=== PATIENT | female | born 1935 | race Caucasian/White ===

== ENCOUNTER 2018-11-08 15:51 | Observation (INO) | payer MEDICARE, OTHER ==
[2018-11-08] MEDS ORDERED: Sodium Chloride 0.9% 10 ML Syringe FLUSH PRN (16:24)
[2018-11-08] MEDS ORDERED: Ondansetron 4 MG/2 ML SDV IVPUSH ONE (16:35)
--- NOTE | 2018-11-08 16:37 | EDM.PDOC ---
ED HPI GENERAL MEDICAL PROBLEM - General Chief Complaint: Syncope Stated Complaint: SYNCOPE/POSS UTI Time Seen by Provider: 11/08/18 16:01 Source of Information: Reports: Patient, Family History Limitations: Reports: No Limitations - History of Present Illness INITIAL COMMENTS - FREE TEXT/NARRATIVE: The patient presents with dizziness. She describes it as being lightheaded in nature and not vertigo. She says it is worse when she gets up to move. She felt like her heart was racing this morning. She was recently diagnosed with A- fib with RVR here in the ER and she was sent to [facility]. She was just released on the . She saw Dr Cervantes on Friday. He did a UA and she had some WBCs but she had no symptoms. She currently has no symptoms such as dysuria, frequency or urgency. She has nausea but no vomiting or abdominal pain. She has no fever, chills, cough, chest pain or shortness of breath. She says she had 10/10 bilateral arm pain. She did not fall or injure her arms. She has chronic shoulder pain. She has no numbness or weakness in her arms. She did take an ultram and her pain is better. Onset: Gradual Duration: Day(s): Location: Reports: Upper Extremity, Left, Upper Extremity, Right Quality: Reports: Sharp Severity: Moderate Improves with: Reports: Immobilization Worsens with: Reports: Movement Associated Symptoms: Reports: Nausea/Vomiting. Denies: Chest Pain, Cough, Fever /Chills, Headaches, Shortness of Breath Bilateral Shoulder Pain Score (Numeric/FACES): 10 - Related Data Allergies Allergy/AdvReac Type Severity Reaction Status Date / Time codeine Allergy Rash Verified 10/25/18 12:27 iodine Allergy Rash Verified 10/25/18 12:27 metoprolol [From Toprol XL] Allergy swelling Verified 10/25/18 12:26 of lips naproxen [From Naprelan] Allergy Rash Verified 10/25/18 12:27 prednisone Allergy Other Verified 10/25/18 11:58 propoxyphene Allergy urine Verified 10/25/18 12:27 retention Home Meds: Home Meds Acetaminophen [Tylenol] 325 mg PO Q6HR PRN 11/08/18 [History] Allopurinol [Zyloprim] 100 mg PO BID 11/08/18 [History] Amiodarone HCl 400 mg PO DAILY 11/08/18 [History] Apixaban [Eliquis] 1 tab PO BID 11/08/18 [History] Ascorbic Acid 1 tab PO DAILY 11/08/18 [History] Aspirin 81 mg PO DAILY 11/08/18 [History] Bumetanide [Bumex] 1 tab PO BID 11/08/18 [History] Digoxin 125 mcg PO DAILY 11/08/18 [History] Diltiazem HCl [Diltiazem ER] 1 cap PO DAILY 11/08/18 [History] Fosinopril Sodium 0.5 tab PO DAILY 11/08/18 [History] Loratadine 1 tab PO DAILY 11/08/18 [History] Multivitamin [Multi-Vitamin Daily] 1 tab PO DAILY 11/08/18 [History] Niacin 1 tab PO DAILY 11/08/18 [History] Simvastatin 1 tab PO DAILY 11/08/18 [History] Vitamin E 1 tab PO DAILY 11/08/18 [History] traMADol [Ultram] 1 tab PO Q6HR PRN 11/08/18 [History] Past Medical History HEENT History: Reports: Impaired Vision Cardiovascular History: Reports: Afib, Arrhythmia, Heart Failure, High Cholesterol, Hypertension Respiratory History: Reports: None Gastrointestinal History: Reports: None 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: Musculoskeletal History: Reports: Back Pain, Chronic Other Musculoskeletal History: bilateral shoulder pain Endocrine/Metabolic History: Reports: Obesity/BMI 30+ Other Endocrine/Metabolic History: gout Social & Family History - Family History Family Medical History: Noncontributory - Tobacco Use Smoking Status *Q: Never Smoker - Caffeine Use Caffeine Use: Reports: Tea - Recreational Drug Use Recreational Drug Use: No ED ROS GENERAL - Review of Systems Review Of Systems: See Below Constitutional: Reports: No Symptoms HEENT: Reports: No Symptoms Respiratory: Reports: No Symptoms Cardiovascular: Reports: Lightheadedness. Denies: Chest Pain Endocrine: Reports: No Symptoms GI/Abdominal: Reports: Nausea. Denies: Abdominal Pain, Vomiting : Reports: No Symptoms Musculoskeletal: Reports: Other (Bilateral arm pain) ED EXAM, GENERAL - Physical Exam Exam: See Below Exam Limited By: No Limitations General Appearance: Alert, No Apparent Distress Ears: Normal External Exam Nose: Normal Inspection Head: Atraumatic, Normocephalic Neck: Normal Inspection Respiratory/Chest: No Respiratory Distress, Decreased Breath Sounds Cardiovascular: No Murmur, Irregularly Irregular, Other (edema in her legs) GI/Abdominal: Soft, Non-Tender, No Organomegaly, No Mass Extremities: Pedal Edema, Other (Mild pain upon palpation to both forearms and upper arms) Neurological: Alert, Oriented, No Motor/Sensory Deficits Course - Vital Signs Last Recorded V/S: Last Vital Signs Temp 97.9 F 11/08/18 16:01 Pulse 72 11/08/18 16:01 Resp 16 11/08/18 16:01 BP 139/94 H 11/08/18 16:01 Pulse Ox 99 11/08/18 16:01 - Orders/Labs/Meds Orders: Active Orders 24 hr Category Date Time Status Cardiac Monitoring [RC] . DIRECTED Care 11/08/18 16:24 Active EKG Documentation Completion [RC] STAT Care 11/08/18 16:25 Active Peripheral IV Care [RC] . DIRECTED Care 11/08/18 16:25 Active CXR [Chest 1V Frontal] [CR] Stat Exams 11/08/18 17:47 Taken DIGOXIN [CHEM] Stat Lab 11/08/18 16:40 Received Sodium Chloride 0.9% [Saline Flush] Med 11/08/18 16:24 Active 10 ml FLUSH ASDIRECTED PRN Peripheral IV Insertion Adult [OM.PC] Stat Oth 11/08/18 16:24 Ordered Medication Orders Sodium Chloride (Saline Flush) 10 ml FLUSH ASDIRECTED PRN PRN Reason: Keep Vein Open Last Admin: 11/08/18 17:00 Dose: 10 ml Labs: Laboratory Tests 11/08/18 11/08/18 11/08/18 Range/Units 16:40 16:40 16:40 WBC 8.89 (3.98-10.04) K/mm3 RBC 3.13 L (3.98-5.22) M/mm3 Hgb 10.0 L (11.2-15.7) gm/L Hct 30.6 L (34.1-44.9) % MCV 97.8 H (79.4-94.8) fl MCH 31.9 (25.6-32.2) pg MCHC 32.7 (32.2-35.5) g/dl RDW Std Deviation 45.8 (36.4-46.3) fL Plt Count 257 (182-369) K/mm3 MPV 10.6 (9.4-12.3) fl Neut % (Auto) 74.6 H (34.0-71.1) % Lymph % (Auto) 15.4 L (19.3-51.7) % [place]yer % (Auto) 8.9 (4.7-12.5) % Eos % (Auto) 0.6 L (0.7-5.8) Baso % (Auto) 0.1 (0.1-1.2) % Neut # (Auto) 6.63 H (1.56-6.13) K/mm3 Lymph # (Auto) 1.37 (1.18-3.74) K/mm3 Sawyer # (Auto) 0.79 H (0.24-0.36) K/mm3 Eos # (Auto) 0.05 (0.04-0.36) K/mm3 Baso # (Auto) 0.01 (0.01-0.08) K/mm3 Sodium 130 L (136-145) mEq/L Potassium 4.5 (3.5-5.1) mEq/L Chloride 94 L (98-107) mEq/L Carbon Dioxide 30 (21-32) mEq/L Anion Gap 10.5 (5-15) BUN 48 H (7-18) mg/dL Creatinine 1.8 H (0.55-1.02) mg/dL Est Cr Clr Drug Dosing 19.59 mL/min Estimated GFR (MDRD) 27 (>60) mL/min BUN/Creatinine Ratio 26.7 H (14-18) Glucose 134 H (83-115) mg/dL Calcium 9.7 (8.5-10.1) mg/dL Magnesium 1.5 L (1.8-2.4) mg/dl Total Bilirubin 0.5 (0.2-1.0) mg/dL AST 20 (15-37) U/L ALT 20 (14-59) U/L Alkaline Phosphatase 67 (46-116) U/L Troponin I < 0.017 (0.00-0.056) ng/mL NT-Pro-B Natriuret Pep 5299 H (0-450) pg/mL Total Protein 6.1 L (6.4-8.2) g/dl Albumin 3.6 (3.4-5.0) g/dl Globulin 2.5 gm/dL Albumin/Globulin Ratio 1.4 (1-2) Urine Color (Yellow) Urine Appearance (Clear) Urine pH (5.0-8.0) Ur Specific [place] (1.005-1.030) Urine Protein (Negative) Urine Glucose (UA) (Negative) Urine Ketones (Negative) Urine Occult Blood (Negative) Urine Nitrite (Negative) Urine Bilirubin (Negative) Urine Urobilinogen (0.2-1.0) Ur Leukocyte Esterase (Negative) Urine RBC (0-5) /hpf Urine WBC (0-5) /hpf Ur Epithelial Cells (0-5) /hpf Urine Bacteria (FEW) /hpf Urine Mucus (FEW) /hpf 11/08/18 Range/Units 17:15 WBC (3.98-10.04) K/mm3 RBC (3.98-5.22) M/mm3 Hgb (11.2-15.7) gm/L Hct (34.1-44.9) % MCV (79.4-94.8) fl MCH (25.6-32.2) pg MCHC (32.2-35.5) g/dl RDW Std Deviation (36.4-46.3) fL Plt Count (182-369) K/mm3 MPV (9.4-12.3) fl Neut % (Auto) (34.0-71.1) % Lymph % (Auto) (19.3-51.7) % Sawyer % (Auto) (4.7-12.5) % Eos % (Auto) (0.7-5.8) Baso % (Auto) (0.1-1.2) % Neut # (Auto) (1.56-6.13) K/mm3 Lymph # (Auto) (1.18-3.74) K/mm3 [place]yer # (Auto) (0.24-0.36) K/mm3 Eos # (Auto) (0.04-0.36) K/mm3 Baso # (Auto) (0.01-0.08) K/mm3 Sodium (136-145) mEq/L Potassium (3.5-5.1) mEq/L Chloride (98-107) mEq/L Carbon Dioxide (21-32) mEq/L Anion Gap (5-15) BUN (7-18) mg/dL Creatinine (0.55-1.02) mg/dL Est Cr Clr Drug Dosing mL/min Estimated GFR (MDRD) (>60) mL/min BUN/Creatinine Ratio (14-18) Glucose (83-115) mg/dL Calcium (8.5-10.1) mg/dL Magnesium (1.8-2.4) mg/dl Total Bilirubin (0.2-1.0) mg/dL AST (15-37) U/L ALT (14-59) U/L Alkaline Phosphatase (46-116) U/L Troponin I (0.00-0.056) ng/mL NT-Pro-B Natriuret Pep (0-450) pg/mL Total Protein (6.4-8.2) g/dl Albumin (3.4-5.0) g/dl Globulin gm/dL Albumin/Globulin Ratio (1-2) Urine Color Yellow (Yellow) Urine Appearance Clear (Clear) Urine pH 5.5 (5.0-8.0) Ur Specific [place] 1.010 (1.005-1.030) Urine Protein Negative (Negative) Urine Glucose (UA) Negative (Negative) Urine Ketones Negative (Negative) Urine Occult Blood Negative (Negative) Urine Nitrite Negative (Negative) Urine Bilirubin Negative (Negative) Urine Urobilinogen 0.2 (0.2-1.0) Ur Leukocyte Esterase Negative (Negative) Urine RBC Not seen (0-5) /hpf Urine WBC 0-5 (0-5) /hpf Ur Epithelial Cells 0-5 (0-5) /hpf Urine Bacteria Few (FEW) /hpf Urine Mucus Not seen (FEW) /hpf Meds: Medications Generic Name Dose Route Start Last Admin Trade Name Freq PRN Reason Stop Dose Admin Sodium Chloride 10 ml 11/08/18 16:24 11/08/18 17:00 Saline Flush FLUSH 10 ml ASDIRECTED PRN Administration Keep Vein Open Discontinued Medications Generic Name Dose Route Start Last Admin Trade Name Freq PRN Reason Stop Dose Admin Ondansetron HCl 4 mg 11/08/18 16:35 11/08/18 17:00 Zofran IVPUSH 11/08/18 16:36 4 mg ONETIME ONE Administration - Re-Assessments/Exams Free Text/Narrative Re-Assessment/Exam: 12/23/18 16:39 I ordered an IV saline lock, EKG, labs and UA. I will also give her some zofran. 11/08/18 18:04 Her EKG shows atrial fib with no acute changes. Her Hgb was low at 10. Her Na was low at 130. Her glucose was elevated at 136. Her magnesium was low at 1.5. Her troponin was negative. Her BNP was 5,299. That is elevated from the last time she was here. She is on bumex 1mg. She does have edema in her legs. I will get a CXR. 11/08/18 19:04 Her CXR looks good. I do not feel comfortable sending her home. She is dizzy and now her BP did go down to 97 systolic. She is on amiodarone, digoxin and cardizem. These could all be contributing to her problems. I called Dr Quesada and he agreed to the admission. He did want a digoxin level. I did ordered x- rays of her forearms and ultram 50mg by mouth. Departure - Departure Time of Disposition: 19:10 Disposition: Refer to Observation Condition: Good Clinical Impression: Lightheaded, Renal insufficiency Heart failure Qualifiers: Heart failure type: unspecified Heart failure chronicity: chronic Qualified Code(s): I50.9 - Heart failure, unspecified Atrial fibrillation Qualifiers: Atrial fibrillation type: chronic Qualified Code(s): I48.2 - Chronic atrial fibrillation Referrals: Branden Cervantes MD [Primary Care Provider] - Forms: ED Department Discharge - My Orders Last 24 Hours: My Active Orders 11/08/18 16:24 Cardiac Monitoring [RC] . DIRECTED Sodium Chloride 0.9% [Saline Flush] 10 ml FLUSH ASDIRECTED PRN Peripheral IV Insertion Adult [OM.PC] Stat 11/08/18 16:25 EKG Documentation Completion [RC] STAT Peripheral IV Care [RC] . DIRECTED 11/08/18 16:40 DIGOXIN [CHEM] Stat 11/08/18 17:47 CXR [Chest 1V Frontal] [CR] Stat - Assessment/Plan Last 24 Hours: My Active Orders 11/08/18 16:24 Cardiac Monitoring [RC] . DIRECTED Sodium Chloride 0.9% [Saline Flush] 10 ml FLUSH ASDIRECTED PRN Peripheral IV Insertion Adult [OM.PC] Stat 11/08/18 16:25 EKG Documentation Completion [RC] STAT Peripheral IV Care [RC] . DIRECTED 11/08/18 16:40 DIGOXIN [CHEM] Stat 11/08/18 17:47 CXR [Chest 1V Frontal] [CR] Stat
[2018-11-08] MEDS ORDERED: traMADol 50 MG Tab PO ONE (19:04)
[2018-11-08] MEDS ORDERED: Acetaminophen 325 MG Tab PO PRN ×2 (21:24→21:27)
[2018-11-08] MEDS ORDERED: Diltiazem 50 MG/10 ML SDV IVPUSH PRN (21:26)
[2018-11-08] MEDS ORDERED: hydrALAZINE 20 MG/ML SDV IVPUSH PRN (21:26)
[2018-11-08] MEDS ORDERED: LORazepam 2 MG/ML SDV IV PRN (21:27)
[2018-11-08] MEDS ORDERED: Ondansetron 4 MG/2 ML SDV IV PRN (21:27)
[2018-11-08] MEDS ORDERED: HYDROmorphone 1 MG/ML Syringe IVPUSH PRN (21:27)
[2018-11-08] MEDS ORDERED: Acetaminophen/HYDROcodone 325-5 MG Tab PO PRN (21:27)
[2018-11-08] MEDS ORDERED: Albuterol/Ipratropium 3.0-0.5 MG/3 ML Neb Soln NEB PRN (21:27)
[2018-11-08] MEDS ORDERED: Polyethylene Glycol 3350 Powder 17 GM Packet PO PRN (21:27)
[2018-11-08] MEDS ORDERED: Promethazine 6.25 MG in Sodium Chloride 0.9% 50 ML IV PRN (21:27)
[2018-11-08] MEDS ORDERED: Docusate Sodium 100 MG Cap PO PRN (21:27)
[2018-11-08] MEDS ORDERED: Bisacodyl 5 MG Tab PO PRN (21:27)
[2018-11-08] MEDS ORDERED: Bumetanide 1 MG/4 ML MDV IVPUSH ONE (21:41)
[2018-11-08] MEDS ORDERED: Magnesium Oxide 400 MG Tab PO ONE (22:00)
[2018-11-09] MEDS ORDERED: Hydrochlorothiazide 12.5 MG Cap PO SCH (06:00)
--- NOTE | 2018-11-09 06:51 | PCM.HP ---
H&P History of Present Illness - General Date of Service: 11/09/18 Admit Problem/Dx: Admission Diagnosis/Problem Admission Diagnosis/Problem Lightheadedness Source of Information: Patient, Family, Old Records, RN Notes Reviewed History Limitations: Reports: No Limitations - History of Present Illness Initial Comments - Free Text/Narative: This is an 83 yo elderly white female with past medical hx/o Impaired Vision, Atrial Fibrillation on Eliquis, ASA, Cardizem, Amiodarone and Digoxin, Heart Failure with Unknown EF, HTN, HLD, Chronic Back Pain, Chronic Bilateral Shoulder Pain, Gout, CKD Stage Stage 3 and Obesity Class I who comes in with complaints of dizziness, lightheadedness and generalized weakness. These seem to have started after her recent hospitalization in [place] for treatment of Atrial Fibrillation with RVR. She was just released on the with the following cardiac medications of Amiodarone, Digoxin and Cardizem CD. She was seen this past Friday by her PCP but no acute findings noted on her initial work up. She denies any signs of systemic infection. However she admits to having chronic shoulder pain due to OA. No report of recent trauma or falls. Her initial work up in ED shows a CBC remarkable for RBD of 3.13, Hgb of 10, Hct of 30.6, MCV of 97.8, Neutrophils of 74.6%, Lymphocytes of 15.4%, and Eosinophils of 0.6%. Her chemistry is significant for Na of 130, Cl of 94, BUN of 48, Cr of 1.8, BS of 134. Her bilateral forearm x-ray report reads degenerative change. Osteopenia. No acute fracture or abnormality is appreciated. Her chest x-ray report shows no acute abnormal findings. Patient was admitted last night for medical management of polypharmacy and Digoxin Toxicity. She is DNR/DNI. Bilateral Shoulder Pain Score (Numeric/FACES): 4 - Related Data Allergies/Adverse Reactions: Allergies Allergy/AdvReac Type Severity Reaction Status Date / Time codeine Allergy Rash Verified 10/25/18 12:27 iodine Allergy Rash Verified 10/25/18 12:27 metoprolol [From Toprol XL] Allergy swelling Verified 10/25/18 12:26 of lips naproxen [From Naprelan] Allergy Rash Verified 10/25/18 12:27 prednisone Allergy Other Verified 10/25/18 11:58 propoxyphene Allergy urine Verified 10/25/18 12:27 retention Home Medications: Home Meds Acetaminophen [Tylenol] 325 mg PO Q6HR PRN 11/08/18 [History] Allopurinol [Zyloprim] 100 mg PO BID 11/08/18 [History] Amiodarone HCl 400 mg PO DAILY 11/08/18 [History] Apixaban [Eliquis] 5 mg PO BID 11/08/18 [History] Ascorbic Acid 500 mg PO DAILY 11/08/18 [History] Aspirin 81 mg PO DAILY 11/08/18 [History] Bumetanide [Bumex] 1 mg PO BID 11/08/18 [History] Digoxin 0.125 mg PO DAILY 11/08/18 [History] Diltiazem HCl [Diltiazem ER] 120 mg PO DAILY 11/08/18 [History] Fosinopril Sodium 10 mg PO DAILY 11/08/18 [History] Loratadine 10 mg PO DAILY 11/08/18 [History] Multivitamin [Multi-Vitamin Daily] 1 tab PO DAILY 11/08/18 [History] Niacin 250 mg PO DAILY 11/08/18 [History] Simvastatin 20 mg PO DAILY 11/08/18 [History] Vitamin E 400 units PO DAILY 11/08/18 [History] traMADol [Ultram] 50 mg PO Q6HR PRN 11/08/18 [History] Past Medical History HEENT History: Reports: Cataract, Hard of Hearing, Impaired Vision Cardiovascular History: Reports: Afib, Arrhythmia, Heart Failure, High Cholesterol, Hypertension, Syncope Respiratory History: Reports: None Gastrointestinal History: Reports: None Genitourinary History: Reports: Chronic Renal Insuffiency [employer] History: Reports: Musculoskeletal History: Reports: Arthritis, Back Pain, Chronic, Gout, Other ( See Below) Other Musculoskeletal History: Chronic bilateral shoulder pain Neurological History: Reports: Vertigo Endocrine/Metabolic History: Reports: Obesity/BMI 30+ Other Endocrine/Metabolic History: gout Hematologic History: Reports: None Immunologic History: Reports: None Oncologic (Cancer) History: Reports: Other (See Below) Other Oncologic History: potential breast cancer, recent diagnossis. Dermatologic History: Reports: Other (See Below) Other Dermatologic History: cellulitis to leg right - Infectious Disease History Infectious Disease History: Reports: Chicken Pox, Measles, Shingles - Past Surgical History HEENT Surgical History: Reports: Cataract Surgery Cardiovascular Surgical History: Reports: None Female Surgical History: Reports: None Endocrine Surgical History: Reports: None Neurological Surgical History: Reports: None Musculoskeletal Surgical History: Reports: Other (See Below) Other Musculoskeletal Surgeries/Procedures:: knee repair Other Oncologic Surgeries/Procedures: titanium tag in breast for marking Social & Family History - Family History Family Medical History: Noncontributory - Tobacco Use Smoking Status *Q: Never Smoker Second Hand Smoke Exposure: No - Caffeine Use Caffeine Use: Reports: Tea - Recreational Drug Use Recreational Drug Use: No H&P Review of Systems - Review of Systems: Review Of Systems: See Below General: Reports: Weakness. Denies: Fever, Chills, Malaise, Fatigue HEENT: Reports: No Symptoms Pulmonary: Reports: Shortness of Breath Cardiovascular: Reports: Edema, Lightheadedness. Denies: Chest Pain, Palpitations, Syncope, Blood Pressure Problem Gastrointestinal: Reports: No Symptoms Genitourinary: Reports: No Symptoms Musculoskeletal: Reports: Shoulder Pain Skin: Reports: Bruising. Denies: Cyanosis, Pallor, Diaphoresis, Pruritis, Rash , Wound, Lesions Psychiatric: Denies: Confusion, Depression, Anxiety, Agitation, Hallucinations Neurological: Reports: Dizziness, Weakness, Gait Disturbance, Other. Denies: Confusion, Difficulty Walking Hematologic/Lymphatic: Reports: Easy Bruising Immunologic: Reports: No Symptoms Exam - Exam Exam: See Below - Vital Signs Vital Signs: Last Vital Signs Temp 36.6 C 11/09/18 04:21 Pulse 70 11/09/18 04:21 Resp 16 11/09/18 04:21 BP 123/52 L 11/09/18 04:21 Pulse Ox 92 L 11/09/18 04:21 Weight: 80.558 kg - Exam General: Alert, Oriented, Cooperative, Mild Distress HEENT: Conjunctiva Clear, EACs Clear, EOMI, Mucosa Moist & Globe, Nares Patent, Normal Nasal Septum, Posterior Pharynx Clear, Pupils Equal, Pupils Reactive. No : Hearing Intact Neck: Supple, Trachea Midline, Full Range of Motion. No: JVD Lungs: Clear to Auscultation, Normal Respiratory Effort Cardiovascular: Regular Rate, Regular Rhythm GI/Abdominal Exam: Normal Bowel Sounds, Non-Tender, No Organomegaly, No Distention, No Abnormal Bruit, No Mass (Female) Exam: Deferred Rectal (Female) Exam: Deferred Back Exam: Normal Inspection, Decreased Range of Motion Extremities: Normal Inspection, Normal Range of Motion, Non-Tender, Normal Capillary Refill, Pedal Edema, Other (bilateral lower extremity nonpitting edema ) Peripheral Pulses: 1+: Posterior Tibial (L), Posterior Tibial (R), Dorsalis Pedis (L), Dorsalis Pedis (R) Skin: Warm, Dry, Intact Neuro Extensive - Mental Status: Oriented x3, Normal Cognition, Memory Intact Neuro Extensive - Motor, Sensory, Reflexes: CN II-XII Intact. No: Abnormal Gait Psychiatric: Alert, Normal Affect, Normal Mood - Patient Data Lab Results Last 24 hrs: Laboratory Results - last 24 hr 11/08/18 11/08/18 11/08/18 Range/Units 16:40 16:40 16:40 WBC 8.89 (3.98-10.04) K/mm3 RBC 3.13 L (3.98-5.22) M/mm3 Hgb 10.0 L (11.2-15.7) gm/L Hct 30.6 L (34.1-44.9) % MCV 97.8 H (79.4-94.8) fl MCH 31.9 (25.6-32.2) pg MCHC 32.7 (32.2-35.5) g/dl RDW Std Deviation 45.8 (36.4-46.3) fL Plt Count 257 (182-369) K/mm3 MPV 10.6 (9.4-12.3) fl Neut % (Auto) 74.6 H (34.0-71.1) % Lymph % (Auto) 15.4 L (19.3-51.7) % Lyman % (Auto) 8.9 (4.7-12.5) % Eos % (Auto) 0.6 L (0.7-5.8) Baso % (Auto) 0.1 (0.1-1.2) % Neut # (Auto) 6.63 H (1.56-6.13) K/mm3 Lymph # (Auto) 1.37 (1.18-3.74) K/mm3 Lyman # (Auto) 0.79 H (0.24-0.36) K/mm3 Eos # (Auto) 0.05 (0.04-0.36) K/mm3 Baso # (Auto) 0.01 (0.01-0.08) K/mm3 Sodium 130 L (136-145) mEq/L Potassium 4.5 (3.5-5.1) mEq/L Chloride 94 L (98-107) mEq/L Carbon Dioxide 30 (21-32) mEq/L Anion Gap 10.5 (5-15) BUN 48 H (7-18) mg/dL Creatinine 1.8 H (0.55-1.02) mg/dL Est Cr Clr Drug Dosing 19.59 mL/min Estimated GFR (MDRD) 27 (>60) mL/min BUN/Creatinine Ratio 26.7 H (14-18) Glucose 134 H (83-115) mg/dL Calcium 9.7 (8.5-10.1) mg/dL Magnesium 1.5 L (1.8-2.4) mg/dl Total Bilirubin 0.5 (0.2-1.0) mg/dL AST 20 (15-37) U/L ALT 20 (14-59) U/L Alkaline Phosphatase 67 (46-116) U/L Troponin I < 0.017 (0.00-0.056) ng/mL NT-Pro-B Natriuret Pep 5299 H (0-450) pg/mL Total Protein 6.1 L (6.4-8.2) g/dl Albumin 3.6 (3.4-5.0) g/dl Globulin 2.5 gm/dL Albumin/Globulin Ratio 1.4 (1-2) Vitamin D 25-Hydroxy (30.0-100.0) ng/ml Free T4 (0.76-1.46) ng/dL TSH 3rd Generation (0.358-3.74) uIU/mL Urine Color (Yellow) Urine Appearance (Clear) Urine pH (5.0-8.0) Ur Specific [place] (1.005-1.030) Urine Protein (Negative) Urine Glucose (UA) (Negative) Urine Ketones (Negative) Urine Occult Blood (Negative) Urine Nitrite (Negative) Urine Bilirubin (Negative) Urine Urobilinogen (0.2-1.0) Ur Leukocyte Esterase (Negative) Urine RBC (0-5) /hpf Urine WBC (0-5) /hpf Ur Epithelial Cells (0-5) /hpf Urine Bacteria (FEW) /hpf Urine Mucus (FEW) /hpf Digoxin (0.9-2.0) ng/mL 11/08/18 11/08/18 11/08/18 Range/Units 16:40 17:15 17:15 WBC (3.98-10.04) K/mm3 RBC (3.98-5.22) M/mm3 Hgb (11.2-15.7) gm/L Hct (34.1-44.9) % MCV (79.4-94.8) fl MCH (25.6-32.2) pg MCHC (32.2-35.5) g/dl RDW Std Deviation (36.4-46.3) fL Plt Count (182-369) K/mm3 MPV (9.4-12.3) fl Neut % (Auto) (34.0-71.1) % Lymph % (Auto) (19.3-51.7) % Lyman % (Auto) (4.7-12.5) % Eos % (Auto) (0.7-5.8) Baso % (Auto) (0.1-1.2) % Neut # (Auto) (1.56-6.13) K/mm3 Lymph # (Auto) (1.18-3.74) K/mm3 Lyman # (Auto) (0.24-0.36) K/mm3 Eos # (Auto) (0.04-0.36) K/mm3 Baso # (Auto) (0.01-0.08) K/mm3 Sodium (136-145) mEq/L Potassium (3.5-5.1) mEq/L Chloride (98-107) mEq/L Carbon Dioxide (21-32) mEq/L Anion Gap (5-15) BUN (7-18) mg/dL Creatinine (0.55-1.02) mg/dL Est Cr Clr Drug Dosing mL/min Estimated GFR (MDRD) (>60) mL/min BUN/Creatinine Ratio (14-18) Glucose (83-115) mg/dL Calcium (8.5-10.1) mg/dL Magnesium (1.8-2.4) mg/dl Total Bilirubin (0.2-1.0) mg/dL AST (15-37) U/L ALT (14-59) U/L Alkaline Phosphatase (46-116) U/L Troponin I (0.00-0.056) ng/mL NT-Pro-B Natriuret Pep (0-450) pg/mL Total Protein (6.4-8.2) g/dl Albumin (3.4-5.0) g/dl Globulin gm/dL Albumin/Globulin Ratio (1-2) Vitamin D 25-Hydroxy (30.0-100.0) ng/ml Free T4 (0.76-1.46) ng/dL TSH 3rd Generation (0.358-3.74) uIU/mL Urine Color Yellow Yellow (Yellow) Urine Appearance Clear Clear (Clear) Urine pH 5.5 6.0 (5.0-8.0) Ur Specific [place] 1.010 1.010 (1.005-1.030) Urine Protein Negative Negative (Negative) Urine Glucose (UA) Negative Negative (Negative) Urine Ketones Negative Negative (Negative) Urine Occult Blood Negative Negative (Negative) Urine Nitrite Negative Negative (Negative) Urine Bilirubin Negative Negative (Negative) Urine Urobilinogen 0.2 0.2 (0.2-1.0) Ur Leukocyte Esterase Negative Negative (Negative) Urine RBC Not seen Not seen (0-5) /hpf Urine WBC 0-5 0-5 (0-5) /hpf Ur Epithelial Cells 0-5 0-5 (0-5) /hpf Urine Bacteria Few Few (FEW) /hpf Urine Mucus Not seen Few (FEW) /hpf Digoxin 2.7 H (0.9-2.0) ng/mL 11/08/18 11/08/18 11/09/18 Range/Units 21:48 21:48 05:07 WBC 5.75 (3.98-10.04) K/mm3 RBC 2.76 L (3.98-5.22) M/mm3 Hgb 8.8 L (11.2-15.7) gm/L Hct 27.7 L (34.1-44.9) % MCV 100.4 H (79.4-94.8) fl MCH 31.9 (25.6-32.2) pg MCHC 31.8 L (32.2-35.5) g/dl RDW Std Deviation 47.0 H (36.4-46.3) fL Plt Count 231 (182-369) K/mm3 MPV 10.9 (9.4-12.3) fl Neut % (Auto) 68.2 (34.0-71.1) % Lymph % (Auto) 21.2 (19.3-51.7) % Lyman % (Auto) 8.3 (4.7-12.5) % Eos % (Auto) 1.6 (0.7-5.8) Baso % (Auto) 0.2 (0.1-1.2) % Neut # (Auto) 3.92 (1.56-6.13) K/mm3 Lymph # (Auto) 1.22 (1.18-3.74) K/mm3 Lyman # (Auto) 0.48 H (0.24-0.36) K/mm3 Eos # (Auto) 0.09 (0.04-0.36) K/mm3 Baso # (Auto) 0.01 (0.01-0.08) K/mm3 Sodium (136-145) mEq/L Potassium (3.5-5.1) mEq/L Chloride (98-107) mEq/L Carbon Dioxide (21-32) mEq/L Anion Gap (5-15) BUN (7-18) mg/dL Creatinine (0.55-1.02) mg/dL Est Cr Clr Drug Dosing mL/min Estimated GFR (MDRD) (>60) mL/min BUN/Creatinine Ratio (14-18) Glucose (83-115) mg/dL Calcium (8.5-10.1) mg/dL Magnesium (1.8-2.4) mg/dl Total Bilirubin (0.2-1.0) mg/dL AST (15-37) U/L ALT (14-59) U/L Alkaline Phosphatase (46-116) U/L Troponin I (0.00-0.056) ng/mL NT-Pro-B Natriuret Pep (0-450) pg/mL Total Protein (6.4-8.2) g/dl Albumin (3.4-5.0) g/dl Globulin gm/dL Albumin/Globulin Ratio (1-2) Vitamin D 25-Hydroxy 58.8 (30.0-100.0) ng/ml Free T4 1.32 (0.76-1.46) ng/dL TSH 3rd Generation 5.522 H (0.358-3.74) uIU/mL Urine Color (Yellow) Urine Appearance (Clear) Urine pH (5.0-8.0) Ur Specific [place] (1.005-1.030) Urine Protein (Negative) Urine Glucose (UA) (Negative) Urine Ketones (Negative) Urine Occult Blood (Negative) Urine Nitrite (Negative) Urine Bilirubin (Negative) Urine Urobilinogen (0.2-1.0) Ur Leukocyte Esterase (Negative) Urine RBC (0-5) /hpf Urine WBC (0-5) /hpf Ur Epithelial Cells (0-5) /hpf Urine Bacteria (FEW) /hpf Urine Mucus (FEW) /hpf Digoxin (0.9-2.0) ng/mL Result Diagrams: 11/09/18 05:07 11/09/18 05:07 EKG INTERPRETATION EKG Date: 11/09/18 Time: 06:09 Rhythm: Other (Sinus Rhythm) Rate (Beats/Min): 66 [place]: Normal P-Wave: Present QRS: Normal ST-T: Normal QT: Normal Problem List Initiated/Reviewed/Updated: Yes Orders Last 24hrs: Active Orders 24 hr Category Date Time Status Patient Status [ADT] Routine ADT 11/08/18 19:59 Active Cardiac Monitoring [RC] . DIRECTED Care 11/08/18 16:24 Inactive Cardiac Monitoring [RC] CONTINUOUS Care 11/08/18 21:28 Active Height and Weight [RC] 04 Care 11/08/18 21:27 Active Intake and Output [RC] 04,16 Care 11/08/18 21:27 Active Oxygen Therapy [RC] PRN Care 11/08/18 21:27 Active RT Aerosol Therapy [RC] ASDIRECTED Care 11/08/18 21:29 Active Up With Assistance [RC] BID Care 11/08/18 21:27 Active Up ad Tamiko [RC] BID Care 11/08/18 21:27 Active VTE/DVT Education [RC] DAILY Care 11/08/18 21:27 Active Vital Signs [RC] Q4HR Care 11/08/18 21:27 Active Consult to Case Management/Churn Driller [CONS] Cons 11/08/18 21:27 Active Routine Consult to Spiritual Care [CONS] Routine Cons 11/08/18 21:27 Active OT Evaluation and Treatment [CONS] Routine Cons 11/08/18 21:27 Active PT Evaluation and Treatment [CONS] Routine Cons 11/08/18 21:27 Active Heart Healthy Diet [DIET] Diet 11/08/18 Dinner Active CXR [Chest 1V Frontal] [CR] Stat Exams 11/08/18 17:47 Taken Carotid Comp [US] Routine Exams 11/09/18 07:00 Ordered Forearm 2V Lt [CR] Stat Exams 11/08/18 19:04 Taken Forearm 2V Rt [CR] Stat Exams 11/08/18 19:04 Taken AMIODARONE (CORDARONE(R)), S [REF] Stat Lab 11/08/18 21:48 Received BASIC METABOLIC PANEL,BMP [CHEM] AM Lab 11/09/18 05:07 Received BASIC METABOLIC PANEL,BMP [CHEM] AM Lab 11/10/18 05:11 Ordered BASIC METABOLIC PANEL,BMP [CHEM] AM Lab 11/11/18 05:11 Ordered BASIC METABOLIC PANEL,BMP [CHEM] AM Lab 11/12/18 05:11 Ordered CKMB [CHEM] AM Lab 11/09/18 05:07 Received CULTURE URINE [RM] Stat Lab 11/08/18 17:15 Received DIGOXIN [CHEM] AM Lab 11/10/18 05:11 Ordered MAGNESIUM [CHEM] AM Lab 11/09/18 05:07 Received MAGNESIUM [CHEM] AM Lab 11/10/18 05:11 Ordered MAGNESIUM [CHEM] AM Lab 11/11/18 05:11 Ordered MAGNESIUM [CHEM] AM Lab 11/12/18 05:11 Ordered PRO B-TYPE NATRIUR PEPT,BNPPRO [CHEM] Routine Lab 11/09/18 05:07 Received TROPONIN I [CHEM] AM Lab 11/09/18 05:07 Received Acetaminophen [Tylenol] Med 11/08/18 21:24 Active 325 mg PO Q6HR PRN Acetaminophen [Tylenol] Med 11/08/18 21:27 Active 650 mg PO Q4H PRN Acetaminophen/HYDROcodone [Orange 325-5 MG] Med 11/08/18 21:27 Active 1 tab PO Q4H PRN Albuterol/Ipratropium [DuoNeb 3.0-0.5 MG/3 ML] Med 11/08/18 21:27 Active 3 ml NEB Q4H PRN Amiodarone HCl [Amiodarone HCl] Med 11/09/18 09:00 Pending 200 mg PO DAILY Apixaban [Eliquis] Med 11/09/18 09:00 Pending 1 tab PO BID Ascorbic Acid [Ascorbic Acid] Med 11/09/18 09:00 Pending 1 tab PO DAILY Aspirin [Halfprin] Med 11/09/18 09:00 Active 81 mg PO DAILY Bisacodyl [Dulcolax] Med 11/08/18 21:27 Active 5 mg PO DAILY PRN Bumetanide [Bumex] Med 11/09/18 06:00 Pending 1 tab PO BIDDIURETIC Diltiazem HCl [Diltiazem ER] Med 11/09/18 09:00 Pending 1 cap PO DAILY Diltiazem [Cardizem] Med 11/08/18 21:26 Active 5 mg IVPUSH Q4H PRN Docusate Sodium [Colace] Med 11/08/18 21:27 Active 100 mg PO BID PRN Docusate Sodium/Sennosides [Senna Plus] Med 11/08/18 21:27 Active 1 tab PO BID PRN Fosinopril Sodium [Fosinopril Sodium] Med 11/09/18 09:00 Pending 0.5 tab PO DAILY HYDROmorphone [Dilaudid] Med 11/08/18 21:27 Active 0.25 mg IVPUSH Q2H PRN LORazepam [Ativan] Med 11/08/18 21:27 Active 0.25 mg IV Q6H PRN Loratadine [Loratadine] Med 11/09/18 09:00 Pending 1 tab PO DAILY Multivitamin Med 11/09/18 09:00 Pending 1 tab PO DAILY Niacin [Niacin] Med 11/09/18 09:00 Pending 1 tab PO DAILY Ondansetron [Zofran] Med 11/08/18 21:27 Active 4 mg IV Q6H PRN Pharmacy to Dose - Magnesium R [Pharmacy to Dose - Med 11/08/18 21:30 Pending Magnesium Replacement] 1 dose .XX ASDIRECTED Pharmacy to Dose - Potassium R [Pharmacy to Dose - Med 11/08/18 21:30 Pending Potassium Replacement] 1 dose .XX ASDIRECTED Polyethylene Glycol 3350 [MiraLAX] Med 11/08/18 21:27 Active 17 gm PO DAILY PRN Promethazine [Phenergan] 6.25 mg Med 11/08/18 21:27 Active Sodium Chloride 0.9% [Normal Saline] 50 ml IV Q6H Sodium Chloride 0.9% [Saline Flush] Med 11/08/18 16:24 Active 10 ml FLUSH ASDIRECTED PRN Vitamin E [Vitamin E] Med 11/09/18 09:00 Pending 1 tab PO DAILY hydrALAZINE [Apresoline] Med 11/08/18 21:26 Active 10 mg IVPUSH Q4H PRN hydroCHLOROthiazide Med 11/09/18 06:00 Active 12.5 mg PO BIDDIURETIC traMADol [Ultram] Med 11/08/18 21:24 Pending 1 tab PO Q6HR PRN Peripheral IV Insertion Adult [OM.PC] Stat Oth 11/08/18 16:24 Ordered Resuscitation Status Routine Resus Stat 11/08/18 20:42 Ordered Medication Orders Acetaminophen (Tylenol) 325 mg PO Q6HR PRN PRN Reason: Fever Greater Than 101 Acetaminophen (Tylenol) 650 mg PO Q4H PRN PRN Reason: Pain (Mild 1-3)/fever Hydrocodone Bitart/Acetaminophen (Orange 325-5 Mg) 1 tab PO Q4H PRN PRN Reason: Pain (moderate 4-6) Last Admin: 11/09/18 06:17 Dose: 1 tab Albuterol/Ipratropium (Duoneb 3.0-0.5 Mg/3 Ml) 3 ml NEB Q4H PRN PRN Reason: Shortness Of Breath/wheezing Aspirin (Halfprin) 81 mg PO DAILY LEEANNE Bisacodyl (Dulcolax) 5 mg PO DAILY PRN PRN Reason: Constipation Diltiazem HCl (Cardizem) 5 mg IVPUSH Q4H PRN PRN Reason: tachycardiac Docusate Sodium (Colace) 100 mg PO BID PRN PRN Reason: Constipation Hydralazine HCl (Apresoline) 10 mg IVPUSH Q4H PRN PRN Reason: Hypertension Hydrochlorothiazide (Hydrochlorothiazide) 12.5 mg PO BIDDIURETIC LEEANNE Last Admin: 11/09/18 06:12 Dose: 12.5 mg Hydromorphone HCl (Dilaudid) 0.25 mg IVPUSH Q2H PRN PRN Reason: Pain (severe 7-10) Promethazine HCl 6.25 mg/ (Sodium Chloride) 50.25 mls @ 100 mls/hr IV Q6H PRN PRN Reason: Nausea/Vomiting Lorazepam (Ativan) 0.25 mg IV Q6H PRN PRN Reason: Anxiety Magnesium Sulfate (Pharmacy To Dose - Magnesium Replacement) 1 dose .XX ASDIRECTED LEEANNE Non-Formulary Medication (Amiodarone Hcl [Amiodarone Hcl]) 200 mg PO DAILY LEEANNE Non-Formulary Medication (Apixaban [Eliquis]) 1 tab PO BID LEEANNE Non-Formulary Medication (Ascorbic Acid [Ascorbic Acid]) 1 tab PO DAILY LEEANNE Non-Formulary Medication (Diltiazem Hcl [Diltiazem Er]) 1 cap PO DAILY LEEANNE Non-Formulary Medication (Fosinopril Sodium [Fosinopril Sodium]) 0.5 tab PO DAILY LEEANNE Non-Formulary Medication (Loratadine [Loratadine]) 1 tab PO DAILY LEEANNE Non-Formulary Medication (Multivitamin) 1 tab PO DAILY LEEANNE Non-Formulary Medication (Niacin [Niacin]) 1 tab PO DAILY LEEANNE Non-Formulary Medication (Tramadol [Ultram]) 1 tab PO Q6HR PRN PRN Reason: Pain Non-Formulary Medication (Vitamin E [Vitamin E]) 1 tab PO DAILY LEEANNE Non-Formulary Medication (Bumetanide [Bumex]) 1 tab PO BIDDIURETIC LEEANNE Ondansetron HCl (Zofran) 4 mg IV Q6H PRN PRN Reason: Nausea/Vomiting Polyethylene Glycol (Miralax) 17 gm PO DAILY PRN PRN Reason: Constipation Potassium Chloride (Pharmacy To Dose - Potassium Replacement) 1 dose .XX ASDIRECTED [facility] Senna/Docusate Sodium (Senna Plus) 1 tab PO BID PRN PRN Reason: Constipation Sodium Chloride (Saline Flush) 10 ml FLUSH ASDIRECTED PRN PRN Reason: Keep Vein Open Last Admin: 11/08/18 17:00 Dose: 10 ml Assessment/Plan Comment:: Assessment/Plan: Acute: Digoxin Toxicity - Symptomatic: Lightheadedness, Generalized Weakness, Nausea - Digoxin Level 2.7 (2 upper limit of normal) - Risk Factors: Polypharmacy: Amdiodarone, Cardizem and Statin - Hold Digoxin and Cut down Amiodarone dose to 200 mg po daily - Repeat Digoxin level Peripheral Edema - Likely 2/2 vascular insufficiency - She is on CCB which is contributory to her edema - Also explains why her ProBNP level is elevated - Compression stockings - Thyroid Panel: FT4 (normal), TSH 5.522 (slightly elevated) Elevated ProBNP level - Carries a hx/o Heart Failure with Unknown EF - Will obtain recent 2D echo report from [place] - ProBNP 5299 --> 4407 - Serial CE x 2 so far are negative - 2L fluid daily restriction - She is not in acute heart failure; no signs of central oveload - Her chest x-ray is unremarkable and she is clear on pulmonary auscultation Hypomagnesemia - Mg 1.5 --> 1.8 - 2/2 inadequate intake - Replete and monitor 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 - Baseline GFR is 47 (stage 3); now 27 (Stage 4) - Consider KVO at 20 cc/hr - Consider holding off diuretic today Anemia - Baseline Hgb 11.7 10/25/2018 - Hgb now 10 --> 8.8 (suspect hemodilution); she recieved some fluid in ED - R/o GI bleed since she is on ASA and Eliquis - Fecal occult test and Iron Panel - Continue to monitor Chronic: Impaired Vision Atrial Fibrillation on Eliquis, ASA, Cardizem, Amiodarone and Digoxin Heart Failure with Unknown EF HTN HLD Back Pain Bilateral Shoulder Pain Gout CKD Stage Stage 3 Obesity Class I Plan: Admitted to [facility] last night. She feels better today than yesterday. Resume Home Meds Routine AM labs Amiodarone level Carotid Studies today Dietary consult for weight management Heart healthy and 2L fluid restriction Obtain 2D echo or recent cardiac work up report from [place] PT/OT consult DVT/GI PPx SW/CM for d/c planning Additional orders as above Continue HHS upon discharge Code status: DNR
--- NOTE | 2018-11-09 08:18 | CR ---
Right forearm: Two views of the right forearm were obtained. Comparison: No previous study. 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 Bony structures are osteopenic. No acute fracture or other abnormality is appreciated. Impression: 1. Degenerative change as noted above. Osteopenia. 2. Two-view right forearm study is otherwise unremarkable. Diagnostic code #2
--- NOTE | 2018-11-09 08:18 | CR ---
Chest: Portable view of the chest was obtained. Comparison: Prior chest x-ray of 10/25/18. Heart size and mediastinum are within normal limits for portable technique. Lungs are clear. Bony structures are grossly intact. Impression: 1. Nothing acute is seen. Diagnostic code #1
--- NOTE | 2018-11-09 08:18 | CR ---
Left forearm: Two views of the left forearm were obtained. Comparison: No prior left forearm study. Bony structures are osteopenic. Degenerative change is noted at the carpometacarpal joint of the thumb. Small calcification which is well-corticated is seen off the medial epicondyle of the distal humerus which is old. No fracture or other abnormality is appreciated. Impression: 1. Osteopenia. Other incidental findings. 2. Nothing acute is seen. Diagnostic code #2
[2018-11-09] MEDS ORDERED: AMIODARONE HCL 200 MG PO SCH (09:00)
[2018-11-09] MEDS ORDERED: BUMETANIDE PO SCH (09:00)
[2018-11-09] MEDS ORDERED: FOSINOPRIL SODIUM PO SCH (09:00)
[2018-11-09] MEDS ORDERED: APIXABAN PO SCH (09:00)
[2018-11-09] MEDS ORDERED: VITAMIN E PO SCH (09:00)
[2018-11-09] MEDS ORDERED: NIACIN PO SCH (09:00)
[2018-11-09] MEDS: Ascorbic Acid 500 MG Tab PO SCH (09:20)
[2018-11-09] MEDS: Aspirin 81 MG Tab.EC PO SCH (09:20)
[2018-11-09] MEDS: Multivitamins,Therapeutic Tab PO SCH (09:20)
[2018-11-09] MEDS: Apixaban 5 MG Tab PO SCH ×2 (13:16→21:47)
[2018-11-09] MEDS: TRAMADOL 50 MG PO PRN ×2 (13:16→21:48)
--- NOTE | 2018-11-09 14:15 | US ---
Carotid ultrasound: Duplex and color flow imaging was obtained of the carotid arteries. Comparison: No prior carotid imaging. Intimal thickening seen on both sides. Homogeneous smooth plaque identified within the right carotid bulb. Right side: CCA has a peak systolic velocity of 1.26 m/sec. ICA has a peak systolic velocity of 1.78 m/sec and peak end-diastolic velocity of 0.29 m/sec. ECA has a peak systolic velocity of 1.32 m/sec. ICA/CCA ratio is 1.4. Vertebral artery has a peak systolic velocity of 1.24. Left side: CCA has a peak systolic velocity of 2.07 m/sec. ICA has a peak systolic velocity of 1.22 m/sec and peak end-diastolic velocity of 0.21 m/sec. ECA has a peak systolic velocity of 0.93 m/sec. ICA/CCA ratio is 0.6. Vertebral artery has a peak systolic velocity of 0.91. Impression: 1. Mild amount of plaque. 2. Velocity measurements within the right internal carotid artery correspond to stenosis at the lower range of 50-79%. 3. Elevated velocity measurement within the left common carotid artery possibly representing nonvisualized stenosis of around 50%. 4. Velocity measurements within the left internal carotid artery correspond to stenosis in the range of 1-49%. Diagnostic code #3
[2018-11-09] MEDS ORDERED: DIPHENHYDRAMINE 25 MG PO PRN (18:29)
[2018-11-09] MEDS ORDERED: Benzonatate 100 MG Cap PO PRN (18:29)
[2018-11-09] MEDS ORDERED: [UNRECOGNIZED DRUG - REMARK] PO PRN (18:29)
[2018-11-10] MEDS: BUMETANIDE 1 MG PO SCH ×4 (03:16→15:17)
[2018-11-10] MEDS: Loratadine 10 MG Tab PO SCH ×2 (03:16→09:44)
[2018-11-10] MEDS: DILTIAZEM 120 MG PO SCH ×2 (03:16→09:44)
[2018-11-10] MEDS ORDERED: AMIODARONE 200 MG PO SCH (04:24)
[2018-11-10] MEDS ORDERED: Furosemide 40 MG Tab**PT OWN PO SCH (06:00)
--- NOTE | 2018-11-10 07:56 | PCM.PN ---
- General Info Date of Service: 11/10/18 Admission Dx/Problem (Free Text): Admission Diagnosis/Problem Admission Diagnosis/Problem Lightheadedness Subjective Update: Follow Up Functional Status: Reports: Pain Controlled, Tolerating Diet, Ambulating, Urinating. Denies: New Symptoms - Review of Systems General: Denies: Fever, Weakness, Fatigue, Malaise, Chills HEENT: Reports: No Symptoms Pulmonary: Denies: Shortness of Breath Cardiovascular: Reports: Edema. Denies: Chest Pain, Palpitations, Dyspnea on Exertion, Lightheadedness Gastrointestinal: Denies: Abdominal Pain, Decreased Appetite, Nausea, Vomiting Genitourinary: Reports: No Symptoms Musculoskeletal: Reports: No Symptoms Skin: Denies: Cyanosis Neurological: Reports: Gait Disturbance. Denies: Confusion, Dizziness, Syncope , Difficulty Walking, Weakness Psychiatric: Denies: Confusion, Mood Lability, Anxiety, Agitation, Hallucinations Systems Review Comment:: No overnight or acute issues. She feels pretty good. She has no complaints except she has not had a bowel movement. She normally goes everyday. Her Digoxin level is now 3, slightly up since admission. No report of abnormal heart rate via telemetry. - Patient Data Vitals - Most Recent: Last Vital Signs Temp 36.6 C 11/10/18 05:53 Pulse 74 11/10/18 05:53 Resp 16 11/10/18 05:53 BP 110/82 11/10/18 05:53 Pulse Ox 90 L 11/10/18 05:53 Weight - Most Recent: 80.467 kg I&O - Last 24 Hours: Intake & Output 11/09/18 11/10/18 11/10/18 22:59 06:59 14:59 Intake Total 520 400 Output Total 800 750 Balance -280 -350 Lab Results Last 24 Hours: Laboratory Results - last 24 hr 11/09/18 11/10/18 Range/Units 05:07 05:09 Sodium 137 (136-145) mEq/L Potassium 4.9 (3.5-5.1) mEq/L Chloride 98 (98-107) mEq/L Carbon Dioxide 33 H (21-32) mEq/L Anion Gap 10.9 (5-15) BUN 37 H (7-18) mg/dL Creatinine 1.7 H (0.55-1.02) mg/dL Est Cr Clr Drug Dosing 20.73 mL/min Estimated GFR (MDRD) 29 (>60) mL/min BUN/Creatinine Ratio 21.8 H (14-18) Glucose 118 H (83-115) mg/dL Calcium 9.9 (8.5-10.1) mg/dL Magnesium 2.1 (1.8-2.4) mg/dl Iron 54 (50-170) ug/dL TIBC 351 (100-400) ug/dL % Saturation 15 L (20-55) % Transferrin 281 (202-364) mg/dL Digoxin 3.0 H (0.9-2.0) ng/mL Med Orders - Current: Current Medications Acetaminophen (Tylenol) 325 mg PO Q6HR PRN PRN Reason: Fever Greater Than 101 Acetaminophen (Tylenol) 650 mg PO Q4H PRN PRN Reason: Pain (Mild 1-3)/fever Hydrocodone Bitart/Acetaminophen ([place] 325-5 Mg) 1 tab PO Q4H PRN PRN Reason: Pain (moderate 4-6) Last Admin: 11/09/18 06:17 Dose: 1 tab Albuterol/Ipratropium (Duoneb 3.0-0.5 Mg/3 Ml) 3 ml NEB Q4H PRN PRN Reason: Shortness Of Breath/wheezing Amiodarone HCl (Cordarone) 400 mg PO DAILY [facility] Stop: 11/24/18 09:01 Amiodarone HCl (Cordarone) 200 mg PO DAILY [facility] Apixaban (Eliquis) 2.5 mg PO BID [facility] Last Admin: 11/09/18 21:47 Dose: 2.5 mg Ascorbic Acid (Vitamin C) 500 mg PO DAILY [facility] Last Admin: 11/09/18 09:20 Dose: 500 mg Aspirin (Halfprin) 81 mg PO DAILY [facility] Last Admin: 11/09/18 09:20 Dose: 81 mg Benzonatate (Tessalon Perles) 100 mg PO TID PRN PRN Reason: Cough Bisacodyl (Dulcolax) 5 mg PO DAILY PRN PRN Reason: Constipation Bumetanide (Bumex) 1 mg PO BIDDIURETIC [facility] Last Admin: 11/10/18 06:31 Dose: 1 mg Diltiazem HCl (Cardizem) 5 mg IVPUSH Q4H PRN PRN Reason: tachycardiac Diltiazem HCl (Cardizem Cd) 120 mg PO DAILY [facility] Last Admin: 11/10/18 03:16 Dose: Not Given Diphenhydramine HCl (Benadryl) 25 mg PO Q6H PRN PRN Reason: Allergies Docusate Sodium (Colace) 100 mg PO BID PRN PRN Reason: Constipation Furosemide (Lasix) 40 mg PO BIDDIURETIC [facility] Last Admin: 11/10/18 06:31 Dose: 40 mg Hydralazine HCl (Apresoline) 10 mg IVPUSH Q4H PRN PRN Reason: Hypertension Hydrochlorothiazide (Hydrochlorothiazide) 12.5 mg PO BIDDIURETIC [facility] Hydromorphone HCl (Dilaudid) 0.25 mg IVPUSH Q2H PRN PRN Reason: Pain (severe 7-10) Promethazine HCl 6.25 mg/ (Sodium Chloride) 50.25 mls @ 100 mls/hr IV Q6H PRN PRN Reason: Nausea/Vomiting Loratadine (Claritin) 10 mg PO DAILY [facility] Last Admin: 11/10/18 03:16 Dose: Not Given Lorazepam (Ativan) 0.25 mg IV Q6H PRN PRN Reason: Anxiety Magnesium Sulfate (Pharmacy To Dose - Magnesium Replacement) 1 dose .XX ASDIRECTED [facility] Multivitamins (Thera) 1 each PO DAILY [facility] Last Admin: 11/09/18 09:20 Dose: 1 each Niacin (Niaspan) 500 mg PO DAILY [facility] Fosinopril Sodium [ Fosinopril Sodium] 20mg Pt Own 0.5 tab PO DAILY [facility] Ondansetron HCl (Zofran) 4 mg IV Q6H PRN PRN Reason: Nausea/Vomiting Polyethylene Glycol (Miralax) 17 gm PO DAILY PRN PRN Reason: Constipation Potassium Chloride (Pharmacy To Dose - Potassium Replacement) 1 dose .XX ASDIRECTED [facility] Senna/Docusate Sodium (Senna Plus) 1 tab PO BID PRN PRN Reason: Constipation Sodium Chloride (Saline Flush) 10 ml FLUSH ASDIRECTED PRN PRN Reason: Keep Vein Open Last Admin: 11/08/18 17:00 Dose: 10 ml Tramadol HCl (Ultram) 50 mg PO Q6H PRN PRN Reason: PAIN Last Admin: 11/09/18 21:48 Dose: 50 mg Discontinued Medications Bumetanide (Bumex) 0.5 mg IVPUSH ONETIME ONE Stop: 11/08/18 21:42 Last Admin: 11/08/18 22:31 Dose: 0.5 mg Hydrochlorothiazide (Hydrochlorothiazide) 12.5 mg PO BIDDIURETIC [facility] Last Admin: 11/09/18 06:12 Dose: 12.5 mg Magnesium Oxide (Magnesium Oxide) 400 mg PO ONETIME ONE Stop: 11/08/18 22:01 Last Admin: 11/08/18 22:30 Dose: 400 mg Amiodarone Hcl [ Amiodarone Hcl] 200 MgPt Own 400 mg PO DAILY [facility] Non-Formulary Medication (Bumetanide [Bumex]) 1 tab PO BID [facility] Non-Formulary Medication (Fosinopril Sodium [Fosinopril Sodium]) 0.5 tab PO DAILY [facility] Non-Formulary Medication (Niacin [Niacin]) 1 tab PO DAILY [facility] Non-Formulary Medication (Vitamin E [Vitamin E]) 1 tab PO DAILY [facility] Non-Formulary Medication (Cetirizine Hcl [All Day Allergy]) 10 mg PO DAILY PRN PRN Reason: Allergies Ondansetron HCl (Zofran) 4 mg IVPUSH ONETIME ONE Stop: 11/08/18 16:36 Last Admin: 11/08/18 17:00 Dose: 4 mg Tramadol HCl (Ultram) 50 mg PO ONETIME ONE Stop: 11/08/18 19:05 Last Admin: 11/08/18 19:26 Dose: 50 mg - Exam General: Alert, Cooperative, No Acute Distress HEENT: Pupils Equal, Pupils Reactive, EOMI, Mucous Membr. Moist/[place] Neck: Supple Lungs: Clear to Auscultation, Normal Respiratory Effort Cardiovascular: Regular Rate, Regular Rhythm GI/Abdominal Exam: Normal Bowel Sounds, Soft, Non-Tender, No Organomegaly, No Distention, No Abnormal Bruit (Female) Exam: Deferred Back Exam: Normal Inspection, Decreased Range of Motion Extremities: Normal Inspection, Normal Range of Motion, Non-Tender, No Pedal Edema, Normal Capillary Refill, Other (bilateral lower extremity pitting edema 2 +) Peripheral Pulses: 1+: Dorsalis Pedis (L), Dorsalis Pedis (R) Skin: Warm, Dry, Intact Neurological: No New Focal Deficit. No: Normal Gait Psy/Mental Status: Alert, Normal Affect, Normal Mood - Problem List Review Problem List Initiated/Reviewed/Updated: Yes - My Orders Last 24 Hours: My Active Orders 11/25/18 09:00 Amiodarone [Cordarone] 200 mg PO DAILY 11/09/18 09:00 Ascorbic Acid [Vitamin C] 500 mg PO DAILY Aspirin [Halfprin] 81 mg PO DAILY Diltiazem [Cardizem CD] 120 mg PO DAILY Loratadine [Claritin] 10 mg PO DAILY Multivitamins,Therapeutic [Thera] 1 each PO DAILY 11/09/18 09:10 Hemoccult [OCCULT BLOOD DIAGNOSTIC] [OP] Routine 11/09/18 09:14 Consult to Dietary [Consult to [place]] [CONS] Routine 11/09/18 13:00 Apixaban [Eliquis] 2.5 mg PO BID 11/09/18 13:15 traMADol [Ultram] 50 mg PO Q6H PRN 11/09/18 18:29 Benzonatate [Tessalon Perles] 100 mg PO TID PRN diphenhydrAMINE [Benadryl] 25 mg PO Q6H PRN 11/09/18 Lunch Fluid Restriction [DIET] 11/10/18 04:24 Amiodarone [Cordarone] 400 mg PO DAILY 11/10/18 06:00 Furosemide [Lasix] 40 mg PO BIDDIURETIC 11/10/18 07:53 CBC WITH AUTO DIFF [HEME] Urgent 11/10/18 07:54 Echo Comp wo Cont [US] Routine 11/10/18 09:00 Niacin [Niaspan] 500 mg PO DAILY 11/11/18 05:11 BASIC METABOLIC PANEL,BMP [CHEM] AM CBC WITH AUTO DIFF [HEME] AM MAGNESIUM [CHEM] AM 11/12/18 05:11 BASIC METABOLIC PANEL,BMP [CHEM] AM CBC WITH AUTO DIFF [HEME] AM MAGNESIUM [CHEM] AM 11/12/18 09:30 hydroCHLOROthiazide 12.5 mg PO BIDDIURETIC 11/13/18 05:11 CBC WITH AUTO DIFF [HEME] AM 11/13/18 09:00 Fosinopril Sodium [Fosinopril Sodium] 0.5 tab PO DAILY - Plan Plan:: Assessment/Plan: Acute: Digoxin Toxicity - Symptomatic: Lightheadedness, Generalized Weakness, Nausea - Digoxin Level 2.7 (2 upper limit of normal) --> 3 - Risk Factors: Polypharmacy: Amiodarone, Cardizem and Statin - Continue to Hold Digoxin Peripheral Edema - Likely 2/2 vascular insufficiency - She is on CCB which is contributory to her edema - Also explains why her ProBNP level is elevated - Compression stockings/ROBERTO Bandage - Thyroid Panel: FT4 (normal), TSH 5.522 (slightly elevated) Elevated ProBNP level - Carries a hx/o Heart Failure with Unknown EF - Will obtain recent 2D echo report from [place]; 2D echo in AM - ProBNP 5299 --> 4407 - Serial CE x 2 so far are negative - 2L fluid daily restriction - Bumex and low dose Hctz - She is not in acute heart failure; no signs of central overload - Her chest x-ray is unremarkable and she is clear on pulmonary auscultation Oliguric Renal Failure, 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; this could be here new baseline - Baseline GFR is 47 (stage 3); now 27 (Stage 4) - Consider KVO at 20 cc/hr Constipation - Bisacodyl RS PRN - Colace 1 tab po BID for Stool Softener Resolved: Hypomagnesemia - Mg 1.5 --> 1.8 --> 2.1 - 2/2 inadequate intake - Replete and monitor Anemia - Baseline Hgb 11.7 10/25/2018 - Hgb now 10 --> 8.8 (suspect hemodilution)--> 9.2; she received some fluid in ED - R/o GI bleed since she is on ASA and Eliquis - Fecal occult test and Iron Panel - Continue to monitor Chronic: Impaired Vision Atrial Fibrillation on Eliquis, HR, controlled ASA, Cardizem, Amiodarone and Digoxin. Plan to just keep her on Amiodarone and Cardizem Heart Failure with Unknown EF HTN HLD Back Pain Bilateral Shoulder Pain Gout Carotid Stenosis CKD Stage Stage 3 Obesity Class I Plan: She is clinically stable Routine AM labs Amiodarone level- pending Continue PT/OT DVT/GI PPx SW/CM for d/c planning Additional orders as above Recommend SNF/NH Code status: DNR LOS > 96 hrs pending placement. With patient's permission, discussed lab results , clinical progress, and treatment plan with her son. Informed Delgado, her digoxin level still continues to go up even though we stopped her dose since admission. Patient seems to be doing just fine with Cardizem and Amiodarone. Her son agreed we may just have to keep mom on those 2 drugs to eliminate the need for digoxin for toxicity concern.
[2018-11-10] MEDS ORDERED: Bisacodyl 10 MG Supp RECTAL PRN (08:47)
[2018-11-10] MEDS: Niacin 500 MG Tab.ER PO SCH (09:44)
[2018-11-10] MEDS: Apixaban 5 MG Tab PO SCH ×2 (09:44→20:00)
[2018-11-10] MEDS: Ascorbic Acid 500 MG Tab PO SCH (09:44)
[2018-11-10] MEDS: Multivitamins,Therapeutic Tab PO SCH (09:44)
[2018-11-10] MEDS: Docusate Sodium 100 MG Cap PO SCH ×2 (09:44→21:15)
[2018-11-10] MEDS: Aspirin 81 MG Tab.EC PO SCH (09:50)
[2018-11-10] MEDS: TRAMADOL 50 MG PO PRN ×2 (09:59→19:59)
[2018-11-11] MEDS: BUMETANIDE 1 MG PO SCH ×2 (06:51→13:09)
[2018-11-11] MEDS: DILTIAZEM 120 MG PO SCH (08:14)
[2018-11-11] MEDS: Loratadine 10 MG Tab PO SCH (08:16)
[2018-11-11] MEDS: Apixaban 5 MG Tab PO SCH ×2 (08:17→20:21)
[2018-11-11] MEDS: Aspirin 81 MG Tab.EC PO SCH (08:17)
[2018-11-11] MEDS: Docusate Sodium 100 MG Cap PO SCH ×2 (08:17→20:24)
[2018-11-11] MEDS: Niacin 500 MG Tab.ER PO SCH (08:18)
[2018-11-11] MEDS: Ascorbic Acid 500 MG Tab PO SCH ×2 (08:18→20:23)
[2018-11-11] MEDS: Multivitamins,Therapeutic Tab PO SCH (08:18)
--- NOTE | 2018-11-11 11:08 | PCM.PN ---
- General Info Date of Service: 11/11/18 Admission Dx/Problem (Free Text): Admission Diagnosis/Problem Admission Diagnosis/Problem Lightheadedness Subjective Update: Follow Up Functional Status: Reports: Pain Controlled, Tolerating Diet, Ambulating, Urinating. Denies: New Symptoms - Review of Systems General: Denies: Fever, Weakness, Fatigue, Malaise, Chills HEENT: Reports: No Symptoms Pulmonary: Denies: Shortness of Breath Cardiovascular: Denies: Chest Pain, Palpitations, Lightheadedness Gastrointestinal: Denies: Abdominal Pain, Nausea, Vomiting Genitourinary: Reports: No Symptoms Musculoskeletal: Denies: Neck Pain Skin: Denies: Cyanosis, Mottled, Diaphoresis Neurological: Denies: Dizziness, Syncope, Trouble Speaking, Difficulty Walking, Weakness Psychiatric: Denies: Depression, Anxiety, Agitation, Hallucinations Systems Review Comment:: No overnight or acute issues. She slept well last night. She has no complaints this AM. - Patient Data Vitals - Most Recent: Last Vital Signs Temp 36.4 C 11/11/18 08:13 Pulse 81 11/11/18 08:14 Resp 20 11/11/18 08:11 BP 154/72 H 11/11/18 08:14 Pulse Ox 95 11/11/18 08:12 Weight - Most Recent: 79.061 kg I&O - Last 24 Hours: Intake & Output 11/10/18 11/11/18 11/11/18 22:59 06:59 14:59 Intake Total 400 200 120 Output Total 1450 1600 Balance -1050 -1400 120 Lab Results Last 24 Hours: Laboratory Results - last 24 hr 11/11/18 11/11/18 11/11/18 Range/Units 05:33 05:33 05:33 WBC 5.31 (3.98-10.04) K/mm3 RBC 2.74 L (3.98-5.22) M/mm3 Hgb 8.6 L (11.2-15.7) gm/L Hct 27.7 L (34.1-44.9) % MCV 101.1 H (79.4-94.8) fl MCH 31.4 (25.6-32.2) pg MCHC 31.0 L (32.2-35.5) g/dl RDW Std Deviation 47.3 H (36.4-46.3) fL Plt Count 202 (182-369) K/mm3 MPV 10.6 (9.4-12.3) fl Neut % (Auto) 66.8 (34.0-71.1) % Lymph % (Auto) 20.7 (19.3-51.7) % Braxton % (Auto) 10.4 (4.7-12.5) % Eos % (Auto) 1.7 (0.7-5.8) Baso % (Auto) 0.2 (0.1-1.2) % Neut # (Auto) 3.55 (1.56-6.13) K/mm3 Lymph # (Auto) 1.10 L (1.18-3.74) K/mm3 Braxton # (Auto) 0.55 H (0.24-0.36) K/mm3 Eos # (Auto) 0.09 (0.04-0.36) K/mm3 Baso # (Auto) 0.01 (0.01-0.08) K/mm3 Sodium 138 (136-145) mEq/L Potassium 4.1 (3.5-5.1) mEq/L Chloride 99 (98-107) mEq/L Carbon Dioxide 33 H (21-32) mEq/L Anion Gap 10.1 (5-15) BUN 31 H (7-18) mg/dL Creatinine 1.5 H (0.55-1.02) mg/dL Est Cr Clr Drug Dosing 23.50 mL/min Estimated GFR (MDRD) 33 (>60) mL/min BUN/Creatinine Ratio 20.7 H (14-18) Glucose 121 H (83-115) mg/dL Calcium 9.7 (8.5-10.1) mg/dL Magnesium 1.8 (1.8-2.4) mg/dl Iron (50-170) ug/dL TIBC (100-400) ug/dL % Saturation (20-55) % Transferrin (202-364) mg/dL NT-Pro-B Natriuret Pep 695 H (0-450) pg/mL 11/11/18 Range/Units 05:33 WBC (3.98-10.04) K/mm3 RBC (3.98-5.22) M/mm3 Hgb (11.2-15.7) gm/L Hct (34.1-44.9) % MCV (79.4-94.8) fl MCH (25.6-32.2) pg MCHC (32.2-35.5) g/dl RDW Std Deviation (36.4-46.3) fL Plt Count (182-369) K/mm3 MPV (9.4-12.3) fl Neut % (Auto) (34.0-71.1) % Lymph % (Auto) (19.3-51.7) % Braxton % (Auto) (4.7-12.5) % Eos % (Auto) (0.7-5.8) Baso % (Auto) (0.1-1.2) % Neut # (Auto) (1.56-6.13) K/mm3 Lymph # (Auto) (1.18-3.74) K/mm3 Braxton # (Auto) (0.24-0.36) K/mm3 Eos # (Auto) (0.04-0.36) K/mm3 Baso # (Auto) (0.01-0.08) K/mm3 Sodium (136-145) mEq/L Potassium (3.5-5.1) mEq/L Chloride (98-107) mEq/L Carbon Dioxide (21-32) mEq/L Anion Gap (5-15) BUN (7-18) mg/dL Creatinine (0.55-1.02) mg/dL Est Cr Clr Drug Dosing mL/min Estimated GFR (MDRD) (>60) mL/min BUN/Creatinine Ratio (14-18) Glucose (83-115) mg/dL Calcium (8.5-10.1) mg/dL Magnesium (1.8-2.4) mg/dl Iron 30 L (50-170) ug/dL TIBC 378 (100-400) ug/dL % Saturation 8 L (20-55) % Transferrin 302 (202-364) mg/dL NT-Pro-B Natriuret Pep (0-450) pg/mL [facility] Results Last 24 Hours: Microbiology 11/11/18 10:00 Stool Occult Blood (OSCAR) - Final Stool / Feces POSITIVE OCCULT BLOOD 11/08/18 17:15 Urine Culture - Final Urine, Clean Catch NO GROWTH AFTER 2 DAYS Med Orders - Current: Current Medications Acetaminophen (Tylenol) 325 mg PO Q6HR PRN PRN Reason: Fever Greater Than 101 Acetaminophen (Tylenol) 650 mg PO Q4H PRN PRN Reason: Pain (Mild 1-3)/fever Hydrocodone Bitart/Acetaminophen ([place] 325-5 Mg) 1 tab PO Q4H PRN PRN Reason: Pain (moderate 4-6) Last Admin: 11/09/18 06:17 Dose: 1 tab Albuterol/Ipratropium (Duoneb 3.0-0.5 Mg/3 Ml) 3 ml NEB Q4H PRN PRN Reason: Shortness Of Breath/wheezing Amiodarone HCl (Cordarone) 200 mg PO DAILY [facility] Apixaban (Eliquis) 2.5 mg PO BID [facility] Last Admin: 11/11/18 08:17 Dose: 2.5 mg Ascorbic Acid (Vitamin C) 500 mg PO DAILY [facility] Last Admin: 11/11/18 08:18 Dose: 500 mg Aspirin (Halfprin) 81 mg PO DAILY [facility] Last Admin: 11/11/18 08:17 Dose: 81 mg Benzonatate (Tessalon Perles) 100 mg PO TID PRN PRN Reason: Cough Bisacodyl (Dulcolax) 5 mg PO DAILY PRN PRN Reason: Constipation Last Admin: 11/10/18 19:59 Dose: 5 mg Bisacodyl (Dulcolax) 10 mg RECTAL BID PRN PRN Reason: Constipation Last Admin: 11/11/18 08:20 Dose: 10 mg Bumetanide (Bumex) 1 mg PO BIDDIURETIC [facility] Last Admin: 11/11/18 06:51 Dose: 1 mg Diltiazem HCl (Cardizem) 5 mg IVPUSH Q4H PRN PRN Reason: tachycardiac Diltiazem HCl (Cardizem Cd) 120 mg PO DAILY [facility] Last Admin: 11/11/18 08:14 Dose: 120 mg Diphenhydramine HCl (Benadryl) 25 mg PO Q6H PRN PRN Reason: Allergies Docusate Sodium (Colace) 100 mg PO BID [facility] Last Admin: 11/11/18 08:17 Dose: Not Given Hydralazine HCl (Apresoline) 10 mg IVPUSH Q4H PRN PRN Reason: Hypertension Hydrochlorothiazide (Hydrochlorothiazide) 12.5 mg PO BIDDIURETIC [facility] Hydromorphone HCl (Dilaudid) 0.25 mg IVPUSH Q2H PRN PRN Reason: Pain (severe 7-10) Promethazine HCl 6.25 mg/ (Sodium Chloride) 50.25 mls @ 100 mls/hr IV Q6H PRN PRN Reason: Nausea/Vomiting Loratadine (Claritin) 10 mg PO DAILY [facility] Last Admin: 11/11/18 08:16 Dose: 10 mg Lorazepam (Ativan) 0.25 mg IV Q6H PRN PRN Reason: Anxiety Magnesium Sulfate (Pharmacy To Dose - Magnesium Replacement) 1 dose .XX ASDIRECTED [facility] Multivitamins (Thera) 1 each PO DAILY [facility] Last Admin: 11/11/18 08:18 Dose: 1 each Niacin (Niaspan) 500 mg PO DAILY [facility] Last Admin: 11/11/18 08:18 Dose: 500 mg Fosinopril Sodium [ Fosinopril Sodium] 20mg Pt Own 0.5 tab PO DAILY [facility] Ondansetron HCl (Zofran) 4 mg IV Q6H PRN PRN Reason: Nausea/Vomiting Polyethylene Glycol (Miralax) 17 gm PO DAILY PRN PRN Reason: Constipation Potassium Chloride (Pharmacy To Dose - Potassium Replacement) 1 dose .XX ASDIRECTED [facility] Senna/Docusate Sodium (Senna Plus) 1 tab PO BID PRN PRN Reason: Constipation Last Admin: 11/11/18 08:18 Dose: 1 tab Sodium Chloride (Saline Flush) 10 ml FLUSH ASDIRECTED PRN PRN Reason: Keep Vein Open Last Admin: 11/08/18 17:00 Dose: 10 ml Tramadol HCl (Ultram) 50 mg PO Q6H PRN PRN Reason: PAIN Last Admin: 11/10/18 19:59 Dose: 50 mg Discontinued Medications Amiodarone HCl (Cordarone) 400 mg PO DAILY [facility] Stop: 11/24/18 09:01 Bumetanide (Bumex) 0.5 mg IVPUSH ONETIME ONE Stop: 11/08/18 21:42 Last Admin: 11/08/18 22:31 Dose: 0.5 mg Docusate Sodium (Colace) 100 mg PO BID PRN PRN Reason: Constipation Furosemide (Lasix) 40 mg PO BIDDIURETIC [facility] Last Admin: 11/10/18 06:31 Dose: 40 mg Hydrochlorothiazide (Hydrochlorothiazide) 12.5 mg PO BIDDIURETIC [facility] Last Admin: 11/09/18 06:12 Dose: 12.5 mg Magnesium Oxide (Magnesium Oxide) 400 mg PO ONETIME ONE Stop: 11/08/18 22:01 Last Admin: 11/08/18 22:30 Dose: 400 mg Amiodarone Hcl [ Amiodarone Hcl] 200 MgPt Own 400 mg PO DAILY [facility] Last Admin: 11/10/18 08:21 Dose: Not Given Non-Formulary Medication (Bumetanide [Bumex]) 1 tab PO BID [facility] Non-Formulary Medication (Fosinopril Sodium [Fosinopril Sodium]) 0.5 tab PO DAILY [facility] Non-Formulary Medication (Niacin [Niacin]) 1 tab PO DAILY [facility] Non-Formulary Medication (Vitamin E [Vitamin E]) 1 tab PO DAILY [facility] Non-Formulary Medication (Cetirizine Hcl [All Day Allergy]) 10 mg PO DAILY PRN PRN Reason: Allergies Ondansetron HCl (Zofran) 4 mg IVPUSH ONETIME ONE Stop: 11/08/18 16:36 Last Admin: 11/08/18 17:00 Dose: 4 mg Tramadol HCl (Ultram) 50 mg PO ONETIME ONE Stop: 11/08/18 19:05 Last Admin: 11/08/18 19:26 Dose: 50 mg - Exam General: Alert, Cooperative, No Acute Distress HEENT: Pupils Equal, Pupils Reactive, EOMI, Mucous Membr. Moist/[place] Neck: Supple Lungs: Clear to Auscultation, Normal Respiratory Effort Cardiovascular: Regular Rate, Regular Rhythm GI/Abdominal Exam: Normal Bowel Sounds, Soft, Non-Tender, No Organomegaly, No Distention, No Abnormal Bruit, No Mass (Female) Exam: Deferred Back Exam: Normal Inspection, Decreased Range of Motion Extremities: Normal Inspection, Normal Range of Motion, Non-Tender, No Pedal Edema, Normal Capillary Refill, Pedal Edema, Other (bilateral lower extremity edema 1+ (improved)) Peripheral Pulses: 2+: Dorsalis Pedis (L), Dorsalis Pedis (R) Skin: Warm, Dry, Intact Neurological: No New Focal Deficit Psy/Mental Status: Alert, Normal Affect, Normal Mood - Problem List Review Problem List Initiated/Reviewed/Updated: Yes - My Orders Last 24 Hours: My Active Orders 11/25/18 09:00 Amiodarone [Cordarone] 200 mg PO DAILY 11/10/18 10:19 ROBERTO Bandage [Elastic Wrap] [OM.PC] Routine 11/11/18 07:54 Echo Comp wo Cont [US] Routine 11/12/18 05:11 BASIC METABOLIC PANEL,BMP [CHEM] AM CBC WITH AUTO DIFF [HEME] AM MAGNESIUM [CHEM] AM 11/12/18 09:30 hydroCHLOROthiazide 12.5 mg PO BIDDIURETIC 11/13/18 05:11 CBC WITH AUTO DIFF [HEME] AM 11/13/18 09:00 Fosinopril Sodium [Fosinopril Sodium] 0.5 tab PO DAILY - Plan Plan:: Assessment/Plan: Acute: Digoxin Toxicity - Symptomatic: Lightheadedness, Generalized Weakness, Nausea - Digoxin Level 2.7 (2 upper limit of normal) --> 30; repeat level in AM - Risk Factors: Polypharmacy: Amiodarone, Cardizem and Statin - Continue to Hold Digoxin Peripheral Edema, Improved - Likely 2/2 vascular insufficiency - She is on CCB which is contributory to her edema - Also explains why her ProBNP level is elevated - Compression stockings/ROBERTO Bandage - Thyroid Panel: FT4 (normal), TSH 5.522 (slightly elevated) Elevated ProBNP level - Carries a hx/o Heart Failure with Unknown EF - Will obtain recent 2D echo report from [place]; 2D echo in AM - ProBNP 5299 --> 4407 --> 695 - Serial CE x 2 so far are negative - 2L fluid daily restriction - Bumex and low dose Hctz - She is not in acute heart failure; no signs of central overload - Her chest x-ray is unremarkable and she is clear on pulmonary auscultation Oliguric Renal Failure, Improved - Acute on Chronic; this could be here new baseline - Baseline GFR is 47 (stage 3); now 27 (Stage 4) - Consider KVO at 20 cc/hr Anemia - Baseline Hgb 11.7 10/25/2018 - Hgb now 10 --> 8.8 (suspect hemodilution)--> 9.2; she received some fluid in ED; 8.6 today - R/o GI bleed since she is on ASA and Eliquis - Fecal occult test and Iron Panel (mildly abnormal) - Continue to monitor Resolved: Hypomagnesemia - Mg 1.5 --> 1.8 --> 2.1 - 2/2 inadequate intake - Replete and monitor Constipation - Bisacodyl RS PRN - Colace 1 tab po BID for Stool Softener Chronic: Impaired Vision Atrial Fibrillation on Eliquis, HR, controlled ASA, Cardizem, Amiodarone and Digoxin. Plan to just keep her on Amiodarone and Cardizem Heart Failure with Unknown EF HTN HLD Back Pain Bilateral Shoulder Pain Gout Carotid Stenosis CKD Stage Stage 3 Obesity Class I Plan: She remains clinically stable Routine AM labs 2D echo today Amiodarone level- pending Continue PT/OT DVT/GI PPx SW/CM for d/c planning Additional orders as above Recommend SNF/NH Code status: DNR LOS > 96 hrs pending placement. With patient's permission, clinical progress, and treatment plan with her son.
[2018-11-11] MEDS: TRAMADOL 50 MG PO PRN (12:01)
[2018-11-11] MEDS ORDERED: Amiodarone 200 MG Tab **PTOM PO ONE (13:00)
[2018-11-11] MEDS ORDERED: Pantoprazole 40 MG Vial IVPUSH ONE (15:12)
[2018-11-11] MEDS: Famotidine 20 MG Tab PO SCH (20:22)
[2018-11-11] MEDS: Iron Polysaccharides Complex 150 MG Cap PO SCH (20:24)
[2018-11-12] MEDS ORDERED: Bumetanide 1 MG Tab PO SCH (06:00)
[2018-11-12] MEDS ORDERED: Amiodarone 200 MG Tab **PTOM PO SCH (09:00)
[2018-11-12] MEDS ORDERED: Magnesium Oxide 400 MG Tab PO ONE (09:15)
--- NOTE | 2018-11-12 09:16 | PCM.DCSUM1 ---
Discharge Summary - Hospital Course HPI Initial Comments: This is an 83 yo elderly white female with past medical hx/o Impaired Vision, Atrial Fibrillation on Eliquis, ASA, Cardizem, Amiodarone and Digoxin, Heart Failure with Unknown EF, HTN, HLD, Chronic Back Pain, Chronic Bilateral Shoulder Pain, Gout, CKD Stage Stage 3 and Obesity Class I who comes in with complaints of dizziness, lightheadedness and generalized weakness. These seem to have started after her recent hospitalization in [place] for treatment of Atrial Fibrillation with RVR. She was just released on the with the following cardiac medications of Amiodarone, Digoxin and Cardizem CD. She was seen this past Friday by her PCP but no acute findings noted on her initial work up. She denies any signs of systemic infection. However she admits to having chronic shoulder pain due to OA. No report of recent trauma or falls. Her initial work up in ED shows a CBC remarkable for RBD of 3.13, Hgb of 10, Hct of 30.6, MCV of 97.8, Neutrophils of 74.6%, Lymphocytes of 15.4%, and Eosinophils of 0.6%. Her chemistry is significant for Na of 130, Cl of 94, BUN of 48, Cr of 1.8, BS of 134. Her bilateral forearm x-ray report reads degenerative change. Osteopenia. No acute fracture or abnormality is appreciated. Her chest x-ray report shows no acute abnormal findings. Patient was admitted last night for medical management of polypharmacy and Digoxin Toxicity. She is DNR/DNI. Diagnosis: Stroke: No - Discharge Data Discharge Date: 11/12/18 (Admit date: 11/08/18) Discharge Disposition: DC/Tfer to SNF 03 Condition: Good - Discharge Diagnosis/Problem(s) (1) Anemia SNOMED Code(s): 094630050 ICD Code: D64.9 - ANEMIA, UNSPECIFIED Status: Acute Priority: High Current Visit: Yes Qualifiers: Anemia type: other cause Other causes of anemia: other cause, not classified Qualified Code(s): D64.89 - Other specified anemias (2) Hypomagnesemia SNOMED Code(s): 586205997 ICD Code: E83.42 - HYPOMAGNESEMIA Status: Acute Priority: High Current Visit: Yes (3) Lightheaded SNOMED Code(s): 032936790 ICD Code: R42 - DIZZINESS AND GIDDINESS Status: Acute Priority: High Current Visit: Yes (4) Atrial fibrillation SNOMED Code(s): 62140134 ICD Code: I48.91 - UNSPECIFIED ATRIAL FIBRILLATION Status: Chronic Priority: High Current Visit: Yes Qualifiers: Atrial fibrillation type: paroxysmal Qualified Code(s): I48.0 - Paroxysmal atrial fibrillation (5) Peripheral edema SNOMED Code(s): 221904640 ICD Code: R60.9 - EDEMA, UNSPECIFIED Status: Chronic Priority: High Current Visit: Yes (6) Renal insufficiency SNOMED Code(s): 177126581, 806663685 ICD Code: N28.9 - DISORDER OF KIDNEY AND URETER, UNSPECIFIED Status: Chronic Priority: High Current Visit: Yes (7) Digoxin toxicity SNOMED Code(s): 22163090 ICD Code: T46.0X1A - POISONING BY CARDI-STIM GLYCOS/DRUG SIMLAR ACT, ACC, INIT Status: Resolved Priority: High Current Visit: Yes Qualifiers: Encounter type: initial encounter Injury intent: accidental or unintentional Qualified Code(s): T46.0X1A - Poisoning by cardiac-stimulant glycosides and drugs of similar action, accidental (unintentional), initial encounter - Patient Summary/Data Consults: Consultations 11/08/18 21:27 Consult to Case Management/Parts Back Counter Man [CONS] Routine Consult to Spiritual Care [CONS] Routine OT Evaluation and Treatment [CONS] Routine PT Evaluation and Treatment [CONS] Routine 11/09/18 09:14 Consult to Dietary [Consult to Country Director] [CONS] Routine Labs Pending at D/C: None Recommended Follow-up Testing/Procedures: Follow-up with Dr. Horn at appointment scheduled today. Follow-up with PCP within 1 week Follow-up with general surgery/GI for follow-up with her positive occult and anemia. Continue PT/OT at SNF Hospital Course: Assessment/Plan: Acute: Digoxin Toxicity, Resolved - Symptomatic: Lightheadedness, Generalized Weakness, Nausea - Digoxin Level 2.7 (2 upper limit of normal) --> 3.0; repeat level in AM 1.8 - Risk Factors: Polypharmacy: Amiodarone, Cardizem and Statin - Continue to Hold Digoxin Peripheral Edema, Improved - Likely 2/2 vascular insufficiency - She is on CCB which is contributory to her edema - Also explains why her ProBNP level is elevated - Compression stockings/ROBERTO Bandage - Thyroid Panel: FT4 (normal), TSH 5.522 (slightly elevated) Elevated ProBNP level - Carries a hx/o Heart Failure with Unknown EF - Will obtain recent 2D echo report from [place]; 2D echo in AM - ProBNP 5299 --> 4407 --> 695 - Serial CE x 2 so far are negative - 2L fluid daily restriction - Bumex and low dose Hctz - She is not in acute heart failure; no signs of central overload - Her chest x-ray is unremarkable and she is clear on pulmonary auscultation Oliguric Renal Failure, Improved - Acute on Chronic; this could be here new baseline - Baseline GFR is 47 (stage 3); now 31 (Stage 4) - Consider KVO at 20 cc/hr Anemia - Baseline Hgb 11.7 10/25/2018 - Hgb now 10 --> 8.8 (suspect hemodilution)--> 9.2; she received some fluid in ED; 8.9 today - R/o GI bleed since she is on ASA and Eliquis - Fecal occult test (positive) and Iron Panel (mildly abnormal) - Continue to monitor Hypomagnesemia - Mg 1.5 --> 1.8 --> 2.1-->1.7 - 2/2 inadequate intake - Replete and monitor - Supplemented prior to discharge Resolved: Constipation - Bisacodyl RS PRN - Colace 1 tab po BID for Stool Softener Chronic: Impaired Vision Atrial Fibrillation on Eliquis, HR, controlled ASA, Cardizem, Amiodarone and Digoxin. Plan to just keep her on Amiodarone and Cardizem Heart Failure with Unknown EF HTN HLD Back Pain Bilateral Shoulder Pain Gout Carotid Stenosis CKD Stage Stage 3 Obesity Class I Plan: She remains clinically stable Routine AM labs 2D echo 11/11/18 1. LVEF, by visual estimation, is 70-75% 2. Normal right ventricular systolic function 3. There is mild aortic valve sclerosis without stenosis 4. Mild mitral valve regurgitation 5. Mild tricuspid valve regurgitation 6. The right ventricular systolic pressure is moderately elevated at 51.2 mmHg. 7. No regional wall motion abnormalities Amiodarone level- 1.8 Continue PT/OT DVT/GI PPx SW/CM for d/c planning Additional orders as above Recommend SNF/NH Code status: DNR LOS > 96 hrs pending placement. With patient's permission, clinical progress, and treatment plan with her son. Overall Tameka did well. She came into our ED and was admitted with dizziness 2/2 digoxin toxicity, elevated Pro-BNP, periphreal edema, and renal failure. Her Digoxin level was 2.7 and was held. Her digoxin level continued to trend down and was 1.[address] Quesada reviewed her medications and discontinued her digoxin. He also changed her amiodarone level to 200mg daily. While here her Hgb was noted to be lower than her baseline. Fecal occult was obtained and was found to be positive. She was started on iron 325mg BID. This was discussed with patient and her son and the decision was made for her to follow-up with this outpatient. She should follow-up with GI/GS in the near future. Her ASA was stopped as well. Her eliquis will be continued. Echo was obtained as above. Her magnesium was low here and this was supplemented as needed. She continued to have bilateral shoulder pain and has an appointment today with Dr. Horn for bilateral shoulder injections. She remained on the surveillance monitor while here and no abnormalities were noted prior to discharge with the exception of some very mild bradycardia. She will be discharged today and return to [facility]. Dr. Quesada will contact PCP for update. - Patient Instructions Diet: Heart Healthy Diet Activity: As Tolerated Driving: Do Not Drive Notify Provider of: Fever, Increased Pain, Nausea and/or Vomiting Other/Special Instructions: - Please take all new medications as directed. - Resume all home medications and routine home activities per PT/OT. - Recommend GI/GS eval for Hemoccult Positive and Anemia. - Recommend check BP and HR. Show log on follow up appointment with PCP. - Call or follow up with your PCP for any questions or concerns after discharge. - Follow up with your PCP in 1 week. - Come back or seek immediate care should your symptoms persist or get worse - Discharge Plan *PRESCRIPTION DRUG MONITORING PROGRAM REVIEWED*: No *COPY OF PRESCRIPTION DRUG MONITORING REPORT IN PATIENT GRANT: No Prescriptions/Med Rec: Amiodarone [Cordarone] 200 mg PO DAILY #30 tab Ferrous Sulfate [Iron] 325 mg PO BID #60 tablet Home Medications: Home Meds Acetaminophen [Tylenol] 325 mg PO Q6HR PRN 11/08/18 [History] Allopurinol [Zyloprim] 100 mg PO BID 11/08/18 [History] Bumetanide [Bumex] 1 mg PO BID 11/08/18 [History] Fosinopril Sodium 10 mg PO DAILY 11/08/18 [History] Loratadine 10 mg PO DAILY 11/08/18 [History] Multivitamin [Multi-Vitamin Daily] 1 tab PO DAILY 11/08/18 [History] Simvastatin 20 mg PO DAILY 11/08/18 [History] Vitamin E 400 units PO DAILY 11/08/18 [History] traMADol [Ultram] 50 mg PO Q6HR PRN 11/08/18 [History] Benzonatate [Tessalon Perle] 100 mg PO TID PRN 11/09/18 [History] Cetirizine HCl [All Day Allergy] 10 mg PO DAILY PRN 11/09/18 [History] Niacin 500 mg PO DAILY 11/09/18 [History] Ultimate Tendon Support. 2 tab PO DAILY 11/09/18 [History] diphenhydrAMINE [Benadryl] 25 mg PO Q6HR PRN 11/09/18 [History] Amiodarone [Cordarone] 200 mg PO DAILY #30 tab 11/12/18 [Rx] Apixaban [Eliquis] 2.5 mg PO BID #30 11/12/18 [Rx] Ascorbic Acid 500 mg PO BID #30 11/12/18 [Rx] Diltiazem HCl [Diltiazem ER] 120 mg PO DAILY #0 11/12/18 [Rx] Ferrous Sulfate [Iron] 325 mg PO BID #60 tablet 11/12/18 [Rx] Oxygen Therapy Mode: Room Air Patient Handouts: Digoxin Toxicity, Anemia, Hypomagnesemia, Chronic Kidney Disease, Adult, [id number], Heart Failure, Bafn-cc-Mami, Dizziness, Easy-to- Read, Atrial Fibrillation, [id number]-[id number], Peripheral Edema Referrals: Branden Cervantes MD [Primary Care Provider] - (please schedule a follow up appointment with PCP within 7-10 days.) - Discharge Summary/Plan Comment DC Time >30 min.: No - General Info Date of Service: 11/12/18 Admission Dx/Problem (Free Text: Admission Diagnosis/Problem Admission Diagnosis/Problem Lightheadedness Subjective Update: In to see Tameka. She is sitting up in the chair and she is awaiting discharge. She has an appointment with Dr. Horn for bilateral shoulder injections later today. She has no complaints other than her shoulders hurt. She denies any dizziness or syncope. She will be discharged today to her Dr. Horn appointment and then [facility], where she resides. Functional Status: Reports: Pain Controlled, Tolerating Diet, Ambulating, Urinating. Denies: New Symptoms - Review of Systems General: Reports: No Symptoms. Denies: Fever, Weakness, Fatigue, Malaise, Chills HEENT: Reports: No Symptoms. Denies: Eye Pain, Headaches, Sore Throat, Visual Changes Pulmonary: Reports: No Symptoms. Denies: Shortness of Breath, Pleuritic Chest Pain, Cough, Sputum, Wheezing Cardiovascular: Reports: No Symptoms. Denies: Chest Pain, Palpitations, Dyspnea on Exertion, Lightheadedness Gastrointestinal: Reports: No Symptoms. Denies: Abdominal Pain, Constipation, Diarrhea, Nausea, Vomiting Genitourinary: Reports: No Symptoms. Denies: Pain Musculoskeletal: Reports: Shoulder Pain (chronic - getting injection with Dr. Horn today. ) Skin: Reports: No Symptoms Neurological: Reports: No Symptoms. Denies: Confusion, Dizziness, Headache Psychiatric: Reports: No Symptoms - Patient Data Vitals - Most Recent: Last Vital Signs Temp 98.2 F 11/12/18 03:00 Pulse 81 11/12/18 03:00 Resp 18 11/12/18 03:00 BP 137/48 L 11/12/18 03:00 Pulse Ox 92 L 11/12/18 03:00 Weight - Most Recent: 174 lb I&O - Last 24 hours: Intake & Output 11/11/18 11/12/18 11/12/18 22:59 06:59 14:59 Intake Total 610 400 Output Total 350 300 Balance 260 100 Lab Results - Last 24 hrs: Laboratory Results - last 24 hr 11/11/18 11/12/18 11/12/18 Range/Units 05:33 05:10 05:10 WBC 5.72 (3.98-10.04) K/mm3 RBC 2.84 L (3.98-5.22) M/mm3 Hgb 8.9 L (11.2-15.7) gm/L Hct 29.0 L (34.1-44.9) % MCV 102.1 H (79.4-94.8) fl MCH 31.3 (25.6-32.2) pg MCHC 30.7 L (32.2-35.5) g/dl RDW Std Deviation 49.3 H (36.4-46.3) fL Plt Count 226 (182-369) K/mm3 MPV 10.7 (9.4-12.3) fl Neut % (Auto) 66.9 (34.0-71.1) % Lymph % (Auto) 21.7 (19.3-51.7) % Dewitt % (Auto) 8.9 (4.7-12.5) % Eos % (Auto) 2.1 (0.7-5.8) Baso % (Auto) 0.2 (0.1-1.2) % Neut # (Auto) 3.83 (1.56-6.13) K/mm3 Lymph # (Auto) 1.24 (1.18-3.74) K/mm3 Dewitt # (Auto) 0.51 H (0.24-0.36) K/mm3 Eos # (Auto) 0.12 (0.04-0.36) K/mm3 Baso # (Auto) 0.01 (0.01-0.08) K/mm3 Sodium 137 (136-145) mEq/L Potassium 3.9 (3.5-5.1) mEq/L Chloride 97 L (98-107) mEq/L Carbon Dioxide 35 H (21-32) mEq/L Anion Gap 8.9 (5-15) BUN 30 H (7-18) mg/dL Creatinine 1.6 H (0.55-1.02) mg/dL Est Cr Clr Drug Dosing 22.03 mL/min Estimated GFR (MDRD) 31 (>60) mL/min BUN/Creatinine Ratio 18.8 H (14-18) Glucose 118 H (83-115) mg/dL Calcium 9.7 (8.5-10.1) mg/dL Magnesium 1.7 L (1.8-2.4) mg/dl Iron 30 L (50-170) ug/dL TIBC 378 (100-400) ug/dL % Saturation 8 L (20-55) % Transferrin 302 (202-364) mg/dL Digoxin 1.8 (0.9-2.0) ng/mL RONAL Results - Last 24 hrs: Microbiology 11/11/18 10:00 Stool Occult Blood (RONAL) - Final Stool / Feces POSITIVE OCCULT BLOOD Med Orders - Current: Current Medications Acetaminophen (Tylenol) 325 mg PO Q6HR PRN PRN Reason: Fever Greater Than 101 Acetaminophen (Tylenol) 650 mg PO Q4H PRN PRN Reason: Pain (Mild 1-3)/fever Hydrocodone Bitart/Acetaminophen ([place] 325-5 Mg) 1 tab PO Q4H PRN PRN Reason: Pain (moderate 4-6) Last Admin: 11/09/18 06:17 Dose: 1 tab Albuterol/Ipratropium (Duoneb 3.0-0.5 Mg/3 Ml) 3 ml NEB Q4H PRN PRN Reason: Shortness Of Breath/wheezing Apixaban (Eliquis) 2.5 mg PO BID [facility] Last Admin: 11/11/18 20:21 Dose: 2.5 mg Ascorbic Acid (Vitamin C) 500 mg PO BID [facility] Last Admin: 11/11/18 20:23 Dose: 500 mg Benzonatate (Tessalon Perles) 100 mg PO TID PRN PRN Reason: Cough Bisacodyl (Dulcolax) 5 mg PO DAILY PRN PRN Reason: Constipation Last Admin: 11/10/18 19:59 Dose: 5 mg Bisacodyl (Dulcolax) 10 mg RECTAL BID PRN PRN Reason: Constipation Last Admin: 11/11/18 08:20 Dose: 10 mg Bumetanide (Bumex) 0.5 mg PO BIDDIURETIC [facility] Last Admin: 11/12/18 06:20 Dose: 0.5 mg Diltiazem HCl (Cardizem) 5 mg IVPUSH Q4H PRN PRN Reason: tachycardiac Diltiazem HCl (Cardizem Cd) 120 mg PO DAILY [facility] Last Admin: 11/11/18 08:14 Dose: 120 mg Diphenhydramine HCl (Benadryl) 25 mg PO Q6H PRN PRN Reason: Allergies Docusate Sodium (Colace) 100 mg PO BID [facility] Last Admin: 11/11/18 20:24 Dose: Not Given Famotidine (Pepcid) 20 mg PO BID [facility] Last Admin: 11/11/18 20:22 Dose: 20 mg Hydralazine HCl (Apresoline) 10 mg IVPUSH Q4H PRN PRN Reason: Hypertension Hydrochlorothiazide (Hydrochlorothiazide) 12.5 mg PO BIDDIURETIC [facility] Hydromorphone HCl (Dilaudid) 0.25 mg IVPUSH Q2H PRN PRN Reason: Pain (severe 7-10) Promethazine HCl 6.25 mg/ (Sodium Chloride) 50.25 mls @ 100 mls/hr IV Q6H PRN PRN Reason: Nausea/Vomiting Loratadine (Claritin) 10 mg PO DAILY [facility] Last Admin: 11/11/18 08:16 Dose: 10 mg Lorazepam (Ativan) 0.25 mg IV Q6H PRN PRN Reason: Anxiety Magnesium Oxide (Magnesium Oxide) 800 mg PO ONETIME ONE Stop: 11/12/18 09:16 Magnesium Sulfate (Pharmacy To Dose - Magnesium Replacement) 1 dose .XX ASDIRECTED [facility] Multivitamins (Thera) 1 each PO DAILY [facility] Last Admin: 11/11/18 08:18 Dose: 1 each Niacin (Niaspan) 500 mg PO DAILY [facility] Last Admin: 11/11/18 08:18 Dose: 500 mg Fosinopril Sodium [ Fosinopril Sodium] 20mg Pt Own 0.5 tab PO DAILY [facility] Ondansetron HCl (Zofran) 4 mg IV Q6H PRN PRN Reason: Nausea/Vomiting Last Admin: 11/11/18 18:22 Dose: 4 mg Amiodarone 200 Mg (Tab Ptom) 0 each PO DAILY [facility] Polyethylene Glycol (Miralax) 17 gm PO DAILY PRN PRN Reason: Constipation Polysaccharide Iron Complex (Ferrex 150) 300 mg PO BID [facility] Last Admin: 11/11/18 20:24 Dose: 300 mg Potassium Chloride (Pharmacy To Dose - Potassium Replacement) 1 dose .XX ASDIRECTED [facility] Senna/Docusate Sodium (Senna Plus) 1 tab PO BID PRN PRN Reason: Constipation Last Admin: 11/11/18 08:18 Dose: 1 tab Sodium Chloride (Saline Flush) 10 ml FLUSH ASDIRECTED PRN PRN Reason: Keep Vein Open Last Admin: 12/23/18 17:00 Dose: 10 ml Tramadol HCl (Ultram) 50 mg PO Q6H PRN PRN Reason: PAIN Last Admin: 11/11/18 12:01 Dose: 50 mg Discontinued Medications Amiodarone HCl (Cordarone) 400 mg PO DAILY [facility] Stop: 11/24/18 09:01 Amiodarone HCl (Cordarone) 200 mg PO DAILY [facility] Ascorbic Acid (Vitamin C) 500 mg PO DAILY [facility] Last Admin: 11/11/18 08:18 Dose: 500 mg Aspirin (Halfprin) 81 mg PO DAILY [facility] Last Admin: 11/11/18 08:17 Dose: 81 mg Bumetanide (Bumex) 0.5 mg IVPUSH ONETIME ONE Stop: 11/08/18 21:42 Last Admin: 11/08/18 22:31 Dose: 0.5 mg Bumetanide (Bumex) 1 mg PO BIDDIURETIC [facility] Last Admin: 11/11/18 13:09 Dose: 1 mg Docusate Sodium (Colace) 100 mg PO BID PRN PRN Reason: Constipation Furosemide (Lasix) 40 mg PO BIDDIURETIC [facility] Last Admin: 11/10/18 06:31 Dose: 40 mg Hydrochlorothiazide (Hydrochlorothiazide) 12.5 mg PO BIDDIURETIC [facility] Last Admin: 11/09/18 06:12 Dose: 12.5 mg Magnesium Oxide (Magnesium Oxide) 400 mg PO ONETIME ONE Stop: 11/08/18 22:01 Last Admin: 11/08/18 22:30 Dose: 400 mg Amiodarone Hcl [ Amiodarone Hcl] 200 MgPt Own 400 mg PO DAILY [facility] Last Admin: 11/10/18 08:21 Dose: Not Given Non-Formulary Medication (Bumetanide [Bumex]) 1 tab PO BID [facility] Non-Formulary Medication (Fosinopril Sodium [Fosinopril Sodium]) 0.5 tab PO DAILY [facility] Non-Formulary Medication (Niacin [Niacin]) 1 tab PO DAILY [facility] Non-Formulary Medication (Vitamin E [Vitamin E]) 1 tab PO DAILY [facility] Non-Formulary Medication (Cetirizine Hcl [All Day Allergy]) 10 mg PO DAILY PRN PRN Reason: Allergies Ondansetron HCl (Zofran) 4 mg IVPUSH ONETIME ONE Stop: 11/08/18 16:36 Last Admin: 11/08/18 17:00 Dose: 4 mg Pantoprazole Sodium (Protonix Iv) 40 mg IVPUSH ONETIME ONE Stop: 11/11/18 15:13 Last Admin: 11/11/18 16:08 Dose: 40 mg Amiodarone 200 Mg (Tab Ptom) 0 each PO ONETIME ONE Stop: 11/11/18 13:01 Last Admin: 11/11/18 13:10 Dose: 1 each Tramadol HCl (Ultram) 50 mg PO ONETIME ONE Stop: 11/08/18 19:05 Last Admin: 11/08/18 19:26 Dose: 50 mg - Exam Quality Assessment: Reports: DVT Prophylaxis General: Reports: Alert, Oriented, Cooperative, No Acute Distress HEENT: Reports: Pupils Equal, Pupils Reactive, EOMI, Mucous Membr. Moist/[place] Neck: Reports: Supple, Trachea Midline, No JVD Lungs: Reports: Clear to Auscultation, Normal Respiratory Effort Cardiovascular: Reports: Regular Rate, Regular Rhythm GI/Abdominal Exam: Normal Bowel Sounds, Soft, Non-Tender, No Distention, No Abnormal Bruit (Female) Exam: Deferred Rectal (Female) Exam: Deferred Back Exam: Reports: Normal Inspection, Full Range of Motion Extremities: Normal Inspection, Normal Range of Motion, Non-Tender, No Pedal Edema, Normal Capillary Refill Skin: Reports: Warm, Dry, Intact Neurological: Reports: No New Focal Deficit Psy/Mental Status: Reports: Alert, Normal Affect, Normal Mood
[2018-11-12] MEDS: Multivitamins,Therapeutic Tab PO SCH (09:29)
[2018-11-12] MEDS: Niacin 500 MG Tab.ER PO SCH (09:29)
[2018-11-12] MEDS: Ascorbic Acid 500 MG Tab PO SCH (09:30)
[2018-11-12] MEDS: Iron Polysaccharides Complex 150 MG Cap PO SCH (09:30)
[2018-11-12] MEDS ORDERED: Hydrochlorothiazide 12.5 MG Cap PO SCH (09:30)
[2018-11-12] MEDS: Famotidine 20 MG Tab PO SCH (09:30)
[2018-11-12] MEDS: Apixaban 5 MG Tab PO SCH (09:30)
[2018-11-12] MEDS: DILTIAZEM 120 MG PO SCH (09:32)
[2018-11-12] MEDS: Loratadine 10 MG Tab PO SCH (09:32)
[2018-11-12] MEDS: Docusate Sodium 100 MG Cap PO SCH (09:32)
[2018-11-12] MEDS: TRAMADOL 50 MG PO PRN (09:48)
[2018-11-13] MEDS ORDERED: FOSINOPRIL SODIUM 20 MG PO SCH (09:00)
[2018-11-13] MEDS ORDERED: Famotidine 20 MG Tab PO SCH (09:00)
[2018-11-25] MEDS ORDERED: AMIODARONE 200 MG PO SCH (09:00)
== END 2018-11-12 10:26 ==
LOC: JD.ED 15:51 → JD.MS 19:59
PROVIDERS: ADMIT Internal Medicine; ATTEND Internal Medicine
DX: T46.0X1A Poisoning by cardiac-stimulant glycosides and drugs of similar action, accidental (unintentional), initial encounter (principal); R42 Dizziness and giddiness; R53.1 Weakness; R11.0 Nausea; R60.9 Edema, unspecified; I48.0 Paroxysmal atrial fibrillation; D64.89 Other specified anemias; E83.42 Hypomagnesemia; K59.00 Constipation, unspecified; I13.0 Hypertensive heart and chronic kidney disease with heart failure and stage 1 through stage 4 chronic kidney disease, or unspecified chronic kidney disease; I50.9 Heart failure, unspecified; N18.3 Chronic kidney disease, stage 3 (moderate); E78.5 Hyperlipidemia, unspecified; E66.9 Obesity, unspecified; Z68.32 Body mass index [BMI] 32.0-32.9, adult; H54.7 Unspecified visual loss; G89.29 Other chronic pain; M19.019 Primary osteoarthritis, unspecified shoulder; M54.9 Dorsalgia, unspecified; I65.23 Occlusion and stenosis of bilateral carotid arteries; N28.9 Disorder of kidney and ureter, unspecified; Z79.01 Long term (current) use of anticoagulants; Z79.82 Long term (current) use of aspirin; Z79.899 Other long term (current) drug therapy
CPT/HCPCS: 36415; 51702; 71045; 73090; 80048; 80053; 80162; 80299; 81001; 82272; 82306; 82553; 83540; 83735; 83880; 84439; 84443; 84466; 84484; 85025; 87086; 93005; 93306; 93880; 96374; 96375; 96376; 97110; 97116; 97161; 97165; 97530; 99285; A9270; C9113; G0378; J2405; J3490; 93010; 99284

== ENCOUNTER 2019-03-01 18:10 | Emergency (ER) | payer MEDICARE, OTHER ==
--- NOTE | 2019-03-01 19:02 | EDM.PDOC ---
<Kem Weston - Last Filed: 03/01/19 19:42> ED HPI GENERAL MEDICAL PROBLEM - General Chief Complaint: Upper Extremity Injury/Pain Stated Complaint: RT ARM SWELLING Time Seen by Provider: 03/01/19 18:35 - Related Data Allergies Allergy/AdvReac Type Severity Reaction Status Date / Time codeine Allergy Rash Verified 03/01/19 19:11 iodine Allergy Rash Verified 03/01/19 19:11 metoprolol [From Toprol XL] Allergy swelling Verified 03/01/19 19:11 of lips naproxen [From Naprelan] Allergy Rash Verified 03/01/19 19:11 prednisone Allergy Other Verified 03/01/19 19:11 propoxyphene Allergy urine Verified 03/01/19 19:11 retention Home Meds: Home Meds Acetaminophen [Tylenol] 325 mg PO Q6HR PRN 11/08/18 [History] Allopurinol [Zyloprim] 100 mg PO BID 11/08/18 [History] Bumetanide [Bumex] 1 mg PO DAILY 11/08/18 [History] Fosinopril Sodium 10 mg PO DAILY 11/08/18 [History] Loratadine 10 mg PO DAILY PRN 11/08/18 [History] Multivitamin [Multi-Vitamin Daily] 1 tab PO DAILY 11/08/18 [History] Simvastatin 20 mg PO DAILY 11/08/18 [History] traMADol [Ultram] 50 mg PO BID PRN 11/08/18 [History] Benzonatate [Tessalon Perle] 100 mg PO TID PRN 11/09/18 [History] Cetirizine HCl [All Day Allergy] 10 mg PO DAILY PRN 11/09/18 [History] Niacin 500 mg PO DAILY 11/09/18 [History] Amiodarone [Cordarone] 200 mg PO DAILY #30 tab 11/12/18 [Rx] Apixaban [Eliquis] 2.5 mg PO BID #30 11/12/18 [Rx] Ascorbic Acid 500 mg PO BID #30 11/12/18 [Rx] Diltiazem HCl [Diltiazem ER] 120 mg PO DAILY #0 11/12/18 [Rx] Ferrous Sulfate [Iron] 325 mg PO BID #60 tablet 11/12/18 [Rx] Acetaminophen [Tylenol] 650 mg PO BID 03/01/19 [History] Famotidine [Pepcid] 20 mg PO DAILY 03/01/19 [History] Sennosides/Docusate Sodium [Senna Plus Tablet] 1 tab PO BID PRN 03/01/19 [ History] Vitamin E 400 unit PO DAILY 03/01/19 [History] Course - Vital Signs Last Recorded V/S: Last Vital Signs Temp 98.2 F 03/01/19 18:18 Pulse 75 03/01/19 18:18 Resp 20 03/01/19 18:18 BP 146/61 H 03/01/19 18:18 Pulse Ox 100 03/01/19 18:18 Departure - Departure Disposition: Home, Self-Care 01 Clinical Impression: Swelling of right hand - Discharge Information Instructions: Edema, [id number] Referrals: Branden Cervantes MD [Primary Care Provider] - Forms: ED Department Discharge Additional Instructions: No blood clot noted on ultrasound of the right upper extremity. Elevate when able to reduce and swelling. Please refer back to PCP in 3-5 days if symptoms persist. Return to the ED if you develop any new or worsening symptoms. <Vito Szymanski O - Last Filed: 03/01/19 21:20> ED HPI GENERAL MEDICAL PROBLEM - General Source of Information: Reports: Patient History Limitations: Reports: No Limitations - History of Present Illness INITIAL COMMENTS - FREE TEXT/NARRATIVE: Patient is a 84-year-old female with history of A. fib with RVR on Eliquis, heart failure, renal insufficiency and also peripheral edema. She states she noticed some swelling to her right hand, forearm yesterday. She did apply a pharyngeal to the right hand where a small area of redness was present with resolution of symptoms. The only thing she came in contact with his dialysis soap twitch she's been using for the past few days. Otherwise has never had any symptoms as such. She recently had a lumpectomy of a cancerous tumor to the right breast this past Friday with no complications. They have not started the patient on any type of radiation. She states this morning her hand was only faintly swollen and talk with clenching her fist. There is no pain associated with it. Or rash present. She has chronic right shoulder pain unchanged with recent complaint. There is no redness, rash, bruising, or recent trauma/ activity that may have precipitated this. She has no history of lymphedema. She has been in contact with her PCP and surgeon with concerns of patient may have a blood clot. Patient denies any chest pain, short of breath, PND, orthopnea, fever, chills, abdominal pain, or increased swelling to her lower extremities. She has chronic lower extremity edema unchanged as a recent. Right usually greater than left. No pain to her legs posteriorly. 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 breast cancer and is to start radiation Dermatologic History: Reports: Other (See Below) Other Dermatologic History: cellulitis to leg right - Infectious Disease History Infectious Disease History: Reports: Chicken Pox, Measles, Shingles - Past Surgical History HEENT Surgical History: Reports: Cataract Surgery Cardiovascular Surgical History: Reports: None Female Surgical History: Reports: None, Breast Biopsy Other Female Surgeries/Procedures: right breast tissue removed for cancer purposes Endocrine Surgical History: Reports: None Neurological Surgical History: Reports: None Musculoskeletal Surgical History: Reports: Other (See Below) Other Musculoskeletal Surgeries/Procedures:: knee repair Other Oncologic Surgeries/Procedures: titanium tag in breast for marking Social & Family History - Family History Family Medical History: Noncontributory - Tobacco Use Smoking Status *Q: Never Smoker - Caffeine Use Caffeine Use: Reports: Soda, Tea - Recreational Drug Use Recreational Drug Use: No Review of Systems - Review of Systems Review Of Systems: See Below Constitutional: Reports: No Symptoms Respiratory: Reports: No Symptoms Cardiovascular: Reports: No Symptoms GI/Abdominal: Reports: No Symptoms Musculoskeletal: Reports: Shoulder Pain (Chronic unchanged), Arm Pain (Medial aspect of the right arm disappeared to the elbow. No pain distally. Increased swelling to the right hand, forearm, arm yesterday that subsided with only small amount present today.) Skin: Reports: No Symptoms Neurological: Reports: No Symptoms ED EXAM, GENERAL - Physical Exam Exam: See Below Exam Limited By: No Limitations General Appearance: Alert, WD/WN, No Apparent Distress Ears: Hearing Grossly Normal Nose: Normal Inspection Throat/Mouth: Normal Voice, No Airway Compromise Neck: Normal Inspection, Supple Respiratory/Chest: No Respiratory Distress, Lungs Clear, Normal Breath Sounds, No Accessory Muscle Use, Chest Non-Tender Cardiovascular: Normal Peripheral Pulses, Regular Rate, Rhythm, Systolic Murmur (3 out of 6 Left sternal border mid clavicular line fifth intercostal space) Peripheral Pulses: 2+: Radial (L), Radial (R) GI/Abdominal: Normal Bowel Sounds, Soft, Non-Tender, No Organomegaly, No Distention Back Exam: Normal Inspection Extremities: Pedal Edema (1+ edema bilaterally chronic unchanged with no tenderness posteriorly.) Neurological: Alert, Oriented, CN II-XII Intact, Normal Cognition, No Motor/ Sensory Deficits Psychiatric: Normal Affect, Normal Mood Skin Exam: Warm, Dry, Intact, Normal Color Course - Re-Assessments/Exams Free Text/Narrative Re-Assessment/Exam: On exam some faint swelling noted to the right hand. With clenching of her hand patient states it feels tight. There is no erythema noted to the hand. Some minimal discomfort along the medial aspect of the right arm just superior to the elbow with no palpable cord. No bruising, no swelling, no sensation changes , no decreased range of motion of the elbow. Limited range of motion of the right shoulder which is chronic. Unchanged. Patient has been in contact with her PCP and general surgeon with concerns of patient may have a blood clot. Patient was recently diagnosed with breast cancer and had a lumpectomy one week ago to the right breast. She has not started radiation treatment. She is on Eliquis already 2.5 mg twice a day. Ultrasound right upper extremity indicated no evidence of venous thrombosis within the right upper extremity. Discussed results of the ultrasound with the patient. Unclear etiology of current swelling to the right hand. She does have edema to lower extremities which are constant and unchanged. She is on Bumex. She may require increased dose of Bumex thus patient will be referred back to her PCP in 3 days for reevaluation. Return precautions were discussed with the patient. Patient had no further questions or concerns and agreed with plan. Departure - Departure Time of Disposition: 21:09 Condition: Good
--- NOTE | 2019-03-01 20:36 | US ---
Right upper extremity venous ultrasound: Duplex and color flow imaging was obtained of the right internal jugular, subclavian, axillary, basilic, brachial, radial and ulnar veins. Normal phasic flow, augmentation and compression is seen. Impression: 1. No evidence of venous thrombosis within the right upper extremity. Diagnostic code #1
== END 2019-03-01 21:20 | disposition home or self-care (01) ==
LOC: SUPCPDRO 18:10 → JD.ED 18:10
DX: M25.441 Effusion, right hand (principal); I13.0 Hypertensive heart and chronic kidney disease with heart failure and stage 1 through stage 4 chronic kidney disease, or unspecified chronic kidney disease; N18.9 Chronic kidney disease, unspecified; I50.9 Heart failure, unspecified; I48.91 Unspecified atrial fibrillation; E78.00 Pure hypercholesterolemia, unspecified; Z88.5 Allergy status to narcotic agent; Z91.09 Other allergy status, other than to drugs and biological substances; Z88.8 Allergy status to other drugs, medicaments and biological substances; Z79.899 Other long term (current) drug therapy
CPT/HCPCS: 93971-26-RT; 93971-RT; 99282; 99283-25

== ENCOUNTER 2019-04-22 19:40 | Emergency (ER) | payer MEDICARE, OTHER ==
--- NOTE | 2019-04-22 20:07 | EDM.PDOC ---
ED HPI GENERAL MEDICAL PROBLEM - General Chief Complaint: Cardiovascular Problem Stated Complaint: LOW BLOOD PRESSURE Time Seen by Provider: 04/22/19 20:06 - History of Present Illness INITIAL COMMENTS - FREE TEXT/NARRATIVE: Patient presents after having an episode of dizziness at home she also complains of increased swelling in her extremities. Patient had an episode of atrial fibrillation lasted a couple hours during this she had some intermittent dizziness this resolved on its own. The patient currently takes amiodarone. She's on Eliquis and diltiazem. She's doing well at this time every couple weeks she has an intermittent episode not as severe as tonight's episode. She's had some increasing edema in her extremities. In the distant past she had some surgery on her right elbow now she started to get some edema around her elbow. And she's getting some mild edema in her lower extremities. This does not get in the way of her activity does not cause her any distress. She is getting Bumex usually 1-1/2 mg a day as needed for the edema. - Related Data Allergies Allergy/AdvReac Type Severity Reaction Status Date / Time codeine Allergy Rash Verified 03/01/19 19:11 iodine Allergy Rash Verified 03/01/19 19:11 metoprolol [From Toprol XL] Allergy swelling Verified 03/01/19 19:11 of lips naproxen [From Naprelan] Allergy Rash Verified 03/01/19 19:11 prednisone Allergy Other Verified 03/01/19 19:11 propoxyphene Allergy urine Verified 03/01/19 19:11 retention Home Meds: Home Meds Acetaminophen [Tylenol] 325 mg PO Q6HR PRN 11/08/18 [History] Allopurinol [Zyloprim] 100 mg PO BID 11/08/18 [History] Bumetanide [Bumex] 1 mg PO DAILY 11/08/18 [History] Fosinopril Sodium 10 mg PO DAILY 11/08/18 [History] Loratadine 10 mg PO DAILY PRN 11/08/18 [History] Multivitamin [Multi-Vitamin Daily] 1 tab PO DAILY 11/08/18 [History] Simvastatin 20 mg PO DAILY 11/08/18 [History] traMADol [Ultram] 50 mg PO BID PRN 11/08/18 [History] Benzonatate [Tessalon Perle] 100 mg PO TID PRN 11/09/18 [History] Cetirizine HCl [All Day Allergy] 10 mg PO DAILY PRN 11/09/18 [History] Niacin 500 mg PO DAILY 11/09/18 [History] Amiodarone [Cordarone] 200 mg PO DAILY #30 tab 11/12/18 [Rx] Apixaban [Eliquis] 2.5 mg PO BID #30 11/12/18 [Rx] Ascorbic Acid 500 mg PO BID #30 11/12/18 [Rx] Ferrous Sulfate [Iron] 325 mg PO BID #60 tablet 11/12/18 [Rx] dilTIAZem HCl [Diltiazem 24Hr ER (Xr)] 120 mg PO DAILY #0 11/12/18 [Rx] Acetaminophen [Tylenol] 650 mg PO BID 03/01/19 [History] Famotidine [Pepcid] 20 mg PO DAILY 03/01/19 [History] Sennosides/Docusate Sodium [Senna Plus Tablet] 1 tab PO BID PRN 03/01/19 [ History] Vitamin E 400 unit PO DAILY 03/01/19 [History] Past Medical History HEENT History: Reports: Cataract, Hard of Hearing, Impaired Vision Cardiovascular History: Reports: Afib, Arrhythmia, Heart Failure, High Cholesterol, Hypertension, Syncope Respiratory History: Reports: None Gastrointestinal History: Reports: None Genitourinary History: Reports: 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 breast cancer and is to start radiation Dermatologic History: Reports: Other (See Below) Other Dermatologic History: cellulitis to leg right - Infectious Disease History Infectious Disease History: Reports: Chicken Pox, Measles, Shingles - Past Surgical History HEENT Surgical History: Reports: Cataract Surgery Cardiovascular Surgical History: Reports: None Female Surgical History: Reports: None, Breast Biopsy Other Female Surgeries/Procedures: right breast tissue removed for cancer purposes Endocrine Surgical History: Reports: None Neurological Surgical History: Reports: None Musculoskeletal Surgical History: Reports: Other (See Below) Other Musculoskeletal Surgeries/Procedures:: knee repair Other Oncologic Surgeries/Procedures: titanium tag in breast for marking Social & Family History - Family History Family Medical History: Noncontributory - Caffeine Use Caffeine Use: Reports: Soda, Tea - Recreational Drug Use Recreational Drug Use: No ED ROS GENERAL - Review of Systems Review Of Systems: See Below Constitutional: Reports: No Symptoms, Fever, Chills HEENT: Reports: No Symptoms Respiratory: Reports: No Symptoms Cardiovascular: Reports: Lightheadedness (Intermittent once or twice a month), Palpitations GI/Abdominal: Reports: No Symptoms : Reports: No Symptoms Musculoskeletal: Reports: No Symptoms Skin: Reports: No Symptoms Neurological: Reports: No Symptoms Psychiatric: Reports: No Symptoms ED EXAM, GENERAL - Physical Exam Exam: See Below Exam Limited By: No Limitations General Appearance: Alert, No Apparent Distress, Other (No acute distress vital signs stable telemetry shows sinus rhythm without ectopy) Eye Exam: Bilateral Eye: Normal Inspection Ears: Normal External Exam, Normal Canal, Hearing Grossly Normal, Normal TMs Nose: Normal Inspection Throat/Mouth: Normal Inspection, Normal Lips, No Airway Compromise Head: Atraumatic, Normocephalic Neck: Normal Inspection, Supple, Non-Tender, Full Range of Motion. No: Lymphadenopathy (L), Lymphadenopathy (R) Respiratory/Chest: No Respiratory Distress, Lungs Clear, Normal Breath Sounds Cardiovascular: Normal Peripheral Pulses, Regular Rate, Rhythm, Other (He has no intermittent murmur heard best in the right upper sternal border sounds very much like an ileus murmur but it is not reproducible time) GI/Abdominal: Normal Bowel Sounds, Soft, Non-Tender Extremities: Other (1+ pitting edema of lower extremities around her right elbow she has some edema as well looks like fluid under the skin) Course - Vital Signs Last Recorded V/S: Last Vital Signs Temp 36.9 C 04/22/19 19:46 Pulse 79 04/22/19 19:46 Resp 18 04/22/19 19:46 BP 150/70 H 04/22/19 19:46 Pulse Ox 99 04/22/19 19:46 - Orders/Labs/Meds Orders: Active Orders 24 hr Category Date Time Status EKG Documentation Completion [RC] STAT Care 06/06/19 20:36 Active Labs: Laboratory Tests 04/22/19 04/22/19 04/22/19 Range/Units 20:55 20:55 20:55 WBC 6.06 (3.98-10.04) K/mm3 RBC 3.13 L (3.98-5.22) M/mm3 Hgb 10.0 L (11.2-15.7) gm/L Hct 31.5 L (34.1-44.9) % MCV 100.6 H (79.4-94.8) fl MCH 31.9 (25.6-32.2) pg MCHC 31.7 L (32.2-35.5) g/dl RDW Std Deviation 52.3 H (36.4-46.3) fL Plt Count 223 (182-369) K/mm3 MPV 9.8 (9.4-12.3) fl Neutrophils % (Manual) 68 H (40-60) % Band Neutrophils % 0 (0-10) % Lymphocytes % (Manual) 26 (20-40) % Atypical Lymphs % 0 % Monocytes % (Manual) 6 (2-10) % Eosinophils % (Manual) 0 L (0.7-5.8) % Basophils % (Manual) 0 L (0.1-1.2) Platelet Estimate Adequate Anisocytosis 1+ slight Macrocytosis 1+ slight Ovalocytes 1+ slight RBC Morph Comment Not Reportable Sodium 137 (136-145) mEq/L Potassium 4.8 (3.5-5.1) mEq/L Chloride 103 (98-107) mEq/L Carbon Dioxide 25 D (21-32) mEq/L Anion Gap 13.8 (5-15) BUN 45 H (7-18) mg/dL Creatinine 1.9 H (0.55-1.02) mg/dL Est Cr Clr Drug Dosing 18.23 mL/min Estimated GFR (MDRD) 25 (>60) mL/min BUN/Creatinine Ratio 23.7 H (14-18) Glucose 134 H (83-115) mg/dL Calcium 9.8 (8.5-10.1) mg/dL Total Bilirubin 0.4 (0.2-1.0) mg/dL AST 19 (15-37) U/L ALT 29 (14-59) U/L Alkaline Phosphatase 62 (46-116) U/L Troponin I < 0.017 (0.00-0.056) ng/mL NT-Pro-B Natriuret Pep 811 H (0-450) pg/mL Total Protein 6.0 L (6.4-8.2) g/dl Albumin 3.4 (3.4-5.0) g/dl Globulin 2.6 gm/dL Albumin/Globulin Ratio 1.3 (1-2) - Re-Assessments/Exams Free Text/Narrative Re-Assessment/Exam: 04/22/19 22:12 Labs reviewed her BNP is 811 however when she was admitted in November it was 4407 dropped to 695 and a couple of days. She's been started on Bumex and her creatinine is up to 1.9 this is the highest it's been since the time of her admission. I am not overly eager to get more aggressive on her diuretics have reviewed her medications and I think the safest option at this point is her to maximize her therapy with her compression wraps and stocking see if we can get a better effect with that on her lower legs and her right arm rather than put in more burning on her kidneys. The patient the family are in agreement to this another possible benefit would be to try and transition her from the diltiazem to a long-acting beta james such as Toprol-XL as the diltiazem may be contributing to the edema and fatigue. It sounds like tonight she had an episode of atrial fibrillation had some associated dizziness with this this could've been contributing to by the Bumex or could've been from the atrial fib. Will not intervene with this at this point she's having intermittent for the most part rare symptoms from this. However is recommended that the patient follow up with her regular physician this next week if possible. Departure - Departure Time of Disposition: 22:15 Disposition: Home, Self-Care 01 Condition: Good Clinical Impression: Paroxysmal atrial fibrillation, Heart failure, Chronic renal insufficiency, stage III (moderate) Referrals: Branden Cervantes MD [Primary Care Provider] - Additional Instructions: Return to emergency room if any questions problems worsening symptoms. Try and follow-up with your regular doctor next week if possible. At this time no change in medication changing her medications could potentially cause more harm than benefit. As we discussed with try and increase in optimize the use of the compressive wraps to minimize the edema. - My Orders Last 24 Hours: My Active Orders 04/22/19 20:36 EKG Documentation Completion [RC] STAT - Assessment/Plan Last 24 Hours: My Active Orders 04/22/19 20:36 EKG Documentation Completion [RC] STAT
== END 2019-04-22 22:34 | disposition home or self-care (01) ==
LOC: JD.ED 19:40
DX: I12.9 Hypertensive chronic kidney disease with stage 1 through stage 4 chronic kidney disease, or unspecified chronic kidney disease (principal); I50.9 Heart failure, unspecified; N18.3 Chronic kidney disease, stage 3 (moderate); I48.0 Paroxysmal atrial fibrillation; Z88.5 Allergy status to narcotic agent; Z88.8 Allergy status to other drugs, medicaments and biological substances; Z79.899 Other long term (current) drug therapy
CPT/HCPCS: 36415; 80053; 83880; 84484; 85007; 85027; 93005; 93010; 99283; 99283-25

== ENCOUNTER 2019-09-18 12:35 | Inpatient (IN) | payer MEDICARE, OTHER ==
[2019-09-18] MEDS ORDERED: Sodium Chloride 0.9% 10 ML Syringe FLUSH PRN (12:49)
--- NOTE | 2019-09-18 14:10 | EDM.PDOC ---
ED HPI GENERAL MEDICAL PROBLEM - General Chief Complaint: Trauma Stated Complaint: [facility] Time Seen by Provider: 09/18/19 12:42 Source of Information: Reports: Patient, EMS History Limitations: Reports: No Limitations - History of Present Illness INITIAL COMMENTS - FREE TEXT/NARRATIVE: The patient presents by [facility] for a fall. She said she was getting out of her chair and may have tripped on some carpet. She laid on her floor for abut 40 minutes. She has a headache, neck pain, left forearm pain and bilateral knee pain. She also has some left chest pain. She has a contusion, edema and skin tears to the left side of the face. Multiple skin tears to the left forearm. She is on eliquis for atrial fibrillation. She had no LOC. Onset: Sudden Duration: Hour(s): Location: Reports: Head, Face, Upper Extremity, Left (forearm), Lower Extremity , Left (knee), Lower Extremity, Right (knee) Quality: Reports: Sharp Severity: Moderate Improves with: Reports: Immobilization Worsens with: Reports: Movement Context: Reports: Trauma (Fall) Associated Symptoms: Reports: Headaches. Denies: Chest Pain, Fever/Chills, Nausea/Vomiting, Shortness of Breath Left Arm Pain Score (Numeric/FACES): 9 Left Chest Pain Score (Numeric/FACES): 9 Forehead Pain Score (Numeric/FACES): 8 - Related Data Allergies Allergy/AdvReac Type Severity Reaction Status Date / Time codeine Allergy Rash Verified 09/18/19 13:01 iodine Allergy Rash Verified 09/18/19 13:01 metoprolol [From Toprol XL] Allergy swelling Verified 09/18/19 13:01 of lips naproxen [From Naprelan] Allergy Rash Verified 09/18/19 13:01 prednisone Allergy Other Verified 09/18/19 13:01 propoxyphene Allergy urine Verified 09/18/19 13:01 retention Home Meds: Home Meds Acetaminophen [Tylenol] 325 mg PO Q6HR PRN 11/08/18 [History] Allopurinol [Zyloprim] 100 mg PO BID 11/08/18 [History] Bumetanide [Bumex] 1 mg PO BID 11/08/18 [History] Loratadine 10 mg PO DAILY PRN 11/08/18 [History] Multivitamin [Multi-Vitamin Daily] 1 tab PO DAILY 11/08/18 [History] Simvastatin 20 mg PO DAILY 11/08/18 [History] traMADol [Ultram] 50 mg PO BID PRN 11/08/18 [History] Benzonatate [Tessalon Perle] 100 mg PO TID PRN 11/09/18 [History] Cetirizine HCl [All Day Allergy] 10 mg PO DAILY PRN 11/09/18 [History] Niacin 500 mg PO DAILY 11/09/18 [History] Amiodarone [Cordarone] 200 mg PO DAILY #30 tab 11/12/18 [Rx] Apixaban [Eliquis] 2.5 mg PO BID #30 11/12/18 [Rx] Ascorbic Acid 500 mg PO BID #30 11/12/18 [Rx] Ferrous Sulfate [Iron] 325 mg PO BID #60 tablet 11/12/18 [Rx] Acetaminophen [Tylenol] 650 mg PO BID 03/01/19 [History] Famotidine [Pepcid] 20 mg PO DAILY 03/01/19 [History] Sennosides/Docusate Sodium [Senna Plus Tablet] 1 tab PO BID PRN 03/01/19 [ History] Vitamin E 400 unit PO DAILY 03/01/19 [History] Past Medical History HEENT History: Reports: Cataract, Hard of Hearing, Impaired Vision Cardiovascular History: Reports: Afib, Arrhythmia, Heart Failure, High Cholesterol, Hypertension, Syncope Respiratory History: Reports: Bronchitis, Recurrent, Pneumonia, Recurrent Gastrointestinal History: Reports: None Genitourinary History: Reports: Chronic Renal Insuffiency [employer] History: Reports: Musculoskeletal History: Reports: Arthritis, Back Pain, Chronic, Gout, Other ( See Below) Other Musculoskeletal History: Chronic bilateral shoulder pain Neurological History: Reports: Vertigo Endocrine/Metabolic History: Reports: Obesity/BMI 30+ Other Endocrine/Metabolic History: gout Hematologic History: Reports: None Immunologic History: Reports: None Oncologic (Cancer) History: Reports: Breast, Other (See Below) Other Oncologic History: potential breast cancer, recent diagnossis. breast cancer and is to start radiation Dermatologic History: Reports: Other (See Below) Other Dermatologic History: cellulitis to leg right - Infectious Disease History Infectious Disease History: Reports: Chicken Pox, Measles, Shingles - Past Surgical History HEENT Surgical History: Reports: Cataract Surgery Cardiovascular Surgical History: Reports: None Female Surgical History: Reports: Breast Biopsy Other Female Surgeries/Procedures: right breast tissue removed for cancer purposes Endocrine Surgical History: Reports: None Neurological Surgical History: Reports: None Musculoskeletal Surgical History: Reports: Other (See Below) Other Musculoskeletal Surgeries/Procedures:: knee repair Other Oncologic Surgeries/Procedures: titanium tag in breast for marking Social & Family History - Family History Family Medical History: Noncontributory - Tobacco Use Smoking Status *Q: Never Smoker Second Hand Smoke Exposure: No - Caffeine Use Caffeine Use: Reports: Coffee - Recreational Drug Use Recreational Drug Use: No Review of Systems - Review of Systems Review Of Systems: See Below Constitutional: Reports: No Symptoms Eyes: Reports: Other (Swelling and pain to the left side of her head) Ears: Reports: No Symptoms Nose: Reports: Other (Swelling and pain with ecchymosis) Mouth/Throat: Reports: No Symptoms Respiratory: Reports: No Symptoms Cardiovascular: Reports: No Symptoms GI/Abdominal: Reports: No Symptoms ED EXAM, GENERAL - Physical Exam Exam: See Below Exam Limited By: No Limitations General Appearance: Alert, No Apparent Distress Eye Exam: Bilateral Eye: EOMI, PERRL Ears: Normal External Exam Nose: Other (Edema and ecchymosis) Throat/Mouth: Normal Inspection Head: Other (Edema and skin tears to the left side of her face) Neck: Normal Inspection, Supple, Non-Tender Respiratory/Chest: No Respiratory Distress, Lungs Clear, Normal Breath Sounds, Other (Pain upon palpation to the left side of her chest) Cardiovascular: Regular Rate, Rhythm, No Edema, No Murmur GI/Abdominal: Soft, Non-Tender, No Organomegaly, No Mass Back Exam: Normal Inspection Extremities: Other (Edema and pain to both knees. Good sensation and pulses distally. Multiple large skin tears to the left forearm. Good sensation and pulses distally.) Neurological: Alert, Oriented, No Motor/Sensory Deficits Course - Vital Signs Last Recorded V/S: Last Vital Signs Temp 98.4 F 09/18/19 12:35 Pulse 88 09/18/19 12:35 Resp 16 09/18/19 12:35 BP 102/52 L 09/18/19 12:35 Pulse Ox 95 09/18/19 12:35 - Orders/Labs/Meds Orders: Active Orders 24 hr Category Date Time Status Cardiac Monitoring [RC] . DIRECTED Care 09/18/19 12:49 Active Peripheral IV Care [RC] . DIRECTED Care 09/18/19 12:50 Active Forearm 2V Lt [CR] Stat Exams 09/18/19 12:52 Taken Knee Min 4V Lt [CR] Stat Exams 09/18/19 12:51 Taken Knee Min 4V Rt [CR] Stat Exams 09/18/19 12:51 Taken Sodium Chloride 0.9% [Saline Flush] Med 09/18/19 12:49 Active 10 ml FLUSH ASDIRECTED PRN Peripheral IV Insertion Adult [OM.PC] Stat Oth 09/18/19 12:49 Ordered Medication Orders Acetaminophen (Tylenol) 975 mg PO Q8HR LEEANNE Amiodarone HCl (Cordarone) 200 mg PO DAILY LEEANNE Bumetanide (Bumex) 1 mg PO BIDDIURETIC LEEANNE Docusate Sodium (Colace) 100 mg PO BID PRN PRN Reason: Constipation Heparin Sodium (Porcine) (Heparin Sodium) 5,000 units SUBCUT Q8HR LEEANNE Lactated Ringer's (Ringers, Lactated) 1,000 mls @ 10 mls/hr IV ASDIRECTED LEEANNE Potassium Chloride/Sodium Chloride (Normal Saline With 20 Meq Kcl) 1,000 mls @ 500 mls/hr IV ASDIRECTED LEEANNE Morphine Sulfate (Morphine [place] 30 Mg In 30 Ml) 0 mg IV ASDIRECTED LEEANNE; Protocol Polyethylene Glycol (Miralax) 17 gm PO BID LEEANNE Simvastatin (Zocor) 20 mg PO BEDTIME LEEANNE Sodium Chloride (Saline Flush) 10 ml FLUSH ASDIRECTED PRN PRN Reason: Keep Vein Open Labs: Laboratory Tests 09/18/19 09/18/19 09/18/19 Range/Units 13:06 13:06 13:06 WBC 9.29 (3.98-10.04) K/mm3 RBC 2.56 L (3.98-5.22) M/mm3 Hgb 8.2 L D (11.2-15.7) gm/dl Hct 26.2 L (34.1-44.9) % MCV 102.3 H (79.4-94.8) fl MCH 32.0 (25.6-32.2) pg MCHC 31.3 L (32.2-35.5) g/dl RDW Std Deviation 51.8 H (36.4-46.3) fL Plt Count 358 D (182-369) K/mm3 MPV 9.4 (9.4-12.3) fl Neut % (Auto) 85.0 H (34.0-71.1) % Lymph % (Auto) 6.9 L (19.3-51.7) % [place] % (Auto) 7.1 (4.7-12.5) % Eos % (Auto) 0.3 L (0.7-5.8) Baso % (Auto) 0.1 (0.1-1.2) % Neut # (Auto) 7.89 H (1.56-6.13) K/mm3 Lymph # (Auto) 0.64 L (1.18-3.74) K/mm3 [place] # (Auto) 0.66 H (0.24-0.36) K/mm3 Eos # (Auto) 0.03 L (0.04-0.36) K/mm3 Baso # (Auto) 0.01 (0.01-0.08) K/mm3 Manual Slide Review Abnormal smear PT 11.1 (9.7-12.0) SECONDS INR 1.02 APTT 24 (22-31) SECONDS Sodium 139 (136-145) mEq/L Potassium 3.2 L D (3.5-5.1) mEq/L Chloride 102 (98-107) mEq/L Carbon Dioxide 27 (21-32) mEq/L Anion Gap 13.2 (5-15) BUN 62 H (7-18) mg/dL Creatinine 2.2 H (0.55-1.02) mg/dL Est Cr Clr Drug Dosing 15.75 mL/min Estimated GFR (MDRD) 21 (>60) mL/min BUN/Creatinine Ratio 28.2 H (14-18) Glucose 163 H (83-115) mg/dL Calcium 9.1 (8.5-10.1) mg/dL Total Bilirubin 0.5 (0.2-1.0) mg/dL AST 57 H (15-37) U/L ALT 118 H (14-59) U/L Alkaline Phosphatase 84 (46-116) U/L Total Protein 4.9 L (6.4-8.2) g/dl Albumin 2.5 L (3.4-5.0) g/dl Globulin 2.4 gm/dL Albumin/Globulin Ratio 1.0 (1-2) Meds: Medications Generic Name Dose Route Start Last Admin Trade Name Hiram PRN Reason Stop Dose Admin Acetaminophen 975 mg 09/18/19 15:30 Tylenol PO Q8HR LEEANNE Amiodarone HCl 200 mg 09/19/19 09:00 Cordarone PO DAILY LEEANNE Bumetanide 1 mg 09/19/19 06:00 Bumex PO BIDDIURETIC LEEANNE Docusate Sodium 100 mg 09/18/19 15:37 Colace PO BID PRN Constipation Heparin Sodium (Porcine) 5,000 units 09/18/19 15:30 Heparin Sodium SUBCUT Q8HR LEEANNE Lactated Ringer's 1,000 mls @ 10 mls/hr 09/18/19 15:30 Ringers, Lactated IV ASDIRECTED [facility] Potassium Chloride/Sodium Chloride 1,000 mls @ 500 mls/hr 09/18/19 15:45 Normal Saline With 20 Meq Kcl IV ASDIRECTED [facility] Morphine Sulfate 0 mg 09/18/19 15:30 Morphine [place] 30 Mg In 30 Ml IV ASDIRECTED [facility] Protocol Polyethylene Glycol 17 gm 09/18/19 21:00 Miralax PO BID LEEANNE Simvastatin 20 mg 09/18/19 21:00 Zocor PO BEDTIME [facility] Sodium Chloride 10 ml 09/18/19 12:49 Saline Flush FLUSH ASDIRECTED PRN Keep Vein Open Discontinued Medications Generic Name Dose Route Start Last Admin Trade Name Hiram PRN Reason Stop Dose Admin Hydromorphone HCl 0.25 mg 09/18/19 15:08 09/18/19 15:30 Dilaudid IVPUSH 09/18/19 15:09 0.25 mg ONETIME ONE Administration - Re-Assessments/Exams Free Text/Narrative Re-Assessment/Exam: 09/18/19 16:17 I ordered an IV saline lock, CT of her head, facial bones, cervical spine and chest. I also ordered labs and an x-ray of her forearm and bilateral knees. I do not see a fracture in either knee but degenerative changes. Her forearm x- ray shows no fracture. The CT of her facial bones shows possible nasal bone fracture. Soft tissue swelling within the left frontal scalp and left periorbital region. Degenerative change within both temporomandibular joints. No additional facial bone fracture is seen. The CT of her cervical spine shows diffuse degenerative change. No acute fracture is seen. CT of her head shows senescent change. Soft tissue swelling is seen within let frontal scalp. No acute intracranial abnormality is identified. The CT of her chest shows at least 2 left-sided rib fractures showing slight displacement. No pneumothorax is seen at this time within the chest. Questionable nondisplaced sternal fracture. Severe degenerative change within the shoulders. Mild coronary artery calcification. Large calcified gallstones within the gallbladder. Her WBC looks good. Her Hgb is low at 8.2. She has a history of anemia. Her PT and PTT look good. Her K is a little low at 3.2. Her creatinine is elevated at 2.2. Her BUN is elevated at 62. Her glucose is 163. Her AST is 57. Her ALT was elevated at 118. I do not feel I can fix the large lacerations here and I have concerns with her rib fractures. I do not feel she will do well at home. I called Dr Bashir and he came to see the patient. He will admit her and debried the wounds tomorrow. Departure - Departure Time of Disposition: 16:25 Disposition: Admitted As Inpatient 66 Condition: Good Clinical Impression: Skin tear Fall Qualifiers: Encounter type: initial encounter Qualified Code(s): W19.XXXA - Unspecified fall, initial encounter Laceration of left forearm Qualifiers: Encounter type: initial encounter Qualified Code(s): S51.812A - Laceration without foreign body of left forearm, initial encounter Ribs, multiple fractures Qualifiers: Encounter type: initial encounter Fracture type: closed Laterality: left Qualified Code(s): S22.42XA - Multiple fractures of ribs, left side, initial encounter for closed fracture Facial contusion Qualifiers: Encounter type: initial encounter Qualified Code(s): S00.83XA - Contusion of other part of head, initial encounter Bilateral knee pain Qualifiers: Chronicity: acute Qualified Code(s): M25.561 - Pain in right knee; M25.562 - Pain in left knee - Discharge Information - My Orders Last 24 Hours: My Active Orders 09/18/19 12:49 Cardiac Monitoring [RC] . DIRECTED Sodium Chloride 0.9% [Saline Flush] 10 ml FLUSH ASDIRECTED PRN Peripheral IV Insertion Adult [OM.PC] Stat 09/18/19 12:50 Peripheral IV Care [RC] . DIRECTED 09/18/19 12:51 Knee Min 4V Lt [CR] Stat Knee Min 4V Rt [CR] Stat 09/18/19 12:52 Forearm 2V Lt [CR] Stat - Assessment/Plan Last 24 Hours: My Active Orders 09/18/19 12:49 Cardiac Monitoring [RC] . DIRECTED Sodium Chloride 0.9% [Saline Flush] 10 ml FLUSH ASDIRECTED PRN Peripheral IV Insertion Adult [OM.PC] Stat 09/18/19 12:50 Peripheral IV Care [RC] . DIRECTED 09/18/19 12:51 Knee Min 4V Lt [CR] Stat Knee Min 4V Rt [CR] Stat 09/18/19 12:52 Forearm 2V Lt [CR] Stat
--- NOTE | 2019-09-18 14:32 | CT ---
CT chest Technique: Multiple axial sections through the chest were obtained. Intravenous contrast was not utilized. Comparison: No prior chest CT is available. Findings: Fractures are seen within the left fourth and fifth ribs which show mild displacement. No other discrete fracture is appreciated within the ribs. Severe degenerative change is noted within both shoulders. Diffuse disc space narrowing and endplate spurring is noted within the spine. Nothing acute is definitely appreciated within the thoracic spine. Reconstructed sagittal images of the sternum shows minimal deformity within the lower sternum suspicious for a nondisplaced sternal fracture. Mediastinum and hilar regions appear within normal limits. Mild coronary artery calcification is seen. No pericardial thickening is seen. Large calcified gallstone is noted within the gallbladder measuring 1.7 cm. No pneumothorax is seen. Lungs show nothing acute. Impression: 1. At least 2 left-sided rib fractures showing slight displacement. No pneumothorax is seen at this time within the chest. 2. Questionable nondisplaced sternal fracture. 3. Severe degenerative change within the shoulders. Mild coronary artery calcification. Large calcified gallstone within the gallbladder. Diagnostic code #3
--- NOTE | 2019-09-18 14:41 | CT ---
CT cervical spine Technique: Multiple axial sections were obtained from above C1 inferiorly to the top of T3. Reconstructed sagittal and coronal images were obtained. Comparison: No prior cervical spine imaging is available. Findings: Severe disc space narrowing is noted at C2-C3 and C3-C4. Retrolisthesis is seen of C3 on C4 by about 4 mm. Mild disc space narrowing is noted at C4-C5 and C5-C6 with severe disc space narrowing at C6-C7. Mild disc space narrowing is noted throughout the other visualized levels. Mild diffuse anterior osteophytes are seen. Posterior osteophytes are noted at C6-C7. Diffuse degenerative change is noted within the apophyseal joints. Moderate to severe left-sided neural foraminal stenosis is noted at C4-C5 with mild right-sided neural foraminal stenosis. Moderate neural foraminal stenosis is noted on the left-sided C6-C7. Other neural foramina appear to be fairly well patent. Old fracture deformity which appears healed is seen within the posterior left third rib. No acute fracture is appreciated within the cervical spine. Impression: 1. Diffuse degenerative change as noted above. 2. No acute fracture is seen. Diagnostic code #2
--- NOTE | 2019-09-18 14:44 | CT ---
Head CT Technique: Multiple axial sections through the brain were obtained. Intravenous contrast was not utilized. Comparison: Prior head CT study of 10/25/18 is available. Findings: Ventricles along with basal cisterns and sulci over convexities are moderately prominent. Mild diminished density is noted within the periventricular white matter compatible with small vessel ischemic demyelination change. No evidence of intracranial hemorrhage. No midline shift or mass effect is seen. Soft tissue swelling is seen within the left frontal scalp. Atherosclerotic calcification is seen within the carotid siphon. No acute paranasal sinus disease is seen. No acute calvarial abnormality is appreciated. Impression: 1. Senescent change as noted above. 2. Soft tissue swelling is seen within left frontal scalp. 3. No acute intracranial abnormality is identified. Diagnostic code #2
--- NOTE | 2019-09-18 14:46 | CT ---
CT facial bones Technique: Multiple axial sections through the facial bones were obtained. Reconstructed coronal and sagittal images were reviewed. Comparison: No prior's facial bone exam is available. Findings: Soft tissue swelling is again seen within the left frontal scalp. Minimal areas of mucosal thickening are seen within the ethmoid and right maxillary sinus. No air-fluid levels are seen to indicate acute sinus disease. Minimal deformity of the nasal bone suspicious for fracture is present. No additional facial bone fracture is appreciated. Soft tissue swelling is seen within the left periorbital region. Mastoid sinuses are clear. Degenerative change is noted within both temporomandibular joints. Impression: 1. Possible nasal bone fracture. Soft tissue swelling within the left frontal scalp and left periorbital region. 2. Degenerative change within both temporomandibular joints. 3. No additional facial bone fracture is seen. Diagnostic code #3
[2019-09-18] MEDS ORDERED: HYDROmorphone 0.5 MG/0.5 ML Syringe IVPUSH ONE (15:08)
[2019-09-18] MEDS ORDERED: Morphine PF 30 MG/30 ML PCA Vial IV SCH (15:30)
[2019-09-18] MEDS ORDERED: NS + KCl 20mEq/L 1,000 ML IV SCH (15:45)
--- NOTE | 2019-09-18 15:49 | PCM.HP.2 ---
H&P History of Present Illness - General Date of Service: 09/18/19 Admit Problem/Dx: Admission Diagnosis/Problem Admission Diagnosis/Problem Fall at senior care blunt trauma, low impact from fall, on eliquis Source of Information: Patient, Family History Limitations: Reports: No Limitations - History of Present Illness Onset of Symptoms: Reports: Today Duration of Symptoms: Reports: Hour(s): Location: Reports: Face, Chest, Upper Extremity, Left Severity: Moderate Context: Reports: Trauma Other HPI/Comments: 84 yo woman with history of A fib on amiodarone and eliquis presents after fall from standing on to floor this morning. She sustained trauma to the left face, chest, and left upper extremity. Imaging shows no intracranial hemorrhage, but she does have a few rib fractures on the left and avulsion of the skin on the left forearm. She did not lose consciousness prior to the fall or after. Left Arm Pain Score (Numeric/FACES): 9 Left Chest Pain Score (Numeric/FACES): 9 Forehead Pain Score (Numeric/FACES): 8 - Related Data Allergies/Adverse Reactions: Allergies Allergy/AdvReac Type Severity Reaction Status Date / Time codeine Allergy Rash Verified 09/18/19 13:01 iodine Allergy Rash Verified 09/18/19 13:01 metoprolol [From Toprol XL] Allergy swelling Verified 09/18/19 13:01 of lips naproxen [From Naprelan] Allergy Rash Verified 09/18/19 13:01 prednisone Allergy Other Verified 09/18/19 13:01 propoxyphene Allergy urine Verified 09/18/19 13:01 retention Home Medications: Home Meds Acetaminophen [Tylenol] 325 mg PO Q6HR PRN 11/08/18 [History] Allopurinol [Zyloprim] 100 mg PO BID 11/08/18 [History] Bumetanide [Bumex] 1 mg PO BID 11/08/18 [History] Loratadine 10 mg PO DAILY PRN 11/08/18 [History] Multivitamin [Multi-Vitamin Daily] 1 tab PO DAILY 11/08/18 [History] Simvastatin 20 mg PO DAILY 11/08/18 [History] traMADol [Ultram] 50 mg PO BID PRN 11/08/18 [History] Benzonatate [Tessalon Perle] 100 mg PO TID PRN 11/09/18 [History] Cetirizine HCl [All Day Allergy] 10 mg PO DAILY PRN 11/09/18 [History] Niacin 500 mg PO DAILY 11/09/18 [History] Amiodarone [Cordarone] 200 mg PO DAILY #30 tab 11/12/18 [Rx] Apixaban [Eliquis] 2.5 mg PO BID #30 11/12/18 [Rx] Ascorbic Acid 500 mg PO BID #30 11/12/18 [Rx] Ferrous Sulfate [Iron] 325 mg PO BID #60 tablet 11/12/18 [Rx] Acetaminophen [Tylenol] 650 mg PO BID 03/01/19 [History] Famotidine [Pepcid] 20 mg PO DAILY 03/01/19 [History] Sennosides/Docusate Sodium [Senna Plus Tablet] 1 tab PO BID PRN 03/01/19 [ History] Vitamin E 400 unit PO DAILY 03/01/19 [History] Past Medical History HEENT History: Reports: Cataract, Hard of Hearing, Impaired Vision Cardiovascular History: Reports: Afib, Arrhythmia, Heart Failure, High Cholesterol, Hypertension, Syncope Respiratory History: Reports: Bronchitis, Recurrent, Pneumonia, Recurrent Gastrointestinal History: Reports: None Genitourinary History: Reports: Chronic Renal Insuffiency [employer] History: Reports: Musculoskeletal History: Reports: Arthritis, Back Pain, Chronic, Gout, Other ( See Below) Other Musculoskeletal History: Chronic bilateral shoulder pain Neurological History: Reports: Vertigo Endocrine/Metabolic History: Reports: Obesity/BMI 30+ Other Endocrine/Metabolic History: gout Hematologic History: Reports: None Immunologic History: Reports: None Oncologic (Cancer) History: Reports: Breast, Other (See Below) Other Oncologic History: potential breast cancer, recent diagnossis. breast cancer and is to start radiation Dermatologic History: Reports: Other (See Below) Other Dermatologic History: cellulitis to leg right - Infectious Disease History Infectious Disease History: Reports: Chicken Pox, Measles, Shingles - Past Surgical History HEENT Surgical History: Reports: Cataract Surgery Cardiovascular Surgical History: Reports: None Female Surgical History: Reports: Breast Biopsy Other Female Surgeries/Procedures: right breast tissue removed for cancer purposes Endocrine Surgical History: Reports: None Neurological Surgical History: Reports: None Musculoskeletal Surgical History: Reports: Other (See Below) Other Musculoskeletal Surgeries/Procedures:: knee repair Other Oncologic Surgeries/Procedures: titanium tag in breast for marking Social & Family History - Family History Family Medical History: Noncontributory - Tobacco Use Smoking Status *Q: Never Smoker Second Hand Smoke Exposure: No - Caffeine Use Caffeine Use: Reports: Coffee - Recreational Drug Use Recreational Drug Use: No H&P Review of Systems - Review of Systems: Review Of Systems: See Below General: Reports: No Symptoms HEENT: Reports: Eye Pain Pulmonary: Reports: Pleuritic Chest Pain Cardiovascular: Reports: Chest Pain Gastrointestinal: Reports: No Symptoms Genitourinary: Reports: No Symptoms Musculoskeletal: Reports: Shoulder Pain, Arm Pain Skin: Reports: Bruising, Wound Psychiatric: Reports: No Symptoms Neurological: Reports: No Symptoms Hematologic/Lymphatic: Reports: Easy Bleeding, Easy Bruising Immunologic: Reports: No Symptoms Exam - Exam Exam: See Below - Vital Signs Vital Signs: Last Vital Signs Temp 36.9 C 09/18/19 12:35 Pulse 88 09/18/19 12:35 Resp 16 09/18/19 12:35 BP 102/52 L 09/18/19 12:35 Pulse Ox 95 09/18/19 12:35 Weight: 71.214 kg - Exam General: Alert, Mild Distress HEENT: Conjunctiva Clear Neck: Supple Lungs: Clear to Auscultation Cardiovascular: Regular Rate GI/Abdominal Exam: Non-Tender (Female) Exam: Deferred Rectal (Female) Exam: Deferred Extremities: Other Skin: Wound Neurological: Strength Equal Bilateral Neuro Extensive - Mental Status: Alert Psychiatric: Alert, Normal Mood - Patient Data Lab Results Last 24 hrs: Laboratory Results - last 24 hr 09/18/19 09/18/19 09/18/19 Range/Units 13:06 13:06 13:06 WBC 9.29 (3.98-10.04) K/mm3 RBC 2.56 L (3.98-5.22) M/mm3 Hgb 8.2 L D (11.2-15.7) gm/dl Hct 26.2 L (34.1-44.9) % MCV 102.3 H (79.4-94.8) fl MCH 32.0 (25.6-32.2) pg MCHC 31.3 L (32.2-35.5) g/dl RDW Std Deviation 51.8 H (36.4-46.3) fL Plt Count 358 D (182-369) K/mm3 MPV 9.4 (9.4-12.3) fl Neut % (Auto) 85.0 H (34.0-71.1) % Lymph % (Auto) 6.9 L (19.3-51.7) % [place] % (Auto) 7.1 (4.7-12.5) % Eos % (Auto) 0.3 L (0.7-5.8) Baso % (Auto) 0.1 (0.1-1.2) % Neut # (Auto) 7.89 H (1.56-6.13) K/mm3 Lymph # (Auto) 0.64 L (1.18-3.74) K/mm3 [place] # (Auto) 0.66 H (0.24-0.36) K/mm3 Eos # (Auto) 0.03 L (0.04-0.36) K/mm3 Baso # (Auto) 0.01 (0.01-0.08) K/mm3 Manual Slide Review Abnormal smear PT 11.1 (9.7-12.0) SECONDS INR 1.02 APTT 24 (22-31) SECONDS Sodium 139 (136-145) mEq/L Potassium 3.2 L D (3.5-5.1) mEq/L Chloride 102 (98-107) mEq/L Carbon Dioxide 27 (21-32) mEq/L Anion Gap 13.2 (5-15) BUN 62 H (7-18) mg/dL Creatinine 2.2 H (0.55-1.02) mg/dL Est Cr Clr Drug Dosing 15.75 mL/min Estimated GFR (MDRD) 21 (>60) mL/min BUN/Creatinine Ratio 28.2 H (14-18) Glucose 163 H (83-115) mg/dL Calcium 9.1 (8.5-10.1) mg/dL Total Bilirubin 0.5 (0.2-1.0) mg/dL AST 57 H (15-37) U/L ALT 118 H (14-59) U/L Alkaline Phosphatase 84 (46-116) U/L Total Protein 4.9 L (6.4-8.2) g/dl Albumin 2.5 L (3.4-5.0) g/dl Globulin 2.4 gm/dL Albumin/Globulin Ratio 1.0 (1-2) Result Diagrams: 09/18/19 13:06 09/18/19 13:06 *Q Meaningful Use (ADM) - VTE *Q VTE Mechanical Contraindications *Q: At Risk for Falls VTE Pharmacological Contraindications *Q: Risk of Bleeding - VTE Risk Assess *Q Each Risk Factor Represents 3 Points: Age 75 Years or Greater Total Score 3 Point Risk Factors: 3 Each Risk Factor Represents 5 Points: Multiple Trauma, Less than 1 Month Total Score 5 Point Risk Factors: 5 Problem List Initiated/Reviewed/Updated: Yes Orders Last 24hrs: Active Orders 24 hr Category Date Time Status Patient Status [ADT] Routine ADT 09/18/19 15:25 Ordered Activity as Tolerated [RC] .Routine Care 09/18/19 15:25 Ordered Antiembolic Devices [RC] PER UNIT ROUTINE Care 09/18/19 15:27 Ordered Cardiac Monitoring [RC] . DIRECTED Care 09/18/19 12:49 Active Chest Physiotherapy [RT Chest Physiotherapy] [RC] Care 09/18/19 15:29 Ordered ASDIRECTED Communication Order [RC] PER UNIT ROUTINE Care 09/18/19 15:38 Ordered Oxygen Therapy [RC] PRN Care 09/18/19 15:25 Ordered Oxygen Therapy [RC] PRN Care 09/18/19 15:32 Ordered Peripheral IV Care [RC] . DIRECTED Care 09/18/19 12:50 Active RT Incentive Spirometry [RC] Q1HWA Care 09/18/19 15:25 Ordered RT Incentive Spirometry [RC] Q1HWA Care 09/18/19 15:32 Ordered Up to Chair [RC] ASDIRECTED Care 09/18/19 15:32 Ordered Vital Signs [RC] Q15M Care 09/18/19 15:25 Ordered Vital Signs [RC] Q8H Care 09/18/19 15:25 Ordered Regular Diet [DIET] Diet 09/18/19 Breakfast Ordered Chest 2V [CR] Stat Exams 09/18/19 15:31 Ordered Forearm 2V Lt [CR] Stat Exams 09/18/19 12:52 Taken Knee Min 4V Lt [CR] Stat Exams 09/18/19 12:51 Taken Knee Min 4V Rt [CR] Stat Exams 09/18/19 12:51 Taken BASIC METABOLIC PANEL,BMP [CHEM] AM Lab 09/19/19 05:11 Ordered CBC WITH AUTO DIFF [HEME] AM Lab 09/19/19 05:11 Ordered Acetaminophen [Tylenol] Med 09/18/19 15:30 Ordered 975 mg PO Q8H Amiodarone [Cordarone] Med 09/19/19 09:00 Ordered 200 mg PO DAILY Bumetanide [Bumex] Med 09/19/19 06:00 Ordered 1 mg PO BIDDIURETIC Docusate Sodium [Colace] Med 09/18/19 15:37 Ordered 100 mg PO BID PRN Heparin Sodium Med 09/18/19 15:30 Ordered 5,000 units SUBCUT Q8H Lactated Ringers [Ringers, Lactated] 1,000 ml Med 09/18/19 15:30 Ordered IV ASDIRECTED Morphine PF [Morphine [employer] 30 MG in 30 ML] Med 09/18/19 15:30 Ordered See Protocol IV ASDIRECTED NS + KCl 20mEq/L [Normal Saline with 20 mEq KCl] 1,000 Med 09/18/19 15:45 Ordered ml IV ASDIRECTED Polyethylene Glycol 3350 [MiraLAX] Med 09/18/19 21:00 Ordered 17 gm PO BID Simvastatin [Zocor] Med 09/18/19 21:00 Ordered 20 mg PO BEDTIME Sodium Chloride 0.9% [Saline Flush] Med 09/18/19 12:49 Active 10 ml FLUSH ASDIRECTED PRN Peripheral IV Insertion Adult [OM.PC] Stat Oth 09/18/19 12:49 Ordered Sequential Compression Device [OM.PC] Routine Oth 09/18/19 15:25 Ordered Resuscitation Status Routine Resus Stat 09/18/19 15:25 Ordered Medication Orders Acetaminophen (Tylenol) 975 mg PO Q8HR LEEANNE Amiodarone HCl (Cordarone) 200 mg PO DAILY LEEANNE Bumetanide (Bumex) 1 mg PO BIDDIURETIC LEEANNE Docusate Sodium (Colace) 100 mg PO BID PRN PRN Reason: Constipation Heparin Sodium (Porcine) (Heparin Sodium) 5,000 units SUBCUT Q8HR LEEANNE Lactated Ringer's (Ringers, Lactated) 1,000 mls @ 10 mls/hr IV ASDIRECTED LEEANNE Potassium Chloride/Sodium Chloride (Normal Saline With 20 Meq Kcl) 1,000 mls @ 500 mls/hr IV ASDIRECTED LEEANNE Morphine Sulfate (Morphine Welding Operator 30 Mg In 30 Ml) 0 mg IV ASDIRECTED LEEANNE; Protocol Polyethylene Glycol (Miralax) 17 gm PO BID LEEANNE Simvastatin (Zocor) 20 mg PO BEDTIME LEEANNE Sodium Chloride (Saline Flush) 10 ml FLUSH ASDIRECTED PRN PRN Reason: Keep Vein Open Assessment/Plan Comment:: Blunt trauma, low impact, in geriatric patient with a few left sided rib fractures, on anticoagulant for atrial fibrillation. Plan for admission to ICU for observation, pain control with [employer] and pulmonary toilet. Restart home medications, will restart eilquis tomorrow Plan for debridement of left arm wound tomorrow Wound can be dressed with bacitracin ointment and adaptec gauze or equivalent non-stick dressing Repeat CXR in AM Chest PT consult
[2019-09-18] MEDS: Lactated Ringers 1,000 ML IV SCH (19:58)
[2019-09-18] MEDS: Simvastatin 20 MG Tab PO SCH ×2 (20:04→20:06)
[2019-09-18] MEDS: Polyethylene Glycol 3350 Powder 17 GM Packet PO SCH (20:08)
[2019-09-18] MEDS: Acetaminophen 325 MG Tab PO SCH ×3 (20:13→22:00)
[2019-09-18] MEDS: Heparin Sodium 5,000 Units/ML Vial SUBCUT SCH ×3 (20:13→22:00)
[2019-09-18] MEDS: fentaNYL 100 MCG/2 ML SDV IVPUSH PRN (20:49)
[2019-09-19] MEDS: fentaNYL 100 MCG/2 ML SDV IVPUSH PRN ×4 (01:35→21:50)
[2019-09-19] MEDS: oxyCODONE 5 MG Tab PO PRN ×3 (02:14→17:34)
[2019-09-19] MEDS: Heparin Sodium 5,000 Units/ML Vial SUBCUT SCH ×3 (05:30→21:29)
[2019-09-19] MEDS: Acetaminophen 325 MG Tab PO SCH ×3 (05:32→21:28)
[2019-09-19] MEDS: Bumetanide 1 MG Tab PO SCH ×2 (05:34→13:35)
[2019-09-19] MEDS ORDERED: Bacitracin Oint 15 GM Tube TOP ONE (08:15)
[2019-09-19] MEDS: Amiodarone 200 MG Tab PO SCH (08:37)
--- NOTE | 2019-09-19 08:40 | PCM.SN ---
- Free Text/Narrative Note: S: inadequate pain control, poor rest overnight O: AF_ SBP 90s, normal HR, normal RR, SPO2 > 90% on room air Gen: no distress HEENT: hard of hearing, hearing aids in place, bilateral periorbital ecchymosis and swelling. Pupils equal and reactive. Tongue protrudes without deviation. Pulm: clear breath sounds, normal respiratory effort CV: RRR Abd: soft Msk: No bony deformity at extremities Skin: extensive soft tissue avulsion along dorsal aspect of left forearm, with subcutaneous fat and tendinous tissue exposed at distal aspect of ulna. Neuro: motor and sensory function grossly intact A: 84 yo woman s/p fall, on eliquis, with two left rib fractures and soft tissue injury to left forearm. No intracranial hemorrhage on imaging. Stable overnight. Plan: Hgb 7.4 this AM, with lower blood pressure and elevated creatinine I think the patient would benefit from 1 u pRBC followed by 20 mg IV lasix to help avoid fluid overload. CXR this AM pending. Wound washed out, with deeper area reapproximated with steristrips. Bacitracin and xeroform gauze applied. Continue pulmonary toilet, vitals q4, physical therapy consult. Anticipate transfer to SNF when medically ready. Repeat labs in AM.
[2019-09-19] MEDS: Polyethylene Glycol 3350 Powder 17 GM Packet PO SCH ×2 (08:57→21:30)
[2019-09-19] MEDS ORDERED: Sodium Chloride 0.9% 250 ML IV SCH (10:00)
--- NOTE | 2019-09-19 10:12 | CR ---
Chest: 2 views of the chest were obtained. Comparison: Prior chest CT study of 09/18/19. Findings: Displaced fracture is noted within the left 4th and 5th ribs. These were seen on prior chest CT exam. No definite pneumothorax is seen at this time. Lungs show no acute parenchymal change. Heart size is normal. Severe degenerative change is noted within the spine. Questionable small pleural effusions are present. Mild degenerative change is seen within the spine. Impression: 1. 2 left upper rib fractures without definite pneumothorax being seen at this time. 2. Other findings believed to be chronic. Diagnostic code #3
[2019-09-19] MEDS ORDERED: Furosemide 20 MG/2 ML VIAL IVPUSH ONE (12:00)
--- NOTE | 2019-09-19 13:42 | CR ---
Left knee: Four views of the left knee were obtained. Comparison: No prior left knee exam. Severe lateral joint space narrowing is noted with lateral osteophytes. Moderate medial joint space narrowing is noted. Slight chondrocalcinosis is noted within the medial meniscus. No joint effusion is seen. Osteopenia is noted. No acute fracture or other bony abnormality is seen. Impression: 1. Degenerative change as noted above. 2. Nothing acute is appreciated. Diagnostic code #2
--- NOTE | 2019-09-19 13:42 | CR ---
Right knee: Four views of the right knee were obtained. Comparison: No prior right knee exam is available. Severe medial and lateral joint space narrowing is seen. Osteophytes are noted off the lateral joint. No discrete joint effusion is seen. No acute fracture or other bony abnormality is seen. Impression: 1. Severe degenerative change within the right knee. 2. Nothing acute is appreciated on right knee exam. Diagnostic code #2
--- NOTE | 2019-09-19 13:56 | CR ---
Left forearm: Two views of the left forearm were obtained. Comparison: Previous left forearm study of 11/08/18. Degenerative change is seen within the CMC joint of the thumb. Vascular calcification is noted. Osteopenia is present. No acute fracture or other bony abnormality is appreciated. Impression: 1. Findings as noted above. 2. No acute bony abnormality is appreciated on two-view left forearm exam. Diagnostic code #2
[2019-09-19] MEDS: Simvastatin 20 MG Tab PO SCH (21:30)
[2019-09-19] MEDS: Lactated Ringers 1,000 ML IV SCH (21:50)
[2019-09-20] MEDS: Heparin Sodium 5,000 Units/ML Vial SUBCUT SCH ×2 (05:45→13:56)
[2019-09-20] MEDS: Bumetanide 1 MG Tab PO SCH ×2 (05:45→13:56)
[2019-09-20] MEDS: Acetaminophen 325 MG Tab PO SCH ×3 (05:45→21:18)
[2019-09-20] MEDS: oxyCODONE 5 MG Tab PO PRN ×3 (05:46→21:19)
--- NOTE | 2019-09-20 08:30 | PCM.SN ---
- Free Text/Narrative Note: S: got some rest overnight. Reports 9/10 left sided chest pain. Not up out of bed except to go to bathroom. Not using incentive spirometer. O: AF-VSS Gen: up in chair, no acute distress HEENT: hard of hearing, bilateral periorbital ecchymosis and swelling Pulm: IS pulls ~1000 mL. [place]. CV: RRR Abd: Soft MSK: extensive avulsion of soft tissue along dorsal aspect of left forearm Neuro: motor and sensory function grossly intact Psych: oriented, appropriate A: Elderly frail woman s/p fall from standing with two left sided rib fractures and left forearm wound. Was taking eliquis for A fib. Responded well to 1 u pRBC and lasix yesterday. P:The priority now is good pain control so she may participate in effective pulmonary toilet. She needs to continue to use the incentive spirometer hourly while awake and starting walking the halls with assistance. Physical therapy consult placed. Plan on SNF when medically ready for discharge.
--- NOTE | 2019-09-20 09:03 | CR ---
Chest: Portable view of the chest was obtained. Comparison: Prior chest x-ray of 09/19/19. Heart size is normal. Upper mediastinum is within normal limits. Lungs show no acute parenchymal change. Bony structures show degenerative change within both shoulders which is stable. Mild degenerative change is scattered within the spine which is stable. Stable left upper rib fractures are noted. No pneumothorax is seen. Impression: 1. Stable left upper rib fractures with no pneumothorax. 2. Nothing acute is otherwise seen. Diagnostic code #2
[2019-09-20] MEDS: Polyethylene Glycol 3350 Powder 17 GM Packet PO SCH ×2 (09:05→21:17)
[2019-09-20] MEDS: Amiodarone 200 MG Tab PO SCH (09:05)
[2019-09-20] MEDS: Simvastatin 20 MG Tab PO SCH (21:18)
[2019-09-20] MEDS: Apixaban 2.5 MG Tab PO SCH (21:18)
[2019-09-20] MEDS: Lactated Ringers 1,000 ML IV SCH (21:20)
[2019-09-21] MEDS: Bumetanide 1 MG Tab PO SCH ×2 (05:47→13:19)
[2019-09-21] MEDS: Acetaminophen 325 MG Tab PO SCH ×4 (05:48→20:53)
[2019-09-21] MEDS: oxyCODONE 5 MG Tab PO PRN ×3 (05:48→20:52)
[2019-09-21] MEDS: Apixaban 2.5 MG Tab PO SCH ×2 (08:57→20:53)
[2019-09-21] MEDS: Amiodarone 200 MG Tab PO SCH (08:57)
[2019-09-21] MEDS: Polyethylene Glycol 3350 Powder 17 GM Packet PO SCH ×2 (08:58→20:53)
[2019-09-21] MEDS: fentaNYL 100 MCG/2 ML SDV IVPUSH PRN ×2 (08:59→13:15)
--- NOTE | 2019-09-21 10:50 | PCM.DCSUM1 ---
Discharge Summary - Hospital Course Free Text/Narrative:: Admitted as a trauma from the ER after presenting with blunt trauma from fall from standing. Was taking eliquis for atrial fibrillation. No intracranial hemorrhage on CT scan noted. She had soft tissue avulsion of the left forearm, two rib fractures without penumo or hemothorax. She was admitted for monitoring , pain control and pulmonary toilet as well as wound care. She received one unit of packed red cells for a Hgb <8 g/dL and had a good response. She was diuresed with 20 mg IV lasix following transfusion. Her creatinine on admission was 2.2, which came down two consecutive days with gentle fluid resuscitation. She did well from a respiratory standpoint and pain was managed with oral medication. Eliquis was restarted on HD 3. She was ambulatory with assistance and worked with physical and occupational therapy. It was recommended she transfer to a fdc facility once medically ready for discharge. Diagnosis: Stroke: No - Discharge Data Discharge Date: 09/21/19 Discharge Disposition: DC/Tfer to SNF 03 Condition: Stable - Referral to Home Health Primary Care Physician: Branden Cervantes MD - Patient Summary/Data Consults: Consultations 09/19/19 08:31 Consult to Physical Therapy [PT Evaluation and Treatment] [CONS] Routine 09/20/19 10:51 Consult to Occupational Therapy [OT Evaluation and Treatment] [CONS] Routine Hospital Course: see free text/narrative - Patient Instructions Diet: Usual Diet as Tolerated Activity: As Tolerated Wound/Incision Care: Keep Operative Site/Wound Site Clean and Dry, Change Dressing Daily - Discharge Plan *PRESCRIPTION DRUG MONITORING PROGRAM REVIEWED*: Not Applicable *COPY OF PRESCRIPTION DRUG MONITORING REPORT IN PATIENT GRANT: Not Applicable Prescriptions/Med Rec: oxyCODONE 5 mg PO Q4H PRN #40 tab PRN Reason: Pain Home Medications: Home Meds Acetaminophen [Tylenol] 325 mg PO Q6HR PRN 11/08/18 [History] Allopurinol [Zyloprim] 100 mg PO BID 11/08/18 [History] Bumetanide [Bumex] 1 mg PO BID 11/08/18 [History] Loratadine 10 mg PO DAILY PRN 11/08/18 [History] Multivitamin [Multi-Vitamin Daily] 1 tab PO DAILY 11/08/18 [History] Simvastatin 20 mg PO BEDTIME 11/08/18 [History] traMADol [Ultram] 50 mg PO BID PRN 11/08/18 [History] Benzonatate [Tessalon Perle] 100 mg PO TID PRN 11/09/18 [History] Cetirizine HCl [All Day Allergy] 10 mg PO DAILY 11/09/18 [History] Niacin 500 mg PO DAILY 11/09/18 [History] Amiodarone [Cordarone] 200 mg PO DAILY #30 tab 11/12/18 [Rx] Apixaban [Eliquis] 2.5 mg PO BID #30 11/12/18 [Rx] Ascorbic Acid 500 mg PO BID #30 11/12/18 [Rx] Ferrous Sulfate [Iron] 325 mg PO BID #60 tablet 11/12/18 [Rx] Acetaminophen [Tylenol] 650 mg PO BID 03/01/19 [History] Famotidine [Pepcid] 20 mg PO DAILY 03/01/19 [History] Sennosides/Docusate Sodium [Senna Plus Tablet] 1 tab PO BID PRN 03/01/19 [ History] Vitamin E 400 unit PO DAILY 03/01/19 [History] oxyCODONE 5 mg PO Q4H PRN #40 tab 09/21/19 [Rx] Oxygen Therapy Mode: Room Air Patient Handouts: Rib Fracture, Heart Failure Forms: ED Department Discharge Referrals: Branden Cervantes MD [Primary Care Provider] - - Discharge Summary/Plan Comment DC Time >30 min.: Yes Discharge Summary/Plan Comment: To SNF for continued management after blunt trauma. Follow up in surgery clinic in 3-4 weeks or sooner if necessary. - Patient Data Vitals - Most Recent: Last Vital Signs Temp 37.1 C 09/21/19 05:53 Pulse 91 09/21/19 05:53 Resp 18 09/21/19 05:53 BP 130/72 09/20/19 22:00 Pulse Ox 95 09/21/19 05:53 Weight - Most Recent: 71.668 kg I&O - Last 24 hours: Intake & Output 09/20/19 09/21/19 09/21/19 22:59 06:59 14:59 Intake Total 1090 396 Output Total 650 800 Balance 440 -404 Med Orders - Current: Current Medications Acetaminophen (Tylenol) 975 mg PO Q8HR LEEANNE Last Admin: 09/21/19 05:48 Dose: 975 mg Amiodarone HCl (Cordarone) 200 mg PO DAILY [facility] Last Admin: 09/21/19 08:57 Dose: 200 mg Apixaban (Eliquis) 2.5 mg PO BID [facility] Last Admin: 09/21/19 08:57 Dose: 2.5 mg Bumetanide (Bumex) 1 mg PO BIDDIURETIC [facility] Last Admin: 09/21/19 05:47 Dose: 1 mg Docusate Sodium (Colace) 100 mg PO BID PRN PRN Reason: Constipation Fentanyl (Sublimaze) 25 mcg IVPUSH Q2H PRN PRN Reason: Pain (severe 7-10) Last Admin: 09/21/19 08:59 Dose: 25 mcg Lactated Ringer's (Ringers, Lactated) 1,000 mls @ 10 mls/hr IV ASDIRECTED [facility] Last Admin: 09/20/19 21:20 Dose: 10 mls/hr Oxycodone HCl (Oxycodone) 5 mg PO Q6H PRN PRN Reason: Pain (moderate 4-6) Last Admin: 09/21/19 05:48 Dose: 5 mg Polyethylene Glycol (Miralax) 17 gm PO BID [facility] Last Admin: 09/21/19 08:58 Dose: 17 gm Simvastatin (Zocor) 20 mg PO BEDTIME [facility] Last Admin: 09/20/19 21:18 Dose: 20 mg Sodium Chloride (Saline Flush) 10 ml FLUSH ASDIRECTED PRN PRN Reason: Keep Vein Open Discontinued Medications Bacitracin (Bacitracin Oint) 0 gm TOP ONETIME ONE Stop: 09/19/19 08:16 Last Admin: 09/19/19 08:57 Dose: Not Given Furosemide (Lasix) 20 mg IVPUSH ONETIME ONE Stop: 09/19/19 12:01 Last Admin: 09/19/19 14:14 Dose: 20 mg Heparin Sodium (Porcine) (Heparin Sodium) 5,000 units SUBCUT Q8HR [facility] Last Admin: 09/20/19 13:56 Dose: 5,000 units Hydromorphone HCl (Dilaudid) 0.25 mg IVPUSH ONETIME ONE Stop: 09/18/19 15:09 Last Admin: 09/18/19 15:30 Dose: 0.25 mg Potassium Chloride/Sodium Chloride (Normal Saline With 20 Meq Kcl) 1,000 mls @ 500 mls/hr IV ASDIRECTED [facility]EEANNE Last Admin: 09/18/19 17:39 Dose: 500 mls/hr Sodium Chloride (Normal Saline) 250 mls @ 50 mls/hr IV ASDIRECTED [facility]EEANNE Last Admin: 09/19/19 10:17 Dose: 50 mls/hr Morphine Sulfate (Morphine Pearl Peller 30 Mg In 30 Ml) 0 mg IV ASDIRECTED LEEANNE; Protocol *Q Meaningful Use (DIS) - VTE *Q VTE Mechanical Contraindications *Q: At Risk for Falls VTE Pharmacological Contraindications *Q: Risk of Bleeding
[2019-09-21] MEDS: Docusate Sodium 100 MG Cap PO PRN (16:15)
[2019-09-21] MEDS: Simvastatin 20 MG Tab PO SCH (20:52)
[2019-09-21] MEDS: Lactated Ringers 1,000 ML IV SCH (20:54)
[2019-09-22] MEDS: Acetaminophen 325 MG Tab PO SCH (05:40)
[2019-09-22] MEDS: Bumetanide 1 MG Tab PO SCH (05:40)
[2019-09-22] MEDS: oxyCODONE 5 MG Tab PO PRN (05:40)
[2019-09-22] MEDS: Docusate Sodium 100 MG Cap PO PRN (05:44)
[2019-09-22] MEDS: Polyethylene Glycol 3350 Powder 17 GM Packet PO SCH (09:11)
[2019-09-22] MEDS: Apixaban 2.5 MG Tab PO SCH (09:11)
[2019-09-22] MEDS: Amiodarone 200 MG Tab PO SCH (09:11)
== END 2019-09-22 12:15 | DRG 184 ==
LOC: JD.ED 12:35 → SUPCPDRO 12:35 → UNDOADMIN 15:25 → JD.ICU 15:25 → JD.MS 15:26 → JD.ICU 15:27 → JD.MS 15:27
PROVIDERS: ADMIT Surgery; ATTEND Surgery
PROC: 30233N1 Transfusion of Nonautologous Red Blood Cells into Peripheral Vein, Percutaneous Approach (ICD-10-PCS; principal; 2019-09-19)
DX: S22.42XA Multiple fractures of ribs, left side, initial encounter for closed fracture (principal); S00.83XA Contusion of other part of head, initial encounter; I13.0 Hypertensive heart and chronic kidney disease with heart failure and stage 1 through stage 4 chronic kidney disease, or unspecified chronic kidney disease; S41.112A Laceration without foreign body of left upper arm, initial encounter; S51.812A Laceration without foreign body of left forearm, initial encounter; S01.81XA Laceration without foreign body of other part of head, initial encounter; H91.90 Unspecified hearing loss, unspecified ear; H54.7 Unspecified visual loss; M25.561 Pain in right knee; M25.562 Pain in left knee; I48.91 Unspecified atrial fibrillation; E78.00 Pure hypercholesterolemia, unspecified; M19.90 Unspecified osteoarthritis, unspecified site; M54.9 Dorsalgia, unspecified; G89.29 Other chronic pain; N18.9 Chronic kidney disease, unspecified; I50.9 Heart failure, unspecified; C50.919 Malignant neoplasm of unspecified site of unspecified female breast; D64.9 Anemia, unspecified; Z79.01 Long term (current) use of anticoagulants; Z88.6 Allergy status to analgesic agent; M10.9 Gout, unspecified; E66.9 Obesity, unspecified; Z87.01 Personal history of pneumonia (recurrent); Z90.49 Acquired absence of other specified parts of digestive tract; R51 Headache; M79.632 Pain in left forearm; Z88.5 Allergy status to narcotic agent; R07.9 Chest pain, unspecified; R60.0 Localized edema; M25.512 Pain in left shoulder; M25.511 Pain in right shoulder; R42 Dizziness and giddiness; Z88.8 Allergy status to other drugs, medicaments and biological substances; Z79.899 Other long term (current) drug therapy; W01.0XXA Fall on same level from slipping, tripping and stumbling without subsequent striking against object, initial encounter; Y92.129 Unspecified place in nursing home as the place of occurrence of the external cause; Z68.27 Body mass index [BMI] 27.0-27.9, adult
CPT/HCPCS: 36415; 36430; 70450; 70450-26; 70486; 70486-26; 71045; 71045-26; 71046; 71046-26; 71250; 71250-26; 72125; 72125-26; 73090-26-LT; 73090-LT; 73564-26-LT; 73564-26-RT; 73564-LT; 73564-RT; 80048; 80053; 85025; 85610; 85730; 86850; 86900; 86901; 86922; 87641; 94667; 97110-GP; 97116-GP; 97162-GP; 97166-GO; 97530-GO; 97530-GP; 99284; 99285-25; A9270-GY; J1170; J1644; J2274; J3010; J3480; J7050; J7120; P9016

== ENCOUNTER 2019-11-02 10:03 | Inpatient (IN) | payer MEDICARE, OTHER ==
[2019-11-02] MEDS ORDERED: Acetaminophen 325 MG Tab PO ONE (10:37)
--- NOTE | 2019-11-02 10:38 | EDM.PDOC ---
ED HPI GENERAL MEDICAL PROBLEM - General Chief Complaint: Respiratory Problem Stated Complaint: short of breath Time Seen by Provider: 11/02/19 10:20 Source of Information: Reports: Patient, EMS History Limitations: Reports: No Limitations - History of Present Illness INITIAL COMMENTS - FREE TEXT/NARRATIVE: 84-year-old female presents the ED from one of the local nursing homes where she resides. She presents with a very productive sounding bilateral cough. She is febrile on exam. She apparently became ill within the last 48 hours. She has been given Tylenol for fever relief particular murmur when she received it last. She did have a flu shot this year. She did not eat at all today and she lost her appetite but did eat fairly well yesterday. He diarrhea. Denies any vomiting. His multiple bruises of her face and right upper extremity and both knees from a fall apparently September 18. This resulted in a very large skin tear of the entire right extensor surface of her forearm. Onset: Gradual Onset Date: 10/31/19 Duration: Day(s):, Getting Worse Location: Reports: Chest (Very congested productive sounding cough with associated fever.) Quality: Reports: Other Severity: Severe (Productive cough.) Improves with: Reports: None Worsens with: Reports: Other Context: Denies: Activity (Wind down or with trying to walk.), Exercise, Lifting , Sick Contact, Trauma, Other Associated Symptoms: Reports: Cough, cough w sputum, Fever/Chills, Loss of Appetite, Malaise, Shortness of Breath, Weakness. 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 (At the [place] [facility] but she's not sure when she received her last dose.) Chest Pain Score (Numeric/FACES): 2 - Related Data Allergies Allergy/AdvReac Type Severity Reaction Status Date / Time codeine Allergy Rash Verified 11/02/19 10:25 iodine Allergy Rash Verified 11/02/19 10:25 metoprolol [From Toprol XL] Allergy swelling Verified 11/02/19 10:25 of lips naproxen [From Naprelan] Allergy Rash Verified 11/02/19 10:25 prednisone Allergy Other Verified 11/02/19 10:25 propoxyphene AdvReac urine Verified 11/02/19 10:25 retention Home Meds: Home Meds Acetaminophen [Tylenol] 325 mg PO Q6HR PRN 11/08/18 [History] Bumetanide [Bumex] 1 mg PO BID 11/08/18 [History] Loratadine 10 mg PO DAILY PRN 11/08/18 [History] Multivitamin [Multi-Vitamin Daily] 1 tab PO DAILY 11/08/18 [History] Simvastatin 20 mg PO BEDTIME 11/08/18 [History] allopurinoL [Zyloprim] 100 mg PO BID 11/08/18 [History] traMADol [Ultram] 50 mg PO BID PRN 11/08/18 [History] Benzonatate [Tessalon Perle] 100 mg PO TID PRN 11/09/18 [History] Cetirizine HCl [All Day Allergy] 10 mg PO DAILY 11/09/18 [History] Niacin 500 mg PO DAILY 11/09/18 [History] Amiodarone [Cordarone] 200 mg PO DAILY #30 tab 11/12/18 [Rx] Apixaban [Eliquis] 2.5 mg PO BID #30 11/12/18 [Rx] Ascorbic Acid 500 mg PO BID #30 11/12/18 [Rx] Ferrous Sulfate [Iron] 325 mg PO BID #60 tablet 11/12/18 [Rx] Acetaminophen [Tylenol] 650 mg PO BID 03/01/19 [History] Famotidine [Pepcid] 20 mg PO DAILY 03/01/19 [History] Sennosides/Docusate Sodium [Senna Plus Tablet] 1 tab PO BID PRN 03/01/19 [ History] Vitamin E 400 unit PO DAILY 03/01/19 [History] oxyCODONE 5 mg PO Q4H PRN #40 tab 09/21/19 [Rx] Polyethylene Glycol 3350 [MiraLAX] 17 gm PO BID 30 Days packet 09/22/19 [Rx] Past Medical History HEENT History: Reports: Hard of Hearing, Impaired Vision, Other (See Below) Other HEENT History: hearing aid to left ear, wears glasses for reading Cardiovascular History: Reports: Afib, High Cholesterol, Hypertension, Syncope Respiratory History: Reports: Pneumonia, Recurrent Gastrointestinal History: Reports: GERD Genitourinary History: Reports: Chronic Renal Insuffiency 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 breast cancer and is to start radiation Dermatologic History: Reports: Other (See Below) Other Dermatologic History: cellulitis to leg right - Infectious Disease History Infectious Disease History: Reports: Chicken Pox, Measles, Shingles - Past Surgical History HEENT Surgical History: Reports: Cataract Surgery Cardiovascular Surgical History: Reports: None Respiratory Surgical History: Reports: None GI Surgical History: Reports: None Female Surgical History: Reports: Breast Biopsy Other Female Surgeries/Procedures: right breast tissue removed for cancer purposes Endocrine Surgical History: Reports: None Neurological Surgical History: Reports: None Musculoskeletal Surgical History: Reports: Other (See Below) Other Musculoskeletal Surgeries/Procedures:: cortisone injections to knees Other Oncologic Surgeries/Procedures: titanium tag in breast for marking Social & Family History - Family History Family Medical History: Noncontributory - Tobacco Use Smoking Status *Q: Never Smoker - Caffeine Use Caffeine Use: Reports: Tea - Living Situation & Occupation Living situation: Reports: , Extended Care Facility Occupation: Retired ED ROS GENERAL - Review of Systems Review Of Systems: See Below Constitutional: Reports: Fever, Chills, Malaise, Weakness, Fatigue, Decreased Appetite HEENT: Reports: Glasses, Hearing Loss, Vision Change Respiratory: Reports: Shortness of Breath (Poor vision.), Wheezing, Cough, Sputum. Denies: Pleuritic Chest Pain, Hemoptysis Cardiovascular: Reports: Blood Pressure Problem, Dyspnea on Exertion (Chronic both lower extremities), Edema, Orthopnea, Palpitations. Denies: Chest Pain, Claudication Endocrine: Reports: Fatigue GI/Abdominal: Reports: Constipation, Decreased Appetite (DD little yesterday but none today.), Nausea. Denies: Stool Incontinence, Vomiting : Reports: Incontinence (Both urge and stress components.) Musculoskeletal: Reports: Neck Pain, Shoulder Pain, Back Pain, Joint Pain ( Knees hips and lower back.) Skin: Reports: Other (Healing contusions to her face with bruising over both malar eminences and forehead. Large skin tear right forearm which is slowly granulating in. She has contusions and ecchymoses to both patellas worse on the left as compared to the right. This is all from a fall on September 18. She is on Eliquis.) Neurological: Reports: Difficulty Walking, Weakness. Denies: Confusion, Dizziness, Headache, Numbness, Syncope, Tingling, Tremors, Trouble Speaking ( Able to walk on her own), Change in Speech Psychiatric: Reports: No Symptoms Hematologic/Lymphatic: Reports: No Symptoms Immunologic: Reports: No Symptoms ED EXAM, GENERAL - Physical Exam Exam: See Below Exam Limited By: No Limitations General Appearance: Alert, WD/WN, Moderate Distress (frequent productive sounding cough.), Other (Temperature is 36.8 and this is not correct. She is much warmer than this. Heart rate is 86 respiratory 16 BP 1 3487 O2 sats 92% on room air.) Eye Exam: Bilateral Eye: Normal Inspection Throat/Mouth: Normal Inspection, Normal Lips, Normal Oropharynx, Other (No signs of oropharyngeal inflammation.) Head: Atraumatic, Normocephalic Neck: Limited Range of Motion, Tender Lateral. No: Carotid Bruit, Lymphadenopathy (L), Lymphadenopathy (R) (Tender bowel bilateral aspects of the cervical spine to compare with degenerative arthritic change.) Respiratory/Chest: No Accessory Muscle Use, Respiratory Distress (Mild tachypnea.), Decreased Breath Sounds (Decreased breath sounds to the lower 25% of lung knox posteriorly.), Rhonchi (Rhonchi throughout all lung knox with occasional expiratory wheeze.). No: Lungs Clear, Normal Breath Sounds, Chest Non-Tender Cardiovascular: Regular Rate, Rhythm, No Edema, No Gallop, No Murmur, No Rub, Other (Note heart sounds are difficult to hear due to adventitious sounds in the lungs.). No: Normal Peripheral Pulses Peripheral Pulses: 0: Posterior Tibial (L) (Pulses in the feet are obscured by severe dependent edema both lower extremities), Posterior Tibial (R), Dorsalis Pedis (L), Dorsalis Pedis (R), 2+: Carotid (L), Carotid (R) GI/Abdominal: Normal Bowel Sounds, Soft, Non-Tender, No Organomegaly, No Abnormal Bruit, No Mass, Pelvis Stable, Other. No: Distended Back Exam: Full Range of Motion, Other (Mild kyphosis thoracic spine). No: CVA Tenderness (L), CVA Tenderness (R) Extremities: Normal Inspection, Normal Range of Motion, Non-Tender, Pedal Edema (Plus pitting edema both lower extremities. She wears compression type Velcro bandages on both lower extremities to help with severe edema. No open ulcers appreciated on the lower extremities.) Neurological: Alert, Oriented, CN II-XII Intact, Normal Cognition. No: Normal Gait Psychiatric: Flat Affect Skin Exam: Warm, Dry, Intact, Other (Very warm to palpation due to fever. Healing very large skin tear right extensor surface of forearm that occurred September 18. Ecchymoses both sides of her face over the malar eminences worse on the left side as compared to the right. 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.) ST-T: Other (Nonspecific T-wave flattening primarily in leads aVL.) QT: Prolonged (Mildly prolonged.) EKG Interpretation Comments: Abnormal ECG Course - Vital Signs Last Recorded V/S: Last Vital Signs Temp 36.8 C 11/02/19 10:21 Pulse 86 11/02/19 10:21 Resp 16 11/02/19 10:21 BP 134/87 11/02/19 10:21 Pulse Ox 95 11/02/19 11:06 - Orders/Labs/Meds Orders: Active Orders 24 hr Category Date Time Status Blood Glucose Check, Bedside [] ONETIME Care 11/02/19 10:35 Active EKG Documentation Completion [RC] STAT Care 11/02/19 10:35 Active Oxygen Therapy [RC] ASDIRECTED Care 11/02/19 10:35 Active RT Aerosol Therapy [RC] ASDIRECTED Care 11/02/19 10:47 Active CULTURE BLOOD [] Stat Lab 11/02/19 08:07 Received CULTURE BLOOD [BC] Stat Lab 11/02/19 11:23 Received CULTURE SPUTUM + SMEAR [RM] Stat Lab 11/02/19 10:46 Ordered Dextrose 5%-0.9% NaCl [Dextrose 5%-Normal Saline] 1,000 Med 11/02/19 10:45 Active ml IV ASDIRECTED Sodium Chloride 0.9% [Normal Saline] 500 ml Med 11/02/19 12:35 Active IV .BOLUS cefTRIAXone [Rocephin] 2 gm Med 11/02/19 11:15 Active Sodium Chloride 0.9% [Normal Saline] 100 ml IV Q24H Blood Culture x2 Reflex Set [OM.PC] Stat Oth 11/02/19 10:35 Ordered Medication Orders Dextrose/Sodium Chloride (Dextrose 5%-Normal Saline) 1,000 mls @ 100 mls/hr IV ASDIRECTED LEEANNE Last Admin: 11/02/19 11:24 Dose: 100 mls/hr Ceftriaxone Sodium 2 gm/ (Sodium Chloride) 100 mls @ 200 mls/hr IV Q24H LEEANNE Last Admin: 11/02/19 11:38 Dose: 200 mls/hr Sodium Chloride (Normal Saline) 500 mls @ 250 mls/hr IV .BOLUS ONE Stop: 11/02/19 14:34 Last Admin: 11/02/19 13:23 Dose: 250 mls/hr Labs: Laboratory Tests 11/02/19 11/02/19 11/02/19 Range/Units 11:23 11:23 11:23 WBC 11.67 H (3.98-10.04) K/mm3 RBC 3.67 L (3.98-5.22) M/mm3 Hgb 11.6 D (11.2-15.7) gm/dl Hct 36.2 (34.1-44.9) % MCV 98.6 H (79.4-94.8) fl MCH 31.6 (25.6-32.2) pg MCHC 32.0 L (32.2-35.5) g/dl RDW Std Deviation 51.4 H (36.4-46.3) fL Plt Count 259 (182-369) K/mm3 MPV 11.2 (9.4-12.3) fl Neutrophils % (Manual) 88 H (40-60) % Band Neutrophils % 0 (0-10) % Lymphocytes % (Manual) 10 L (20-40) % Atypical Lymphs % 0 % Monocytes % (Manual) 2 (2-10) % Eosinophils % (Manual) 0 L (0.7-5.8) % Basophils % (Manual) 0 L (0.1-1.2) Platelet Estimate Adequate Anisocytosis 1+ slight RBC Morph Comment Not Reportable ESR (0-20) mm/hr PT 10.8 (9.7-12.0) SECONDS INR 0.99 APTT 27 D (22-31) SECONDS Sodium 137 (136-145) mEq/L Potassium 4.4 (3.5-5.1) mEq/L Chloride 98 (98-107) mEq/L Carbon Dioxide 28 (21-32) mEq/L Anion Gap 15.4 H (5-15) BUN 73 H (7-18) mg/dL Creatinine 1.7 H (0.55-1.02) mg/dL Est Cr Clr Drug Dosing TNP Estimated GFR (MDRD) 29 (>60) mL/min BUN/Creatinine Ratio 42.9 H (14-18) Glucose 113 (83-115) mg/dL POC Glucose (83-110) mg/dL Lactic Acid (0.4-2.0) mmol/L Calcium 9.3 (8.5-10.1) mg/dL Magnesium 1.7 L (1.8-2.4) mg/dl Total Bilirubin 0.5 (0.2-1.0) mg/dL AST 96 H (15-37) U/L ALT 133 H (14-59) U/L Alkaline Phosphatase 108 (46-116) U/L CK-MB (CK-2) 0.6 (0-3.6) ng/ml Troponin I < 0.017 (0.00-0.056) ng/mL C-Reactive Protein 3.9 H* (<1.0) mg/dL NT-Pro-B Natriuret Pep (0-450) pg/mL Total Protein 6.3 L (6.4-8.2) g/dl Albumin 3.2 L (3.4-5.0) g/dl Globulin 3.1 gm/dL Albumin/Globulin Ratio 1.0 (1-2) 11/02/19 11/02/19 11/02/19 Range/Units 11:23 11:23 11:23 WBC (3.98-10.04) K/mm3 RBC (3.98-5.22) M/mm3 Hgb (11.2-15.7) gm/dl Hct (34.1-44.9) % MCV (79.4-94.8) fl MCH (25.6-32.2) pg MCHC (32.2-35.5) g/dl RDW Std Deviation (36.4-46.3) fL Plt Count (182-369) K/mm3 MPV (9.4-12.3) fl Neutrophils % (Manual) (40-60) % Band Neutrophils % (0-10) % Lymphocytes % (Manual) (20-40) % Atypical Lymphs % % Monocytes % (Manual) (2-10) % Eosinophils % (Manual) (0.7-5.8) % Basophils % (Manual) (0.1-1.2) Platelet Estimate Anisocytosis RBC Morph Comment ESR 54 H (0-20) mm/hr PT (9.7-12.0) SECONDS INR APTT (22-31) SECONDS Sodium (136-145) mEq/L Potassium (3.5-5.1) mEq/L Chloride (98-107) mEq/L Carbon Dioxide (21-32) mEq/L Anion Gap (5-15) BUN (7-18) mg/dL Creatinine (0.55-1.02) mg/dL Est Cr Clr Drug Dosing Estimated GFR (MDRD) (>60) mL/min BUN/Creatinine Ratio (14-18) Glucose (83-115) mg/dL POC Glucose (83-110) mg/dL Lactic Acid 1.2 (0.4-2.0) mmol/L Calcium (8.5-10.1) mg/dL Magnesium (1.8-2.4) mg/dl Total Bilirubin (0.2-1.0) mg/dL AST (15-37) U/L ALT (14-59) U/L Alkaline Phosphatase (46-116) U/L CK-MB (CK-2) (0-3.6) ng/ml Troponin I (0.00-0.056) ng/mL C-Reactive Protein (<1.0) mg/dL NT-Pro-B Natriuret Pep 486 H (0-450) pg/mL Total Protein (6.4-8.2) g/dl Albumin (3.4-5.0) g/dl Globulin gm/dL Albumin/Globulin Ratio (1-2) 11/02/19 Range/Units 11:55 WBC (3.98-10.04) K/mm3 RBC (3.98-5.22) M/mm3 Hgb (11.2-15.7) gm/dl Hct (34.1-44.9) % MCV (79.4-94.8) fl MCH (25.6-32.2) pg MCHC (32.2-35.5) g/dl RDW Std Deviation (36.4-46.3) fL Plt Count (182-369) K/mm3 MPV (9.4-12.3) fl Neutrophils % (Manual) (40-60) % Band Neutrophils % (0-10) % Lymphocytes % (Manual) (20-40) % Atypical Lymphs % % Monocytes % (Manual) (2-10) % Eosinophils % (Manual) (0.7-5.8) % Basophils % (Manual) (0.1-1.2) Platelet Estimate Anisocytosis RBC Morph Comment ESR (0-20) mm/hr PT (9.7-12.0) SECONDS INR APTT (22-31) SECONDS Sodium (136-145) mEq/L Potassium (3.5-5.1) mEq/L Chloride (98-107) mEq/L Carbon Dioxide (21-32) mEq/L Anion Gap (5-15) BUN (7-18) mg/dL Creatinine (0.55-1.02) mg/dL Est Cr Clr Drug Dosing Estimated GFR (MDRD) (>60) mL/min BUN/Creatinine Ratio (14-18) Glucose (83-115) mg/dL POC Glucose 133 H (83-110) mg/dL Lactic Acid (0.4-2.0) mmol/L Calcium (8.5-10.1) mg/dL Magnesium (1.8-2.4) mg/dl Total Bilirubin (0.2-1.0) mg/dL AST (15-37) U/L ALT (14-59) U/L Alkaline Phosphatase (46-116) U/L CK-MB (CK-2) (0-3.6) ng/ml Troponin I (0.00-0.056) ng/mL C-Reactive Protein (<1.0) mg/dL NT-Pro-B Natriuret Pep (0-450) pg/mL Total Protein (6.4-8.2) g/dl Albumin (3.4-5.0) g/dl Globulin gm/dL Albumin/Globulin Ratio (1-2) Meds: Medications Generic Name Dose Route Start Last Admin Trade Name Freq PRN Reason Stop Dose Admin Dextrose/Sodium Chloride 1,000 mls @ 100 mls/hr 11/02/19 10:45 11/02/19 11:24 Dextrose 5%-Normal Saline IV 100 mls/hr ASDIRECTED LEEANNE Administration Ceftriaxone Sodium 2 gm/ 100 mls @ 200 mls/hr 11/02/19 11:15 11/02/19 11:38 Sodium Chloride IV 200 mls/hr Q24H LEEANNE Administration Sodium Chloride 500 mls @ 250 mls/hr 11/02/19 12:35 11/02/19 13:23 Normal Saline IV 11/02/19 14:34 250 mls/hr .BOLUS ONE Administration Discontinued Medications Generic Name Dose Route Start Last Admin Trade Name Freq PRN Reason Stop Dose Admin Acetaminophen 650 mg 11/02/19 10:37 11/02/19 11:13 Tylenol PO 11/02/19 10:38 650 mg NOW ONE Administration Albuterol/Ipratropium 3 ml 11/02/19 10:47 11/02/19 11:06 Duoneb 3.0-0.5 Mg/3 Ml NEB 11/02/19 10:48 3 ml ONETIME ONE Administration - Radiology Interpretation Free Text/Narrative:: 84-year-old female presents to the ED with very high temperature and very productive sounding cough compatible with pneumonia. He did have a flu shot. O2 sats are 92% on room air. She will be placed on oxygen at 2 L/m by nasal specks. Given a DuoNeb inhalational treatment to see if we can induce some sputum for culture. She'll have a septic workup completed. IV will be D5 normal saline at 100 mils per hour for now. He has severe dependent edema bilaterally and likely right-sided heart failure. He reports the Bumex that she's been receiving the last couple days has not seem to make her produce much more urine than normal. She will will receive Tylenol 650 mg orally for fever. One view chest x-ray to be obtained. Antibiotics tentatively will be started as soon as the blood cultures 2 have been obtained. - Re-Assessments/Exams Free Text/Narrative Re-Assessment/Exam: 11/02/19 11:11 portable chest x-ray reveals mild cardiomegaly and diffuse vascular congestion. May be a early infiltrate in the right lower lobe compatible with developing pneumonia. We'll give her Rocephin 2 g IV as Levaquin is relatively contraindicated since the patient is already on amiodarone. 11/02/19 11:56 Labs reveal a mildly elevated white count at 11.67 with 88% neutrophils and no band cells reported. Hemoglobin slightly low 11.6 with hematocrit of 36.2. MCV slightly elevated 98.6. Platelet count 259,000. PT is 10.8 with an INR of 0.99. PTT is 27. Influenza screen is negative. 11/02/19 12:34 Sedimentation rate is 54. Sodium 137 potassium of 4.4. Chloride 98 with a bicarbonate of 28. Anion gap is 15.4. BUN is markedly elevated at 73 with a creatinine of 1.7. GFR is 29. This is stage IV chronic kidney disease. Appears to be volume depleted. BUN/creatinine ratio is 42.9. Glucose 113 with a bedside glucose reported to be 133. Lactic acid is 1.2. Calcium is 9.3. Magnesium slightly low at 1.7. Bilirubin was 0.5 AST is 96 with an ALT of 133. Alk phosphatase is 108. CK-MB fraction is 0.6 with a troponin I of less than 0.017. C-reactive protein mildly elevated at 3.9. BNP is 486. Total protein 6.3 with an albumin fraction of 3.2. Based on the above labs she appears to be bonding depleted. I will give her 250 mils normal saline fluid bolus. My plan is to have her admitted to the hospital. I will try and contact the hospitalist in this regard. 11/02/19 13:27 Dr Tellez has attended the patient in the ED . She will be admitted to the hospital --med surgery on telemetry. Departure - Departure Time of Disposition: 13:30 Disposition: Admitted As Inpatient 66 Condition: Serious Clinical Impression: COPD exacerbation, Acute febrile illness, Chronic renal insufficiency, stage IV (severe) Pneumonia Qualifiers: Pneumonia type: due to unspecified organism Lung location: unspecified part of lung - Discharge Information Referrals: Branden Cervantes MD [Primary Care Provider] - Forms: ED Department Discharge Sepsis Event Note - Evaluation Sepsis Screening Result: No Definite Risk - Focused Exam Vital Signs: Vital Signs Temp Pulse Resp BP Pulse Ox Pulse Ox 11/02/19 11:06 95 11/02/19 10:35 95 11/02/19 10:21 36.8 C 86 16 134/87 92 L Date Exam was Performed: 11/02/19 Time Exam was Performed: 13:27 - My Orders Last 24 Hours: My Active Orders 11/02/19 08:07 CULTURE BLOOD [BC] Stat 11/02/19 10:35 Blood Glucose Check, Bedside [RC] ONETIME EKG Documentation Completion [RC] STAT Oxygen Therapy [RC] ASDIRECTED Blood Culture x2 Reflex Set [OM.PC] Stat 11/02/19 10:45 Dextrose 5%-0.9% NaCl [Dextrose 5%-Normal Saline] 1,000 ml IV ASDIRECTED 11/02/19 10:46 CULTURE SPUTUM + SMEAR [RM] Stat 11/02/19 10:47 RT Aerosol Therapy [RC] ASDIRECTED 11/02/19 11:15 cefTRIAXone [Rocephin] 2 gm Sodium Chloride 0.9% [Normal Saline] 100 ml IV Q24H 11/02/19 11:23 CULTURE BLOOD [BC] Stat 11/02/19 12:35 Sodium Chloride 0.9% [Normal Saline] 500 ml IV .BOLUS - Assessment/Plan Last 24 Hours: My Active Orders 11/02/19 08:07 CULTURE BLOOD [BC] Stat 11/02/19 10:35 Blood Glucose Check, Bedside [RC] ONETIME EKG Documentation Completion [RC] STAT Oxygen Therapy [RC] ASDIRECTED Blood Culture x2 Reflex Set [OM.PC] Stat 11/02/19 10:45 Dextrose 5%-0.9% NaCl [Dextrose 5%-Normal Saline] 1,000 ml IV ASDIRECTED 11/02/19 10:46 CULTURE SPUTUM + SMEAR [RM] Stat 11/02/19 10:47 RT Aerosol Therapy [RC] ASDIRECTED 11/02/19 11:15 cefTRIAXone [Rocephin] 2 gm Sodium Chloride 0.9% [Normal Saline] 100 ml IV Q24H 11/02/19 11:23 CULTURE BLOOD [BC] Stat 11/02/19 12:35 Sodium Chloride 0.9% [Normal Saline] 500 ml IV .BOLUS
[2019-11-02] MEDS ORDERED: Dextrose 5%-0.9% NaCl 1,000 ML IV SCH (10:45)
[2019-11-02] MEDS ORDERED: Albuterol/Ipratropium 3.0-0.5 MG/3 ML Neb Soln NEB ONE (10:47)
[2019-11-02] MEDS: cefTRIAXone 2 GM in Sodium Chloride 0.9% 100 ML IV SCH (11:38)
[2019-11-02] MEDS ORDERED: Sodium Chloride 0.9% 500 ML IV ONE (12:35)
--- NOTE | 2019-11-02 12:53 | CR ---
Chest: Portable view of the chest was obtained. Comparison: Prior chest x-ray of 09/20/19. Slight atelectasis is noted within both lung bases. No acute parenchymal change is otherwise seen. Heart size and mediastinum are normal. Degenerative change is noted within both shoulders. Old left upper rib fractures are noted. Impression: 1. Incidental findings as noted above. 2. Nothing acute is appreciated on portable chest x-ray. Diagnostic code #2 This report was dictated in [place] Standard Time
--- NOTE | 2019-11-02 13:32 | PCM.HP.2 ---
H&P History of Present Illness - General Date of Service: 11/02/19 Admit Problem/Dx: Pneumonia Source of Information: Patient, Old Records, Provider, RN, RN Notes Reviewed History Limitations: Reports: No Limitations - History of Present Illness Initial Comments - Free Text/Narative: Tameka Harvey is an 84 yo female who presents to our ED on 11/02/19 with shortness of breath. She currently resides at [facility]. She is noted to have a productive bilateral cough and fever. Symptoms reportedly began with the last 48 hours per SNF report, however the patient reports she has not felt well for the past few weeks. She been given Tylenol at the skilled nursing with some relief. Reports she did have a flu shot this year. She' s had very poor oral intake today but she did eat well yesterday. She reports no vomiting. She does have multiple ecchymosis to her face and bilateral upper extremities, along with both knees from a fall that occurred on September 18. She is noted to have a very large skin tear on the extensor surface of her right forearm. In the ED temperature is 98.3 Fahrenheit. Pulse 86. Respirations 16. Saturations are 92%. Labs were obtained showing mild leukocytosis at 11.67 with a hemoglobin of 11.6 and hematocrit of 36.2. Blood sugar 259,000. Neutrophils are elevated at 88% however there is no bandemia. ESR is high at 54. 8. INR 0.99. APTT is 27. Sodium is 137. Potassium 4.4. Anion gap was high at 15.4. BUN is 73. Creatinine 1.7. EGFR is 29. Lactic acid is 1.2. Magnesium is low at 1.7. AST is 96, ALT 133, alkaline phosphatase 108. CK-MB is 0.6. Troponin is negative at less than 0.017. CRP is 3.9. ProBNP is 46. Protein is low at 6.3. Blood cultures are obtained and a sputum culture is ordered. Twelve-lead EKG shows ectopic atrial rhythm at a rate of 78 bpm. 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 There is T- wave flattening noted in aVL.Q waves are noted in III and aVF consider old inferior wall NJ. QTC is mildly prolonged at 477. She is given 650 mg Tylenol and a 3 ml DuoNeb. She is placed on 2L O2. She started on 2 g of IV Rocephin. She is given a 500 mL saline bolus and started on 100 mils an hour of D5NS. CXR is obtained showing incidental findings with nothing acute. History of: A. fib, HLD, hypertension, syncope, recurrent pneumonia, GERD, chronic renal insufficiency, arthritis, gout, chronic bilateral shoulder pain, chronic bilateral knee pain, vertigo, obesity, lymphedema, basal cell carcinoma , breast cancer. She was never a smoker. Her PCP is Dr. Cervantes. Chest Pain Score (Numeric/FACES): 2 - Related Data Allergies/Adverse Reactions: Allergies Allergy/AdvReac Type Severity Reaction Status Date / Time codeine Allergy Rash Verified 11/02/19 10:25 iodine Allergy Rash Verified 11/02/19 10:25 metoprolol [From Toprol XL] Allergy swelling Verified 11/02/19 10:25 of lips naproxen [From Naprelan] Allergy Rash Verified 11/02/19 10:25 prednisone Allergy Other Verified 11/02/19 10:25 propoxyphene AdvReac urine Verified 11/02/19 10:25 retention Home Medications: Home Meds Acetaminophen [Tylenol] 325 mg PO Q6HR PRN 11/08/18 [History] Bumetanide [Bumex] 1 mg PO BID 11/08/18 [History] Loratadine 10 mg PO DAILY PRN 11/08/18 [History] Multivitamin [Multi-Vitamin Daily] 1 tab PO DAILY 11/08/18 [History] Simvastatin 20 mg PO BEDTIME 11/08/18 [History] allopurinoL [Zyloprim] 100 mg PO BID 11/08/18 [History] traMADol [Ultram] 50 mg PO BID PRN 11/08/18 [History] Benzonatate [Tessalon Perle] 100 mg PO TID PRN 11/09/18 [History] Cetirizine HCl [All Day Allergy] 10 mg PO DAILY 11/09/18 [History] Niacin 500 mg PO DAILY 11/09/18 [History] Amiodarone [Cordarone] 200 mg PO DAILY #30 tab 11/12/18 [Rx] Apixaban [Eliquis] 2.5 mg PO BID #30 12/27/18 [Rx] Ascorbic Acid 500 mg PO BID #30 11/12/18 [Rx] Ferrous Sulfate [Iron] 325 mg PO BID #60 tablet 11/12/18 [Rx] Acetaminophen [Tylenol] 650 mg PO BID 03/01/19 [History] Famotidine [Pepcid] 20 mg PO DAILY 03/01/19 [History] Sennosides/Docusate Sodium [Senna Plus Tablet] 1 tab PO BID PRN 03/01/19 [ History] Vitamin E 400 unit PO DAILY 03/01/19 [History] oxyCODONE 5 mg PO Q4H PRN #40 tab 09/21/19 [Rx] Polyethylene Glycol 3350 [MiraLAX] 17 gm PO BID 30 Days packet 09/22/19 [Rx] Past Medical History HEENT History: Reports: Hard of Hearing, Impaired Vision, Other (See Below) Other HEENT History: hearing aid to left ear, wears glasses for reading Cardiovascular History: Reports: Afib, High Cholesterol, Hypertension, Syncope Respiratory History: Reports: Pneumonia, Recurrent Gastrointestinal History: Reports: GERD Genitourinary History: Reports: 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 breast cancer and is to start radiation Dermatologic History: Reports: Other (See Below) Other Dermatologic History: cellulitis to leg right - Infectious Disease History Infectious Disease History: Reports: Chicken Pox, Measles, Shingles - Past Surgical History HEENT Surgical History: Reports: Cataract Surgery Cardiovascular Surgical History: Reports: None Respiratory Surgical History: Reports: None GI Surgical History: Reports: None Female Surgical History: Reports: Breast Biopsy Other Female Surgeries/Procedures: right breast tissue removed for cancer purposes Endocrine Surgical History: Reports: None Neurological Surgical History: Reports: None Musculoskeletal Surgical History: Reports: Other (See Below) Other Musculoskeletal Surgeries/Procedures:: cortisone injections to knees Other Oncologic Surgeries/Procedures: titanium tag in breast for marking Social & Family History - Family History Family Medical History: Noncontributory - Tobacco Use Smoking Status *Q: Never Smoker - Caffeine Use Caffeine Use: Reports: Tea - Living Situation & Occupation Living situation: Reports: , Extended Care Facility Occupation: Retired H&P Review of Systems - Review of Systems: Review Of Systems: See Below General: Reports: Fever, Chills, Malaise, Weakness, Fatigue, Decreased Appetite HEENT: Reports: Glasses. Denies: Headaches, Sore Throat Pulmonary: Reports: Shortness of Breath, Wheezing, Pleuritic Chest Pain, Cough, Sputum Cardiovascular: Reports: No Symptoms, Dyspnea on Exertion, Edema, Syncope ( history of), Blood Pressure Problem. Denies: Chest Pain, Palpitations Gastrointestinal: Reports: Decreased Appetite, Nausea. Denies: Abdominal Pain, Constipation, Diarrhea, Vomiting Genitourinary: Reports: Incontinence (chronic urge and stress ). Denies: Pain Musculoskeletal: Reports: Neck Pain (chronic ), Shoulder Pain (chronic ), Back Pain (chronic lower), Joint Pain (chronic knee and hip) Skin: Reports: Bruising (scattered bruising to face, forehead, bilateral upper and lower extremities secondary to a fall on September 18. ), Wound (Large skin tear to right forearm). Denies: Cyanosis Psychiatric: Reports: No Symptoms. Denies: Confusion Neurological: Reports: Difficulty Walking, Weakness. Denies: Dizziness, Headache, Pre-Existing Deficit, Trouble Speaking Hematologic/Lymphatic: Reports: No Symptoms Immunologic: Reports: No Symptoms Exam - Exam Exam: See Below - Vital Signs Vital Signs: Last Vital Signs Temp 98.3 F 11/02/19 10:21 Pulse 86 11/02/19 10:21 Resp 16 11/02/19 10:21 BP 134/87 11/02/19 10:21 Pulse Ox 95 11/02/19 11:06 Weight: 140 lb - Exam Quality Assessment: Supplemental Oxygen (2L), DVT Prophylaxis General: Alert, Oriented, Cooperative. No: Mild Distress HEENT: Conjunctiva Clear, EACs Clear, EOMI, Hearing Intact, Posterior Pharynx Clear, Pupils Equal, Pupils Reactive. No: Mucosa Moist & [place] (dry) Neck: Supple, Trachea Midline. No: Full Range of Motion Lungs: Normal Respiratory Effort, Decreased Breath Sounds, Rhonchi, Wheezing Cardiovascular: Regular Rate, Regular Rhythm GI/Abdominal Exam: Normal Bowel Sounds, Soft, Non-Tender, No Distention, No Abnormal Bruit (Female) Exam: Deferred Rectal (Female) Exam: Deferred Back Exam: Full Range of Motion, Other (Milk kyphosis noted ) Extremities: Normal Inspection, Non-Tender, Pedal Edema (3-4+ Wears velcro compression bandages bilaterally to help with swelling ), Other (Scattered upper and lower extremity bruising ). No: Leg Pain, Increased Warmth, Redness Neurological: Cranial Nerves Intact (grossly ) Neuro Extensive - Mental Status: Alert, Oriented x3, Normal Mood/Affect - Patient Data Lab Results Last 24 hrs: Laboratory Results - last 24 hr 11/02/19 11/02/19 11/02/19 Range/Units 11:23 11:23 11:23 WBC 11.67 H (3.98-10.04) K/mm3 RBC 3.67 L (3.98-5.22) M/mm3 Hgb 11.6 D (11.2-15.7) gm/dl Hct 36.2 (34.1-44.9) % MCV 98.6 H (79.4-94.8) fl MCH 31.6 (25.6-32.2) pg MCHC 32.0 L (32.2-35.5) g/dl RDW Std Deviation 51.4 H (36.4-46.3) fL Plt Count 259 (182-369) K/mm3 MPV 11.2 (9.4-12.3) fl Neutrophils % (Manual) 88 H (40-60) % Band Neutrophils % 0 (0-10) % Lymphocytes % (Manual) 10 L (20-40) % Atypical Lymphs % 0 % Monocytes % (Manual) 2 (2-10) % Eosinophils % (Manual) 0 L (0.7-5.8) % Basophils % (Manual) 0 L (0.1-1.2) Platelet Estimate Adequate Anisocytosis 1+ slight RBC Morph Comment Not Reportable ESR (0-20) mm/hr PT 10.8 (9.7-12.0) SECONDS INR 0.99 APTT 27 D (22-31) SECONDS Sodium 137 (136-145) mEq/L Potassium 4.4 (3.5-5.1) mEq/L Chloride 98 (98-107) mEq/L Carbon Dioxide 28 (21-32) mEq/L Anion Gap 15.4 H (5-15) BUN 73 H (7-18) mg/dL Creatinine 1.7 H (0.55-1.02) mg/dL Est Cr Clr Drug Dosing TNP Estimated GFR (MDRD) 29 (>60) mL/min BUN/Creatinine Ratio 42.9 H (14-18) Glucose 113 (83-115) mg/dL POC Glucose (83-110) mg/dL Lactic Acid (0.4-2.0) mmol/L Calcium 9.3 (8.5-10.1) mg/dL Magnesium 1.7 L (1.8-2.4) mg/dl Total Bilirubin 0.5 (0.2-1.0) mg/dL AST 96 H (15-37) U/L ALT 133 H (14-59) U/L Alkaline Phosphatase 108 (46-116) U/L CK-MB (CK-2) 0.6 (0-3.6) ng/ml Troponin I < 0.017 (0.00-0.056) ng/mL C-Reactive Protein 3.9 H* (<1.0) mg/dL NT-Pro-B Natriuret Pep (0-450) pg/mL Total Protein 6.3 L (6.4-8.2) g/dl Albumin 3.2 L (3.4-5.0) g/dl Globulin 3.1 gm/dL Albumin/Globulin Ratio 1.0 (1-2) 11/02/19 11/02/19 11/02/19 Range/Units 11:23 11:23 11:23 WBC (3.98-10.04) K/mm3 RBC (3.98-5.22) M/mm3 Hgb (11.2-15.7) gm/dl Hct (34.1-44.9) % MCV (79.4-94.8) fl MCH (25.6-32.2) pg MCHC (32.2-35.5) g/dl RDW Std Deviation (36.4-46.3) fL Plt Count (182-369) K/mm3 MPV (9.4-12.3) fl Neutrophils % (Manual) (40-60) % Band Neutrophils % (0-10) % Lymphocytes % (Manual) (20-40) % Atypical Lymphs % % Monocytes % (Manual) (2-10) % Eosinophils % (Manual) (0.7-5.8) % Basophils % (Manual) (0.1-1.2) Platelet Estimate Anisocytosis RBC Morph Comment ESR 54 H (0-20) mm/hr PT (9.7-12.0) SECONDS INR APTT (22-31) SECONDS Sodium (136-145) mEq/L Potassium (3.5-5.1) mEq/L Chloride (98-107) mEq/L Carbon Dioxide (21-32) mEq/L Anion Gap (5-15) BUN (7-18) mg/dL Creatinine (0.55-1.02) mg/dL Est Cr Clr Drug Dosing Estimated GFR (MDRD) (>60) mL/min BUN/Creatinine Ratio (14-18) Glucose (83-115) mg/dL POC Glucose (83-110) mg/dL Lactic Acid 1.2 (0.4-2.0) mmol/L Calcium (8.5-10.1) mg/dL Magnesium (1.8-2.4) mg/dl Total Bilirubin (0.2-1.0) mg/dL AST (15-37) U/L ALT (14-59) U/L Alkaline Phosphatase (46-116) U/L CK-MB (CK-2) (0-3.6) ng/ml Troponin I (0.00-0.056) ng/mL C-Reactive Protein (<1.0) mg/dL NT-Pro-B Natriuret Pep 486 H (0-450) pg/mL Total Protein (6.4-8.2) g/dl Albumin (3.4-5.0) g/dl Globulin gm/dL Albumin/Globulin Ratio (1-2) 11/02/ Range/Units 11:55 WBC (3.98-10.04) K/mm3 RBC (3.98-5.22) M/mm3 Hgb (11.2-15.7) gm/dl Hct (34.1-44.9) % MCV (79.4-94.8) fl MCH (25.6-32.2) pg MCHC (32.2-35.5) g/dl RDW Std Deviation (36.4-46.3) fL Plt Count (182-369) K/mm3 MPV (9.4-12.3) fl Neutrophils % (Manual) (40-60) % Band Neutrophils % (0-10) % Lymphocytes % (Manual) (20-40) % Atypical Lymphs % % Monocytes % (Manual) (2-10) % Eosinophils % (Manual) (0.7-5.8) % Basophils % (Manual) (0.1-1.2) Platelet Estimate Anisocytosis RBC Morph Comment ESR (0-20) mm/hr PT (9.7-12.0) SECONDS INR APTT (22-31) SECONDS Sodium (136-145) mEq/L Potassium (3.5-5.1) mEq/L Chloride (98-107) mEq/L Carbon Dioxide (21-32) mEq/L Anion Gap (5-15) BUN (7-18) mg/dL Creatinine (0.55-1.02) mg/dL Est Cr Clr Drug Dosing Estimated GFR (MDRD) (>60) mL/min BUN/Creatinine Ratio (14-18) Glucose (83-115) mg/dL POC Glucose 133 H (83-110) mg/dL Lactic Acid (0.4-2.0) mmol/L Calcium (8.5-10.1) mg/dL Magnesium (1.8-2.4) mg/dl Total Bilirubin (0.2-1.0) mg/dL AST (15-37) U/L ALT (14-59) U/L Alkaline Phosphatase (46-116) U/L CK-MB (CK-2) (0-3.6) ng/ml Troponin I (0.00-0.056) ng/mL C-Reactive Protein (<1.0) mg/dL NT-Pro-B Natriuret Pep (0-450) pg/mL Total Protein (6.4-8.2) g/dl Albumin (3.4-5.0) g/dl Globulin gm/dL Albumin/Globulin Ratio (1-2) Result Diagrams: 11/02/19 11:23 11/02/19 11:23 Oscar Results Last 24 hrs: Microbiology 11/02/19 11:05 Influenza Type A Antigen Screen - Final Nasal Aspirate, Unspecified NEGATIVE INFLUENZA A VIRUS AG REFERENCE RANGE: NEGATIVE Influenza Type B Antigen Screen - Final NEGATIVE INFLUENZA B VIRUS AG REFERENCE RANGE: NEGATIVE Sepsis Event Note - Evaluation Sepsis Screening Result: No Definite Risk - Focused Exam Vital Signs: Vital Signs Temp Pulse Resp BP Pulse Ox Pulse Ox 11/02/19 11:06 95 11/02/19 10:35 95 11/02/19 10:21 98.3 F 86 16 134/87 92 L Date Exam was Performed: 11/02/19 Time Exam was Performed: 13:49 - Problem List (1) Volume depletion SNOMED Code(s): 19875426 ICD Code: E86.9 - VOLUME DEPLETION, UNSPECIFIED Status: Acute Priority: High Current Visit: Yes (2) Acute febrile illness SNOMED Code(s): 282117773 ICD Code: R50.9 - FEVER, UNSPECIFIED Status: Acute Priority: High Current Visit: Yes (3) Chronic renal insufficiency, stage IV (severe) SNOMED Code(s): 178885670 ICD Code: N18.4 - CHRONIC KIDNEY DISEASE, STAGE 4 (SEVERE) Status: Chronic Priority: Medium Current Visit: Yes (4) Pneumonia SNOMED Code(s): 654739897 ICD Code: J18.9 - PNEUMONIA, UNSPECIFIED ORGANISM Status: Acute Priority : High Current Visit: Yes Qualifiers: Pneumonia type: due to unspecified organism Lung location: unspecified part of lung (5) Bilateral knee pain SNOMED Code(s): 72969119 ICD Code: M25.561 - PAIN IN RIGHT KNEE; M25.562 - PAIN IN LEFT KNEE Status : Chronic Priority: Medium Current Visit: No Qualifiers: Chronicity: acute Qualified Code(s): M25.561 - Pain in right knee; M25.562 - Pain in left knee (6) Facial contusion SNOMED Code(s): 275063155 ICD Code: S00.83XA - CONTUSION OF OTHER PART OF HEAD, INITIAL ENCOUNTER Status: Chronic Priority: Medium Current Visit: No Qualifiers: Encounter type: initial encounter Qualified Code(s): S00.83XA - Contusion of other part of head, initial encounter (7) Laceration of left forearm SNOMED Code(s): 84310866087394645 ICD Code: S51.812A - LACERATION WITHOUT FOREIGN BODY OF LEFT FOREARM, INIT ENCNTR Status: Chronic Priority: Medium Current Visit: No Qualifiers: Encounter type: subsequent encounter Qualified Code(s): S51.812D - Laceration without foreign body of left forearm, subsequent encounter (8) Paroxysmal atrial fibrillation SNOMED Code(s): 645171195 ICD Code: I48.0 - PAROXYSMAL ATRIAL FIBRILLATION Status: Chronic Priority : Low Current Visit: No (9) Peripheral edema SNOMED Code(s): 406981222 ICD Code: R60.9 - EDEMA, UNSPECIFIED Status: Chronic Priority: Medium Current Visit: No (10) Hypomagnesemia SNOMED Code(s): 122217316 ICD Code: E83.42 - HYPOMAGNESEMIA Status: Acute Priority: High Current Visit: Yes Problem List Initiated/Reviewed/Updated: Yes Orders Last 24hrs: Active Orders 24 hr Category Date Time Status Blood Glucose Check, Bedside [RC] ONETIME Care 11/02/19 10:35 Active EKG Documentation Completion [RC] STAT Care 11/02/19 10:35 Active Oxygen Therapy [RC] ASDIRECTED Care 11/02/19 10:35 Active RT Aerosol Therapy [RC] ASDIRECTED Care 11/02/19 10:47 Active CULTURE BLOOD [BC] Stat Lab 11/02/19 08:07 Received CULTURE BLOOD [BC] Stat Lab 11/02/19 11:23 Received CULTURE SPUTUM + SMEAR [RM] Stat Lab 11/02/19 10:46 Ordered Dextrose 5%-0.9% NaCl [Dextrose 5%-Normal Saline] 1,000 Med 11/02/19 10:45 Active ml IV ASDIRECTED Sodium Chloride 0.9% [Normal Saline] 500 ml Med 11/02/19 12:35 Active IV .BOLUS cefTRIAXone [Rocephin] 2 gm Med 11/02/19 11:15 Active Sodium Chloride 0.9% [Normal Saline] 100 ml IV Q24H Blood Culture x2 Reflex Set [OM.PC] Stat Oth 11/02/19 10:35 Ordered Medication Orders Dextrose/Sodium Chloride (Dextrose 5%-Normal Saline) 1,000 mls @ 100 mls/hr IV ASDIRECTED LEEANNE Last Admin: 11/02/19 11:24 Dose: 100 mls/hr Ceftriaxone Sodium 2 gm/ (Sodium Chloride) 100 mls @ 200 mls/hr IV Q24H LEEANNE Last Admin: 11/02/19 11:38 Dose: 200 mls/hr Sodium Chloride (Normal Saline) 500 mls @ 250 mls/hr IV .BOLUS ONE Stop: 11/02/19 14:34 Last Admin: 11/02/19 13:23 Dose: 250 mls/hr Assessment/Plan Comment:: I/P: Acute: Pneumonia -Resides at [facility] -Reports symptoms for past few weeks, SNF staff reports symptoms for past 48 hrs -Congested productive cough -Hx/o recurrent PNA -No fever in ED -WBC 11.67 -CRP 3.9 -Lactic acid 1.2 -Started on Rocephin in ED - continue -500mL fluid bolus given in ED -Tylenol for fever -Blood cultures pending -IV fluids as ordered -Mycoplasma, Strep pneumonia, viral panel - all pending -Negative influenza -IS/Acapella/RT -Duonebs as ordered -Droplet isolation -Sputum culture if able to produce -Consider Repeat CXR in 24-48 hrs if indicated Volume depletion -Clinically dry -Anion gap 15.4 -Reports poor oral intake last 24-48 hours -IV fluids as ordered Chronic kidney failure, Stage IV -BUN 73 -Creatinine 1.7 -GFR of 29 -Baseline creatinine appears to be 1.7-2.2; GFR of 24-31 -Stable -Avoid nephrotoxic agents if possible -IV fluids as above Hypomagnesemia -Magnesium 1.7 -Supplemented Pedal edema -Chronic bilateral pedal edema -Hx/o lymphedema -Home Velcro compression stockings -Elevation -Continue home Bumex -Caution with IV hydration Chronic pain -Reports chronic bilateral shoulder, bilateral knee, bilateral hip, lower back, and neck pain -Home pain medications as ordered -PT/OT -Hx/o gout - allopurinol -ESR 54, CRP 3.9 Chronic: A. fib on eliquis HLD hypertension syncope recurrent pneumonia GERD arthritis vertigo obesity lymphedema basal cell carcinoma breast cancer Plan: Admit to medical floor on telemetry Home medications as ordered Routine AM labs CM/SW for discharge planning: resident of [facility] Other orders as indicated above DVT Prophylaxis: Home Eliquis, Home compression stockings; GI Prophylaxis: Not indicated Code status: DNR; PCP: Dr. Cervantes - Mortality Measure Prognosis:: Good
[2019-11-02] MEDS ORDERED: Acetaminophen 325 MG Tab PO PRN (14:07)
[2019-11-02] MEDS ORDERED: Ondansetron 4 MG/2 ML SDV IV PRN (14:07)
[2019-11-02] MEDS ORDERED: Magnesium Sulfate/Water 2 GM in Premix Bag 1 BAG IV ONE (14:18)
[2019-11-02] MEDS: Albuterol/Ipratropium 3.0-0.5 MG/3 ML Neb Soln NEB SCH ×2 (15:34→20:05)
[2019-11-02] MEDS ORDERED: Albuterol/Ipratropium 3.0-0.5 MG/3 ML Neb Soln NEB SCH (17:00)
[2019-11-02] MEDS: Benzonatate 100 MG Cap PO PRN (22:09)
[2019-11-03] MEDS: Benzonatate 100 MG Cap PO PRN (05:01)
[2019-11-03] MEDS: Albuterol/Ipratropium 3.0-0.5 MG/3 ML Neb Soln NEB SCH ×4 (05:10→20:27)
--- NOTE | 2019-11-03 06:58 | PCM.PN ---
- General Info Date of Service: 11/03/19 Admission Dx/Problem (Free Text): Pneumonia Subjective Update: In to see Tameka. She is off of oxygen and reports she feels much better. She reports SOB and a cough still but says it has improved. She has been utilizing her IS and acapella. No patient concerns. She states she slept ok. Discussed mycoplasma PNA and plan of care. Doxycycline started due to home medications and concerns over prolonged QTc. Functional Status: Reports: Pain Controlled, Tolerating Diet, Ambulating, Urinating, Incentive Spirometry. Denies: New Symptoms - Review of Systems General: Reports: Weakness (improved ). Denies: Fever, Fatigue, Malaise HEENT: Reports: No Symptoms. Denies: Headaches, Sore Throat Pulmonary: Reports: Shortness of Breath (improved ), Cough (improved ). Denies : Pleuritic Chest Pain, Sputum, Wheezing Cardiovascular: Reports: Dyspnea on Exertion (improved ). Denies: Chest Pain, Palpitations Gastrointestinal: Reports: No Symptoms. Denies: Abdominal Pain, Constipation, Diarrhea, Nausea, Vomiting Genitourinary: Reports: No Symptoms. Denies: Pain Musculoskeletal: Reports: Neck Pain (chronic ), Back Pain (chronic ), Joint Pain (Shoulders, Hips, knees - chronic ) Skin: Reports: No Symptoms. Denies: Cyanosis Neurological: Reports: No Symptoms. Denies: Confusion, Difficulty Walking, Gait Disturbance - Patient Data Vitals - Most Recent: Last Vital Signs Temp 97.7 F 11/02/19 23:38 Pulse 78 11/03/19 04:51 Resp 20 11/03/19 04:51 BP 152/77 H 11/03/19 04:53 Pulse Ox 97 11/03/19 04:51 Weight - Most Recent: 138 lb 11.2 oz I&O - Last 24 Hours: Intake & Output 11/02/19 11/02/19 11/03/19 14:59 22:59 06:59 Intake Total 0 400 Balance 0 400 Lab Results Last 24 Hours: Laboratory Results - last 24 hr 11/02/19 11/02/19 11/02/19 Range/Units 11:23 11:23 11:23 WBC 11.67 H (3.98-10.04) K/mm3 RBC 3.67 L (3.98-5.22) M/mm3 Hgb 11.6 D (11.2-15.7) gm/dl Hct 36.2 (34.1-44.9) % MCV 98.6 H (79.4-94.8) fl MCH 31.6 (25.6-32.2) pg MCHC 32.0 L (32.2-35.5) g/dl RDW Std Deviation 51.4 H (36.4-46.3) fL Plt Count 259 (182-369) K/mm3 MPV 11.2 (9.4-12.3) fl Neut % (Auto) (34.0-71.1) % Lymph % (Auto) (19.3-51.7) % [place] % (Auto) (4.7-12.5) % Eos % (Auto) (0.7-5.8) Baso % (Auto) (0.1-1.2) % Neut # (Auto) (1.56-6.13) K/mm3 Lymph # (Auto) (1.18-3.74) K/mm3 [place] # (Auto) (0.24-0.36) K/mm3 Eos # (Auto) (0.04-0.36) K/mm3 Baso # (Auto) (0.01-0.08) K/mm3 Neutrophils % (Manual) 88 H (40-60) % Band Neutrophils % 0 (0-10) % Lymphocytes % (Manual) 10 L (20-40) % Atypical Lymphs % 0 % Monocytes % (Manual) 2 (2-10) % Eosinophils % (Manual) 0 L (0.7-5.8) % Basophils % (Manual) 0 L (0.1-1.2) Platelet Estimate Adequate Anisocytosis 1+ slight RBC Morph Comment Not Reportable ESR (0-20) mm/hr PT 10.8 (9.7-12.0) SECONDS INR 0.99 APTT 27 D (22-31) SECONDS Sodium 137 (136-145) mEq/L Potassium 4.4 (3.5-5.1) mEq/L Chloride 98 (98-107) mEq/L Carbon Dioxide 28 (21-32) mEq/L Anion Gap 15.4 H (5-15) BUN 73 H (7-18) mg/dL Creatinine 1.7 H (0.55-1.02) mg/dL Est Cr Clr Drug Dosing TNP Estimated GFR (MDRD) 29 (>60) mL/min BUN/Creatinine Ratio 42.9 H (14-18) Glucose 113 (83-115) mg/dL POC Glucose (83-110) mg/dL Lactic Acid (0.4-2.0) mmol/L Calcium 9.3 (8.5-10.1) mg/dL Phosphorus (2.6-4.7) mg/dL Magnesium 1.7 L (1.8-2.4) mg/dl Total Bilirubin 0.5 (0.2-1.0) mg/dL AST 96 H (15-37) U/L ALT 133 H (14-59) U/L Alkaline Phosphatase 108 (46-116) U/L CK-MB (CK-2) 0.6 (0-3.6) ng/ml Troponin I < 0.017 (0.00-0.056) ng/mL C-Reactive Protein 3.9 H* (<1.0) mg/dL NT-Pro-B Natriuret Pep (0-450) pg/mL Total Protein 6.3 L (6.4-8.2) g/dl Albumin 3.2 L (3.4-5.0) g/dl Globulin 3.1 gm/dL Albumin/Globulin Ratio 1.0 (1-2) Mycoplasma pneumon IgM (NEGATIVE) MRSA (PCR) 11/02/19 11/02/19 11/02/19 Range/Units 11:23 11:23 11:23 WBC (3.98-10.04) K/mm3 RBC (3.98-5.22) M/mm3 Hgb (11.2-15.7) gm/dl Hct (34.1-44.9) % MCV (79.4-94.8) fl MCH (25.6-32.2) pg MCHC (32.2-35.5) g/dl RDW Std Deviation (36.4-46.3) fL Plt Count (182-369) K/mm3 MPV (9.4-12.3) fl Neut % (Auto) (34.0-71.1) % Lymph % (Auto) (19.3-51.7) % [place] % (Auto) (4.7-12.5) % Eos % (Auto) (0.7-5.8) Baso % (Auto) (0.1-1.2) % Neut # (Auto) (1.56-6.13) K/mm3 Lymph # (Auto) (1.18-3.74) K/mm3 [place] # (Auto) (0.24-0.36) K/mm3 Eos # (Auto) (0.04-0.36) K/mm3 Baso # (Auto) (0.01-0.08) K/mm3 Neutrophils % (Manual) (40-60) % Band Neutrophils % (0-10) % Lymphocytes % (Manual) (20-40) % Atypical Lymphs % % Monocytes % (Manual) (2-10) % Eosinophils % (Manual) (0.7-5.8) % Basophils % (Manual) (0.1-1.2) Platelet Estimate Anisocytosis RBC Morph Comment ESR 54 H (0-20) mm/hr PT (9.7-12.0) SECONDS INR APTT (22-31) SECONDS Sodium (136-145) mEq/L Potassium (3.5-5.1) mEq/L Chloride (98-107) mEq/L Carbon Dioxide (21-32) mEq/L Anion Gap (5-15) BUN (7-18) mg/dL Creatinine (0.55-1.02) mg/dL Est Cr Clr Drug Dosing Estimated GFR (MDRD) (>60) mL/min BUN/Creatinine Ratio (14-18) Glucose (83-115) mg/dL POC Glucose (83-110) mg/dL Lactic Acid 1.2 (0.4-2.0) mmol/L Calcium (8.5-10.1) mg/dL Phosphorus (2.6-4.7) mg/dL Magnesium (1.8-2.4) mg/dl Total Bilirubin (0.2-1.0) mg/dL AST (15-37) U/L ALT (14-59) U/L Alkaline Phosphatase (46-116) U/L CK-MB (CK-2) (0-3.6) ng/ml Troponin I (0.00-0.056) ng/mL C-Reactive Protein (<1.0) mg/dL NT-Pro-B Natriuret Pep 486 H (0-450) pg/mL Total Protein (6.4-8.2) g/dl Albumin (3.4-5.0) g/dl Globulin gm/dL Albumin/Globulin Ratio (1-2) Mycoplasma pneumon IgM (NEGATIVE) MRSA (PCR) 11/02/19 11/02/19 11/02/19 Range/Units 11:23 11:55 16:07 WBC (3.98-10.04) K/mm3 RBC (3.98-5.22) M/mm3 Hgb (11.2-15.7) gm/dl Hct (34.1-44.9) % MCV (79.4-94.8) fl MCH (25.6-32.2) pg MCHC (32.2-35.5) g/dl RDW Std Deviation (36.4-46.3) fL Plt Count (182-369) K/mm3 MPV (9.4-12.3) fl Neut % (Auto) (34.0-71.1) % Lymph % (Auto) (19.3-51.7) % [place] % (Auto) (4.7-12.5) % Eos % (Auto) (0.7-5.8) Baso % (Auto) (0.1-1.2) % Neut # (Auto) (1.56-6.13) K/mm3 Lymph # (Auto) (1.18-3.74) K/mm3 [place] # (Auto) (0.24-0.36) K/mm3 Eos # (Auto) (0.04-0.36) K/mm3 Baso # (Auto) (0.01-0.08) K/mm3 Neutrophils % (Manual) (40-60) % Band Neutrophils % (0-10) % Lymphocytes % (Manual) (20-40) % Atypical Lymphs % % Monocytes % (Manual) (2-10) % Eosinophils % (Manual) (0.7-5.8) % Basophils % (Manual) (0.1-1.2) Platelet Estimate Anisocytosis RBC Morph Comment ESR (0-20) mm/hr PT (9.7-12.0) SECONDS INR APTT (22-31) SECONDS Sodium (136-145) mEq/L Potassium (3.5-5.1) mEq/L Chloride (98-107) mEq/L Carbon Dioxide (21-32) mEq/L Anion Gap (5-15) BUN (7-18) mg/dL Creatinine (0.55-1.02) mg/dL Est Cr Clr Drug Dosing Estimated GFR (MDRD) (>60) mL/min BUN/Creatinine Ratio (14-18) Glucose (83-115) mg/dL POC Glucose 133 H (83-110) mg/dL Lactic Acid (0.4-2.0) mmol/L Calcium (8.5-10.1) mg/dL Phosphorus (2.6-4.7) mg/dL Magnesium 1.8 (1.8-2.4) mg/dl Total Bilirubin (0.2-1.0) mg/dL AST (15-37) U/L ALT (14-59) U/L Alkaline Phosphatase (46-116) U/L CK-MB (CK-2) (0-3.6) ng/ml Troponin I (0.00-0.056) ng/mL C-Reactive Protein (<1.0) mg/dL NT-Pro-B Natriuret Pep (0-450) pg/mL Total Protein (6.4-8.2) g/dl Albumin (3.4-5.0) g/dl Globulin gm/dL Albumin/Globulin Ratio (1-2) Mycoplasma pneumon IgM Positive H (NEGATIVE) MRSA (PCR) Negative 11/03/19 11/03/19 Range/Units 04:55 04:55 WBC 10.03 (3.98-10.04) K/mm3 RBC 3.51 L (3.98-5.22) M/mm3 Hgb 11.1 L (11.2-15.7) gm/dl Hct 35.3 (34.1-44.9) % MCV 100.6 H (79.4-94.8) fl MCH 31.6 (25.6-32.2) pg MCHC 31.4 L (32.2-35.5) g/dl RDW Std Deviation 54.2 H (36.4-46.3) fL Plt Count 260 (182-369) K/mm3 MPV 11.0 (9.4-12.3) fl Neut % (Auto) 82.9 H (34.0-71.1) % Lymph % (Auto) 10.3 L (19.3-51.7) % [place] % (Auto) 5.9 (4.7-12.5) % Eos % (Auto) 0 L (0.7-5.8) Baso % (Auto) 0.0 L (0.1-1.2) % Neut # (Auto) 8.32 H (1.56-6.13) K/mm3 Lymph # (Auto) 1.03 L (1.18-3.74) K/mm3 [place] # (Auto) 0.59 H (0.24-0.36) K/mm3 Eos # (Auto) 0.00 L (0.04-0.36) K/mm3 Baso # (Auto) 0.00 L (0.01-0.08) K/mm3 Neutrophils % (Manual) (40-60) % Band Neutrophils % (0-10) % Lymphocytes % (Manual) (20-40) % Atypical Lymphs % % Monocytes % (Manual) (2-10) % Eosinophils % (Manual) (0.7-5.8) % Basophils % (Manual) (0.1-1.2) Platelet Estimate Anisocytosis RBC Morph Comment ESR (0-20) mm/hr PT (9.7-12.0) SECONDS INR APTT (22-31) SECONDS Sodium 139 (136-145) mEq/L Potassium 4.1 (3.5-5.1) mEq/L Chloride 101 (98-107) mEq/L Carbon Dioxide 28 (21-32) mEq/L Anion Gap 14.1 (5-15) BUN 63 H (7-18) mg/dL Creatinine 1.6 H (0.55-1.02) mg/dL Est Cr Clr Drug Dosing 21.65 Estimated GFR (MDRD) 31 (>60) mL/min BUN/Creatinine Ratio 39.4 H (14-18) Glucose 116 H (83-115) mg/dL POC Glucose (83-110) mg/dL Lactic Acid (0.4-2.0) mmol/L Calcium 9.6 (8.5-10.1) mg/dL Phosphorus 3.4 (2.6-4.7) mg/dL Magnesium 2.4 (1.8-2.4) mg/dl Total Bilirubin 0.3 (0.2-1.0) mg/dL AST 68 H (15-37) U/L ALT 129 H (14-59) U/L Alkaline Phosphatase 111 (46-116) U/L CK-MB (CK-2) (0-3.6) ng/ml Troponin I (0.00-0.056) ng/mL C-Reactive Protein (<1.0) mg/dL NT-Pro-B Natriuret Pep (0-450) pg/mL Total Protein 5.9 L (6.4-8.2) g/dl Albumin 3.1 L (3.4-5.0) g/dl Globulin 2.8 gm/dL Albumin/Globulin Ratio 1.1 (1-2) Mycoplasma pneumon IgM (NEGATIVE) MRSA (PCR) Oscar Results Last 24 Hours: Microbiology 11/02/19 21:25 Gram Stain - Preliminary Sputum - Expectorated 11/02/19 11:05 Influenza Type A Antigen Screen - Final Nasal Aspirate, Unspecified NEGATIVE INFLUENZA A VIRUS AG REFERENCE RANGE: NEGATIVE Influenza Type B Antigen Screen - Final NEGATIVE INFLUENZA B VIRUS AG REFERENCE RANGE: NEGATIVE Med Orders - Current: Current Medications Acetaminophen (Tylenol) 650 mg PO Q4H PRN PRN Reason: Pain (Mild 1-3)/fever Albuterol/Ipratropium (Duoneb 3.0-0.5 Mg/3 Ml) 3 ml NEB QIDRT [facility] [place] Last Admin: 11/03/19 05:10 Dose: 3 ml Benzonatate (Tessalon Perles) 100 mg PO TID PRN PRN Reason: Cough Last Admin: 11/03/19 05:01 Dose: 100 mg Ceftriaxone Sodium 2 gm/ (Sodium Chloride) 100 mls @ 200 mls/hr IV Q24H [facility] [place] Last Admin: 11/02/19 11:38 Dose: 200 mls/hr Non-Formulary Medication (Polyvinyl Alcohol/Povidone/Pf [Refresh Classic Eye Drops]) 1 each OP TID [facility] [place] Ondansetron HCl (Zofran) 4 mg IV Q6H PRN PRN Reason: Nausea/Vomiting Discontinued Medications Acetaminophen (Tylenol) 650 mg PO NOW ONE Stop: 11/02/19 10:38 Last Admin: 11/02/19 11:13 Dose: 650 mg Albuterol/Ipratropium (Duoneb 3.0-0.5 Mg/3 Ml) 3 ml NEB ONETIME ONE Stop: 11/02/19 10:48 Last Admin: 11/02/19 11:06 Dose: 3 ml Albuterol/Ipratropium (Duoneb 3.0-0.5 Mg/3 Ml) 3 ml NEB QID LEEANNE Dextrose/Sodium Chloride (Dextrose 5%-Normal Saline) 1,000 mls @ 100 mls/hr IV ASDIRECTED [facility] [place] Last Admin: 11/02/19 11:24 Dose: 100 mls/hr Sodium Chloride (Normal Saline) 500 mls @ 250 mls/hr IV .BOLUS ONE Stop: 11/02/19 14:34 Last Admin: 11/02/19 13:23 Dose: 250 mls/hr Magnesium Sulfate 2 gm/ Premix 50 mls @ 25 mls/hr IV ONETIME ONE Stop: 11/02/19 16:17 Last Admin: 11/02/19 16:09 Dose: 25 mls/hr - Exam Quality Assessment: DVT Prophylaxis. No: Supplemental Oxygen General: Alert, Oriented, Cooperative, No Acute Distress HEENT: Pupils Equal, Pupils Reactive, Mucous Membr. Moist/[place] Neck: Supple, Trachea Midline Lungs: Normal Respiratory Effort, Decreased Breath Sounds, Rhonchi Cardiovascular: Regular Rate, Regular Rhythm GI/Abdominal Exam: Normal Bowel Sounds, Soft, Non-Tender, No Organomegaly, No Distention (Female) Exam: Deferred Back Exam: Normal Inspection, Decreased Range of Motion Extremities: Normal Inspection, Non-Tender, Normal Capillary Refill, Pedal Edema , Limited Range of Motion Skin: Warm, Dry, Intact, Ecchymosis (scattered face, upper, and lower extremities ) Wound/Incisions: Dressing Dry and Intact. No: Erythema Neurological: No New Focal Deficit Psy/Mental Status: Alert, Normal Affect, Normal Mood Sepsis Event Note - Evaluation Sepsis Screening Result: No Definite Risk - Focused Exam Vital Signs: Vital Signs Temp Pulse Resp BP Pulse Ox 11/03/19 04:53 152/77 H 11/03/19 04:51 78 20 88/71 L 97 11/02/19 23:38 97.7 F 80 18 159/68 H 94 L 11/02/19 19:39 97.5 F 78 18 133/66 96 Date Exam was Performed: 11/03/19 Time Exam was Performed: 14:20 - Problem List & Annotations (1) Volume depletion SNOMED Code(s): 31310747 Code(s): E86.9 - VOLUME DEPLETION, UNSPECIFIED Status: Acute Priority: High Current Visit: Yes (2) Acute febrile illness SNOMED Code(s): 736263902 Code(s): R50.9 - FEVER, UNSPECIFIED Status: Acute Priority: High Current Visit: Yes (3) Chronic renal insufficiency, stage IV (severe) SNOMED Code(s): 062591490 Code(s): N18.4 - CHRONIC KIDNEY DISEASE, STAGE 4 (SEVERE) Status: Chronic Priority: Medium Current Visit: Yes (4) Pneumonia SNOMED Code(s): 515140593 Code(s): J18.9 - PNEUMONIA, UNSPECIFIED ORGANISM Status: Acute Priority: High Current Visit: Yes Qualifiers: Pneumonia type: due to Mycoplasma pneumoniae Laterality: unspecified laterality Lung location: unspecified part of lung Qualified Code(s): J15.7 - Pneumonia due to Mycoplasma pneumoniae (5) Bilateral knee pain SNOMED Code(s): 60911479 Code(s): M25.561 - PAIN IN RIGHT KNEE; M25.562 - PAIN IN LEFT KNEE Status: Chronic Priority: Medium Current Visit: No Qualifiers: Chronicity: acute Qualified Code(s): M25.561 - Pain in right knee; M25.562 - Pain in left knee (6) Facial contusion SNOMED Code(s): 110726261 Code(s): S00.83XA - CONTUSION OF OTHER PART OF HEAD, INITIAL ENCOUNTER Status: Chronic Priority: Medium Current Visit: No Qualifiers: Encounter type: initial encounter Qualified Code(s): S00.83XA - Contusion of other part of head, initial encounter (7) Laceration of left forearm SNOMED Code(s): 94290116938066938 Code(s): S51.812A - LACERATION WITHOUT FOREIGN BODY OF LEFT FOREARM, INIT ENCNTR Status: Chronic Priority: Medium Current Visit: No Qualifiers: Encounter type: subsequent encounter Qualified Code(s): S51.812D - Laceration without foreign body of left forearm, subsequent encounter (8) Paroxysmal atrial fibrillation SNOMED Code(s): 870362108 Code(s): I48.0 - PAROXYSMAL ATRIAL FIBRILLATION Status: Chronic Priority : Low Current Visit: No (9) Peripheral edema SNOMED Code(s): 998287580 Code(s): R60.9 - EDEMA, UNSPECIFIED Status: Chronic Priority: Medium Current Visit: No (10) Hypomagnesemia SNOMED Code(s): 044650871 Code(s): E83.42 - HYPOMAGNESEMIA Status: Acute Priority: High Current Visit: Yes - Problem List Review Problem List Initiated/Reviewed/Updated: Yes - My Orders Last 24 Hours: My Active Orders 11/02/19 14:07 Cardiac Monitoring [RC] CONTINUOUS Height and Weight [RC] 04 Pulse Oximetry [RC] PRN Up With Assistance [RC] ASDIRECTED VTE/DVT Education [RC] BID Vital Signs [RC] Q4HR Consult to Case Management/Supervisor Finish End [CONS] Routine Consult to Spiritual Care [CONS] Routine OT Evaluation and Treatment [CONS] Routine PT Evaluation and Treatment [CONS] Routine Respiratory Care Assess and Treatment [CONS] Routine Acetaminophen [Tylenol] 650 mg PO Q4H PRN Ondansetron [Zofran] 4 mg IV Q6H PRN 11/02/19 14:08 RT Aerosol Therapy [RC] ASDIRECTED 11/02/19 14:10 RT Incentive Spirometry [RC] ASDIRECTED Isolation [COMM] Routine 11/02/19 14:12 Acapella [RT Chest Physiotherapy] [RC] ASDIRECTED 11/02/19 14:37 Code Status [Resuscitation Status] Stat 11/02/19 14:40 Precautions [COMM] Routine 11/02/19 15:39 STREP PNEUMONIAE ANTIGEN [MREF] Routine 11/02/19 16:00 Albuterol/Ipratropium [DuoNeb 3.0-0.5 MG/3 ML] 3 ml NEB QIDRT 11/02/19 16:07 RESPIRATORY PANEL Routine 11/02/19 Dinner Heart Healthy Diet [DIET] - Plan Plan:: I/P: Acute: Mycoplasma Pneumonia -Resides at SNF -Reports symptoms for past few weeks, SNF staff reports symptoms for past 48 hrs -Congested productive cough -Hx/o recurrent PNA -No fever in ED or on floor -WBC 11.67-->10.03 -CRP 3.9 -Lactic acid 1.2 -Started on Rocephin in ED - continue -Start Doxycycline 100mg BID -500mL fluid bolus given in ED -Tylenol for fever -Blood cultures negative -IV fluids as ordered -Mycoplasma POSITIVE -Strep pneumonia, viral panel - pending -Sputum culture pending -Negative influenza -IS/Acapella/RT -Duonebs as ordered -Droplet isolation -Consider Repeat CXR in 24-48 hrs if indicated Volume depletion, resolved -Clinically dry -Anion gap 15.4--> 14.1 -Reports poor oral intake last 24-48 hours -IV fluids as ordered -> discontinue Chronic kidney failure, Stage IV, stable -BUN 73-->63 -Creatinine 1.7-->1.6 -GFR of 29-->31 -Baseline creatinine appears to be 1.7-2.2; GFR of 24-31 -Stable -Avoid nephrotoxic agents if possible -IV fluids as above Hypomagnesemia, Resolved -Magnesium 1.7-->2.4 -Supplemented Pedal edema -Chronic bilateral pedal edema -Hx/o lymphedema -Home Velcro compression stockings -Elevation -Continue home Bumex -Caution with IV hydration Chronic pain -Reports chronic bilateral shoulder, bilateral knee, bilateral hip, lower back, and neck pain -Home pain medications as ordered -PT/OT -Hx/o gout - allopurinol -ESR 54, CRP 3.9 Chronic: A. fib on eliquis HLD hypertension syncope recurrent pneumonia GERD arthritis vertigo obesity lymphedema basal cell carcinoma breast cancer Plan: Admit to medical floor on telemetry Home medications as ordered Routine AM labs CM/SW for discharge planning: resident of [facility] Other orders as indicated above DVT Prophylaxis: Home Eliquis, Home compression stockings; GI Prophylaxis: Not indicated Code status: DNR; PCP: Dr. Cervantes
[2019-11-03] MEDS ORDERED: guaiFENesin 100 MG/5 ML Soln 10 ML UD Cup PO PRN (07:22)
[2019-11-03] MEDS ORDERED: traMADol 50 MG Tab PO PRN (07:22)
[2019-11-03] MEDS ORDERED: Acetaminophen 325 MG Tab PO PRN (07:22)
[2019-11-03] MEDS ORDERED: Polyethylene Glycol 3350 Powder 17 GM Packet PO PRN (07:22)
[2019-11-03] MEDS ORDERED: oxyCODONE 5 MG Tab PO PRN (07:22)
[2019-11-03] MEDS: Doxycycline 100 MG in Sodium Chloride 0.9% 100 ML IV SCH ×2 (08:46→21:03)
[2019-11-03] MEDS: NIACIN FLUSH FREE PO SCH (08:49)
[2019-11-03] MEDS: Multivitamins,Therapeutic Tab PO SCH (08:51)
[2019-11-03] MEDS: Bumetanide 1 MG Tab PO SCH (08:52)
[2019-11-03] MEDS: oxyCODONE 5 MG Tab PO SCH ×2 (08:53→21:02)
[2019-11-03] MEDS: Amiodarone 200 MG Tab PO SCH (08:54)
[2019-11-03] MEDS: Acetaminophen 325 MG Tab PO SCH ×4 (08:55→21:02)
[2019-11-03] MEDS: Famotidine 20 MG Tab PO SCH (08:56)
[2019-11-03] MEDS: Apixaban 2.5 MG Tab PO SCH ×2 (08:56→21:02)
[2019-11-03] MEDS: Ferrous Sulfate 324 MG Tab.EC PO SCH ×2 (08:57→21:03)
[2019-11-03] MEDS: Ascorbic Acid 500 MG Tab PO SCH ×2 (08:58→21:03)
[2019-11-03] MEDS: Allopurinol 100 MG Tab PO SCH ×2 (08:58→21:03)
[2019-11-03] MEDS ORDERED: guaiFENesin 600 MG Tab.ER PO SCH (09:00)
[2019-11-03] MEDS: Carboxymethylcellulose Sodium 1% Ophth Gel 15 ML Bottle EYEBOTH SCH ×3 (09:00→21:04)
[2019-11-03] MEDS: cefTRIAXone 2 GM in Sodium Chloride 0.9% 100 ML IV SCH (11:46)
[2019-11-03] MEDS ORDERED: Bumetanide 1 MG Tab PO SCH (18:00)
[2019-11-03] MEDS: Acetylcysteine 20% 200 MG/ML 4 ML Nebulizer Soln SDV NEB SCH (20:27)
[2019-11-03] MEDS ORDERED: Simvastatin 20 MG Tab PO SCH (21:00)
[2019-11-03] MEDS: guaiFENesin 600 MG Tab.ER PO SCH (21:03)
[2019-11-04] MEDS: Albuterol/Ipratropium 3.0-0.5 MG/3 ML Neb Soln NEB SCH ×2 (05:59→09:50)
[2019-11-04] MEDS: Acetylcysteine 20% 200 MG/ML 4 ML Nebulizer Soln SDV NEB SCH ×3 (06:00→09:54)
--- NOTE | 2019-11-04 07:10 | PCM.PN ---
- General Info Date of Service: 11/04/19 Admission Dx/Problem (Free Text): Pneumonia - Patient Data Vitals - Most Recent: Last Vital Signs Temp 98.2 F 11/04/19 03:08 Pulse 85 11/04/19 03:08 Resp 18 11/04/19 03:08 BP 143/69 H 11/04/19 03:08 Pulse Ox 100 11/04/19 06:02 Weight - Most Recent: 140 lb 14.4 oz I&O - Last 24 Hours: Intake & Output 11/03/19 11/04/19 11/04/19 22:59 06:59 14:59 Intake Total 1420 800 Output Total 300 550 Balance 1120 250 Lab Results Last 24 Hours: Laboratory Results - last 24 hr 11/02/19 11/04/19 11/04/19 Range/Units 16:07 05:10 05:10 WBC 11.49 H (3.98-10.04) K/mm3 RBC 3.35 L (3.98-5.22) M/mm3 Hgb 10.5 L (11.2-15.7) gm/dl Hct 33.5 L (34.1-44.9) % MCV 100.0 H (79.4-94.8) fl MCH 31.3 (25.6-32.2) pg MCHC 31.3 L (32.2-35.5) g/dl RDW Std Deviation 53.4 H (36.4-46.3) fL Plt Count 242 (182-369) K/mm3 MPV 10.2 (9.4-12.3) fl Neut % (Auto) 84.1 H (34.0-71.1) % Lymph % (Auto) 8.7 L (19.3-51.7) % [place] % (Auto) 6.3 (4.7-12.5) % Eos % (Auto) 0.1 L (0.7-5.8) Baso % (Auto) 0.1 (0.1-1.2) % Neut # (Auto) 9.67 H (1.56-6.13) K/mm3 Lymph # (Auto) 1.00 L (1.18-3.74) K/mm3 [place] # (Auto) 0.72 H (0.24-0.36) K/mm3 Eos # (Auto) 0.01 L (0.04-0.36) K/mm3 Baso # (Auto) 0.01 (0.01-0.08) K/mm3 Manual Slide Review Abnormal smear Sodium 138 (136-145) mEq/L Potassium 3.6 (3.5-5.1) mEq/L Chloride 101 (98-107) mEq/L Carbon Dioxide 27 (21-32) mEq/L Anion Gap 13.6 (5-15) BUN 55 H (7-18) mg/dL Creatinine 1.7 H (0.55-1.02) mg/dL Est Cr Clr Drug Dosing 20.38 mL/min Estimated GFR (MDRD) 29 (>60) mL/min BUN/Creatinine Ratio 32.4 H (14-18) Glucose 129 H (83-115) mg/dL Calcium 9.1 (8.5-10.1) mg/dL Magnesium 1.9 (1.8-2.4) mg/dl Adenovirus (PCR) Not detected (Not Detected) B. pertussis DNA (PCR) Not detected (Not Detected) B.parapertussis DNA PCR Not detected (Not Detected) C. pneumoniae DNA (PCR) Not detected (Not Detected) Coronavirus (PCR) Not detected (Not Detected) Human Metapneumovir PCR Not detected (Not Detected) Influenza A (RT-PCR) Not detected (Not Detected) Influenza B (RT-PCR) Not detected (Not Detected) M. pneumoniae (PCR) Not detected (Not Detected) Parainfluen 1,2,3,4 PCR Detected H (Not Detected) RSV (PCR) Not detected (Not Detected) Entero/Rhino (PCR) Not detected (Not Detected) Oscar Results Last 24 Hours: Microbiology 11/02/19 08:07 Aerobic Blood Culture - Preliminary Blood - Venous NO GROWTH AFTER 1 DAY Anaerobic Blood Culture - Final 11/02/19 11:23 Aerobic Blood Culture - Preliminary Blood - Venous - Lab Draw NO GROWTH AFTER 1 DAY Anaerobic Blood Culture - Preliminary NO GROWTH AFTER 1 DAY 11/02/19 21:25 Gram Stain - Final Sputum - Expectorated Sputum Culture - Preliminary Med Orders - Current: Current Medications Acetaminophen (Tylenol) 325 mg PO Q6H PRN PRN Reason: Pain/Fever Acetaminophen (Tylenol) 650 mg PO QID [facility] Last Admin: 11/03/19 21:02 Dose: 650 mg Acetylcysteine (Mucomyst 20%) 800 mg NEB QIDRT [facility] Last Admin: 11/04/19 06:00 Dose: 800 mg Albuterol/Ipratropium (Duoneb 3.0-0.5 Mg/3 Ml) 3 ml NEB QIDRT [facility] Last Admin: 11/04/19 05:59 Dose: 3 ml Allopurinol (Zyloprim) 100 mg PO BID [facility] Last Admin: 11/03/19 21:03 Dose: 100 mg Amiodarone HCl (Cordarone) 200 mg PO DAILY [facility] Last Admin: 11/03/19 08:54 Dose: 200 mg Apixaban (Eliquis) 2.5 mg PO BID [facility] Last Admin: 11/03/19 21:02 Dose: 2.5 mg Artificial Tears (Refresh Liquigel 1%) 0 ml EYEBOTH TID [facility] Last Admin: 11/03/19 21:04 Dose: 1 drop Ascorbic Acid (Vitamin C) 500 mg PO BID [facility] Last Admin: 11/03/19 21:03 Dose: 500 mg Benzonatate (Tessalon Perles) 100 mg PO TID PRN PRN Reason: Cough Last Admin: 11/03/19 05:01 Dose: 100 mg Bumetanide (Bumex) 1 mg PO QPM [facility] Last Admin: 11/03/19 17:57 Dose: 1 mg Bumetanide (Bumex) 2 mg PO DAILY [facility] Last Admin: 11/03/19 08:52 Dose: 2 mg Famotidine (Pepcid) 20 mg PO DAILY [facility] Last Admin: 11/03/19 08:56 Dose: 20 mg Ferrous Sulfate (Ferrous Sulfate) 324 mg PO BID [facility] Last Admin: 11/03/19 21:03 Dose: 324 mg Guaifenesin (Robitussin) 200 mg PO Q4H PRN PRN Reason: Cough Guaifenesin (Mucinex) 600 mg PO TID [facility] Last Admin: 11/03/19 21:03 Dose: 600 mg Ceftriaxone Sodium 2 gm/ (Sodium Chloride) 100 mls @ 200 mls/hr IV Q24H [facility] Last Admin: 11/03/19 11:46 Dose: 200 mls/hr Doxycycline Hyclate 100 mg/ (Sodium Chloride) 100 mls @ 100 mls/hr IV Q12H [facility] Last Admin: 11/03/19 21:03 Dose: 100 mls/hr Multivitamins (Thera) 1 each PO DAILY [facility] Last Admin: 11/03/19 08:51 Dose: 1 each Niacin Flush Free (500 Mg Cap) 0 mg PO DAILY [facility] Last Admin: 11/03/19 08:49 Dose: 1 mg Ondansetron HCl (Zofran) 4 mg IV Q6H PRN PRN Reason: Nausea/Vomiting Oxycodone HCl (Oxycodone) 5 mg PO Q4H PRN PRN Reason: Pain Oxycodone HCl (Oxycodone) 5 mg PO BID [facility] Last Admin: 11/03/19 21:02 Dose: 5 mg Polyethylene Glycol (Miralax) 17 gm PO DAILY PRN PRN Reason: Constipation Senna/Docusate Sodium (Senna Plus) 1 tab PO BID [facility] Last Admin: 11/03/19 21:03 Dose: 1 tab Simvastatin (Zocor) 20 mg PO BEDTIME [facility] Last Admin: 11/03/19 21:03 Dose: 20 mg Tramadol HCl (Ultram) 50 mg PO BID PRN PRN Reason: Pain Discontinued Medications Acetaminophen (Tylenol) 650 mg PO NOW ONE Stop: 11/02/19 10:38 Last Admin: 11/02/19 11:13 Dose: 650 mg Acetaminophen (Tylenol) 650 mg PO Q4H PRN PRN Reason: Pain (Mild 1-3)/fever Albuterol/Ipratropium (Duoneb 3.0-0.5 Mg/3 Ml) 3 ml NEB ONETIME ONE Stop: 11/02/19 10:48 Last Admin: 11/02/19 11:06 Dose: 3 ml Albuterol/Ipratropium (Duoneb 3.0-0.5 Mg/3 Ml) 3 ml NEB QID [facility] Guaifenesin (Mucinex) 600 mg PO BID [facility] Last Admin: 11/03/19 08:59 Dose: 600 mg Dextrose/Sodium Chloride (Dextrose 5%-Normal Saline) 1,000 mls @ 100 mls/hr IV ASDIRECTED [facility] Last Admin: 11/02/19 11:24 Dose: 100 mls/hr Sodium Chloride (Normal Saline) 500 mls @ 250 mls/hr IV .BOLUS ONE Stop: 11/02/19 14:34 Last Admin: 11/02/19 13:23 Dose: 250 mls/hr Magnesium Sulfate 2 gm/ Premix 50 mls @ 25 mls/hr IV ONETIME ONE Stop: 11/02/19 16:17 Last Admin: 11/02/19 16:09 Dose: 25 mls/hr Sepsis Event Note - Evaluation Sepsis Screening Result: No Definite Risk - Focused Exam Vital Signs: Vital Signs Temp Pulse Resp BP Pulse Ox Pulse Ox 11/04/19 06:02 100 11/04/19 03:08 98.2 F 85 18 143/69 H 99 11/03/19 20:29 100 11/03/19 19:51 91 99 11/03/19 19:17 98.2 F 83 17 139/76 98 Date Exam was Performed: 11/04/19 Time Exam was Performed: 07:10 - Problem List & Annotations (1) Volume depletion SNOMED Code(s): 31219848 Code(s): E86.9 - VOLUME DEPLETION, UNSPECIFIED Status: Acute Priority: High Current Visit: Yes (2) Acute febrile illness SNOMED Code(s): 075112257 Code(s): R50.9 - FEVER, UNSPECIFIED Status: Acute Priority: High Current Visit: Yes (3) Chronic renal insufficiency, stage IV (severe) SNOMED Code(s): 457391817 Code(s): N18.4 - CHRONIC KIDNEY DISEASE, STAGE 4 (SEVERE) Status: Chronic Priority: Medium Current Visit: Yes (4) Pneumonia SNOMED Code(s): 670105076 Code(s): J18.9 - PNEUMONIA, UNSPECIFIED ORGANISM Status: Acute Priority: High Current Visit: Yes Qualifiers: Pneumonia type: due to Mycoplasma pneumoniae Laterality: unspecified laterality Lung location: unspecified part of lung Qualified Code(s): J15.7 - Pneumonia due to Mycoplasma pneumoniae (5) Bilateral knee pain SNOMED Code(s): 36895266 Code(s): M25.561 - PAIN IN RIGHT KNEE; M25.562 - PAIN IN LEFT KNEE Status: Chronic Priority: Medium Current Visit: No Qualifiers: Chronicity: acute Qualified Code(s): M25.561 - Pain in right knee; M25.562 - Pain in left knee (6) Facial contusion SNOMED Code(s): 557332787 Code(s): S00.83XA - CONTUSION OF OTHER PART OF HEAD, INITIAL ENCOUNTER Status: Chronic Priority: Medium Current Visit: No Qualifiers: Encounter type: initial encounter Qualified Code(s): S00.83XA - Contusion of other part of head, initial encounter (7) Laceration of left forearm SNOMED Code(s): 34945257397629451 Code(s): S51.812A - LACERATION WITHOUT FOREIGN BODY OF LEFT FOREARM, INIT ENCNTR Status: Chronic Priority: Medium Current Visit: No Qualifiers: Encounter type: subsequent encounter Qualified Code(s): S51.812D - Laceration without foreign body of left forearm, subsequent encounter (8) Paroxysmal atrial fibrillation SNOMED Code(s): 580995784 Code(s): I48.0 - PAROXYSMAL ATRIAL FIBRILLATION Status: Chronic Priority : Low Current Visit: No (9) Peripheral edema SNOMED Code(s): 315681493 Code(s): R60.9 - EDEMA, UNSPECIFIED Status: Chronic Priority: Medium Current Visit: No (10) Hypomagnesemia SNOMED Code(s): 905760602 Code(s): E83.42 - HYPOMAGNESEMIA Status: Acute Priority: High Current Visit: Yes - My Orders Last 24 Hours: My Active Orders 11/03/19 07:22 Acetaminophen [Tylenol] 325 mg PO Q6H PRN Polyethylene Glycol 3350 [MiraLAX] 17 gm PO DAILY PRN oxyCODONE 5 mg PO Q4H PRN traMADol [Ultram] 50 mg PO BID PRN 11/03/19 08:00 Doxycycline [Vibramycin] 100 mg Sodium Chloride 0.9% [Normal Saline] 100 ml IV Q12H 11/03/19 09:00 Acetaminophen [Tylenol] 650 mg PO QID Amiodarone [Cordarone] 200 mg PO DAILY Apixaban [Eliquis] 2.5 mg PO BID Ascorbic Acid [Vitamin C] 500 mg PO BID Bumetanide [Bumex] 2 mg PO DAILY Docusate Sodium/Sennosides [Senna Plus] 1 tab PO BID Famotidine [Pepcid] 20 mg PO DAILY Ferrous Sulfate 324 mg PO BID Multivitamins,Therapeutic [Thera] 1 each PO DAILY Niacin (Inositol Niacinate) [Niacin Flush Free 500 mg Cap] 0 mg PO DAILY allopurinoL [Zyloprim] 100 mg PO BID oxyCODONE 5 mg PO BID 11/03/19 18:00 Bumetanide [Bumex] 1 mg PO QPM 11/03/19 21:00 Simvastatin [Zocor] 20 mg PO BEDTIME - Plan Plan:: I/P: Acute: Mycoplasma Pneumonia -Resides at SNF -Reports symptoms for past few weeks, SNF staff reports symptoms for past 48 hrs -Congested productive cough -Hx/o recurrent PNA -No fever in ED or on floor -WBC 11.67-->10.03 -CRP 3.9 -Lactic acid 1.2 -Started on Rocephin in ED - continue -Start Doxycycline 100mg BID -500mL fluid bolus given in ED -Tylenol for fever -Blood cultures negative -IV fluids as ordered -Mycoplasma POSITIVE -Strep pneumonia, viral panel - pending -Sputum culture pending -Negative influenza -IS/Acapella/RT -Duonebs as ordered -Droplet isolation -Consider Repeat CXR in 24-48 hrs if indicated Volume depletion, resolved -Clinically dry -Anion gap 15.4--> 14.1 -Reports poor oral intake last 24-48 hours -IV fluids as ordered -> discontinue Chronic kidney failure, Stage IV, stable -BUN 73-->63 -Creatinine 1.7-->1.6 -GFR of 29-->31 -Baseline creatinine appears to be 1.7-2.2; GFR of 24-31 -Stable -Avoid nephrotoxic agents if possible -IV fluids as above Hypomagnesemia, Resolved -Magnesium 1.7-->2.4 -Supplemented Pedal edema -Chronic bilateral pedal edema -Hx/o lymphedema -Home Velcro compression stockings -Elevation -Continue home Bumex -Caution with IV hydration Chronic pain -Reports chronic bilateral shoulder, bilateral knee, bilateral hip, lower back, and neck pain -Home pain medications as ordered -PT/OT -Hx/o gout - allopurinol -ESR 54, CRP 3.9 Chronic: A. fib on eliquis HLD hypertension syncope recurrent pneumonia GERD arthritis vertigo obesity lymphedema basal cell carcinoma breast cancer Plan: Admit to medical floor on telemetry Home medications as ordered Routine AM labs CM/SW for discharge planning: resident of [facility] Other orders as indicated above DVT Prophylaxis: Home Eliquis, Home compression stockings; GI Prophylaxis: Not indicated Code status: DNR; PCP: Dr. Cervantes
[2019-11-04] MEDS: Doxycycline 100 MG in Sodium Chloride 0.9% 100 ML IV SCH (08:18)
[2019-11-04] MEDS: Bumetanide 1 MG Tab PO SCH (08:26)
[2019-11-04] MEDS: Multivitamins,Therapeutic Tab PO SCH (08:27)
[2019-11-04] MEDS: Allopurinol 100 MG Tab PO SCH (08:28)
[2019-11-04] MEDS: Apixaban 2.5 MG Tab PO SCH (08:28)
[2019-11-04] MEDS: Acetaminophen 325 MG Tab PO SCH ×2 (08:29→12:22)
[2019-11-04] MEDS: oxyCODONE 5 MG Tab PO SCH (08:31)
[2019-11-04] MEDS: Amiodarone 200 MG Tab PO SCH (08:32)
[2019-11-04] MEDS: Famotidine 20 MG Tab PO SCH (08:32)
[2019-11-04] MEDS: guaiFENesin 600 MG Tab.ER PO SCH (08:32)
[2019-11-04] MEDS: Ascorbic Acid 500 MG Tab PO SCH (08:33)
[2019-11-04] MEDS: Carboxymethylcellulose Sodium 1% Ophth Gel 15 ML Bottle EYEBOTH SCH (08:34)
[2019-11-04] MEDS: NIACIN FLUSH FREE PO SCH (08:36)
[2019-11-04] MEDS: Ferrous Sulfate 324 MG Tab.EC PO SCH (09:51)
--- NOTE | 2019-11-04 11:31 | PCM.DCSUM1 ---
Discharge Summary - Hospital Course HPI Initial Comments: Tameka Harvey is an 84 yo female who presents to our ED on 11/02/19 with shortness of breath. She currently resides at [facility]. She is noted to have a productive bilateral cough and fever. Symptoms reportedly began with the last 48 hours per SNF report, however the patient reports she has not felt well for the past few weeks. She been given [facility]ylenol at the [facility] with some relief. Reports she did have a flu shot this year. She' s had very poor oral intake today but she did eat well yesterday. She reports no vomiting. She does have multiple ecchymosis to her face and bilateral upper extremities, along with both knees from a fall that occurred on September 18. She is noted to have a very large skin tear on the extensor surface of her right forearm. In the ED temperature is 98.3 Fahrenheit. Pulse 86. Respirations 16. Saturations are 92%. Labs were obtained showing mild leukocytosis at 11.67 with a hemoglobin of 11.6 and hematocrit of 36.2. Blood sugar 259,000. Neutrophils are elevated at 88% however there is no bandemia. ESR is high at 54. 8. INR 0.99. APTT is 27. Sodium is 137. Potassium 4.4. Anion gap was high at 15.4. BUN is 73. Creatinine 1.7. EGFR is 29. Lactic acid is 1.2. Magnesium is low at 1.7. AST is 96, ALT 133, alkaline phosphatase 108. CK-MB is 0.6. Troponin is negative at less than 0.017. CRP is 3.9. ProBNP is 46. Protein is low at 6.3. Blood cultures are obtained and a sputum culture is ordered. Twelve-lead EKG shows ectopic atrial rhythm at a rate of 78 bpm. 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 There is T- wave flattening noted in aVL.Q waves are noted in III and aVF consider old inferior wall IA. QTC is mildly prolonged at 477. She is given 650 mg Tylenol and a 3 ml DuoNeb. She is placed on 2L O2. She started on 2 g of IV Rocephin. She is given a 500 mL saline bolus and started on 100 mils an hour of D5NS. CXR is obtained showing incidental findings with nothing acute. History of: A. fib, HLD, hypertension, syncope, recurrent pneumonia, GERD, chronic renal insufficiency, arthritis, gout, chronic bilateral shoulder pain, chronic bilateral knee pain, vertigo, obesity, lymphedema, basal cell carcinoma , breast cancer. She was never a smoker. Her PCP is Dr. Cervantes. Diagnosis: Stroke: No - Discharge Data Discharge Date: 11/04/19 (Admit date: 11/02/19) Discharge Disposition: DC/Tfer to SNF 03 Condition: Good - Referral to Home Health Primary Care Physician: Branden Cervantes MD - Discharge Diagnosis/Problem(s) (1) Volume depletion SNOMED Code(s): 00964050 ICD Code: E86.9 - VOLUME DEPLETION, UNSPECIFIED Status: Resolved Priority : High Current Visit: Yes (2) Acute febrile illness SNOMED Code(s): 133220486 ICD Code: R50.9 - FEVER, UNSPECIFIED Status: Resolved Priority: High Current Visit: Yes (3) Chronic renal insufficiency, stage IV (severe) SNOMED Code(s): 338327014 ICD Code: N18.4 - CHRONIC KIDNEY DISEASE, STAGE 4 (SEVERE) Status: Chronic Priority: Medium Current Visit: Yes (4) Pneumonia SNOMED Code(s): 942542926 ICD Code: J18.9 - PNEUMONIA, UNSPECIFIED ORGANISM Status: Acute Priority : High Current Visit: Yes Qualifiers: Pneumonia type: due to Mycoplasma pneumoniae Laterality: unspecified laterality Lung location: unspecified part of lung Qualified Code(s): J15.7 - Pneumonia due to Mycoplasma pneumoniae (5) Bilateral knee pain SNOMED Code(s): 11822632 ICD Code: M25.561 - PAIN IN RIGHT KNEE; M25.562 - PAIN IN LEFT KNEE Status : Chronic Priority: Medium Current Visit: No Qualifiers: Chronicity: acute Qualified Code(s): M25.561 - Pain in right knee; M25.562 - Pain in left knee (6) Facial contusion SNOMED Code(s): 962782320 ICD Code: S00.83XA - CONTUSION OF OTHER PART OF HEAD, INITIAL ENCOUNTER Status: Chronic Priority: Medium Current Visit: No Qualifiers: Encounter type: initial encounter Qualified Code(s): S00.83XA - Contusion of other part of head, initial encounter (7) Laceration of left forearm SNOMED Code(s): 75141100529114633 ICD Code: S51.812A - LACERATION WITHOUT FOREIGN BODY OF LEFT FOREARM, INIT ENCNTR Status: Chronic Priority: Medium Current Visit: No Qualifiers: Encounter type: subsequent encounter Qualified Code(s): S51.812D - Laceration without foreign body of left forearm, subsequent encounter (8) Paroxysmal atrial fibrillation SNOMED Code(s): 574412533 ICD Code: I48.0 - PAROXYSMAL ATRIAL FIBRILLATION Status: Chronic Priority : Low Current Visit: No (9) Peripheral edema SNOMED Code(s): 876789907 ICD Code: R60.9 - EDEMA, UNSPECIFIED Status: Chronic Priority: Medium Current Visit: No (10) Hypomagnesemia SNOMED Code(s): 452561600 ICD Code: E83.42 - HYPOMAGNESEMIA Status: Resolved Priority: High Current Visit: Yes (11) Parainfluenza SNOMED Code(s): 33657451 ICD Code: B34.8 - OTHER VIRAL INFECTIONS OF UNSPECIFIED SITE Status: Acute Priority: High Current Visit: Yes - Patient Summary/Data Consults: Consultations 11/02/19 14:07 Consult to Case Management/[employer] [CONS] Routine Consult to Spiritual Care [CONS] Routine OT Evaluation and Treatment [CONS] Routine PT Evaluation and Treatment [CONS] Routine Respiratory Care Assess and Treatment [CONS] Routine Labs Pending at D/C: None Recommended Follow-up Testing/Procedures: Follow-up with PCP within 5-7 days of discharge Hospital Course: Tameka Harvey was admitted to the floor with shortness of breath, hypoxia, and pneumonia. She was treated with scheduled nebulizers, IS, Acapella, and Mucomyst. She was started on Rocephin initially and when her mycoplasma returned +100 mg twice a day doxycycline was started. Rocephin was ultimately stopped. Her viral panel revealed positive parainfluenza. She continued to improve and was able to be weaned off of oxygen. She reported she felt much better. She did work with PT/OT who felt that she should return to SNF with continued PT/OT services. She does have scheduled nebulizers already as a home medication. Discharge planning did contact [facility] to ensure that she had plenty of supplies for these. She was instructed to continue to utilize her incentive spirometry and Acapella until her symptoms resolve. PCP requested that I ensure the [facility] continues to work on diuresis as they have been making progress with this. Home medications were continued with the exception of her home azithromycin. She should continue doxycycline as prescribed with 11 more doses of 100 mg twice a day, first dose tonight (11/04/19). Follow-up with her primary care provider within 5-7 days, sooner if needed. She was instructed that this will likely take time to resolve , therefore she feels back to her normal self. She was instructed to return to the emergency room or contact her primary care provider should symptoms return or worsen. - Patient Instructions Diet: Heart Healthy Diet Activity: As Tolerated Driving: Do Not Drive Showering/Bathing: May Shower Notify Provider of: Fever, Increased Pain, Nausea and/or Vomiting Other/Special Instructions: Follow-up with primary care provider within 5-7 days of discharge, sooner if needed. Resume home medications as indicated. Continue doxycycline as prescribed. Continue to utilize incentive spirometry ( clear/blue tube you inhale through) and acapella (green tube you blow throught) until symptoms completely resolve. Per Dr. Cervantes: Continue to monitor edema. Follow-up with him as needed for worsening swelling/weight gain. Continue PT/OT at SNF. Should symptoms return or worsen, contact primary care provider: Dr. Cervantes, or return to the Emergency Department. - Discharge Plan *PRESCRIPTION DRUG MONITORING PROGRAM REVIEWED*: No *COPY OF PRESCRIPTION DRUG MONITORING REPORT IN PATIENT GRANT: No Prescriptions/Med Rec: Doxycycline [Vibramycin] 100 mg PO BID #11 cap Ipratropium/Albuterol Sulfate [Iprat-Albut 0.5-3(2.5) MG/3 ML] 3 ml IH QID #15 ampul.[facility] Home Medications: Home Meds Acetaminophen [Tylenol] 325 mg PO Q6HR PRN 11/08/18 [History] Bumetanide [Bumex] 2 mg PO DAILY 11/08/18 [History] Loratadine 10 mg PO DAILY PRN 11/08/18 [History] Multivitamin [Multi-Vitamin Daily] 1 tab PO DAILY 11/08/18 [History] Simvastatin 20 mg PO BEDTIME 11/08/18 [History] allopurinoL [Zyloprim] 100 mg PO BID 11/08/18 [History] traMADol [Ultram] 50 mg PO BID PRN 11/08/18 [History] Amiodarone [Cordarone] 200 mg PO DAILY #30 tab 11/12/18 [Rx] Apixaban [Eliquis] 2.5 mg PO BID #30 11/12/18 [Rx] Ascorbic Acid 500 mg PO BID #30 11/12/18 [Rx] Ferrous Sulfate [Iron] 325 mg PO BID #60 tablet 11/12/18 [Rx] Acetaminophen [Tylenol] 650 mg PO QID 03/01/19 [History] Famotidine [Pepcid] 20 mg PO DAILY 03/01/19 [History] Sennosides/Docusate Sodium [Senna Plus Tablet] 1 tab PO BID PRN 03/01/19 [ History] Benzonatate [Tessalon Perle] 100 mg PO TID PRN 11/02/19 [History] Bumetanide 1 mg PO QPM 11/02/19 [History] Niacin (Inositol Niacinate) [Niacin Flush Free 500 mg Cap] 400 mg PO DAILY 11/02 [History] Polyethylene Glycol 3350 [MiraLAX] 17 gm PO DAILY PRN 11/02/19 [History] Polyvinyl Alcohol/Povidone/Pf [Refresh Classic Eye Drops] 1 each EYEBOTH TID [History] Potassium Chloride 10 meq PO DAILY 11/02/19 [History] Sennosides/Docusate Sodium [Senna Plus 8.6-50 mg Tablet] 1 tab PO BID 11/02/19 [ History] guaiFENesin [Mucinex] 600 mg PO BID 11/02/19 [History] oxyCODONE 5 mg PO BID 11/02/19 [History] oxyCODONE 5 mg PO Q4HR PRN 11/02/19 [History] Doxycycline [Vibramycin] 100 mg PO BID #11 cap 11/04/19 [Rx] Ipratropium/Albuterol Sulfate [Iprat-Albut 0.5-3(2.5) MG/3 ML] 3 ml IH QID #15 ampul.neb 11/04/19 [Rx] Oxygen Therapy Mode: Room Air Forms: ED Department Discharge Referrals: Branden Cervantes MD [Primary Care Provider] - - Discharge Summary/Plan Comment DC Time >30 min.: Yes (45 mins ) - General Info Date of Service: 11/04/19 Admission Dx/Problem (Free Text: Pneumonia Functional Status: Reports: Pain Controlled, Tolerating Diet, Ambulating, Urinating, Incentive Spirometry, Other (Acapella ). Denies: New Symptoms - Review of Systems General: Reports: No Symptoms. Denies: Fever, Weakness, Fatigue, Malaise, Chills HEENT: Reports: No Symptoms. Denies: Headaches, Sore Throat Pulmonary: Reports: Cough (occasional but improved). Denies: Shortness of Breath, Sputum, Wheezing Cardiovascular: Reports: Dyspnea on Exertion (improved ), Edema. Denies: Chest Pain, Palpitations Gastrointestinal: Reports: No Symptoms. Denies: Abdominal Pain, Constipation, Diarrhea, Nausea, Vomiting Genitourinary: Reports: No Symptoms. Denies: Pain Musculoskeletal: Reports: Neck Pain (chronic), Back Pain (chronic ), Joint Pain (Hips and knees - chronic ) Skin: Reports: No Symptoms. Denies: Cyanosis Neurological: Reports: No Symptoms. Denies: Confusion, Difficulty Walking, Gait Disturbance Psychiatric: Reports: No Symptoms - Patient Data Vitals - Most Recent: Last Vital Signs Temp 98.2 F 11/04/19 03:08 Pulse 85 11/04/19 03:08 Resp 18 11/04/19 03:08 BP 143/69 H 11/04/19 03:08 Pulse Ox 98 11/04/19 09:54 Weight - Most Recent: 140 lb 14.4 oz I&O - Last 24 hours: Intake & Output 11/03/19 11/04/19 11/04/19 22:59 06:59 14:59 Intake Total 1420 800 180 Output Total 300 550 Balance 1120 250 180 Lab Results - Last 24 hrs: Laboratory Results - last 24 hr 11/02/19 11/04/19 11/04/19 Range/Units 16:07 05:10 05:10 WBC 11.49 H (3.98-10.04) K/mm3 RBC 3.35 L (3.98-5.22) M/mm3 Hgb 10.5 L (11.2-15.7) gm/dl Hct 33.5 L (34.1-44.9) % MCV 100.0 H (79.4-94.8) fl MCH 31.3 (25.6-32.2) pg MCHC 31.3 L (32.2-35.5) g/dl RDW Std Deviation 53.4 H (36.4-46.3) fL Plt Count 242 (182-369) K/mm3 MPV 10.2 (9.4-12.3) fl Neut % (Auto) 84.1 H (34.0-71.1) % Lymph % (Auto) 8.7 L (19.3-51.7) % [place] % (Auto) 6.3 (4.7-12.5) % Eos % (Auto) 0.1 L (0.7-5.8) Baso % (Auto) 0.1 (0.1-1.2) % Neut # (Auto) 9.67 H (1.56-6.13) K/mm3 Lymph # (Auto) 1.00 L (1.18-3.74) K/mm3 [place] # (Auto) 0.72 H (0.24-0.36) K/mm3 Eos # (Auto) 0.01 L (0.04-0.36) K/mm3 Baso # (Auto) 0.01 (0.01-0.08) K/mm3 Manual Slide Review Abnormal smear Sodium 138 (136-145) mEq/L Potassium 3.6 (3.5-5.1) mEq/L Chloride 101 (98-107) mEq/L Carbon Dioxide 27 (21-32) mEq/L Anion Gap 13.6 (5-15) BUN 55 H (7-18) mg/dL Creatinine 1.7 H (0.55-1.02) mg/dL Est Cr Clr Drug Dosing 20.38 mL/min Estimated GFR (MDRD) 29 (>60) mL/min BUN/Creatinine Ratio 32.4 H (14-18) Glucose 129 H (83-115) mg/dL Calcium 9.1 (8.5-10.1) mg/dL Magnesium 1.9 (1.8-2.4) mg/dl Adenovirus (PCR) Not detected (Not Detected) B. pertussis DNA (PCR) Not detected (Not Detected) B.parapertussis DNA PCR Not detected (Not Detected) C. pneumoniae DNA (PCR) Not detected (Not Detected) Coronavirus (PCR) Not detected (Not Detected) Human Metapneumovir PCR Not detected (Not Detected) Influenza A (RT-PCR) Not detected (Not Detected) Influenza B (RT-PCR) Not detected (Not Detected) M. pneumoniae (PCR) Not detected (Not Detected) Parainfluen 1,2,3,4 PCR Detected H (Not Detected) RSV (PCR) Not detected (Not Detected) Entero/Rhino (PCR) Not detected (Not Detected) RONAL Results - Last 24 hrs: Microbiology 11/02/19 08:07 Aerobic Blood Culture - Preliminary Blood - Venous NO GROWTH AFTER 2 DAYS Anaerobic Blood Culture - Final 11/02/19 11:23 Aerobic Blood Culture - Preliminary Blood - Venous - Lab Draw NO GROWTH AFTER 2 DAYS Anaerobic Blood Culture - Preliminary NO GROWTH AFTER 2 DAYS 11/02/19 21:25 Gram Stain - Final Sputum - Expectorated Sputum Culture - Preliminary 11/02/19 15:39 Streptococcus pneumoniae Antigen (M - Final Urine Med Orders - Current: Current Medications Acetaminophen (Tylenol) 325 mg PO Q6H PRN PRN Reason: Pain/Fever Acetaminophen (Tylenol) 650 mg PO QID [facility] Last Admin: 11/04/19 08:29 Dose: 650 mg Acetylcysteine (Mucomyst 20%) 800 mg NEB QIDRT [facility] Last Admin: 11/04/19 09:54 Dose: Not Given Albuterol/Ipratropium (Duoneb 3.0-0.5 Mg/3 Ml) 3 ml NEB QIDRT [facility] Last Admin: 11/04/19 09:50 Dose: 3 ml Allopurinol (Zyloprim) 100 mg PO BID [facility] Last Admin: 11/04/19 08:28 Dose: 100 mg Amiodarone HCl (Cordarone) 200 mg PO DAILY [facility] Last Admin: 11/04/19 08:32 Dose: 200 mg Apixaban (Eliquis) 2.5 mg PO BID [facility] Last Admin: 11/04/19 08:28 Dose: 2.5 mg Artificial Tears (Refresh Liquigel 1%) 0 ml EYEBOTH TID [facility] Last Admin: 11/04/19 08:34 Dose: 1 drop Ascorbic Acid (Vitamin C) 500 mg PO BID [facility] Last Admin: 11/04/19 08:33 Dose: 500 mg Benzonatate (Tessalon Perles) 100 mg PO TID PRN PRN Reason: Cough Last Admin: 11/03/19 05:01 Dose: 100 mg Bumetanide (Bumex) 1 mg PO QPM [facility] Last Admin: 11/03/19 17:57 Dose: 1 mg Bumetanide (Bumex) 2 mg PO DAILY [facility] Last Admin: 11/04/19 08:26 Dose: 2 mg Famotidine (Pepcid) 20 mg PO DAILY [facility] Last Admin: 11/04/19 08:32 Dose: 20 mg Ferrous Sulfate (Ferrous Sulfate) 324 mg PO BID [facility] Last Admin: 11/04/19 09:51 Dose: 324 mg Guaifenesin (Robitussin) 200 mg PO Q4H PRN PRN Reason: Cough Guaifenesin (Mucinex) 600 mg PO TID [facility] Last Admin: 11/04/19 08:32 Dose: 600 mg Ceftriaxone Sodium 2 gm/ (Sodium Chloride) 100 mls @ 200 mls/hr IV Q24H [facility] Last Admin: 11/03/19 11:46 Dose: 200 mls/hr Doxycycline Hyclate 100 mg/ (Sodium Chloride) 100 mls @ 100 mls/hr IV Q12H [facility] Last Admin: 11/04/19 08:18 Dose: 100 mls/hr Multivitamins (Thera) 1 each PO DAILY [facility] Last Admin: 11/04/19 08:27 Dose: 1 each Niacin Flush Free (500 Mg Cap) 0 mg PO DAILY [facility] Last Admin: 11/04/19 08:36 Dose: 500 mg Ondansetron HCl (Zofran) 4 mg IV Q6H PRN PRN Reason: Nausea/Vomiting Oxycodone HCl (Oxycodone) 5 mg PO Q4H PRN PRN Reason: Pain Oxycodone HCl (Oxycodone) 5 mg PO BID [facility] Last Admin: 11/04/19 08:31 Dose: 5 mg Polyethylene Glycol (Miralax) 17 gm PO DAILY PRN PRN Reason: Constipation Senna/Docusate Sodium (Senna Plus) 1 tab PO BID [facility] Last Admin: 11/04/19 08:28 Dose: 1 tab Simvastatin (Zocor) 20 mg PO BEDTIME [facility] Last Admin: 11/03/19 21:03 Dose: 20 mg Tramadol HCl (Ultram) 50 mg PO BID PRN PRN Reason: Pain Discontinued Medications Acetaminophen (Tylenol) 650 mg PO NOW ONE Stop: 11/02/19 10:38 Last Admin: 11/02/19 11:13 Dose: 650 mg Acetaminophen (Tylenol) 650 mg PO Q4H PRN PRN Reason: Pain (Mild 1-3)/fever Albuterol/Ipratropium (Duoneb 3.0-0.5 Mg/3 Ml) 3 ml NEB ONETIME ONE Stop: 11/02/19 10:48 Last Admin: 11/02/19 11:06 Dose: 3 ml Albuterol/Ipratropium (Duoneb 3.0-0.5 Mg/3 Ml) 3 ml NEB QID [facility] Guaifenesin (Mucinex) 600 mg PO BID [facility] Last Admin: 11/03/19 08:59 Dose: 600 mg Dextrose/Sodium Chloride (Dextrose 5%-Normal Saline) 1,000 mls @ 100 mls/hr IV ASDIRECTED [facility] Last Admin: 11/02/19 11:24 Dose: 100 mls/hr Sodium Chloride (Normal Saline) 500 mls @ 250 mls/hr IV .BOLUS ONE Stop: 11/02/19 14:34 Last Admin: 11/02/19 13:23 Dose: 250 mls/hr Magnesium Sulfate 2 gm/ Premix 50 mls @ 25 mls/hr IV ONETIME ONE Stop: 11/02/19 16:17 Last Admin: 11/02/19 16:09 Dose: 25 mls/hr - Exam Quality Assessment: Reports: DVT Prophylaxis. Denies: Supplemental Oxygen, Urine Catheter General: Reports: Alert, Oriented, Cooperative, No Acute Distress HEENT: Reports: Pupils Equal, Pupils Reactive, Mucous Membr. Moist/[place] Neck: Reports: Supple, Trachea Midline Lungs: Reports: Normal Respiratory Effort, Crackles (minor at the bases ). Denies: Wheezing Cardiovascular: Reports: Regular Rate, Regular Rhythm GI/Abdominal Exam: Normal Bowel Sounds, Soft, Non-Tender, No Distention, No Abnormal Bruit (Female) Exam: Deferred Rectal (Female) Exam: Deferred Back Exam: Reports: Normal Inspection, Decreased Range of Motion Extremities: Normal Inspection, Non-Tender, Normal Capillary Refill, Pedal Edema , Limited Range of Motion Skin: Reports: Warm, Dry, Intact Wound/Incisions: Reports: Dressing Dry and Intact. Denies: Erythema Neurological: Reports: No New Focal Deficit Psy/Mental Status: Reports: Alert, Normal Affect, Normal Mood
[2019-11-04] MEDS: cefTRIAXone 2 GM in Sodium Chloride 0.9% 100 ML IV SCH (16:03)
[2019-11-04] MEDS ORDERED: Ferrous Sulfate 324 MG Tab.EC PO SCH (17:00)
[2019-11-04] MEDS ORDERED: Doxycycline 100 MG Cap PO SCH (21:00)
== END 2019-11-04 13:20 | DRG 194 ==
LOC: JD.ED 10:03 → JD.MS 13:34
PROVIDERS: ADMIT Internal Medicine; ATTEND Internal Medicine
DX: J15.7 Pneumonia due to Mycoplasma pneumoniae (principal); J18.1 Lobar pneumonia, unspecified organism; N18.4 Chronic kidney disease, stage 4 (severe); H91.92 Unspecified hearing loss, left ear; H54.7 Unspecified visual loss; I48.91 Unspecified atrial fibrillation; J44.0 Chronic obstructive pulmonary disease with (acute) lower respiratory infection; Z87.01 Personal history of pneumonia (recurrent); E86.9 Volume depletion, unspecified; E83.42 Hypomagnesemia; R60.0 Localized edema; G89.29 Other chronic pain; M10.9 Gout, unspecified; M25.511 Pain in right shoulder; M25.512 Pain in left shoulder; Z98.49 Cataract extraction status, unspecified eye; M25.561 Pain in right knee; M25.562 Pain in left knee; M25.551 Pain in right hip; M25.552 Pain in left hip; I48.0 Paroxysmal atrial fibrillation; E78.00 Pure hypercholesterolemia, unspecified; I12.9 Hypertensive chronic kidney disease with stage 1 through stage 4 chronic kidney disease, or unspecified chronic kidney disease; M54.2 Cervicalgia; E78.5 Hyperlipidemia, unspecified; K21.9 Gastro-esophageal reflux disease without esophagitis; E66.9 Obesity, unspecified; I89.0 Lymphedema, not elsewhere classified; S51.812D Laceration without foreign body of left forearm, subsequent encounter; S00.83XD Contusion of other part of head, subsequent encounter; M19.90 Unspecified osteoarthritis, unspecified site; Z85.3 Personal history of malignant neoplasm of breast; Z88.5 Allergy status to narcotic agent; Z88.8 Allergy status to other drugs, medicaments and biological substances; Z79.899 Other long term (current) drug therapy; Z68.25 Body mass index [BMI] 25.0-25.9, adult
CPT/HCPCS: 36415; 71045; 80053; 82553; 82962; 83605; 83735 ×2; 83880; 84484; 85007; 85027; 85610; 85652; 85730; 86140; 86738; 87040 ×2; 87804 ×2; 93005; 94640; 96365; 96366; 99285; A9270; J0696; J7030; J7042; J7050; 80048; 84100; 85025; 87070; 87205; 87486; 87581; 87632; 87641; 87798; 87899; 94667; 94668; 94761; 97110-GP; 97116-GP; 97162-GP; 97165-GO; 97530-GO; J3475; J3490; J7620-GY

== ENCOUNTER 2020-03-26 19:15 | Emergency (ER) | payer MEDICARE, OTHER ==
--- NOTE | 2020-03-26 19:57 | EDM.PDOC ---
ED HPI GENERAL MEDICAL PROBLEM - General Chief Complaint: Gastrointestinal Problem Stated Complaint: CONSTIPATION Time Seen by Provider: 03/26/20 19:31 Source of Information: Reports: Patient History Limitations: Reports: Physical Impairment (Hard of hearing despite left hearing aid. Poor historian.) - History of Present Illness INITIAL COMMENTS - FREE TEXT/NARRATIVE: Mrs. Harvey is a very pleasant 85-year-old woman with a past medical history significant for paroxysmal atrial fibrillation, renal insufficiency, right breast cancer status post lumpectomy, and chronic lower extremity edema, who is now sent from [facility] with a report of constipation, no BM x4 days and bulging to vaginal opening. The patient states that she was given 2 rectal suppositories and a soapsuds enema this afternoon, with good stool output, however, while she no longer feels any rectal urgency, she doubts that she evacuated adequately. She reported nausea to the triage nurse, although denies it to me. She does indicate that she has some generalized abdominal discomfort. The patient states that she has a long history of constipation. With respect to the bulge in the vagina, the patient does not know anything about that. She denies recent fever, chills, sore throat, ear pain, nasal or sinus congestion, cough, dyspnea, chest pain, palpitations, nausea, vomiting, diarrhea, urinary symptoms, recent weight gain or weight loss , recent bloody bowel movements or black bowel movements, recent joint aches, headaches, or rashes. Here in the ED, the patient is found to be hemodynamically stable, afebrile, saturating 98% on room air. The patient's PCP is Dr. Branden Cervantes. - Related Data Allergies Allergy/AdvReac Type Severity Reaction Status Date / Time codeine Allergy Severe Rash Verified 03/26/20 19:38 iodine Allergy Severe Rash Verified 03/26/20 19:38 metoprolol [From Toprol XL] Allergy Severe swelling Verified 03/26/20 19:38 of lips naproxen [From Naprelan] Allergy Severe Rash Verified 03/26/20 19:38 prednisone Allergy Severe Other Verified 03/26/20 19:38 propoxyphene AdvReac Severe urine Verified 03/26/20 19:38 retention Home Meds: Home Meds Acetaminophen [Tylenol] 325 mg PO Q6HR PRN 11/08/18 [History] Bumetanide [Bumex] 2 mg PO DAILY 11/08/18 [History] Loratadine 10 mg PO DAILY PRN 11/08/18 [History] Multivitamin [Multi-Vitamin Daily] 1 tab PO DAILY 11/08/18 [History] Simvastatin 20 mg PO BEDTIME 11/08/18 [History] allopurinoL [Zyloprim] 100 mg PO BID 11/08/18 [History] traMADol [Ultram] 50 mg PO BID PRN 11/08/18 [History] Amiodarone [Cordarone] 200 mg PO DAILY #30 tab 11/12/18 [Rx] Apixaban [Eliquis] 2.5 mg PO BID #30 11/12/18 [Rx] Acetaminophen [Tylenol] 650 mg PO QID 03/01/19 [History] Famotidine [Pepcid] 20 mg PO DAILY 03/01/19 [History] Sennosides/Docusate Sodium [Senna Plus Tablet] 1 tab PO BID PRN 03/01/19 [ History] Bumetanide 1 mg PO QPM 11/02/19 [History] Niacin (Inositol Niacinate) [Niacin Flush Free 500 mg Cap] 400 mg PO DAILY 11/02 [History] Polyvinyl Alcohol/Povidone/Pf [Refresh Classic Eye Drops] 1 each EYEBOTH TID [History] Potassium Chloride 10 meq PO DAILY 11/02/19 [History] Sennosides/Docusate Sodium [Senna Plus 8.6-50 mg Tablet] 1 tab PO BID 11/02/19 [ History] guaiFENesin [Mucinex] 600 mg PO BID 11/02/19 [History] oxyCODONE 5 mg PO BID 11/02/19 [History] oxyCODONE 5 mg PO Q4HR PRN 11/02/19 [History] polyethylene glycoL 3350 [MiraLAX] 17 gm PO DAILY PRN 11/02/19 [History] Bisacodyl [Laxative Suppository] 10 mg RC ONETIME PRN 03/26/20 [History] Ipratropium/Albuterol Sulfate [Iprat-Albut 0.5-3(2.5) MG/3 ML] 3 ml IH QID PRN 03/26/20 [History] Iron Ag,Ps/C/Fa6/B12/Zn/SA/Sto [Niferex Tablet] 1 each PO BID 03/26/20 [History] Spironolactone [Aldactone] 25 mg PO DAILY 03/26/20 [History] Past Medical History HEENT History: Reports: Hard of Hearing, Impaired Vision, Other (See Below) Other HEENT History: hearing aid to left ear, wears glasses for reading Cardiovascular History: Reports: Afib (paroxysmal), High Cholesterol, Hypertension Gastrointestinal History: Reports: GERD Genitourinary History: Reports: Chronic Renal Insuffiency Musculoskeletal History: Reports: Gout, Osteoarthritis Oncologic (Cancer) History: Reports: Breast (right, s/p lumpectomy + RTx) - Infectious Disease History Infectious Disease History: Reports: Chicken Pox, Measles, Shingles - Past Surgical History HEENT Surgical History: Reports: Cataract Surgery (bilateral) Oncologic Surgical History: Reports: Biopsy of Breast (right), Lumpectomy (right ) Social & Family History - Family History Family Medical History: Noncontributory - Tobacco Use Smoking Status *Q: Never Smoker Second Hand Smoke Exposure: No - Caffeine Use Caffeine Use: Reports: None - Alcohol Use Alcohol Use History: No - Recreational Drug Use Recreational Drug Use: No - Living Situation & Occupation Living situation: Reports: , Extended Care Facility ([facility]) Occupation: Retired ED ROS GENERAL - Review of Systems Review Of Systems: Comprehensive ROS is negative, except as noted in HPI. ED EXAM, GI/ABD - Physical Exam Exam: See Below Exam Limited By: No Limitations General Appearance: Alert, WD/WN, No Apparent Distress Eyes: Bilateral: Normal Appearance, EOMI Ears: Normal External Exam, Hearing Loss Nose: Normal Inspection Throat/Mouth: Normal Inspection, Normal Lips, Normal Teeth, Normal Gums, Normal Oropharynx, Normal Voice, No Airway Compromise Head: Atraumatic, Normocephalic Neck: Normal Inspection, Supple, Non-Tender, Full Range of Motion Respiratory/Chest: No Respiratory Distress, Lungs Clear, Normal Breath Sounds, No Accessory Muscle Use, Chest Non-Tender Cardiovascular: Normal Peripheral Pulses, Regular Rate, Rhythm, No Edema, No Gallop, No JVD, No Murmur, No Rub GI/Abdominal Exam: Normal Bowel Sounds, Soft, No Organomegaly, No Distention, No Abnormal Bruit, No Mass, Tender (mild, generalized, non-focal) (Female) Exam: Normal External Exam, Other (Possible non-protruding rectocele ) Rectal (Female) Exam: Deferred Back Exam: Normal Inspection, Full Range of Motion, NT Extremities: Normal Capillary Refill, Other (4+ pretibial pitting edema bilaterally) Neurological: Alert, Oriented, Normal Cognition, No Motor/Sensory Deficits Psychiatric: Normal Affect Skin Exam: Warm, Dry, Intact, Normal Color, No Rash Course - Vital Signs Last Recorded V/S: Last Vital Signs Temp 36.5 C 03/26/20 19:35 Pulse 88 03/26/20 19:35 Resp 16 03/26/20 19:35 BP 140/63 03/26/20 19:35 Pulse Ox 98 03/26/20 19:35 - Orders/Labs/Meds Orders: Active Orders 24 hr Category Date Time Status Abdomen 1V Upright [CR] Stat Exams 03/26/20 19:53 Taken - Re-Assessments/Exams Free Text/Narrative Re-Assessment/Exam: 03/26/20 19:54 As above, the patient is sent from [facility] for possible constipation. She apparently had good stool output following 2 rectal suppositories and a soapsuds enema, she states that she does not currently have rectal urgency, however, she also states that she does not feel that she had adequate output. I have ordered an upright abdominal x-ray to evaluate. 03/26/20 20:41 Single view upright abdomen radiograph appears to demonstrate a modest amount of stool throughout the colon, but no stool noted in the rectum. Pelvic phleboliths are noted. Chondral cartilage calcification noted. Osteopenia noted. Formal read per the Radiologist pending. 03/26/20 20:58 X-ray results discussed with the patient. She states that she feels well enough to return back to [facility]. Departure - Departure Time of Disposition: 20:59 Disposition: Home, Self-Care 01 Condition: Good Clinical Impression: Constipation - Discharge Information *PRESCRIPTION DRUG MONITORING PROGRAM REVIEWED*: Not Applicable *COPY OF PRESCRIPTION DRUG MONITORING REPORT IN PATIENT GRANT: Not Applicable Instructions: Constipation, Adult, [id number] Referrals: Branden Cervantes MD [Primary Care Provider] - Forms: ED Department Discharge Additional Instructions: Mrs. Harvey was seen in the emergency room over concern of constipation, as well as for a bulge seen in her vagina. Work-up in the ER included an x-ray of her abdomen, which showed a modest amount of stool, but no significant constipation. On vaginal examination, she may have a rectocele. She may continue her usual medications as prescribed. If any other problems, please do not hesitate to return Mrs. Harvey to the ER. Sepsis Event Note - Evaluation Sepsis Screening Result: No Definite Risk - Focused Exam Vital Signs: Vital Signs Temp Pulse Resp BP Pulse Ox 03/26/20 19:35 36.5 C 88 16 140/63 98 Date Exam was Performed: 03/26/20 Time Exam was Performed: 22:02 - My Orders Last 24 Hours: My Active Orders 03/26/20 19:53 Abdomen 1V Upright [CR] Stat - Assessment/Plan Last 24 Hours: My Active Orders 03/26/20 19:53 Abdomen 1V Upright [CR] Stat
--- NOTE | 2020-03-27 06:04 | CR ---
Abdomen: Upright view of the abdomen was obtained. Comparison: No prior abdominal imaging. 2 calcified gallstones seen within the upper right abdomen. Bowel gas pattern is within normal limits. No free air is seen. Bony structures are osteopenic. Impression: 1. Calcified gallstones within the upper right abdomen. 2. Nothing acute is otherwise seen on the upright abdominal x-ray. Diagnostic code #2 This report was dictated in MDT
== END 2020-03-26 21:55 | disposition home or self-care (01) ==
LOC: JD.ED 19:15
DX: K59.00 Constipation, unspecified (principal); I48.91 Unspecified atrial fibrillation; I12.9 Hypertensive chronic kidney disease with stage 1 through stage 4 chronic kidney disease, or unspecified chronic kidney disease; N18.9 Chronic kidney disease, unspecified; E78.00 Pure hypercholesterolemia, unspecified; K21.9 Gastro-esophageal reflux disease without esophagitis; M10.9 Gout, unspecified; M19.90 Unspecified osteoarthritis, unspecified site; Z85.3 Personal history of malignant neoplasm of breast; Z88.5 Allergy status to narcotic agent; Z91.048 Other nonmedicinal substance allergy status; Z88.8 Allergy status to other drugs, medicaments and biological substances; Z79.899 Other long term (current) drug therapy; Z79.01 Long term (current) use of anticoagulants
CPT/HCPCS: 74018; 74018-26; 99282; 99283-25

== ENCOUNTER 2020-03-31 10:24 | Inpatient (IN) | payer MEDICARE, OTHER ==
[2020-03-31] MEDS ORDERED: Sodium Chloride 0.9% 10 ML Syringe FLUSH PRN (10:47)
--- NOTE | 2020-03-31 11:03 | EDM.PDOC ---
ED HPI GENERAL MEDICAL PROBLEM - General Chief Complaint: Abdominal Pain Stated Complaint: CONSTIPATION Time Seen by Provider: 03/31/20 10:40 Source of Information: Reports: Patient, Prison Records History Limitations: Reports: No Limitations - History of Present Illness INITIAL COMMENTS - FREE TEXT/NARRATIVE: The patient presents with right upper abdominal pain that radiates to her back. This started earlier today after eating a [employer] sandwich. She has no fever, chills, cough, chest pain, shortness of breath, nausea or vomiting. She was seen here 5 days ago for constipation. She was doing good until this morning. On x-ray 5 days ago there were 2 large gallstones. She has no history of gallbladder problems. She does have bilateral lower leg edema with some weeping from the right leg. Onset: Sudden Duration: Hour(s): Location: Reports: Abdomen, Back Quality: Reports: Sharp Severity: Moderate Improves with: Reports: None Worsens with: Reports: None Associated Symptoms: Denies: Chest Pain, Cough, Fever/Chills, Headaches, Nausea/ Vomiting, Shortness of Breath Abdominal Pain Score (Numeric/FACES): 8 - Related Data Allergies Allergy/AdvReac Type Severity Reaction Status Date / Time codeine Allergy Severe Rash Verified 03/31/20 10:41 iodine Allergy Severe Rash Verified 03/31/20 10:41 metoprolol [From Toprol XL] Allergy Severe swelling Verified 03/31/20 10:41 of lips naproxen [From Naprelan] Allergy Severe Rash Verified 03/31/20 10:41 prednisone Allergy Severe Other Verified 03/31/20 10:41 propoxyphene AdvReac Severe urine Verified 03/31/20 10:41 retention Home Meds: Home Meds Acetaminophen [Tylenol] 325 mg PO Q6HR PRN 11/08/18 [History] Bumetanide [Bumex] 2 mg PO DAILY 11/08/18 [History] Loratadine 10 mg PO DAILY PRN 11/08/18 [History] Multivitamin [Multi-Vitamin Daily] 1 tab PO DAILY 11/08/18 [History] Simvastatin 20 mg PO BEDTIME 11/08/18 [History] allopurinoL [Zyloprim] 100 mg PO BID 11/08/18 [History] traMADol [Ultram] 50 mg PO BID PRN 12/23/18 [History] Amiodarone [Cordarone] 200 mg PO DAILY #30 tab 11/12/18 [Rx] Apixaban [Eliquis] 2.5 mg PO BID #30 11/12/18 [Rx] Acetaminophen [Tylenol] 650 mg PO QID 03/01/19 [History] Famotidine [Pepcid] 20 mg PO DAILY 03/01/19 [History] Sennosides/Docusate Sodium [Senna Plus Tablet] 1 tab PO BID PRN 03/01/19 [ History] Bumetanide 1 mg PO QPM 11/02/19 [History] Niacin (Inositol Niacinate) [Niacin Flush Free 500 mg Cap] 400 mg PO DAILY 11/02 [History] Polyvinyl Alcohol/Povidone/Pf [Refresh Classic Eye Drops] 1 each EYEBOTH TID [History] Potassium Chloride 10 meq PO DAILY 11/02/19 [History] Sennosides/Docusate Sodium [Senna Plus 8.6-50 mg Tablet] 1 tab PO BID 11/02/19 [ History] guaiFENesin [Mucinex] 600 mg PO BID 11/02/19 [History] oxyCODONE 5 mg PO BID 11/02/19 [History] oxyCODONE 5 mg PO Q4HR PRN 11/02/19 [History] polyethylene glycoL 3350 [MiraLAX] 17 gm PO DAILY PRN 11/02/19 [History] Bisacodyl [Laxative Suppository] 10 mg RC ONETIME PRN 03/26/20 [History] Ipratropium/Albuterol Sulfate [Iprat-Albut 0.5-3(2.5) MG/3 ML] 3 ml IH QID PRN 03/26/20 [History] Iron Ag,Ps/C/Fa6/B12/Zn/SA/Sto [Niferex Tablet] 1 each PO BID 03/26/20 [History] Spironolactone [Aldactone] 25 mg PO DAILY 03/26/20 [History] Past Medical History HEENT History: Reports: Hard of Hearing, Impaired Vision, Other (See Below) Other HEENT History: hearing aid to left ear, wears glasses for reading Cardiovascular History: Reports: Afib, High Cholesterol, Hypertension Other Cardiovascular History: edema, Respiratory History: Reports: Pneumonia, Recurrent Gastrointestinal History: Reports: GERD Other Gastrointestinal History: nutritional deficiency, dysphagia, Genitourinary History: Reports: Chronic Renal Insuffiency [employer] History: Reports: Musculoskeletal History: Reports: Gout, Osteoarthritis Other Musculoskeletal History: Chronic bilateral shoulder and back pain, chronic bilateral knee pain, multiple rib fx's L side, muscle weakness Neurological History: Reports: None, Vertigo Other Neuro History: dizziness Other Psychiatric History: "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 breast cancer and is to start radiation Dermatologic History: Reports: Other (See Below) Other Dermatologic History: cellulitis to leg right, wound to L arm, - Infectious Disease History Infectious Disease History: Reports: Chicken Pox, Measles, Shingles - Past Surgical History HEENT Surgical History: Reports: Cataract Surgery Respiratory Surgical History: Reports: None Endocrine Surgical History: Reports: None Neurological Surgical History: Reports: None Oncologic Surgical History: Reports: Biopsy of Breast, Lumpectomy Social & Family History - Family History Family Medical History: Noncontributory - Tobacco Use Smoking Status *Q: Never Smoker Second Hand Smoke Exposure: No - Caffeine Use Caffeine Use: Reports: None - Living Situation & Occupation Living situation: Reports: , Extended Care Facility ([facility]) Occupation: Retired ED ROS GENERAL - Review of Systems Review Of Systems: See Below Constitutional: Reports: No Symptoms HEENT: Reports: No Symptoms Respiratory: Reports: No Symptoms Cardiovascular: Reports: No Symptoms Endocrine: Reports: No Symptoms GI/Abdominal: Reports: Abdominal Pain. Denies: Diarrhea, Nausea, Vomiting : Reports: No Symptoms Musculoskeletal: Reports: Back Pain (Right mid back) ED EXAM, GI/ABD - Physical Exam Exam: See Below Exam Limited By: No Limitations General Appearance: Alert, No Apparent Distress Ears: Normal External Exam Nose: Normal Inspection Head: Atraumatic, Normocephalic Neck: Normal Inspection Respiratory/Chest: No Respiratory Distress, Lungs Clear, Normal Breath Sounds Cardiovascular: Regular Rate, Rhythm, No Edema, No Murmur GI/Abdominal Exam: Soft, No Organomegaly, No Mass, Tender (Moderate tenderness to the RUQ) Extremities: Other (Moderate to severe edema to both lower legs with some weeping from the right leg) Course - Vital Signs Last Recorded V/S: Last Vital Signs Temp 98.2 F 03/31/20 10:41 Pulse 86 03/31/20 13:11 Resp 14 03/31/20 13:11 BP 120/56 L 03/31/20 13:11 Pulse Ox 100 03/31/20 13:11 - Orders/Labs/Meds Orders: Active Orders 24 hr Category Date Time Status EKG Documentation Completion [RC] ASDIRECTED Care 03/31/20 11:48 Active Peripheral IV Care [RC] . DIRECTED Care 03/31/20 10:48 Active MAGNESIUM [CHEM] Stat Lab 03/31/20 13:15 Ordered PHOSPHORUS [CHEM] Stat Lab 03/31/20 13:15 Ordered UA W/MICROSCOPIC [URIN] Stat Lab 03/31/20 12:10 Results Sodium Chloride 0.9% [Saline Flush] Med 03/31/20 10:47 Active 10 ml FLUSH ASDIRECTED PRN Peripheral IV Insertion Adult [OM.PC] Stat Oth 03/31/20 10:47 Ordered EKG 12 Lead [EK] Stat Ther 03/31/20 11:48 Ordered Medication Orders Sodium Chloride (Saline Flush) 10 ml FLUSH ASDIRECTED PRN PRN Reason: Keep Vein Open Last Admin: 03/31/20 11:26 Dose: 10 ml Labs: Laboratory Tests 03/31/20 03/31/20 03/31/20 Range/Units 11:00 11:00 11:00 WBC 15.55 H (3.98-10.04) K/mm3 RBC 3.35 L (3.98-5.22) M/mm3 Hgb 11.1 L (11.2-15.7) gm/dl Hct 34.3 (34.1-44.9) % MCV 102.4 H (79.4-94.8) fl MCH 33.1 H (25.6-32.2) pg MCHC 32.4 (32.2-35.5) g/dl RDW Std Deviation 50.2 H (36.4-46.3) fL Plt Count 390 H D (182-369) K/mm3 MPV 9.6 (9.4-12.3) fl Neut % (Auto) 89.7 H (34.0-71.1) % Lymph % (Auto) 2.3 L (19.3-51.7) % [place] % (Auto) 7.1 (4.7-12.5) % Eos % (Auto) 0 L (0.7-5.8) Baso % (Auto) 0.0 L (0.1-1.2) % Neut # (Auto) 13.95 H (1.56-6.13) K/mm3 Lymph # (Auto) 0.35 L (1.18-3.74) K/mm3 [place] # (Auto) 1.11 H (0.24-0.36) K/mm3 Eos # (Auto) 0.00 L (0.04-0.36) K/mm3 Baso # (Auto) 0.00 L (0.01-0.08) K/mm3 Manual Slide Review Abnormal smear Sodium 129 L (136-145) mEq/L Potassium 5.0 (3.5-5.1) mEq/L Chloride 92 L (98-107) mEq/L Carbon Dioxide 26 (21-32) mEq/L Anion Gap 16.0 H (5-15) BUN 87 H D (7-18) mg/dL Creatinine 2.5 H (0.55-1.02) mg/dL Est Cr Clr Drug Dosing 13.61 mL/min Estimated GFR (MDRD) 18 (>60) mL/min BUN/Creatinine Ratio 34.8 H (14-18) Glucose 169 H (83-115) mg/dL Calcium 9.0 (8.5-10.1) mg/dL Total Bilirubin 0.4 (0.2-1.0) mg/dL AST 33 (15-37) U/L ALT 51 (14-59) U/L Alkaline Phosphatase 102 (46-116) U/L Troponin I 0.024 (0.00-0.056) ng/mL NT-Pro-B Natriuret Pep (0-450) pg/mL Total Protein 6.5 (6.4-8.2) g/dl Albumin 3.2 L (3.4-5.0) g/dl Globulin 3.3 gm/dL Albumin/Globulin Ratio 1.0 (1-2) Lipase 80 (73-393) U/L Urine Color (Yellow) Urine Appearance (Clear) Urine pH (5.0-8.0) Ur Specific [place] (1.005-1.030) Urine Protein (Negative) Urine Glucose (UA) (Negative) Urine Ketones (Negative) Urine Occult Blood (Negative) Urine Nitrite (Negative) Urine Bilirubin (Negative) Urine Urobilinogen (0.2-1.0) Ur Leukocyte Esterase (Negative) 03/31/20 03/31/20 Range/Units 11:00 12:10 WBC (3.98-10.04) K/mm3 RBC (3.98-5.22) M/mm3 Hgb (11.2-15.7) gm/dl Hct (34.1-44.9) % MCV (79.4-94.8) fl MCH (25.6-32.2) pg MCHC (32.2-35.5) g/dl RDW Std Deviation (36.4-46.3) fL Plt Count (182-369) K/mm3 MPV (9.4-12.3) fl Neut % (Auto) (34.0-71.1) % Lymph % (Auto) (19.3-51.7) % [place] % (Auto) (4.7-12.5) % Eos % (Auto) (0.7-5.8) Baso % (Auto) (0.1-1.2) % Neut # (Auto) (1.56-6.13) K/mm3 Lymph # (Auto) (1.18-3.74) K/mm3 [place] # (Auto) (0.24-0.36) K/mm3 Eos # (Auto) (0.04-0.36) K/mm3 Baso # (Auto) (0.01-0.08) K/mm3 Manual Slide Review Sodium (136-145) mEq/L Potassium (3.5-5.1) mEq/L Chloride (98-107) mEq/L Carbon Dioxide (21-32) mEq/L Anion Gap (5-15) BUN (7-18) mg/dL Creatinine (0.55-1.02) mg/dL Est Cr Clr Drug Dosing mL/min Estimated GFR (MDRD) (>60) mL/min BUN/Creatinine Ratio (14-18) Glucose (83-115) mg/dL Calcium (8.5-10.1) mg/dL Total Bilirubin (0.2-1.0) mg/dL AST (15-37) U/L ALT (14-59) U/L Alkaline Phosphatase (46-116) U/L Troponin I (0.00-0.056) ng/mL NT-Pro-B Natriuret Pep 1453 H (0-450) pg/mL Total Protein (6.4-8.2) g/dl Albumin (3.4-5.0) g/dl Globulin gm/dL Albumin/Globulin Ratio (1-2) Lipase (73-393) U/L Urine Color Yellow (Yellow) Urine Appearance Clear (Clear) Urine pH 6.0 (5.0-8.0) Ur Specific [place] 1.020 (1.005-1.030) Urine Protein Negative (Negative) Urine Glucose (UA) Negative (Negative) Urine Ketones Negative (Negative) Urine Occult Blood Negative (Negative) Urine Nitrite Negative (Negative) Urine Bilirubin Negative (Negative) Urine Urobilinogen 0.2 (0.2-1.0) Ur Leukocyte Esterase Negative (Negative) Meds: Medications Generic Name Dose Route Start Last Admin Trade Name Freq PRN Reason Stop Dose Admin Sodium Chloride 10 ml 03/31/20 10:47 03/31/20 11:26 Saline Flush FLUSH 10 ml ASDIRECTED PRN Administration Keep Vein Open - Re-Assessments/Exams Free Text/Narrative Re-Assessment/Exam: 03/31/20 11:05 I ordered an IV saline lock, UA, labs and an US of her gallbladder. 03/31/20 13:16 Her WBC was elevated at 15.55. Her Hgb is low at 11.1. Her Na is low at 129. Her creatinine is elevated at 2.5. Her glucose is 169. Her troponin is negative. Her BNP is elevated at 1453. Her lipase is normal. Her CXR shows nothing acute. Her US shows somewhat less than optimal study as noted above. Several large shadowing gallstones within the gallbladder. Sludge ball as well as several fixed intraluminal findings either due to polyps or adherent sludge. No discrete gallbladder wall thickening or biliary duct dilatation is seen. 2 small cyst within the right kidney. Her UA looks good. She has a bad gallbladder and she is retaining fluid. I feel she needs to be admitted. I called Dr Tellez and she agreed to the admission. Departure - Departure Time of Disposition: 13:20 Disposition: Admitted As Inpatient 66 Condition: Fair Clinical Impression: Hyponatremia, Renal insufficiency, Peripheral edema Cholelithiases Qualifiers: Cholelithiasis location: gallbladder Cholecystitis presence: without cholecystitis Biliary obstruction: without biliary obstruction Qualified Code(s) : K80.20 - Calculus of gallbladder without cholecystitis without obstruction CHF (congestive heart failure) Qualifiers: Heart failure type: other Qualified Code(s): I50.9 - Heart failure, unspecified - Discharge Information Referrals: Branden Cervantes MD [Primary Care Provider] - Forms: ED Department Discharge Sepsis Event Note - Evaluation Sepsis Screening Result: No Definite Risk - Focused Exam Vital Signs: Vital Signs Temp Pulse Resp BP Pulse Ox 03/31/20 13:11 86 14 120/56 L 100 03/31/20 10:41 98.2 F 86 16 146/64 H 99 Date Exam was Performed: 03/31/20 Time Exam was Performed: 13:15 - My Orders Last 24 Hours: My Active Orders 03/31/20 10:47 Sodium Chloride 0.9% [Saline Flush] 10 ml FLUSH ASDIRECTED PRN Peripheral IV Insertion Adult [OM.PC] Stat 03/31/20 10:48 Peripheral IV Care [RC] . DIRECTED 03/31/20 11:48 EKG Documentation Completion [RC] ASDIRECTED EKG 12 Lead [EK] Stat 03/31/20 12:10 UA W/MICROSCOPIC [URIN] Stat 03/31/20 13:15 MAGNESIUM [CHEM] Stat PHOSPHORUS [CHEM] Stat - Assessment/Plan Last 24 Hours: My Active Orders 03/31/20 10:47 Sodium Chloride 0.9% [Saline Flush] 10 ml FLUSH ASDIRECTED PRN Peripheral IV Insertion Adult [OM.PC] Stat 03/31/20 10:48 Peripheral IV Care [RC] . DIRECTED 03/31/20 11:48 EKG Documentation Completion [RC] ASDIRECTED EKG 12 Lead [EK] Stat 03/31/20 12:10 UA W/MICROSCOPIC [URIN] Stat 03/31/20 13:15 MAGNESIUM [CHEM] Stat PHOSPHORUS [CHEM] Stat
--- NOTE | 2020-03-31 12:24 | CR ---
Chest: Portable view of the chest was obtained. Comparison: Prior chest x-ray of . Heart size and mediastinum are normal. Lungs are clear with no acute parenchymal change. Slight degenerative change is scattered within the spine with disc space narrowing and endplate spurring as well as degenerative change within both shoulders, worse on the left side. Impression: 1. Findings as noted above. 2. Nothing acute is appreciated on portable chest x-ray. Diagnostic code #2 This report was dictated in MDT
--- NOTE | 2020-03-31 12:24 | US ---
Limited abdominal ultrasound: Multiple real-time images of the upper right abdomen were obtained. Technologist's note: Suboptimal exam, patient refused to lay supine or decubitus due to pain and difficulty breathing Liver shows no discrete abnormality. Gallbladder shows several large gallstones. Nonshadowing sludge ball is also seen. Several luminal abnormalities are seen either due to polyps or adherent sludge. No discrete gallbladder wall thickening is noted. Common bile duct measures normal. Right kidney shows no hydronephrosis or mass. Right kidney has a length of 10.0 cm. 2 small cysts are noted within the right kidney. Visualized portions of the pancreas shows no discrete abnormality. Inferior vena cava is patent. Main portal vein shows normal hepatopedal flow. Impression: 1. Somewhat less than optimal study as noted above. 2. Several large shadowing gallstones within the gallbladder. Sludge ball as well as several fixed intraluminal findings either due to polyps or adherent sludge. 3. No discrete gallbladder wall thickening or biliary duct dilatation is seen. 4. 2 small cyst within the right kidney. Diagnostic code #3 This report was dictated in MDT
--- NOTE | 2020-03-31 13:45 | PCM.HP.2 ---
H&P History of Present Illness - General Date of Service: 03/31/20 Admit Problem/Dx: Admission Diagnosis/Problem Admission Diagnosis/Problem Cholecystitis Source of Information: Patient, Long-Term Records, Old Records, Provider, RN , RN Notes Reviewed History Limitations: Reports: No Limitations - History of Present Illness Initial Comments - Free Text/Narative: Tameka Harvey is an 85 yo female who resides at [facility] who presented to ED today, 03/31/2020, with complaints of abdominal pain that radiated to her back. She reports symptoms started earlier after ingesting [employer] sandwich. Denies any fever, chills, cough, chest pain, shortness of breath, nausea, vomiting. She was seen in our ED 5 days prior for constipation and reports she was symptom-free until this morning. Prior x-rays were reviewed by the ED provider and she was noted to have 2 large gallstones with no history of gallbladder problems. She is also noted to have significant bilateral lower leg edema with weeping from the right leg. In the ED she was afebrile with a temp of 98.2 F. Pulse was 86. Respirations 14. Blood pressure 120/56. Pulse ox 100% on room air. Labs are obtained showing a leukocytosis with a white count of 15.55. Hemoglobin is low at 11.1. Hematocrit 34.3. She is macrocytic. Platelets are high at 390. Neutrophils are elevated at 89.7. Sodium is low at 129. Potassium is in the high end of normal at 5.0. Anion gap is high at 16.0. BUN is 87. Creatinine is high at 2.5. EGFR is 18. Glucose is high at 169. Calcium 9.0. Bilirubin 0.4. AST is 33, ALT 51, alkaline phosphatase 102. Troponin is normal at 0.024. proBNP is elevated at 1453. Protein is good at 6.5. Albumin is low at 3.2. Lipase is normal at 80. UA is negative. Chest x-ray is obtained and shows nothing acute. Right upper quadrant abdominal ultrasound is obtained interpreted by Dr. Wilkins as "1. Somewhat less than optimal study as noted above. 2. Several large shadowing gallstones within the gallbladder. Sludge ball as well as several fixed intraluminal findings either due to polyps or adherent sludge. 3. No discrete gallbladder wall thickening or biliary duct dilation is seen. 4. 2 small cyst within the right kidney." She carries a history of: Significant pedal edema, iron deficiency anemia, hypokalemia, lymphedema, GERD, chronic constipation, A. fib, osteoarthritis, right-sided breast cancer, generalized weakness, CKD, CHF, obesity, hypomagnesemia, chronic back and shoulder pain, HLD, gout. She is a DNR/DNI. She is a non-smoker. Her PCP is Dr. Cervantes. She subsequent admitted to the medical floor for management of her right upper quadrant abdominal pain, cholelithiasis, and significant bilateral pedal edema. Abdominal Pain Score (Numeric/FACES): 8 - Related Data Allergies/Adverse Reactions: Allergies Allergy/AdvReac Type Severity Reaction Status Date / Time codeine Allergy Intermediate Rash Verified 03/31/20 14:18 iodine Allergy Intermediate Rash Verified 03/31/20 14:18 metoprolol [From Toprol XL] Allergy Intermediate swelling Verified 03/31/20 14: 18 of lips naproxen [From Naprelan] Allergy Intermediate Rash Verified 03/31/20 14:18 prednisone Allergy Mild Other Verified 03/31/20 14:18 propoxyphene AdvReac Mild urine Verified 03/31/20 14:18 retention Home Medications: Home Meds Acetaminophen [Tylenol] 325 mg PO Q6HR PRN 11/08/18 [History] Bumetanide [Bumex] 2 mg PO DAILY 11/08/18 [History] Loratadine 10 mg PO DAILY PRN 11/08/18 [History] Multivitamin [Multi-Vitamin Daily] 1 tab PO DAILY 11/08/18 [History] Simvastatin 20 mg PO BEDTIME 11/08/18 [History] allopurinoL [Zyloprim] 100 mg PO BID 11/08/18 [History] traMADol [Ultram] 50 mg PO BID PRN 11/08/18 [History] Amiodarone [Cordarone] 200 mg PO DAILY #30 tab 11/12/18 [Rx] Apixaban [Eliquis] 2.5 mg PO BID #30 11/12/18 [Rx] Acetaminophen [Tylenol] 650 mg PO QID 03/01/19 [History] Famotidine [Pepcid] 20 mg PO DAILY 03/01/19 [History] Sennosides/Docusate Sodium [Senna Plus Tablet] 1 tab PO BID PRN 03/01/19 [ History] Bumetanide 1 mg PO QPM 11/02/19 [History] Niacin (Inositol Niacinate) [Niacin Flush Free 500 mg Cap] 400 mg PO DAILY 11/02 [History] Polyvinyl Alcohol/Povidone/Pf [Refresh Classic Eye Drops] 1 each EYEBOTH TID [History] Potassium Chloride 10 meq PO DAILY 11/02/19 [History] Sennosides/Docusate Sodium [Senna Plus 8.6-50 mg Tablet] 1 tab PO BID 11/02/19 [ History] guaiFENesin [Mucinex] 600 mg PO BID 11/02/19 [History] oxyCODONE 5 mg PO BID 11/02/19 [History] oxyCODONE 5 mg PO Q4HR PRN 11/02/19 [History] polyethylene glycoL 3350 [MiraLAX] 17 gm PO DAILY PRN 11/02/19 [History] Bisacodyl [Laxative Suppository] 10 mg RC ONETIME PRN 03/26/20 [History] Ipratropium/Albuterol Sulfate [Iprat-Albut 0.5-3(2.5) MG/3 ML] 3 ml IH QID PRN 03/26/20 [History] Iron Ag,Ps/C/Fa6/B12/Zn/SA/Sto [Niferex Tablet] 1 each PO BID 03/26/20 [History] Spironolactone [Aldactone] 25 mg PO DAILY 03/26/20 [History] Past Medical History HEENT History: Reports: Hard of Hearing, Impaired Vision, Other (See Below) Other HEENT History: hearing aid to left ear, wears glasses for reading Cardiovascular History: Reports: Afib, High Cholesterol, Hypertension Other Cardiovascular History: edema, Respiratory History: Reports: Pneumonia, Recurrent Gastrointestinal History: Reports: GERD Other Gastrointestinal History: nutritional deficiency, dysphagia, Genitourinary History: Reports: Chronic Renal Insuffiency [employer] History: Reports: Musculoskeletal History: Reports: Gout, Osteoarthritis Other Musculoskeletal History: Chronic bilateral shoulder and back pain, chronic bilateral knee pain, multiple rib fx's L side, muscle weakness Neurological History: Reports: None, Vertigo Other Neuro History: dizziness Other Psychiatric History: "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 breast cancer and is to start radiation Dermatologic History: Reports: Other (See Below) Other Dermatologic History: cellulitis to leg right, wound to L arm, - Infectious Disease History Infectious Disease History: Reports: Chicken Pox, Measles, Shingles - Past Surgical History HEENT Surgical History: Reports: Cataract Surgery Respiratory Surgical History: Reports: None Endocrine Surgical History: Reports: None Neurological Surgical History: Reports: None Oncologic Surgical History: Reports: Biopsy of Breast, Lumpectomy Social & Family History - Family History Family Medical History: Noncontributory - Tobacco Use Smoking Status *Q: Never Smoker Second Hand Smoke Exposure: No - Caffeine Use Caffeine Use: Reports: None - Living Situation & Occupation Living situation: Reports: , Extended Care Facility ([facility]) Occupation: Retired H&P Review of Systems - Review of Systems: Review Of Systems: See Below General: Reports: No Symptoms, Weakness. Denies: Fever, Chills, Malaise, Fatigue HEENT: Reports: No Symptoms. Denies: Headaches, Sore Throat Pulmonary: Denies: Shortness of Breath, Wheezing, Cough, Sputum Cardiovascular: Reports: Dyspnea on Exertion, Orthopnea, Edema. Denies: Chest Pain, Palpitations, Lightheadedness, Syncope Gastrointestinal: Reports: Abdominal Pain (RUQ ). Denies: Constipation, Diarrhea, Flatus, Hematemesis, Hematochezia, Nausea, Vomiting Genitourinary: Reports: No Symptoms. Denies: Pain Musculoskeletal: Reports: Shoulder Pain (chronic ), Back Pain (chronic ) Skin: Reports: Bruising (scattered ). Denies: Cyanosis Psychiatric: Reports: No Symptoms Neurological: Reports: Difficulty Walking, Weakness, Gait Disturbance. Denies: Confusion Hematologic/Lymphatic: Reports: No Symptoms Immunologic: Reports: No Symptoms Exam - Exam Exam: See Below - Vital Signs Vital Signs: Last Vital Signs Temp 98.2 F 03/31/20 10:41 Pulse 86 03/31/20 13:11 Resp 14 03/31/20 13:11 BP 120/56 L 03/31/20 13:11 Pulse Ox 100 03/31/20 13:11 Weight: 147 lb - Exam Quality Assessment: DVT Prophylaxis. No: Supplemental Oxygen General: Alert, Oriented, Cooperative. No: Mild Distress HEENT: Conjunctiva Clear, EOMI, Mucosa Moist & Halsey, PERRLA Neck: Supple, Trachea Midline Lungs: Clear to Auscultation, Normal Respiratory Effort Cardiovascular: Regular Rate, Regular Rhythm GI/Abdominal Exam: Normal Bowel Sounds, Soft, No Distention, Tender (RUQ) (Female) Exam: Deferred Rectal (Female) Exam: Deferred Back Exam: Normal Inspection, Decreased Range of Motion, Other (Kyphosis ) Extremities: Normal Range of Motion, Pedal Edema (Significant bilateral with drainage from right leg), Leg Pain. No: Increased Warmth, Redness Skin: Warm, Dry, Intact Neurological: Cranial Nerves Intact (Grossly ) Neuro Extensive - Mental Status: Alert, Oriented x3, Normal Mood/Affect - Patient Data Lab Results Last 24 hrs: Laboratory Results - last 24 hr 03/31/20 03/31/20 03/31/20 Range/Units 11:00 11:00 11:00 WBC 15.55 H (3.98-10.04) K/mm3 RBC 3.35 L (3.98-5.22) M/mm3 Hgb 11.1 L (11.2-15.7) gm/dl Hct 34.3 (34.1-44.9) % MCV 102.4 H (79.4-94.8) fl MCH 33.1 H (25.6-32.2) pg MCHC 32.4 (32.2-35.5) g/dl RDW Std Deviation 50.2 H (36.4-46.3) fL Plt Count 390 H D (182-369) K/mm3 MPV 9.6 (9.4-12.3) fl Neut % (Auto) 89.7 H (34.0-71.1) % Lymph % (Auto) 2.3 L (19.3-51.7) % Posey % (Auto) 7.1 (4.7-12.5) % Eos % (Auto) 0 L (0.7-5.8) Baso % (Auto) 0.0 L (0.1-1.2) % Neut # (Auto) 13.95 H (1.56-6.13) K/mm3 Lymph # (Auto) 0.35 L (1.18-3.74) K/mm3 Posey # (Auto) 1.11 H (0.24-0.36) K/mm3 Eos # (Auto) 0.00 L (0.04-0.36) K/mm3 Baso # (Auto) 0.00 L (0.01-0.08) K/mm3 Manual Slide Review Abnormal smear Sodium 129 L (136-145) mEq/L Potassium 5.0 (3.5-5.1) mEq/L Chloride 92 L (98-107) mEq/L Carbon Dioxide 26 (21-32) mEq/L Anion Gap 16.0 H (5-15) BUN 87 H D (7-18) mg/dL Creatinine 2.5 H (0.55-1.02) mg/dL Est Cr Clr Drug Dosing 13.61 mL/min Estimated GFR (MDRD) 18 (>60) mL/min BUN/Creatinine Ratio 34.8 H (14-18) Glucose 169 H (83-115) mg/dL Calcium 9.0 (8.5-10.1) mg/dL Total Bilirubin 0.4 (0.2-1.0) mg/dL AST 33 (15-37) U/L ALT 51 (14-59) U/L Alkaline Phosphatase 102 (46-116) U/L Troponin I 0.024 (0.00-0.056) ng/mL NT-Pro-B Natriuret Pep (0-450) pg/mL Total Protein 6.5 (6.4-8.2) g/dl Albumin 3.2 L (3.4-5.0) g/dl Globulin 3.3 gm/dL Albumin/Globulin Ratio 1.0 (1-2) Lipase 80 (73-393) U/L Urine Color (Yellow) Urine Appearance (Clear) Urine pH (5.0-8.0) Ur Specific Clover (1.005-1.030) Urine Protein (Negative) Urine Glucose (UA) (Negative) Urine Ketones (Negative) Urine Occult Blood (Negative) Urine Nitrite (Negative) Urine Bilirubin (Negative) Urine Urobilinogen (0.2-1.0) Ur Leukocyte Esterase (Negative) Urine RBC (0-5) /hpf Urine WBC (0-5) /hpf Ur Squamous Epith Cells (0-5) /hpf Urine Bacteria (FEW) /hpf Urine Mucus (FEW) /hpf 03/31/20 03/31/20 Range/Units 11:00 12:10 WBC (3.98-10.04) K/mm3 RBC (3.98-5.22) M/mm3 Hgb (11.2-15.7) gm/dl Hct (34.1-44.9) % MCV (79.4-94.8) fl MCH (25.6-32.2) pg MCHC (32.2-35.5) g/dl RDW Std Deviation (36.4-46.3) fL Plt Count (182-369) K/mm3 MPV (9.4-12.3) fl Neut % (Auto) (34.0-71.1) % Lymph % (Auto) (19.3-51.7) % Posey % (Auto) (4.7-12.5) % Eos % (Auto) (0.7-5.8) Baso % (Auto) (0.1-1.2) % Neut # (Auto) (1.56-6.13) K/mm3 Lymph # (Auto) (1.18-3.74) K/mm3 Posey # (Auto) (0.24-0.36) K/mm3 Eos # (Auto) (0.04-0.36) K/mm3 Baso # (Auto) (0.01-0.08) K/mm3 Manual Slide Review Sodium (136-145) mEq/L Potassium (3.5-5.1) mEq/L Chloride (98-107) mEq/L Carbon Dioxide (21-32) mEq/L Anion Gap (5-15) BUN (7-18) mg/dL Creatinine (0.55-1.02) mg/dL Est Cr Clr Drug Dosing mL/min Estimated GFR (MDRD) (>60) mL/min BUN/Creatinine Ratio (14-18) Glucose (83-115) mg/dL Calcium (8.5-10.1) mg/dL Total Bilirubin (0.2-1.0) mg/dL AST (15-37) U/L ALT (14-59) U/L Alkaline Phosphatase (46-116) U/L Troponin I (0.00-0.056) ng/mL NT-Pro-B Natriuret Pep 1453 H (0-450) pg/mL Total Protein (6.4-8.2) g/dl Albumin (3.4-5.0) g/dl Globulin gm/dL Albumin/Globulin Ratio (1-2) Lipase (73-393) U/L Urine Color Yellow (Yellow) Urine Appearance Clear (Clear) Urine pH 6.0 (5.0-8.0) Ur Specific Clover 1.020 (1.005-1.030) Urine Protein Negative (Negative) Urine Glucose (UA) Negative (Negative) Urine Ketones Negative (Negative) Urine Occult Blood Negative (Negative) Urine Nitrite Negative (Negative) Urine Bilirubin Negative (Negative) Urine Urobilinogen 0.2 (0.2-1.0) Ur Leukocyte Esterase Negative (Negative) Urine RBC Not seen (0-5) /hpf Urine WBC 0-5 (0-5) /hpf Ur Squamous Epith Cells 0-5 (0-5) /hpf Urine Bacteria Not seen (FEW) /hpf Urine Mucus Not seen (FEW) /hpf Result Diagrams: 03/31/20 11:00 03/31/20 11:00 Sepsis Event Note - Evaluation Sepsis Screening Result: No Definite Risk - Focused Exam Vital Signs: Vital Signs Temp Pulse Resp BP Pulse Ox 03/31/20 13:11 86 14 120/56 L 100 03/31/20 10:41 98.2 F 86 16 146/64 H 99 Date Exam was Performed: 03/31/20 Time Exam was Performed: 15:45 - Problem List (1) CHF (congestive heart failure) SNOMED Code(s): 18322807 ICD Code: I50.9 - HEART FAILURE, UNSPECIFIED Status: Acute Priority: High Current Visit: Yes Qualifiers: Heart failure type: other Qualified Code(s): I50.9 - Heart failure, unspecified (2) Cholelithiases SNOMED Code(s): 147764100 ICD Code: K80.20 - CALCULUS OF GALLBLADDER W/O CHOLECYSTITIS W/O OBSTRUCTION Status: Acute Priority: High Current Visit: Yes Qualifiers: Cholelithiasis location: gallbladder Cholecystitis presence: without cholecystitis Biliary obstruction: without biliary obstruction Qualified Code(s): K80.20 - Calculus of gallbladder without cholecystitis without obstruction (3) Hyponatremia SNOMED Code(s): 17014374 ICD Code: E87.1 - HYPO-OSMOLALITY AND HYPONATREMIA Status: Acute Priority : High Current Visit: Yes (4) Peripheral edema SNOMED Code(s): 729635987 ICD Code: R60.9 - EDEMA, UNSPECIFIED Status: Chronic Priority: High Current Visit: Yes (5) Renal insufficiency SNOMED Code(s): 523164574, 979884310 ICD Code: N28.9 - DISORDER OF KIDNEY AND URETER, UNSPECIFIED Status: Acute Priority: High Current Visit: Yes (6) Lymphedema SNOMED Code(s): 316173116 ICD Code: I89.0 - LYMPHEDEMA, NOT ELSEWHERE CLASSIFIED Status: Chronic Priority: High Current Visit: Yes (7) GERD (gastroesophageal reflux disease) SNOMED Code(s): 697112588 ICD Code: K21.9 - GASTRO-ESOPHAGEAL REFLUX DISEASE WITHOUT ESOPHAGITIS Status: Chronic Priority: Low Current Visit: No Qualifiers: Esophagitis presence: esophagitis presence not specified Qualified Code(s) : K21.9 - Gastro-esophageal reflux disease without esophagitis (8) Chronic constipation SNOMED Code(s): 550906526 ICD Code: K59.09 - OTHER CONSTIPATION Status: Chronic Priority: Low Current Visit: No (9) Osteoarthritis SNOMED Code(s): 472433541 ICD Code: M19.90 - UNSPECIFIED OSTEOARTHRITIS, UNSPECIFIED SITE Status: Chronic Priority: Low Current Visit: No Qualifiers: Osteoarthritis location: multiple joints Osteoarthritis type: primary Qualified Code(s): M89.49 - Other hypertrophic osteoarthropathy, multiple sites (10) History of breast cancer SNOMED Code(s): 503973348 ICD Code: Z85.3 - PERSONAL HISTORY OF MALIGNANT NEOPLASM OF BREAST Status: Chronic Priority: Medium Current Visit: No (11) Generalized weakness SNOMED Code(s): 18274923 ICD Code: R53.1 - WEAKNESS Status: Chronic Priority: Medium Current Visit: No (12) Gout SNOMED Code(s): 72475122 ICD Code: M10.9 - GOUT, UNSPECIFIED Status: Chronic Priority: Low Current Visit: No Qualifiers: Gout site: unspecified site Gout etiology: unspecified cause Chronicity: chronic Presence of tophus: without tophus Qualified Code(s): M1A.9XX0 - Chronic gout, unspecified, without tophus (tophi) (13) Chronic back pain SNOMED Code(s): 870330064 ICD Code: M54.9 - DORSALGIA, UNSPECIFIED; G89.29 - OTHER CHRONIC PAIN Status: Chronic Priority: Low Current Visit: No Qualifiers: Back pain location: back pain in unspecified location Back pain laterality : unspecified Qualified Code(s): M54.9 - Dorsalgia, unspecified; G89.29 - Other chronic pain (14) Chronic shoulder pain SNOMED Code(s): 09338503 ICD Code: M25.519 - PAIN IN UNSPECIFIED SHOULDER; G89.29 - OTHER CHRONIC PAIN Status: Chronic Priority: Low Current Visit: No Qualifiers: Laterality: unspecified laterality Qualified Code(s): M25.519 - Pain in unspecified shoulder; G89.29 - Other chronic pain (15) Hypertension SNOMED Code(s): 77643306 ICD Code: I10 - ESSENTIAL (PRIMARY) HYPERTENSION Status: Chronic Priority : Low Current Visit: No Qualifiers: Hypertension type: unspecified Qualified Code(s): I10 - Essential (primary ) hypertension (16) HLD (hyperlipidemia) SNOMED Code(s): 58681600 ICD Code: E78.5 - HYPERLIPIDEMIA, UNSPECIFIED Status: Chronic Priority: Low Current Visit: Yes Qualifiers: Hyperlipidemia type: unspecified Qualified Code(s): E78.5 - Hyperlipidemia , unspecified (17) Anemia SNOMED Code(s): 456329059 ICD Code: D64.9 - ANEMIA, UNSPECIFIED Status: Acute Priority: High Current Visit: No Qualifiers: Anemia type: iron deficiency Iron deficiency anemia type: unspecified iron deficiency Qualified Code(s): D50.9 - Iron deficiency anemia, unspecified (18) Chronic renal insufficiency, stage IV (severe) SNOMED Code(s): 763101682 ICD Code: N18.4 - CHRONIC KIDNEY DISEASE, STAGE 4 (SEVERE) Status: Chronic Priority: Medium Current Visit: No (19) Paroxysmal atrial fibrillation SNOMED Code(s): 646517464 ICD Code: I48.0 - PAROXYSMAL ATRIAL FIBRILLATION Status: Chronic Priority : Low Current Visit: No (20) Hypomagnesemia SNOMED Code(s): 425175090 ICD Code: E83.42 - HYPOMAGNESEMIA Status: Acute Priority: High Current Visit: Yes (21) Abdominal pain SNOMED Code(s): 91739123 ICD Code: R10.9 - UNSPECIFIED ABDOMINAL PAIN Status: Acute Priority: High Current Visit: Yes Qualifiers: Abdominal location: right upper quadrant Qualified Code(s): R10.11 - Right upper quadrant pain (22) Leukocytosis SNOMED Code(s): 007035284, 642663716 ICD Code: D72.829 - ELEVATED WHITE BLOOD CELL COUNT, UNSPECIFIED Status: Acute Priority: High Current Visit: Yes Qualifiers: Leukocytosis type: unspecified Qualified Code(s): D72.829 - Elevated white blood cell count, unspecified Problem List Initiated/Reviewed/Updated: Yes Orders Last 24hrs: Active Orders 24 hr Category Date Time Status Admission Status [Patient Status] [ADT] Routine ADT 03/31/20 13:27 Active EKG Documentation Completion [RC] ASDIRECTED Care 03/31/20 11:48 Active Peripheral IV Care [RC] . DIRECTED Care 03/31/20 10:48 Active MAGNESIUM [CHEM] Stat Lab 03/31/20 11:00 Received PHOSPHORUS [CHEM] Stat Lab 03/31/20 11:00 Received Sodium Chloride 0.9% [Saline Flush] Med 03/31/20 10:47 Active 10 ml FLUSH ASDIRECTED PRN Peripheral IV Insertion Adult [OM.PC] Stat Oth 03/31/20 10:47 Ordered EKG 12 Lead [EK] Stat Ther 03/31/20 11:48 Ordered Medication Orders Sodium Chloride (Saline Flush) 10 ml FLUSH ASDIRECTED PRN PRN Reason: Keep Vein Open Last Admin: 03/31/20 11:26 Dose: 10 ml Assessment/Plan Comment:: Abdominal pain Cholelithiases Leukocytosis Presented to ED after eating [employer] and noticing sudden onset RUQ pain Denies fever, nausea, vomiting, chills, or other infectious symptoms Gallstones noted on visit from 5 days prior Abdominal US shows large shadowing gallstones, sludge ball, fixed intraluminal findings but no wall thickening or duct dilation WBC elevated at 15.55 AST, ALT, Alk Phos, Bilirubin, Lipase - all WNL PLAN -Start Zosyn -Consult Dr. Phelps, General surgeon -Obtain GGT -Obtain procalcitonin -Culture blood -Consider ursodiol -Caution with opioids CHF (congestive heart failure) Peripheral edema Renal insufficiency Lymphedema History of breast cancer Hyponatremia Chronic renal insufficiency, stage IV (severe) Paroxysmal atrial fibrillation Hypertension HLD (hyperlipidemia) Hypomagnesemia History of lymphedema and significant bilateral pedal edema On bumex 2mg daily and 1mg at night, 25mg spironolactone Magnesium 1.7 Sodium 129 BUN 87, Creatinine 2.5, GFR 18 on admission History of A-fib on Eliquis Last echo from 11/11/18: EV 70-75% -Normal RV systolic function -Mild aortic valve sclerosis without stenosis -Mild MV and TV regurgitation -Mod elevated RV systolic pressure at 51.2 mmHg -No regional wall motion abnormalities BNP in ED 1453 PLAN -Obtain echo -Calculate FENa -Fluid restriction -ROBERTO wrap bilateral legs during day, off at night -Elevate extremities whenever able -Bumex 1mg BID -Metolazone 5mg single dose today 30 mins prior to Bumex -Monitor renal function -Supplement magnesium -Monitor electrolytes GERD (gastroesophageal reflux disease) Chronic constipation PLAN -Home medications as ordered Gout Anemia Plan -Monitor CBC -Home medications as ordered Chronic back pain Chronic shoulder pain Chronic Generalized weakness Osteoarthritis PLAN -PT/OT -Pain medications as directed DVT prophylaxis: Home Eliquis GI Prophylaxis: Home Pepcid Social: Patient lives at [facility]. Patient is listed as palliative care on SNF sheet. Code status: DNR/DNI PCP: Dr. Cervantes Disposition: Patient will be admitted to hospital floor for management of abdominal pain, Cholelithiasis workup, diuresis. Discharge plan pending Dr. Phelps recommendations, lab results. - Mortality Measure Prognosis:: Poor (Overall poor prognosis given advanced age and significant comorbidities)
[2020-03-31] MEDS ORDERED: Metolazone 5 MG Tab PO ONE (13:59)
[2020-03-31] MEDS ORDERED: Bumetanide 1 MG/4 ML MDV IVPUSH SCH (14:00)
[2020-03-31] MEDS ORDERED: Acetaminophen 325 MG Tab PO PRN (14:01)
[2020-03-31] MEDS ORDERED: Magnesium Sulfate/Water 2 GM in Premix Bag 1 BAG IV ONE (14:30)
[2020-03-31] MEDS ORDERED: Piperacillin/Tazobactam 4.5 GM in Sodium Chloride 0.9% 100 ML IV ONE (14:30)
--- NOTE | 2020-03-31 18:16 | PCM.CONS ---
H&P History of Present Illness - General Date of Service: 03/31/20 Admit Problem/Dx: Admission Diagnosis/Problem Admission Diagnosis/Problem Cholecystitis Source of Information: Patient, Provider - History of Present Illness Initial Comments - Free Text/Narative: The patient is an 85 y/o lady who presents from her SNF with complaints of 5d of RUQ pain. The pain radiates substernally and to her back. She reports some difficulty breathing from the pain. She had a bowel movement today. She has black, sticky stools which she attributes to her iron intake. Her stools have been black for about 2 months. She has been eating normally. She denies any nausea or vomiting. Abdominal Pain Score (Numeric/FACES): 8 - Related Data Allergies/Adverse Reactions: Allergies Allergy/AdvReac Type Severity Reaction Status Date / Time codeine Allergy Intermediate Rash Verified 03/31/20 17:31 iodine Allergy Intermediate Rash Verified 03/31/20 17:31 metoprolol [From Toprol XL] Allergy Intermediate swelling Verified 03/31/20 17: 31 of lips naproxen [From Naprelan] Allergy Intermediate Rash Verified 03/31/20 17:31 prednisone Allergy Mild Other Verified 03/31/20 17:31 propoxyphene AdvReac Mild urine Verified 03/31/20 17:31 retention Home Medications: Home Meds Acetaminophen [Tylenol] 325 mg PO Q6HR PRN 11/08/18 [History] Bumetanide [Bumex] 2 mg PO DAILY 11/08/18 [History] Loratadine 10 mg PO DAILY PRN 11/08/18 [History] Multivitamin [Multi-Vitamin Daily] 1 tab PO DAILY 11/08/18 [History] Simvastatin 20 mg PO BEDTIME 11/08/18 [History] allopurinoL [Zyloprim] 100 mg PO BID 11/08/18 [History] traMADol [Ultram] 50 mg PO BID PRN 11/08/18 [History] Amiodarone [Cordarone] 200 mg PO DAILY #30 tab 11/12/18 [Rx] Apixaban [Eliquis] 2.5 mg PO BID #30 11/12/18 [Rx] Acetaminophen [Tylenol] 650 mg PO QID 03/01/19 [History] Famotidine [Pepcid] 20 mg PO DAILY 03/01/19 [History] Sennosides/Docusate Sodium [Senna Plus Tablet] 1 tab PO BID PRN 03/01/19 [ History] Bumetanide 1 mg PO QPM 11/02/19 [History] Niacin (Inositol Niacinate) [Niacin Flush Free 500 mg Cap] 400 mg PO DAILY 11/02 [History] Polyvinyl Alcohol/Povidone/Pf [Refresh Classic Eye Drops] 1 each EYEBOTH TID [History] Potassium Chloride 10 meq PO DAILY 11/02/19 [History] Sennosides/Docusate Sodium [Senna Plus 8.6-50 mg Tablet] 1 tab PO BID 11/02/19 [ History] guaiFENesin [Mucinex] 600 mg PO BID 11/02/19 [History] oxyCODONE 5 mg PO BID 11/02/19 [History] oxyCODONE 5 mg PO Q4HR PRN 11/02/19 [History] polyethylene glycoL 3350 [MiraLAX] 17 gm PO DAILY PRN 11/02/19 [History] Bisacodyl [Laxative Suppository] 10 mg RC ONETIME PRN 03/26/20 [History] Ipratropium/Albuterol Sulfate [Iprat-Albut 0.5-3(2.5) MG/3 ML] 3 ml IH QID PRN 03/26/20 [History] Iron Ag,Ps/C/Fa6/B12/Zn/SA/Sto [Niferex Tablet] 1 each PO BID 03/26/20 [History] Spironolactone [Aldactone] 25 mg PO DAILY 03/26/20 [History] Ascorbic Acid 500 mg PO BID 03/31/20 [History] Menthol [Aspercreme Max] 1 applic TOP BID PRN 03/31/20 [History] Past Medical History HEENT History: Reports: Hard of Hearing, Impaired Vision, Other (See Below) Other HEENT History: hearing aid to left ear, wears glasses for reading Cardiovascular History: Reports: Afib, High Cholesterol, Hypertension Other Cardiovascular History: edema generalized, HF, HTN with HF, dizziness, giddiness, cardiac arrythmia, anemia, 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, localized peripheral edema Respiratory History: Reports: Pneumonia, Recurrent Other Respiratory History: mycoplasma pneumoniae Gastrointestinal History: Reports: GERD Other Gastrointestinal History: nutritional deficiency, dysphagia, pharyngeal phase Genitourinary History: Reports: Chronic Renal Insuffiency Other Genitourinary History: hypokalemia, CKD stage III, hypomagnesemia [employer] History: Reports: Musculoskeletal History: Reports: Gout, Osteoarthritis Other Musculoskeletal History: Chronic bilateral shoulder and back pain, chronic bilateral knee pain, multiple rib fx's L side, muscle weakness, unspecified abnormality of gait and mobility, muscle weakness, need for assistance with personal care., gout, Neurological History: Reports: Vertigo Other Neuro History: dizziness Other Psychiatric History: "Poisoning by cardiac-stimulant glycosides and drugs of similar action, accidental, subsequent encounter-digoxin toxicity" Endocrine/Metabolic History: Reports: Hypokalemia, Hypomagnesemia, Obesity/BMI 30+ Other Endocrine/Metabolic History: gout, lymphedema, obesity, drug induced constipation Hematologic History: Reports: Anemia, Iron Deficiency, Other (See Below) Other Hematologic History: lymphedema Immunologic History: Reports: None Other Immunologic History: Allergy unsecified initial encounter Oncologic (Cancer) History: Reports: Breast Other Oncologic History: potential breast cancer, recent diagnossis. 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 Dermatologic History: Reports: Other (See Below) Other Dermatologic History: cellulitis to leg right lower limb, wound to L arm, open wound to left forearm - Infectious Disease History Infectious Disease History: Reports: Chicken Pox, Measles, Shingles - Past Surgical History HEENT Surgical History: Reports: Cataract Surgery Respiratory Surgical History: Reports: None Endocrine Surgical History: Reports: None Neurological Surgical History: Reports: None Oncologic Surgical History: Reports: Biopsy of Breast, Lumpectomy Social & Family History - Family History Family Medical History: Noncontributory - Tobacco Use Smoking Status *Q: Never Smoker Second Hand Smoke Exposure: No - Caffeine Use Caffeine Use: Reports: Coffee Other Caffeine Use: rarely. - Recreational Drug Use Recreational Drug Use: No - Living Situation & Occupation Living situation: Reports: , Extended Care Facility ([facility]) Occupation: Retired H&P Review of Systems - Review of Systems: Review Of Systems: See Below General: Reports: No Symptoms HEENT: Reports: No Symptoms Pulmonary: Reports: No Symptoms Cardiovascular: Reports: No Symptoms Gastrointestinal: Reports: Abdominal Pain Genitourinary: Reports: No Symptoms Musculoskeletal: Reports: Shoulder Pain, Back Pain Skin: Reports: No Symptoms Neurological: Reports: Difficulty Walking, Gait Disturbance Hematologic/Lymphatic: Reports: Easy Bruising Exam - Exam Exam: See Below - Vital Signs Vital Signs: Last Vital Signs Temp 36.6 C 03/31/20 14:50 Pulse 87 03/31/20 14:50 Resp 16 03/31/20 14:50 BP 136/67 03/31/20 14:50 Pulse Ox 100 03/31/20 14:50 Weight: 65.317 kg - Exam Quality Assessment: No: Supplemental Oxygen General: Alert, Cooperative HEENT: Conjunctiva Clear, EOMI Neck: Supple Lungs: Normal Respiratory Effort Cardiovascular: Regular Rate, Regular Rhythm GI/Abdominal Exam: Soft, Tender (in RUQ), Hepatomegaly Extremities: Pedal Edema Skin: Warm, Intact, Other (fluid weeping from RLE) Neurological: Cranial Nerves Intact Neuro Extensive - Mental Status: Normal Mood/Affect - Patient Data Lab Results Last 24 hrs: Laboratory Results - last 24 hr 03/31/20 03/31/20 03/31/20 Range/Units 11:00 11:00 11:00 WBC 15.55 H (3.98-10.04) K/mm3 RBC 3.35 L (3.98-5.22) M/mm3 Hgb 11.1 L (11.2-15.7) gm/dl Hct 34.3 (34.1-44.9) % MCV 102.4 H (79.4-94.8) fl MCH 33.1 H (25.6-32.2) pg MCHC 32.4 (32.2-35.5) g/dl RDW Std Deviation 50.2 H (36.4-46.3) fL Plt Count 390 H D (182-369) K/mm3 MPV 9.6 (9.4-12.3) fl Neut % (Auto) 89.7 H (34.0-71.1) % Lymph % (Auto) 2.3 L (19.3-51.7) % Lea % (Auto) 7.1 (4.7-12.5) % Eos % (Auto) 0 L (0.7-5.8) Baso % (Auto) 0.0 L (0.1-1.2) % Neut # (Auto) 13.95 H (1.56-6.13) K/mm3 Lymph # (Auto) 0.35 L (1.18-3.74) K/mm3 Lea # (Auto) 1.11 H (0.24-0.36) K/mm3 Eos # (Auto) 0.00 L (0.04-0.36) K/mm3 Baso # (Auto) 0.00 L (0.01-0.08) K/mm3 Manual Slide Review Abnormal smear Sodium 129 L (136-145) mEq/L Potassium 5.0 (3.5-5.1) mEq/L Chloride 92 L (98-107) mEq/L Carbon Dioxide 26 (21-32) mEq/L Anion Gap 16.0 H (5-15) BUN 87 H D (7-18) mg/dL Creatinine 2.5 H (0.55-1.02) mg/dL Est Cr Clr Drug Dosing 13.61 mL/min Estimated GFR (MDRD) 18 (>60) mL/min BUN/Creatinine Ratio 34.8 H (14-18) Glucose 169 H (83-115) mg/dL Calcium 9.0 (8.5-10.1) mg/dL Phosphorus (2.6-4.7) mg/dL Magnesium (1.8-2.4) mg/dl Total Bilirubin 0.4 (0.2-1.0) mg/dL GGT (5-55) U/L AST 33 (15-37) U/L ALT 51 (14-59) U/L Alkaline Phosphatase 102 (46-116) U/L Troponin I 0.024 (0.00-0.056) ng/mL NT-Pro-B Natriuret Pep (0-450) pg/mL Total Protein 6.5 (6.4-8.2) g/dl Albumin 3.2 L (3.4-5.0) g/dl Globulin 3.3 gm/dL Albumin/Globulin Ratio 1.0 (1-2) Lipase 80 (73-393) U/L Urine Color (Yellow) Urine Appearance (Clear) Urine pH (5.0-8.0) Ur Specific [place] (1.005-1.030) Urine Protein (Negative) Urine Glucose (UA) (Negative) Urine Ketones (Negative) Urine Occult Blood (Negative) Urine Nitrite (Negative) Urine Bilirubin (Negative) Urine Urobilinogen (0.2-1.0) Ur Leukocyte Esterase (Negative) Urine RBC (0-5) /hpf Urine WBC (0-5) /hpf Ur Squamous Epith Cells (0-5) /hpf Urine Bacteria (FEW) /hpf Urine Mucus (FEW) /hpf Ur Random Creatinine (30.0-125.0) mg/dL Ur Random Sodium (40-220) mEq/L 03/31/20 03/31/20 03/31/20 Range/Units 11:00 11:00 11:00 WBC (3.98-10.04) K/mm3 RBC (3.98-5.22) M/mm3 Hgb (11.2-15.7) gm/dl Hct (34.1-44.9) % MCV (79.4-94.8) fl MCH (25.6-32.2) pg MCHC (32.2-35.5) g/dl RDW Std Deviation (36.4-46.3) fL Plt Count (182-369) K/mm3 MPV (9.4-12.3) fl Neut % (Auto) (34.0-71.1) % Lymph % (Auto) (19.3-51.7) % Lea % (Auto) (4.7-12.5) % Eos % (Auto) (0.7-5.8) Baso % (Auto) (0.1-1.2) % Neut # (Auto) (1.56-6.13) K/mm3 Lymph # (Auto) (1.18-3.74) K/mm3 Lea # (Auto) (0.24-0.36) K/mm3 Eos # (Auto) (0.04-0.36) K/mm3 Baso # (Auto) (0.01-0.08) K/mm3 Manual Slide Review Sodium (136-145) mEq/L Potassium (3.5-5.1) mEq/L Chloride (98-107) mEq/L Carbon Dioxide (21-32) mEq/L Anion Gap (5-15) BUN (7-18) mg/dL Creatinine (0.55-1.02) mg/dL Est Cr Clr Drug Dosing mL/min Estimated GFR (MDRD) (>60) mL/min BUN/Creatinine Ratio (14-18) Glucose (83-115) mg/dL Calcium (8.5-10.1) mg/dL Phosphorus 3.4 (2.6-4.7) mg/dL Magnesium 1.7 L (1.8-2.4) mg/dl Total Bilirubin (0.2-1.0) mg/dL GGT 39 (5-55) U/L AST (15-37) U/L ALT (14-59) U/L Alkaline Phosphatase (46-116) U/L Troponin I (0.00-0.056) ng/mL NT-Pro-B Natriuret Pep 1453 H (0-450) pg/mL Total Protein (6.4-8.2) g/dl Albumin (3.4-5.0) g/dl Globulin gm/dL Albumin/Globulin Ratio (1-2) Lipase (73-393) U/L Urine Color (Yellow) Urine Appearance (Clear) Urine pH (5.0-8.0) Ur Specific [place] (1.005-1.030) Urine Protein (Negative) Urine Glucose (UA) (Negative) Urine Ketones (Negative) Urine Occult Blood (Negative) Urine Nitrite (Negative) Urine Bilirubin (Negative) Urine Urobilinogen (0.2-1.0) Ur Leukocyte Esterase (Negative) Urine RBC (0-5) /hpf Urine WBC (0-5) /hpf Ur Squamous Epith Cells (0-5) /hpf Urine Bacteria (FEW) /hpf Urine Mucus (FEW) /hpf Ur Random Creatinine (30.0-125.0) mg/dL Ur Random Sodium (40-220) mEq/L 03/31/20 03/31/20 Range/Units 12:10 12:10 WBC (3.98-10.04) K/mm3 RBC (3.98-5.22) M/mm3 Hgb (11.2-15.7) gm/dl Hct (34.1-44.9) % MCV (79.4-94.8) fl MCH (25.6-32.2) pg MCHC (32.2-35.5) g/dl RDW Std Deviation (36.4-46.3) fL Plt Count (182-369) K/mm3 MPV (9.4-12.3) fl Neut % (Auto) (34.0-71.1) % Lymph % (Auto) (19.3-51.7) % Lea % (Auto) (4.7-12.5) % Eos % (Auto) (0.7-5.8) Baso % (Auto) (0.1-1.2) % Neut # (Auto) (1.56-6.13) K/mm3 Lymph # (Auto) (1.18-3.74) K/mm3 [place]a # (Auto) (0.24-0.36) K/mm3 Eos # (Auto) (0.04-0.36) K/mm3 Baso # (Auto) (0.01-0.08) K/mm3 Manual Slide Review Sodium (136-145) mEq/L Potassium (3.5-5.1) mEq/L Chloride (98-107) mEq/L Carbon Dioxide (21-32) mEq/L Anion Gap (5-15) BUN (7-18) mg/dL Creatinine (0.55-1.02) mg/dL Est Cr Clr Drug Dosing mL/min Estimated GFR (MDRD) (>60) mL/min BUN/Creatinine Ratio (14-18) Glucose (83-115) mg/dL Calcium (8.5-10.1) mg/dL Phosphorus (2.6-4.7) mg/dL Magnesium (1.8-2.4) mg/dl Total Bilirubin (0.2-1.0) mg/dL GGT (5-55) U/L AST (15-37) U/L ALT (14-59) U/L Alkaline Phosphatase (46-116) U/L Troponin I (0.00-0.056) ng/mL NT-Pro-B Natriuret Pep (0-450) pg/mL Total Protein (6.4-8.2) g/dl Albumin (3.4-5.0) g/dl Globulin gm/dL Albumin/Globulin Ratio (1-2) Lipase (73-393) U/L Urine Color Yellow (Yellow) Urine Appearance Clear (Clear) Urine pH 6.0 (5.0-8.0) Ur Specific [place] 1.020 (1.005-1.030) Urine Protein Negative (Negative) Urine Glucose (UA) Negative (Negative) Urine Ketones Negative (Negative) Urine Occult Blood Negative (Negative) Urine Nitrite Negative (Negative) Urine Bilirubin Negative (Negative) Urine Urobilinogen 0.2 (0.2-1.0) Ur Leukocyte Esterase Negative (Negative) Urine RBC Not seen (0-5) /hpf Urine WBC 0-5 (0-5) /hpf Ur Squamous Epith Cells 0-5 (0-5) /hpf Urine Bacteria Not seen (FEW) /hpf Urine Mucus Not seen (FEW) /hpf Ur Random Creatinine 41.1 (30.0-125.0) mg/dL Ur Random Sodium 19 L (40-220) mEq/L Result Diagrams: 03/31/20 11:00 03/31/20 11:00 Sepsis Event Note - Evaluation Sepsis Screening Result: No Definite Risk - Focused Exam Vital Signs: Vital Signs Temp Temp Pulse Pulse Resp BP BP 03/31/20 14:50 36.6 C 87 16 136/67 03/31/20 13:11 86 14 120/56 L 03/31/20 10:41 36.8 C 86 16 146/64 H Pulse Ox 03/31/20 14:50 100 03/31/20 13:11 100 03/31/20 10:41 99 Date Exam was Performed: 03/31/20 Time Exam was Performed: 18:53 Consult PN Assessment/Plan Procedures: Procedures AGENT NOS ASSAY W/OPTIC (11/02/19) AIRWAY INHALATION TREATMENT (11/02/19) ASSAY OF DIGOXIN TOTAL (11/08/18) ASSAY OF FREE THYROXINE (11/08/18) ASSAY OF IRON (11/08/18) ASSAY OF LACTIC ACID (11/02/19) ASSAY OF MAGNESIUM (11/02/19) ASSAY OF NATRIURETIC PEPTIDE (11/02/19) ASSAY OF PHOSPHORUS (11/02/19) ASSAY OF TRANSFERRIN (11/08/18) ASSAY OF TROPONIN QUANT (11/02/19) ASSAY THYROID STIM HORMONE (11/08/18) BL SMEAR W/DIFF WBC COUNT (11/02/19) BLOOD CULTURE FOR BACTERIA (11/02/19) BLOOD TRANSFUSION SERVICE (09/18/19) BLOOD TYPING SEROLOGIC ABO (09/18/19) BLOOD TYPING SEROLOGIC RH(D) (09/18/19) BX BREAST 1ST LESION STRTCTC (10/13/18) C-REACTIVE PROTEIN (11/02/19) CHEST WALL MANIPULATION (11/02/19) CHEST WALL MANIPULATION (11/02/19) CHEST WALL MANIPULATION (09/18/19) CHYLMD PNEUM DNA AMP PROBE (11/02/19) COMPATIBILITY TEST ANTIGLOB (09/18/19) COMPLETE CBC AUTOMATED (11/02/19) COMPLETE CBC W/AUTO DIFF WBC (11/02/19) COMPREHEN METABOLIC PANEL (11/02/19) CREATINE MB FRACTION (11/02/19) CT HEAD/BRAIN W/O DYE (09/18/19) CT MAXILLOFACIAL W/O DYE (09/18/19) CT NECK SPINE W/O DYE (09/18/19) CT THORAX W/O DYE (09/18/19) CULTURE OTHR SPECIMN AEROBIC (11/02/19) DETECT AGENT NOS DNA AMP (11/02/19) DXA BONE DENSITY AXIAL (03/05/16) ELECTROCARDIOGRAM TRACING (11/02/19) EMERGENCY DEPT VISIT (03/26/20) EMERGENCY DEPT VISIT (11/02/19) EMERGENCY DEPT VISIT (04/22/19) EMERGENCY DEPT VISIT (11/08/18) EXTRACRANIAL BILAT STUDY (11/08/18) EXTREMITY STUDY (03/01/19) GAIT TRAINING THERAPY (11/02/19) GLUCOSE BLOOD TEST (11/02/19) INFLUENZA ASSAY W/OPTIC (11/02/19) INSERT TEMP BLADDER CATH (11/08/18) M.PNEUMON DNA AMP PROBE (11/02/19) MEASURE BLOOD OXYGEN LEVEL (11/02/19) METABOLIC PANEL TOTAL CA (11/02/19) MR-STAPH DNA AMP PROBE (11/02/19) MYCOPLASMA ANTIBODY (11/02/19) OCCULT BLD FECES 1-3 TESTS (11/08/18) OT EVAL LOW COMPLEX 30 MIN (11/02/19) OT EVAL MOD COMPLEX 45 MIN (09/18/19) PROTHROMBIN TIME (11/02/19) PT EVAL LOW COMPLEX 20 MIN (11/08/18) PT EVAL MOD COMPLEX 30 MIN (11/02/19) QUANTITATIVE ASSAY DRUG (11/08/18) RBC ANTIBODY SCREEN (09/18/19) RBC SED RATE AUTOMATED (11/02/19) RESP VIRUS 6-11 TARGETS (11/02/19) ROUTINE VENIPUNCTURE (11/02/19) SMEAR GRAM STAIN (11/02/19) THER/DIAG CONCURRENT INF (10/25/18) THER/PROPH/DIAG INJ IV PUSH (11/08/18) THER/PROPH/DIAG IV INF ADDON (11/02/19) THER/PROPH/DIAG IV INF INIT (11/02/19) THERAPEUTIC ACTIVITIES (11/02/19) THERAPEUTIC EXERCISES (11/02/19) THROMBOPLASTIN TIME PARTIAL (11/02/19) TTE W/DOPPLER COMPLETE (11/08/18) TX/PRO/DX INJ NEW DRUG ADDON (11/08/18) TX/PRO/DX INJ SAME DRUG ASSOCIATE PROFESSOR OF COUNSELING (11/08/18) URINALYSIS AUTO W/SCOPE (11/08/18) URINE CULTURE/COLONY COUNT (11/08/18) VITAMIN D 25 HYDROXY (11/08/18) X-RAY EXAM ABDOMEN 1 VIEW (03/26/20) X-RAY EXAM CHEST 1 VIEW (11/02/19) X-RAY EXAM CHEST 2 VIEWS (09/18/19) X-RAY EXAM HIP UNI 2-3 VIEWS (05/05/18) X-RAY EXAM KNEE 4 OR MORE (09/18/19) X-RAY EXAM OF FOREARM (09/18/19) (1) Cholecystitis SNOMED Code(s): 36606914 Code(s): K81.9 - CHOLECYSTITIS, UNSPECIFIED Current Visit: Yes Problem List Initiated/Reviewed/Updated: Yes Plan: 85 y/o lady with cholecystitis, symptoms present for 5 days - pt is very frail and high risk operative candidate. Recommend percutaneous cholecystostomy tube placement - will need reversal of anticoagulation before can have any procedure safely - correction of electrolytes per primary team - recommend transfer to higher level of care for continued management Ashley Marquez MD General surgery
--- NOTE | 2020-03-31 18:47 | PCM.DCSUM1 ---
Discharge Summary - Hospital Course HPI Initial Comments: This is an 85 year old female with extensive past medical history including atrial fibrillation, hypertension and heart failure who is brought to the ED via EMS from [facility] for worsening abdominal pain for 5 days. per patient she has been having constant pain graded at a 6-9/10 for 5 days, described as stabbing in RUQ that radiates to her right flank and back which has not improved with anything but rather worsened today after she had a breakfast sandwich from [employer]. Once pain became unbearable she was brought in for further evaluation. Diagnosis: Stroke: No - Discharge Data Discharge Date: 03/31/20 Discharge Disposition: DC/Tfer to Acute Hospital 02 Condition: Good - Referral to Home Health Primary Care Physician: Branden Cervantes MD - Discharge Diagnosis/Problem(s) (1) Acute kidney injury SNOMED Code(s): 27989962, 22211841 ICD Code: N17.9 - ACUTE KIDNEY FAILURE, UNSPECIFIED Status: Acute Current Visit: Yes (2) Pleural effusion, right SNOMED Code(s): 82966549 ICD Code: J90 - PLEURAL EFFUSION, NOT ELSEWHERE CLASSIFIED Status: Acute Current Visit: Yes (3) Bilateral lower extremity edema SNOMED Code(s): 906742427, 93207121, 206939498 ICD Code: R60.0 - LOCALIZED EDEMA Status: Acute Current Visit: Yes (4) Anemia SNOMED Code(s): 921154937 ICD Code: D64.9 - ANEMIA, UNSPECIFIED Status: Acute Priority: High Current Visit: No Qualifiers: Anemia type: iron deficiency Iron deficiency anemia type: unspecified iron deficiency Qualified Code(s): D50.9 - Iron deficiency anemia, unspecified (5) Atrial fibrillation SNOMED Code(s): 87037187 ICD Code: I48.91 - UNSPECIFIED ATRIAL FIBRILLATION Status: Chronic Priority: High Current Visit: No Qualifiers: Atrial fibrillation type: paroxysmal Qualified Code(s): I48.0 - Paroxysmal atrial fibrillation (6) Cholelithiases SNOMED Code(s): 139015051 ICD Code: K80.20 - CALCULUS OF GALLBLADDER W/O CHOLECYSTITIS W/O OBSTRUCTION Status: Acute Priority: High Current Visit: Yes Qualifiers: Cholelithiasis location: gallbladder Cholecystitis presence: without cholecystitis Biliary obstruction: without biliary obstruction Qualified Code(s): K80.20 - Calculus of gallbladder without cholecystitis without obstruction (7) Chronic constipation SNOMED Code(s): 964363987 ICD Code: K59.09 - OTHER CONSTIPATION Status: Chronic Priority: Low Current Visit: No (8) Chronic renal insufficiency, stage III (moderate) SNOMED Code(s): 212056275 ICD Code: N18.3 - CHRONIC KIDNEY DISEASE, STAGE 3 (MODERATE) Status: Acute Current Visit: No (9) Heart failure SNOMED Code(s): 44830768 ICD Code: I50.9 - HEART FAILURE, UNSPECIFIED Status: Acute Current Visit : No (10) Hypertension SNOMED Code(s): 54027964 ICD Code: I10 - ESSENTIAL (PRIMARY) HYPERTENSION Status: Chronic Priority : Low Current Visit: No Qualifiers: Hypertension type: unspecified Qualified Code(s): I10 - Essential (primary ) hypertension (11) Hypomagnesemia SNOMED Code(s): 857937870 ICD Code: E83.42 - HYPOMAGNESEMIA Status: Acute Priority: High Current Visit: Yes (12) Hyponatremia SNOMED Code(s): 36828842 ICD Code: E87.1 - HYPO-OSMOLALITY AND HYPONATREMIA Status: Acute Priority : High Current Visit: Yes - Patient Summary/Data Consults: Consultations 03/31/20 14:01 Consult to Case Management/Solids Control Technician [CONS] Routine Consult to Physician [CONS] Routine Consult to Spiritual Care [CONS] Routine OT Evaluation and Treatment [CONS] Routine PT Evaluation and Treatment [CONS] Routine Hospital Course: Once in the ED patient was found to afebrile with leukocytosis with a left shift , no bandemia, hyponatremia (129), Hypochloremia (92) and acutely worsened GFR from 30s at baseline to 18 today. An abdominal US was performed and found to have multiple large stones within gallbladder with sludge ball and sludge vs polyps within gallbladder as well, it is described as a suboptimal study with suboptimal visualization of the CBD but reported as normal on report. CXR was also performed and patient was found to have a new onset small right sided pleural effusion. VS stable Patient grading pain at an 8 upon my interrogation with significant McBurney sign and exquisite tenderness over RUQ as well as soreness throughout the rest of her abdomen as well as hepatomegaly. 2+ pitting edema of BL LE Patient at baseline has refractory edema to lower extremities however they are weeping at this time, she is also unable to lay flat but when asked about states this is her baseline. She also is wheelchair bound as per [facility]'s staff With concern for cholangitis Zosyn was started. Surgical consult was obtained and they recommended patient get a percutaneous cholecystostomy, she is a poor candidate for cholecystectomy due to overall health state. Case discussed with Octavio at [facility] who accepted transfer at 18:30 on 2019 - Discharge Plan Home Medications: Home Meds Acetaminophen [Tylenol] 325 mg PO Q6HR PRN 11/08/18 [History] Bumetanide [Bumex] 2 mg PO DAILY 11/08/18 [History] Loratadine 10 mg PO DAILY PRN 11/08/18 [History] Multivitamin [Multi-Vitamin Daily] 1 tab PO DAILY 11/08/18 [History] Simvastatin 20 mg PO BEDTIME 11/08/18 [History] allopurinoL [Zyloprim] 100 mg PO BID 11/08/18 [History] traMADol [Ultram] 50 mg PO BID PRN 11/08/18 [History] Amiodarone [Cordarone] 200 mg PO DAILY #30 tab 11/12/18 [Rx] Apixaban [Eliquis] 2.5 mg PO BID #30 11/12/18 [Rx] Acetaminophen [Tylenol] 650 mg PO QID 03/01/19 [History] Famotidine [Pepcid] 20 mg PO DAILY 03/01/19 [History] Sennosides/Docusate Sodium [Senna Plus Tablet] 1 tab PO BID PRN 03/01/19 [ History] Bumetanide 1 mg PO QPM 11/02/19 [History] Niacin (Inositol Niacinate) [Niacin Flush Free 500 mg Cap] 400 mg PO DAILY 11/02 [History] Polyvinyl Alcohol/Povidone/Pf [Refresh Classic Eye Drops] 1 each EYEBOTH TID [History] Potassium Chloride 10 meq PO DAILY 11/02/19 [History] Sennosides/Docusate Sodium [Senna Plus 8.6-50 mg Tablet] 1 tab PO BID 11/02/19 [ History] guaiFENesin [Mucinex] 600 mg PO BID 11/02/19 [History] oxyCODONE 5 mg PO BID 11/02/19 [History] oxyCODONE 5 mg PO Q4HR PRN 11/02/19 [History] polyethylene glycoL 3350 [MiraLAX] 17 gm PO DAILY PRN 11/02/19 [History] Bisacodyl [Laxative Suppository] 10 mg RC ONETIME PRN 03/26/20 [History] Ipratropium/Albuterol Sulfate [Iprat-Albut 0.5-3(2.5) MG/3 ML] 3 ml IH QID PRN 03/26/20 [History] Iron Ag,Ps/C/Fa6/B12/Zn/SA/Sto [Niferex Tablet] 1 each PO BID 03/26/20 [History] Spironolactone [Aldactone] 25 mg PO DAILY 03/26/20 [History] Ascorbic Acid 500 mg PO BID 03/31/20 [History] Menthol [Aspercreme Max] 1 applic TOP BID PRN 03/31/20 [History] Forms: ED Department Discharge Referrals: Branden Cervantes MD [Primary Care Provider] - - Discharge Summary/Plan Comment DC Time >30 min.: Yes - General Info Date of Service: 03/31/20 Subjective Update: Pain in RUQ 06/26 - Patient Data Vitals - Most Recent: Last Vital Signs Temp 97.9 F 03/31/20 14:50 Pulse 87 03/31/20 14:50 Resp 16 03/31/20 14:50 BP 136/67 03/31/20 14:50 Pulse Ox 100 03/31/20 14:50 Weight - Most Recent: 65.317 kg - Exam General: Reports: Alert, Oriented, Cooperative, Moderate Distress HEENT: Reports: Pupils Equal, Pupils Reactive, Mucous Membr. Moist/Haena Neck: Reports: Supple Lungs: Reports: Decreased Breath Sounds, Crackles. Denies: Rales, Rhonchi, Rub , Stridor, Wheezing Cardiovascular: Reports: Regular Rate, Irregular Rhythm. Denies: Murmurs, Gallops, Rubs GI/Abdominal Exam: Distended, Guarding, Tender, Abnormal Bowel Sounds, Hepatomegaly Extremities: Other (2+ pitting edema BL with chronic skin changes from edema) Psy/Mental Status: Reports: Alert
== END 2020-03-31 19:40 | DRG 445 ==
LOC: JD.ED 10:24 → JD.MS 13:27
PROVIDERS: ADMIT Internal Medicine; ATTEND Internal Medicine
DX: K80.20 Calculus of gallbladder without cholecystitis without obstruction (principal); K80.10 Calculus of gallbladder with chronic cholecystitis without obstruction; H91.92 Unspecified hearing loss, left ear; H54.7 Unspecified visual loss; I48.91 Unspecified atrial fibrillation; N17.9 Acute kidney failure, unspecified; J90 Pleural effusion, not elsewhere classified; I13.0 Hypertensive heart and chronic kidney disease with heart failure and stage 1 through stage 4 chronic kidney disease, or unspecified chronic kidney disease; N18.9 Chronic kidney disease, unspecified; E87.1 Hypo-osmolality and hyponatremia; Z87.01 Personal history of pneumonia (recurrent); M19.90 Unspecified osteoarthritis, unspecified site; M10.9 Gout, unspecified; N18.4 Chronic kidney disease, stage 4 (severe); E66.9 Obesity, unspecified; D50.9 Iron deficiency anemia, unspecified; C50.919 Malignant neoplasm of unspecified site of unspecified female breast; Z98.49 Cataract extraction status, unspecified eye; I48.0 Paroxysmal atrial fibrillation; Z79.01 Long term (current) use of anticoagulants; K59.09 Other constipation; I50.9 Heart failure, unspecified; E83.42 Hypomagnesemia; E87.8 Other disorders of electrolyte and fluid balance, not elsewhere classified; I89.0 Lymphedema, not elsewhere classified; K21.9 Gastro-esophageal reflux disease without esophagitis; M89.49 Other hypertrophic osteoarthropathy, multiple sites; E78.00 Pure hypercholesterolemia, unspecified; M1A.9XX0 Chronic gout, unspecified, without tophus (tophi); M54.9 Dorsalgia, unspecified; G89.29 Other chronic pain; M25.519 Pain in unspecified shoulder; E78.5 Hyperlipidemia, unspecified; Z88.5 Allergy status to narcotic agent; Z85.3 Personal history of malignant neoplasm of breast; Z88.8 Allergy status to other drugs, medicaments and biological substances; Z79.899 Other long term (current) drug therapy
CPT/HCPCS: 36415; 71045; 71045-26; 76705; 76705-26; 80053; 81001; 82570; 82977; 83690; 83735; 83880; 84100; 84145; 84300; 84484; 85025; 87040; 87641; 93005; 93306; 97116-GP; 97162-GP; 97165-GO; 99285; 99285-25; A9270-GY; J2543; J3475; J3490; J7050

== ENCOUNTER 2020-05-03 11:15 | Emergency (ER) | payer MEDICARE, OTHER ==
[2020-05-03] MEDS ORDERED: Sodium Chloride 0.9% 10 ML Syringe FLUSH PRN (11:39)
--- NOTE | 2020-05-03 12:02 | EDM.PDOC ---
ED HPI GENERAL MEDICAL PROBLEM - General Chief Complaint: Cardiovascular Problem Stated Complaint: [facility] Time Seen by Provider: 05/03/20 11:20 Source of Information: Reports: Patient, EMS, Provider History Limitations: Reports: No Limitations - History of Present Illness INITIAL COMMENTS - FREE TEXT/NARRATIVE: The patient presents from [facility] for low heart rate. She was going to see Dr Wilson for possible dialysis. They did vital signs and her heart rate was in the 30s. She was sent over by ambulance. Her heart rate when they got there was in the 110s and the same here. She admits to having chest pain for the past month. She also has chronic edema of both legs. She has Link wraps on both legs now. She denies fever, chills, cough, shortness of breath, abdominal pain, nausea or vomiting. She is a resident of [facility]. Onset: Sudden Duration: Minutes: Location: Reports: Chest Quality: Reports: Sharp Severity: Moderate Improves with: Reports: None Worsens with: Reports: None Associated Symptoms: Reports: Chest Pain. 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: Other (see below) Other Treatments HEATER OPERATOR HELPER: none Chest Pain Score (Numeric/FACES): 7 - Related Data Allergies Allergy/AdvReac Type Severity Reaction Status Date / Time codeine Allergy Severe Rash Verified 05/03/20 11:31 iodine Allergy Severe Rash Verified 05/03/20 11:31 metoprolol [From Toprol XL] Allergy Severe swelling Verified 05/03/20 11:31 of lips naproxen [From Naprelan] Allergy Severe Rash Verified 05/03/20 11:31 prednisone Allergy Severe Other Verified 05/03/20 11:31 propoxyphene AdvReac Severe urine Verified 05/03/20 11:31 retention Home Meds: Home Meds Acetaminophen [Tylenol] 325 mg PO Q6HR PRN 11/08/18 [History] Bumetanide [Bumex] 4 mg PO BID 11/08/18 [History] Simvastatin 20 mg PO BEDTIME 11/08/18 [History] allopurinoL [Zyloprim] 100 mg PO BID 11/08/18 [History] Amiodarone [Cordarone] 200 mg PO DAILY #30 tab 11/12/18 [Rx] Acetaminophen [Tylenol] 650 mg PO QID 03/01/19 [History] Famotidine [Pepcid] 20 mg PO DAILY 03/01/19 [History] Sennosides/Docusate Sodium [Senna Plus Tablet] 1 tab PO BID PRN 03/01/19 [History] Niacin (Inositol Niacinate) [Niacin Flush Free 500 mg Cap] 400 mg PO DAILY 11/02/19 [History] Polyvinyl Alcohol/Povidone/Pf [Refresh Classic Eye Drops] 1 each EYEBOTH TID 11/02/19 [History] Sennosides/Docusate Sodium [Senna Plus 8.6-50 mg Tablet] 1 tab PO BID 11/02/19 [History] guaiFENesin [Mucinex] 600 mg PO BID 11/02/19 [History] oxyCODONE 5 mg PO BID 11/02/19 [History] oxyCODONE 5 mg PO Q4HR PRN 11/02/19 [History] polyethylene glycoL 3350 [MiraLAX] 17 gm PO DAILY PRN 11/02/19 [History] Ipratropium/Albuterol Sulfate [Iprat-Albut 0.5-3(2.5) MG/3 ML] 3 ml IH BID 03/26/20 [History] Iron Ag,Ps/C/Fa6/B12/Zn/SA/Sto [Niferex Tablet] 1 each PO BID 03/26/20 [History] Spironolactone [Aldactone] 12.5 mg PO BID 03/26/20 [History] Ascorbic Acid 500 mg PO BID 03/31/20 [History] Calcium Carbonate [Tums] 200 mg PO Q6HR PRN 05/03/20 [History] Sertraline [Zoloft] 25 mg PO DAILY 05/03/20 [History] bisacodyL [Dulcolax] 10 mg RECTAL DAILY PRN 05/03/20 [History] fentaNYL [Fentanyl] 12 mcg TRDERM ASDIRECTED 05/03/20 [History] metOLazone [Metolazone] 5 mg PO BID 05/03/20 [History] Past Medical History HEENT History: Reports: Hard of Hearing, Impaired Vision, Other (See Below) Other HEENT History: hearing aid to left ear, wears glasses for reading Cardiovascular History: Reports: Afib, High Cholesterol, Hypertension Other Cardiovascular History: edema generalized, HF, HTN with HF, dizziness, giddiness, cardiac arrythmia, anemia, 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, localized peripheral edema Respiratory History: Reports: Pneumonia, Recurrent Other Respiratory History: mycoplasma pneumoniae Gastrointestinal History: Reports: GERD Other Gastrointestinal History: nutritional deficiency, dysphagia, pharyngeal phase Genitourinary History: Reports: Chronic Renal Insuffiency Other Genitourinary History: hypokalemia, CKD stage III, hypomagnesemia 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: Musculoskeletal History: Reports: Gout, Osteoarthritis Other Musculoskeletal History: Chronic bilateral shoulder and back pain, chronic bilateral knee pain, multiple rib fx's L side, muscle weakness, unspecified abnormality of gait and mobility, muscle weakness, need for assistance with personal care., gout, Neurological History: Reports: Vertigo Other Neuro History: dizziness Other Psychiatric History: "Poisoning by cardiac-stimulant glycosides and drugs of similar action, accidental, subsequent encounter-digoxin toxicity" Endocrine/Metabolic History: Reports: Hypokalemia, Hypomagnesemia, Obesity/BMI 30+ Other Endocrine/Metabolic History: gout, lymphedema, obesity, drug induced constipation Hematologic History: Reports: Anemia, Iron Deficiency, Other (See Below) Other Hematologic History: lymphedema Immunologic History: Reports: None Other Immunologic History: Allergy unsecified initial encounter Oncologic (Cancer) History: Reports: Breast Other Oncologic History: potential breast cancer, recent diagnossis. 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 Dermatologic History: Reports: Other (See Below) Other Dermatologic History: cellulitis to leg right lower limb, wound to L arm, open wound to left forearm - Infectious Disease History Infectious Disease History: Reports: Chicken Pox, Measles, Shingles - Past Surgical History HEENT Surgical History: Reports: Cataract Surgery Respiratory Surgical History: Reports: None Endocrine Surgical History: Reports: None Neurological Surgical History: Reports: None Oncologic Surgical History: Reports: Biopsy of Breast, Lumpectomy Social & Family History - Family History Family Medical History: Noncontributory - Tobacco Use Smoking Status *Q: Never Smoker - Caffeine Use Caffeine Use: Reports: Tea Other Caffeine Use: rarely. - Recreational Drug Use Recreational Drug Use: No - Living Situation & Occupation Living situation: Reports: , Extended Care Facility ([facility]) Occupation: Retired ED ROS GENERAL - Review of Systems Review Of Systems: See Below Constitutional: Reports: No Symptoms HEENT: Reports: No Symptoms Respiratory: Reports: No Symptoms Cardiovascular: Reports: Chest Pain, Other (bradycardia) Endocrine: Reports: No Symptoms GI/Abdominal: Reports: No Symptoms : Reports: No Symptoms Musculoskeletal: Reports: No Symptoms ED EXAM, GENERAL - Physical Exam Exam: See Below Exam Limited By: No Limitations General Appearance: Alert, No Apparent Distress Ears: Normal External Exam Nose: Normal Inspection Head: Atraumatic, Normocephalic Neck: Normal Inspection Respiratory/Chest: No Respiratory Distress, Lungs Clear, Normal Breath Sounds Cardiovascular: No Edema, No Murmur, Tachycardia GI/Abdominal: Soft, Non-Tender, No Organomegaly, No Mass Extremities: Other (Ecchymosis to both arms. Both legs are wrapped with Link wraps) Neurological: Alert, Oriented, No Motor/Sensory Deficits EKG INTERPRETATION EKG Date: 05/03/20 Time: 11:19 Rhythm: Other (sinus tachycardia) Rate (Beats/Min): 117 [place]: Normal P-Wave: Present QRS: LBBB HI/PQ Interval: 1st degree HB Course - Vital Signs Last Recorded V/S: Last Vital Signs Temp 97.5 F 05/03/20 11:22 Pulse 117 H 05/03/20 11:22 Resp 20 05/03/20 11:22 BP 96/75 05/03/20 11:22 Pulse Ox 97 05/03/20 11:22 - Orders/Labs/Meds Orders: Active Orders 24 hr Category Date Time Status Cardiac Monitoring [RC] . DIRECTED Care 05/03/20 11:39 Active EKG Documentation Completion [RC] STAT Care 05/03/20 11:23 Active Oxygen Therapy [RC] PRN Care 05/03/20 11:40 Active Peripheral IV Care [RC] . DIRECTED Care 05/03/20 11:41 Active CORONAVIRUS COVID-19 JIMENEZ [MOLEC] Stat Lab 05/03/20 13:07 Received CULTURE BLOOD [BC] Stat Lab 05/03/20 12:40 Received CULTURE BLOOD [BC] Stat Lab 05/03/20 13:00 Received LACTIC ACID W/ REFLEX [LACTATE SEPSIS W/ REFLEX] [CHEM] Lab 05/03/20 12:40 Received Stat UA W/MICROSCOPIC [URIN] Stat Lab 05/03/20 13:14 Received Sodium Chloride 0.9% [Normal Saline] 1,000 ml Med 05/03/20 12:45 Active IV ASDIRECTED Sodium Chloride 0.9% [Saline Flush] Med 05/03/20 11:39 Active 10 ml FLUSH ASDIRECTED PRN Vancomycin 1.5 gm Med 05/03/20 12:45 Active Sodium Chloride 0.9% [Normal Saline] 500 ml IV ONETIME cefTRIAXone [Rocephin] 2 gm Med 05/03/20 13:00 Active Sodium Chloride 0.9% [Normal Saline] 100 ml IV Q24H Blood Culture x2 Reflex Set [OM.PC] Stat Oth 05/03/20 12:23 Ordered Peripheral IV Insertion Adult [OM.PC] Stat Oth 05/03/20 11:39 Ordered Medication Orders Vancomycin HCl 1.5 gm/ Sodium (Chloride) 500 mls @ 250 mls/hr IV ONETIME ONE Stop: 05/03/20 14:44 Sodium Chloride (Normal Saline) 1,000 mls @ 150 mls/hr IV ASDIRECTED [facility] Last Admin: 05/03/20 13:03 Dose: 150 mls/hr Documented by: GARY Ceftriaxone Sodium 2 gm/ (Sodium Chloride) 100 mls @ 200 mls/hr IV Q24H [facility] Last Admin: 05/03/20 13:03 Dose: 200 mls/hr Documented by: GARY Sodium Chloride (Saline Flush) 10 ml FLUSH ASDIRECTED PRN PRN Reason: Keep Vein Open Last Admin: 05/03/20 12:31 Dose: 10 ml Documented by: GARY Labs: Laboratory Tests 05/03/20 05/03/20 Range/Units 11:30 11:30 WBC 26.20 H (3.98-10.04) K/mm3 RBC 3.71 L (3.98-5.22) M/mm3 Hgb 12.2 (11.2-15.7) gm/dl Hct 36.4 (34.1-44.9) % MCV 98.1 H D (79.4-94.8) fl MCH 32.9 H (25.6-32.2) pg MCHC 33.5 (32.2-35.5) g/dl RDW Std Deviation 49.2 H (36.4-46.3) fL Plt Count 263 D (182-369) K/mm3 MPV 10.8 (9.4-12.3) fl Neut % (Auto) 95.8 H (34.0-71.1) % Lymph % (Auto) 1.0 L (19.3-51.7) % [place] % (Auto) 2.4 L (4.7-12.5) % Eos % (Auto) 0 L (0.7-5.8) Baso % (Auto) 0.1 (0.1-1.2) % Neut # (Auto) 25.12 H (1.56-6.13) K/mm3 Lymph # (Auto) 0.25 L (1.18-3.74) K/mm3 [place] # (Auto) 0.62 H (0.24-0.36) K/mm3 Eos # (Auto) 0.00 L (0.04-0.36) K/mm3 Baso # (Auto) 0.02 (0.01-0.08) K/mm3 Manual Slide Review Abnormal smear Sodium 119 L D (136-145) mEq/L Potassium 3.9 (3.5-5.1) mEq/L Chloride 82 L (98-107) mEq/L Carbon Dioxide 21 (21-32) mEq/L Anion Gap 19.9 H (5-15) BUN 103 H (7-18) mg/dL Creatinine 3.7 H D (0.55-1.02) mg/dL Est Cr Clr Drug Dosing 8.79 mL/min Estimated GFR (MDRD) 12 (>60) mL/min BUN/Creatinine Ratio 27.8 H (14-18) Glucose 163 H (83-115) mg/dL Calcium 8.8 (8.5-10.1) mg/dL Phosphorus 5.9 H (2.6-4.7) mg/dL Magnesium 1.6 L (1.8-2.4) mg/dl Total Bilirubin 0.6 (0.2-1.0) mg/dL AST 59 H (15-37) U/L ALT 57 (14-59) U/L Alkaline Phosphatase 127 H (46-116) U/L Troponin I < 0.017 (0.00-0.056) ng/mL Total Protein 6.3 L (6.4-8.2) g/dl Albumin 2.7 L (3.4-5.0) g/dl Globulin 3.6 gm/dL Albumin/Globulin Ratio 0.8 L (1-2) Meds: Medications Generic Name Dose Route Start Last Admin Trade Name Freq PRN Reason Stop Dose Admin Vancomycin HCl 1.5 gm/ Sodium 500 mls @ 250 mls/hr 05/03/20 12:45 Chloride IV 05/03/20 14:44 ONETIME ONE Sodium Chloride 1,000 mls @ 150 mls/hr 05/03/20 12:45 05/03/20 13:03 Normal Saline IV 150 mls/hr ASDIRECTED LEEANNE Administration Ceftriaxone Sodium 2 gm/ 100 mls @ 200 mls/hr 05/03/20 13:00 05/03/20 13:03 Sodium Chloride IV 200 mls/hr Q24H LEEANNE Administration Sodium Chloride 10 ml 05/03/20 11:39 05/03/20 12:31 Saline Flush FLUSH 10 ml ASDIRECTED PRN Administration Keep Vein Open Discontinued Medications Generic Name Dose Route Start Last Admin Trade Name Freq PRN Reason Stop Dose Admin Vancomycin HCl 1.5 gm/ Sodium 250 mls @ 250 mls/hr 05/03/20 12:28 Chloride IV 05/03/20 13:27 ONETIME ONE - Re-Assessments/Exams Free Text/Narrative Re-Assessment/Exam: 05/03/20 12:03 I ordered an IV saline lock, EKG, CXR, and labs. Her EKG shows sinus tachycardia with 1st degree HB and new left bundle branch block. 05/03/20 12:43 Her WBC was elevated at 16.2. Her Na is low at 119. Her anion gap was elevated at 19.9. Her BUN is elevated at 103 along with her creatinine of 3.7. Her GFR is low at 12. Her glucose is elevated at 163. 05/03/20 13:25 Her magnesium is a little low at 1.6. Her AST is 59. Her alk phos is 127. She is in renal failure and she is septic from cellulitis on her right leg. I had my nurse take the wraps off. I ordered vancomycin 1.5g IV. I called Dr Wilson and he recommended she be transferred to [facility] in [place]. Dr Wilson was in [place] at the clinic so I called [facility] and talked with Dr Segal and he accepted the patient and he wanted Rocephin added. Departure - Departure Time of Disposition: 13:35 Disposition: DC/Tfer to [facility] 02 Reason for Transfer *Q: Other Condition: Fair Clinical Impression: New onset left bundle branch block (LBBB), Hyponatremia Cellulitis Qualifiers: Site of cellulitis: extremity Site of cellulitis of extremity: lower extremity Laterality: right Qualified Code(s): L03.115 - Cellulitis of right lower limb Sepsis Qualifiers: Sepsis type: sepsis due to unspecified organism Sepsis acute organ dysfunction status: unspecified Qualified Code(s): A41.9 - Sepsis, unspecified organism Renal failure Qualifiers: Renal failure chronicity: unspecified chronicity Qualified Code(s): N19 - Unspecified kidney failure Referrals: Branden Cervantes MD [Primary Care Provider] - Forms: ED Department Discharge Sepsis Event Note (ED) - Evaluation Sepsis Screening Result: No Definite Risk - Focused Exam Vital Signs: Vital Signs Temp Pulse Resp BP Pulse Ox 05/03/20 11:22 97.5 F 117 H 20 96/75 97 - My Orders Last 24 Hours: My Active Orders 05/03/20 11:39 Cardiac Monitoring [RC] . DIRECTED Sodium Chloride 0.9% [Saline Flush] 10 ml FLUSH ASDIRECTED PRN Peripheral IV Insertion Adult [OM.PC] Stat 05/03/20 11:40 Oxygen Therapy [RC] PRN 05/03/20 11:41 Peripheral IV Care [RC] . DIRECTED 05/03/20 12:23 Blood Culture x2 Reflex Set [OM.PC] Stat 05/03/20 12:40 CULTURE BLOOD [BC] Stat LACTIC ACID W/ REFLEX [LACTATE SEPSIS W/ REFLEX] [CHEM] Stat 05/03/20 12:45 Sodium Chloride 0.9% [Normal Saline] 1,000 ml IV ASDIRECTED Vancomycin 1.5 gm Sodium Chloride 0.9% [Normal Saline] 500 ml IV ONETIME 05/03/20 13:00 CULTURE BLOOD [BC] Stat cefTRIAXone [Rocephin] 2 gm Sodium Chloride 0.9% [Normal Saline] 100 ml IV Q24H 05/03/20 13:07 CORONAVIRUS COVID-19 JIMENEZ [MOLEC] Stat 05/03/20 13:14 UA W/MICROSCOPIC [URIN] Stat - Assessment/Plan Last 24 Hours: My Active Orders 05/03/20 11:39 Cardiac Monitoring [RC] . DIRECTED Sodium Chloride 0.9% [Saline Flush] 10 ml FLUSH ASDIRECTED PRN Peripheral IV Insertion Adult [OM.PC] Stat 05/03/20 11:40 Oxygen Therapy [RC] PRN 05/03/20 11:41 Peripheral IV Care [RC] . DIRECTED 05/03/20 12:23 Blood Culture x2 Reflex Set [OM.PC] Stat 05/03/20 12:40 CULTURE BLOOD [BC] Stat LACTIC ACID W/ REFLEX [LACTATE SEPSIS W/ REFLEX] [CHEM] Stat 05/03/20 12:45 Sodium Chloride 0.9% [Normal Saline] 1,000 ml IV ASDIRECTED Vancomycin 1.5 gm Sodium Chloride 0.9% [Normal Saline] 500 ml IV ONETIME 05/03/20 13:00 CULTURE BLOOD [BC] Stat cefTRIAXone [Rocephin] 2 gm Sodium Chloride 0.9% [Normal Saline] 100 ml IV Q24H 05/03/20 13:07 CORONAVIRUS COVID-19 JIMENEZ [MOLEC] Stat 05/03/20 13:14 UA W/MICROSCOPIC [URIN] Stat
--- NOTE | 2020-05-03 12:38 | CR ---
Chest: AP view of the chest was obtained. Comparison: Prior chest x-ray of 03/31/20. Heart size and mediastinum are within normal limits for AP technique. Lungs are clear with no acute parenchymal change. Degenerative change is seen within both shoulders. Mild scoliosis is present within the spine. Impression: 1. Findings as noted above. 2. Nothing acute is appreciated on AP chest x-ray. Diagnostic code #2 This report was dictated in MDT
[2020-05-03] MEDS ORDERED: Sodium Chloride 0.9% 1,000 ML IV SCH (12:45)
[2020-05-03] MEDS ORDERED: Vancomycin 1.5 GM in Sodium Chloride 0.9% 500 ML IV ONE (12:45)
[2020-05-03] MEDS ORDERED: cefTRIAXone 2 GM in Sodium Chloride 0.9% 100 ML IV SCH (13:00)
== END 2020-05-03 13:47 ==
LOC: JD.ED 11:15
DX: A41.9 Sepsis, unspecified organism (principal); R65.20 Severe sepsis without septic shock; N17.9 Acute kidney failure, unspecified; I44.7 Left bundle-branch block, unspecified; E87.1 Hypo-osmolality and hyponatremia; L03.115 Cellulitis of right lower limb; N18.3 Chronic kidney disease, stage 3 (moderate); I13.0 Hypertensive heart and chronic kidney disease with heart failure and stage 1 through stage 4 chronic kidney disease, or unspecified chronic kidney disease; I50.9 Heart failure, unspecified; E78.00 Pure hypercholesterolemia, unspecified; I48.91 Unspecified atrial fibrillation; K21.9 Gastro-esophageal reflux disease without esophagitis; E66.9 Obesity, unspecified; Z88.5 Allergy status to narcotic agent; Z88.6 Allergy status to analgesic agent; Z88.8 Allergy status to other drugs, medicaments and biological substances; Z68.23 Body mass index [BMI] 23.0-23.9, adult; Z79.899 Other long term (current) drug therapy
CPT/HCPCS: 36415; 71045; 71045-26; 80053; 81001; 83605; 83735; 84100; 84484; 85025; 87040; 87086; 87088; 87186; 93005; 96365; 96375; 99285-25; J0696; J3370; J7030; J7040; J7050; U0002